=== PATIENT | female | born 1995 | race Caucasian/White ===

== ENCOUNTER 2021-08-10 04:29 | Emergency (ER) | payer BC, SELFPAY ==
[2021-08-10 04:35] VITALS: BP 156/102; PULSE 97; RESP 18; TEMP 36.6; O2SAT 97; BMI 38.3
--- NOTE | 2021-08-10 04:58 | ED.DENTAL ---
HPI - Dental/Oral General Chief complaint: Dental/Oral Stated complaint: Dental pain Time Seen by Provider: 08/10/21 04:58 Source: patient Mode of arrival: ambulatory Limitations: no limitations History of Present Illness HPI Narrative: Patient history of dental caries for last few days got worse tonight after she had pizza, plan to see dentist next week no swelling of the gum no cellulitis no fever no chills Related Data Previous Rx's Medication Instructions Recorded amoxicillin 875 mg-potassium 1 tab PO BID #20 tab 08/10/21 clavulanate 125 mg tablet (Augmentin) oxycodone-acetaminophen 5 mg-325 1 tab PO Q6H PRN #20 tab 08/10/21 mg tablet (Percocet) Allergies Allergy/AdvReac Type Severity Reaction Status Date / Time No Known Allergies Allergy Unverified 07/06/20 16:27 Review of Systems Review of Systems: Yes all other systems are reviewed and are negative PMFSH Social History Social History Advance Directives: No Patient : No Physical Exam Vital Signs: Vital Signs: Last Vital Signs Temp 97.8 F 08/10/21 04:35 Pulse 97 08/10/21 04:35 Resp 18 08/10/21 04:35 BP 156/102 H 08/10/21 04:35 Pulse Ox 97 08/10/21 04:35 Body Mass Index 38.3 Const: General: well developed and in distress mild Orientation/consciousness: patient oriented x3 HENMT: Mouth: Normal oral and palatal mucosa present Teeth and gingiva: gingiva normal Teeth image: 1. No: 21 caried tooth without any gum swelling sensitive to touch Resp: Effort & Inspection: normal respiratory effort Neuro: General: patient oriented x3 Discharge Plan Discharge Clinical Impression: Dental caries Patient Disposition: Home, Self-Care Instructions: Toothache (ED) Additional Instructions: Take pain medication antibiotic as prescribed and follow with dentist as scheduled Prescriptions: New oxycodone-acetaminophen [Percocet] 5-325 mg tablet 1 tab PO Q6H PRN (Reason: pain) Qty: 20 RF: 0 amoxicillin-pot clavulanate [Augmentin] 875-125 mg tablet 1 tab PO BID Qty: 20 RF: 0 Interventions: ED Discharge Assessment Last Done: 08/10/21 05:22 Discharge Date/Time: 08/10/21 05:23
[2021-08-10] MEDS: oxyCODONE HCl Immed Release 5 MG TABLET 10 MG PO (05:16)
[2021-08-10] MEDS: Amoxicillin/Potassium Clav 875 MG TABLET PO (05:18)
== END 2021-08-10 05:23 | disposition home or self-care (01) ==
PROVIDERS: Emergency Provider Internal Medicine
DX: K02.9 Dental caries, unspecified (principal); Z79.899 Other long term (current) drug therapy
CPT/HCPCS: 99283

== ENCOUNTER 2022-07-12 17:05 | Emergency (ER) | payer BC, SELFPAY ==
--- NOTE | ~2022-07-12 | XR_ITS ---
EXAMINATION: PORTABLE CHEST 1 VIEW CLINICAL INFORMATION: cough . COMPARISON: No recent pertinent prior studies are available for comparison. TECHNIQUE: Portable frontal view of the chest was obtained. FINDINGS: The lungs are hypoexpanded. No focal infiltrate, effusion, edema, or pneumothorax. Cardiac and mediastinal silhouettes are within normal limits for technique. No acute bony abnormality seen. XR/XR chest 1V IMPRESSION: No evidence of acute disease.
[2022-07-12 17:36] VITALS: BP 114/79; PULSE 83; RESP 18; TEMP 36.7; O2SAT 99; BMI 41.2
[2022-07-12 18:32] LABS: MANUAL DIFF FLAG NO
[2022-07-12 18:34] LABS: Basophils Absolute Auto 0.1 X10*3/uL (0.0-0.2); Basophils Percent Auto 0.4 % (0-2); Eosinophils Absolute Auto 0.5 X10*3/uL (0.0-0.4); Eosinophils Percent Auto 4.7 % (0-4); Hematocrit 41.2 % (37.0-47.0); Hemoglobin 13.8 g/dl (12.0-16.0); Imm Gran Abs Auto 0.04 X10*3/uL (0.00-0.03); Imm Gran Pct Auto 0.4 % (0.0-0.4); Lymphocytes Absolute Auto 3.1 X10*3/uL (1.2-4.9); Lymphocytes Percent Auto 27.5 % (20-40); Mean Corpuscular HGB Conc 33.5 g/dl (31.0-35.0); Mean Corpuscular Hemoglobin 28.9 pg (27.0-33.0); Mean Corpuscular Volume 86.4 fL (80.0-98.0); Mean Platelet Volume 10.7 fL (9.4-12.3); Monocytes Absolute Auto 0.5 X10*3/uL (0.1-1.2); Monocytes Percent Auto 4.6 % (2-11); Neutrophils Absolute Auto 7.1 x10*3/uL (2.0-8.3); Neutrophils Percent Auto 62.4 % (45-73); Platelet Count 290 X10*3/uL (160-400); Red Blood Count 4.77 X10*6/uL (4.20-5.50); Red Cell Distribution Width 13.2 % (11.0-16.0); White Blood Count 11.3 X10*3/uL (4.8-10.8)
[2022-07-12 18:52] LABS: Alanine Aminotransferase 24 U/L (0-31); Albumin Level 4.1 g/dL (3.5-5.0); Alkaline Phosphatase 68 U/L (39-117); Anion Gap 15 (12-20); Aspartate Amino Transferase 16 U/L (5-31); Bilirubin Total 0.8 mg/dL (0.0-1.0); Blood Urea Nitrogen 12 mg/dL (9-16); Calcium 9.3 mg/dL (8.4-10.2); Carbon Dioxide 24 mmol/L (22-29); Chloride 105 mmol/L (96-108); Creatinine Clr Calc Pharmacy 122.7; Estimated Glomerular Filt Rate > 60; Glucose Random 190 mg/dL (60-115); Potassium 3.6 mmol/L (3.3-5.1); Sodium 140 mmol/L (135-145); Total Protein 7.6 g/dL (6.5-8.0)
[2022-07-12 18:54] LABS: IDNOW Serial# 55D5AD1C
[2022-07-12 18:55] LABS: COVID-19 Test Negative (Negative)
== END 2022-07-12 20:48 | disposition left against medical advice (07) ==
PROVIDERS: Emergency Provider Emergency Medicine
DX: R05.9 Cough, unspecified (principal); R07.89 Other chest pain; J45.909 Unspecified asthma, uncomplicated; Z20.822 Contact with and (suspected) exposure to COVID-19; Z79.899 Other long term (current) drug therapy
CPT/HCPCS: 36415; 71045; 80053; 85025; 87635; 99281; 99283

== ENCOUNTER 2022-07-14 19:07 | Emergency (ER) | payer BC, SELFPAY ==
--- NOTE | ~2022-07-14 | XR_ITS ---
EXAMINATION: XR CHEST CLINICAL INFORMATION: Chest pain COMPARISON: Chest x-ray 07/12/2022 TECHNIQUE: Frontal view of the chest was obtained. FINDINGS: The lungs are clear. No airspace consolidation, pleural effusion, or pneumothorax. The cardiomediastinal silhouette is within normal limits. No acute osseous injury. Mild dextroconvex curvature of the thoracic spine. XR/XR chest 1V IMPRESSION: 1. No acute pulmonary process.
--- NOTE | ~2022-07-14 | CT_ITS ---
EXAMINATION: CTA CHEST PE STUDY CLINICAL INFORMATION: tachycardia, pain on inspiration COMPARISON: No pertinent prior studies are available for comparison. TECHNIQUE: Prior to contrast administration, noncontrast localization images were obtained. After the administration of 70 mL of Omnipaque nonionic IV contrast, contiguous thin slice helical images were obtained through the thorax. Reformatted MIP images in the coronal and sagittal planes were obtained at the acquisition workstation. This CT examination was performed using dose optimization techniques as appropriate, variously including the following: *Automated exposure control *Adjustment of mA and/or kV according to patient size (this includes techniques or standardized protocols for targeted exams where dose is matched to indication/reason for exam; i.e. extremities or head) *Use of iterative reconstruction technique DLP: 403 mGy-cm. FINDINGS: The bolus timing on this study was suboptimal but acceptable for visualization of the central pulmonary arterial tree. There are no intraluminal pulmonary arterial filling defects present to suggest central pulmonary embolism. Branch vessels are less well seen but no definitive distal pulmonary emboli appreciated The lungs are clear. No abnormal pulmonary nodules or masses are appreciated. No significant hilar or mediastinal adenopathy. There is no evidence of pleural effusion or pneumothorax. The heart is normal in size. No evidence of ventricular septal bowing or right heart strain. Great vessels are normal. Otherwise the mediastinum is unremarkable. There is no pericardial effusion or pericardial thickening. Limited evaluation of the upper abdominal viscera is unremarkable. CT/CT angio chest PE protocol IMPRESSION: No evidence for pulmonary emboli. No focal airspace disease. VTE: Negative
[2022-07-14 19:16] VITALS: BP 145/93; PULSE 88; RESP 18; TEMP 37.2; O2SAT 96; BMI 41.2
--- NOTE | 2022-07-14 19:20 | ECG_ITS ---
Test Reason : CHEST PAIN Blood Pressure : / mmHG Vent. Rate : 089 BPM Atrial Rate : 089 BPM P-R Int : 146 ms QRS Dur : 080 ms QT Int : 364 ms P-R-T Axes : 043 023 003 degrees QTc Int : 442 ms Normal sinus rhythm Nonspecific T wave abnormality Abnormal ECG No previous ECGs available Referred By: Generic ED Physician Electronically Signed By:LAMONT DIAZ
[2022-07-14 19:54] LABS: MANUAL DIFF FLAG NO
[2022-07-14 19:56] LABS: Basophils Absolute Auto 0.1 X10*3/uL (0.0-0.2); Basophils Percent Auto 0.7 % (0-2); Eosinophils Absolute Auto 0.6 X10*3/uL (0.0-0.4); Eosinophils Percent Auto 5.9 % (0-4); Hemoglobin 13.6 g/dl (12.0-16.0); Imm Gran Abs Auto 0.04 X10*3/uL (0.00-0.03); Imm Gran Pct Auto 0.4 % (0.0-0.4); Lymphocytes Absolute Auto 3.9 X10*3/uL (1.2-4.9); Lymphocytes Percent Auto 36.5 % (20-40); Mean Corpuscular Hemoglobin 29.2 pg (27.0-33.0); Mean Platelet Volume 10.7 fL (9.4-12.3); Monocytes Absolute Auto 0.5 X10*3/uL (0.1-1.2); Monocytes Percent Auto 4.3 % (2-11); Neutrophils Absolute Auto 5.5 x10*3/uL (2.0-8.3); Neutrophils Percent Auto 52.2 % (45-73); Platelet Count 281 X10*3/uL (160-400); Red Blood Count 4.65 X10*6/uL (4.20-5.50); Red Cell Distribution Width 13.2 % (11.0-16.0); White Blood Count 10.6 X10*3/uL (4.8-10.8)
[2022-07-14 20:11] LABS: COVID-19 Test Negative (Negative); IDNOW Serial# 16C4AD1C
[2022-07-14 20:24] LABS: Anion Gap 18 (12-20); Blood Urea Nitrogen 17 mg/dL (9-16); Calcium 9.6 mg/dL (8.4-10.2); Carbon Dioxide 21 mmol/L (22-29); Chloride 106 mmol/L (96-108); Creatinine Clr Calc Pharmacy 128.3; Estimated Glomerular Filt Rate > 60; Glucose Random 112 mg/dL (60-115); Potassium 3.8 mmol/L (3.3-5.1); Sodium 141 mmol/L (135-145)
[2022-07-14 20:32] LABS: Troponin-I High Sensitivity < 3.5 ng/L (<3.5-17.0)
[2022-07-14 21:14] VITALS: BP 146/73; PULSE 90; RESP 18; TEMP 36.7; O2SAT 97
--- NOTE | 2022-07-14 21:22 | ED.CHESTPAIN ---
HPI - Chest Pain General Chief Complaint: Chest Pain Stated Complaint: Chest pain/Asthma Time Seen by Provider: 07/14/22 23:27 Source: patient Mode of arrival: ambulatory Limitations: no limitations History of Present Illness HPI narrative: 26-year-old female presents with substernal chest pain for the past week. States that it hurts on inspiration, recently diagnosed with pneumonia and feels that the antibiotics are making things worse. She stopped taking the antibiotics today and has approximately 8 more days left. She was evaluated at a prior facility 3 days ago, presented yesterday to the emergency department however decided that the wait was too long for her to stay. She did not report hormone use, denies clotting factor deficiencies, and denies recent flights. While patient does have chest pain and tachycardia, patient denies fevers, chills, abdominal pain, abdominal distention, dysuria, hematuria, shortness of breath on exertion, and edema. MD complaint: chest pain and chest discomfort Pertinent past history: other (Pneumonia) Onset (ago): week(s) (1) Timing of current episode: constant, increasing and still present Prior episodes: Yes Onset: during rest Pain location: substernal Pain radiation: none Severity: severe Pain scale (0-10): 10 Quality: tightness, heaviness, sharp and tearing Relieving factors: nothing Exacerbating factors: inspiration and movement Context: new medications Associated symptoms: cough Treatment prior to arrival: none Risk Factors Coronary artery disease risk factors: none Thoracic aortic dissection risk factors: none Related Data On Oral Contraceptives: No Previous Rx's Medication Instructions Recorded amoxicillin 875 mg-potassium 1 tab PO BID #20 tabs 08/10/21 clavulanate 125 mg tablet (Augmentin) oxycodone-acetaminophen 5 mg-325 1 tab PO Q6H PRN pain #20 tabs 21 mg tablet (Percocet) Allergies Allergy/AdvReac Type Severity Reaction Status Date / Time No Known Allergies Allergy Verified 07/14/22 19:16 Review of Systems Review of Systems: Constitutional: No Fever, No Chills ENT/Mouth: No Ear Pain, No Hoarseness, No sore throat Eyes: No Eye Pain, No Swelling, No Redness, No Foreign Body Cardiovascular: Positive Chest Pain, No SOB Respiratory: Positive Cough, No Dyspnea Gastrointestinal: No Nausea, No Vomiting, No Diarrhea, No abdominal Pain Genitourinary: No Dysuria, No Hematuria Musculoskeletal: No joint pain, No Myalgias, No Joint Swelling Skin: No Skin lacerations, No rash Neuro: No Weakness, No Numbness, No Paresthesias, No Loss of Consciousness, No Dizziness, No Headache Psych: No Anxiety/Panic, No Depression Heme/Lymph: no easy bruising, no Lymphadenopathy Endocrine: No Polyuria, No Polydipsia Yes all other systems are reviewed and are negative [facility] Past Medical History Attestation statement: The following information was validated with the patient. Source: old records reviewed Social History Social History Patient Tobacco Use Status: Current everyday Tobacco user Smoked in Last 30 Days: Yes Use of substances other than those prescribed or required for medical reasons: Yes Substance Use Type: Marijuana Advance Directives: No Advance Directives Information Provided: No Patient : No Physical Exam Vital Signs: Vital Signs: Last Vital Signs Temp 97.8 F 07/15/22 00:48 Pulse 84 07/15/22 00:48 Resp 18 07/15/22 00:48 BP 110/61 07/15/22 00:48 Pulse Ox 98 07/15/22 00:48 O2 Del Method 07/15/22 00:48 BMI result Body Mass Index 41.2 Appearance: Alert. Oriented X3. No acute distress. Eyes: Pupils equal, round and reactive to light. ENT: Pharynx normal. Neck: Normal inspection. Neck supple. CVS: Tachycardic heart rate and rhythm. Apical pulse equal to pulses to extremities. Chest wall nontender to palpation. Respiratory: No respiratory distress. Lung sounds clear to auscultation all lobes. Abdomen: Soft and nontender. Skin: Skin warm and dry. Normal skin color. Normal skin turgor. Extremities: No lower extremity edema. Gait well-balanced well coordinated. Neuro: No motor deficit. No sensory deficit. Cranial nerves 2-12 intact. Course Course Course Narrative: 26-year-old female presents for 1 week of substernal chest pain that is sharp, stabbing, tight pressure that feels like there is ripping in her chest. She is on doxycycline however stopped taking it today because she felt like the medication was making her symptoms worse. She states that she felt like she was going to last night and did present to the emergency department but did not want to wait. She presents today with worsening symptoms. Patient appears nontoxic, afebrile, speaking in complete sentences, even unlabored respirations, with even steady gait. Patient is tachycardic between 110 and 120 during my assessment. Patient denies recent travel, clotting factor deficiencies, hormone use, and denies being immunocompromised. Based on patient's complaints, will order CT PE study. Labs drawn while patient was in the emergency department waiting room, with a negative troponin, normal CBC, and a BUN of 17. I did discuss this plan in detail with the patient, home agrees to plan of care. 23:17 CTA negative. I did encourage patient to continue her antibiotics as prescribed, gave her a work note, and requested that she follow up with her primary care physician. Patient verbalized understanding of and agrees plan of care discharge home patient verbalized understanding of signs symptoms indicating need for emergent intervention. MDM - Chest Pain Differential Diagnosis Differential diagnosis: Likely fracture of rib, pneumothorax, stable angina, unstable angina pectoris, atypical chest pain, st elevation myocardial infarction, costochondritis and chest pain Differential diagnosis: PE Medical Records Data Attestation: I reviewed the patient's medical records. Lab Data Attestation: I reviewed the patient's lab results. Result diagrams: 07/14/22 19:49 07/14/22 19:49 Labs: Lab Results 07/14/22 07/14/22 07/14/22 Range/Units 19:49 19:49 19:49 WBC 10.6 (4.8-10.8) X10*3/uL RBC 4.65 (4.20-5.50) X10*6/uL Hgb 13.6 (12.0-16.0) g/dl Hct 40.0 (37.0-47.0) % MCV 86.0 (80.0-98.0) fL MCH 29.2 (27.0-33.0) pg MCHC 34.0 (31.0-35.0) g/dl RDW 13.2 (11.0-16.0) % Plt Count 281 (160-400) X10*3/uL MPV 10.7 (9.4-12.3) fL Immature Gran % (Auto) 0.4 (0.0-0.4) % Neut % (Auto) 52.2 (45-73) % Lymph % (Auto) 36.5 (20-40) % [place] % (Auto) 4.3 (2-11) % Eos % (Auto) 5.9 H (0-4) % Baso % (Auto) 0.7 (0-2) % Lymph # (Auto) 3.9 (1.2-4.9) X10*3/uL [place] # (Auto) 0.5 (0.1-1.2) X10*3/uL Eos # (Auto) 0.6 H (0.0-0.4) X10*3/uL Baso # (Auto) 0.1 (0.0-0.2) X10*3/uL Abs Immat Gran (auto) 0.04 H (0.00-0.03) X10*3/uL Absolute Neuts (auto) 5.5 (2.0-8.3) x10*3/uL Absolute Nucleated RBC 0.000 (0.0-0.012) X10*3/uL Nucleated RBC % (auto) 0.0 (0.0-0.2) /100WBC Sodium 141 (135-145) mmol/L Potassium 3.8 (3.3-5.1) mmol/L Chloride 106 (96-108) mmol/L Carbon Dioxide 21 L (22-29) mmol/L Anion Gap 18 (12-20) BUN 17 H (9-16) mg/dL Creatinine 0.66 (0.5-1.4) mg/dL Estim Creat Clear Calc 128.3 Estimated GFR > 60 Random Glucose 112 (60-115) mg/dL Lactic Acid (0.5-2.0) mmol/L Calcium 9.6 (8.4-10.2) mg/dL Total Bilirubin 0.6 (0.0-1.0) mg/dL Direct Bilirubin 0.2 (0.0-0.5) mg/dL AST 17 (5-31) U/L ALT 23 (0-31) U/L Alkaline Phosphatase 78 (39-117) U/L Troponin I High Sens < 3.5 (<3.5-17.0) ng/L Total Protein 7.9 (6.5-8.0) g/dL Albumin 4.3 (3.5-5.0) g/dL Lipase 21 (8-78) U/L COVID-19 (MILA) (Negative) COVID-19 Clin Com 07/14/22 07/14/22 Range/Units 19:49 22:03 WBC (4.8-10.8) X10*3/uL RBC (4.20-5.50) X10*6/uL Hgb (12.0-16.0) g/dl Hct (37.0-47.0) % MCV (80.0-98.0) fL MCH (27.0-33.0) pg MCHC (31.0-35.0) g/dl RDW (11.0-16.0) % Plt Count (160-400) X10*3/uL MPV (9.4-12.3) fL Immature Gran % (Auto) (0.0-0.4) % Neut % (Auto) (45-73) % Lymph % (Auto) (20-40) % [place] % (Auto) (2-11) % Eos % (Auto) (0-4) % Baso % (Auto) (0-2) % Lymph # (Auto) (1.2-4.9) X10*3/uL [place] # (Auto) (0.1-1.2) X10*3/uL Eos # (Auto) (0.0-0.4) X10*3/uL Baso # (Auto) (0.0-0.2) X10*3/uL Abs Immat Gran (auto) (0.00-0.03) X10*3/uL Absolute Neuts (auto) (2.0-8.3) x10*3/uL Absolute Nucleated RBC (0.0-0.012) X10*3/uL Nucleated RBC % (auto) (0.0-0.2) /100WBC Sodium (135-145) mmol/L Potassium (3.3-5.1) mmol/L Chloride (96-108) mmol/L Carbon Dioxide (22-29) mmol/L Anion Gap (12-20) BUN (9-16) mg/dL Creatinine (0.5-1.4) mg/dL Estim Creat Clear Calc Estimated GFR Random Glucose (60-115) mg/dL Lactic Acid 0.9 (0.5-2.0) mmol/L Calcium (8.4-10.2) mg/dL Total Bilirubin (0.0-1.0) mg/dL Direct Bilirubin (0.0-0.5) mg/dL AST (5-31) U/L ALT (0-31) U/L Alkaline Phosphatase (39-117) U/L Troponin I High Sens (<3.5-17.0) ng/L Total Protein (6.5-8.0) g/dL Albumin (3.5-5.0) g/dL Lipase (8-78) U/L COVID-19 (MILA) Negative (Negative) COVID-19 Clin Com See Note Imaging Data Chest x-ray: Attestation: I personally reviewed and interpreted this imaging study as follows: Radiologist's impression: EXAMINATION: XR CHEST CLINICAL INFORMATION: Chest pain COMPARISON: Chest x-ray 07/12/2022 TECHNIQUE: Frontal view of the chest was obtained. FINDINGS: The lungs are clear. No airspace consolidation, pleural effusion, or pneumothorax. The cardiomediastinal silhouette is within normal limits. No acute osseous injury. Mild dextroconvex curvature of the thoracic spine. XR/XR chest 1V IMPRESSION: ? 1. No acute pulmonary process. ? CT PE: Attestation: I personally reviewed and interpreted this imaging study as follows: Radiologist's impression: FINDINGS: The bolus timing on this study was suboptimal but acceptable for visualization of the central pulmonary arterial tree. There are no intraluminal pulmonary arterial filling defects present to suggest central pulmonary embolism. Branch vessels are less well seen but no definitive distal pulmonary emboli appreciated The lungs are clear. No abnormal pulmonary nodules or masses are appreciated. No significant hilar or mediastinal adenopathy.? There is no evidence of pleural effusion or pneumothorax. The heart is normal in size. No evidence of ventricular septal bowing or right heart strain. Great vessels are normal. Otherwise the mediastinum is unremarkable.? There is no pericardial effusion or pericardial thickening. Limited evaluation of the upper abdominal viscera is unremarkable. CT/CT angio chest PE protocol IMPRESSION: No evidence for pulmonary emboli. No focal airspace disease. ? VTE: Negative ECG Data ECG #1: Attestation: I personally reviewed and interpreted this ECG as follows: ECG interpretation date: 07/14/22 ECG interpretation time: 19:38 Prior ECG tracings: not available for review Interpretation: Vent. rate 89 BPM SC interval 146 ms QRS duration 80 ms QT/QTc 364/442 ms P-R-T axes 43 23 3 Normal sinus rhythm Nonspecific T wave abnormality Abnormal ECG No previous ECGs available Discharge Plan Discharge Clinical Impression: Atypical chest pain Patient Disposition: Home, Self-Care Instructions: Noncardiac Chest Pain (ED) Additional Instructions: You were evaluated for chest pain. CT PE study is negative for blood clots. Your cardiac workup was negative. Please continue to take antibiotics as prescribed. Thank you for choosing this emergency department for evaluation. Please follow-up with primary care physician as needed. Return to the emergency department for any new, concerning, or worsening symptoms. Prescriptions: No Action oxycodone-acetaminophen [Percocet] 5-325 mg tablet 1 tab PO Q6H PRN (Reason: pain) Qty: 20 0RF amoxicillin-pot clavulanate [Augmentin] 875-125 mg tablet 1 tab PO BID Qty: 20 0RF Stand Alone Forms: Work/School Release Interventions: ED Discharge Assessment Last Done: 07/15/22 00:53 Discharge Date/Time: 07/15/22 00:54
[2022-07-14 21:41] LABS: Alanine Aminotransferase 23 U/L (0-31); Albumin Level 4.3 g/dL (3.5-5.0); Alkaline Phosphatase 78 U/L (39-117); Aspartate Amino Transferase 17 U/L (5-31); Bilirubin Direct 0.2 mg/dL (0.0-0.5); Bilirubin Total 0.6 mg/dL (0.0-1.0); Lipase 21 U/L (8-78); Total Protein 7.9 g/dL (6.5-8.0)
[2022-07-14 22:00] VITALS: BP 161/99; PULSE 100; RESP 18; O2SAT 98
[2022-07-14] MEDS: methylPREDNISolone Sod Succ 125 MG/2 ML VIAL IVPUSH (22:12)
--- NOTE | 2022-07-14 22:16 | PC.NURSE ---
patient a&ox3, iv inserted, labs drawn, pt medicated per order, vss, pt speaking in full sentences, call zuluaga within reach, will continue to monitor
[2022-07-14 22:24] LABS: Lactic Acid 0.9 mmol/L (0.5-2.0)
[2022-07-14] MEDS: Albuterol Sulfate 2.5 MG, Albuterol Sulfate (0.083%) 2.5 MG 5 MG INHALE (22:33)
[2022-07-14 22:35] VITALS: PULSE 100; RESP 18; O2SAT 96
[2022-07-14] MEDS: iohexoL 350 MG/ML 100 ML INFUS..BTL IV (22:37)
[2022-07-15 00:48] VITALS: BP 110/61; PULSE 84; RESP 18; TEMP 36.6; O2SAT 98
== END 2022-07-15 00:54 | disposition home or self-care (01) ==
PROVIDERS: Nurse Practitioner Family; Emergency Provider Student in an Organized Health Care Education/Training Program
DX: R07.89 Other chest pain (principal); F12.90 Cannabis use, unspecified, uncomplicated; F17.200 Nicotine dependence, unspecified, uncomplicated; Z20.822 Contact with and (suspected) exposure to COVID-19; Z79.899 Other long term (current) drug therapy; Z71.6 Tobacco abuse counseling
CPT/HCPCS: 36415; 71045; 71275; 80048; 80076; 83605; 83690; 84484; 85025; 87040; 87635; 93005; 94640; 99285; J2930; Q9967

== ENCOUNTER 2022-10-10 14:46 | Emergency (ER) | payer BC, SELFPAY ==
[2022-10-10 15:20] VITALS: BP 173/109; PULSE 107; RESP 20; TEMP 37.3; O2SAT 97; BMI 42.6
--- NOTE | 2022-10-10 15:22 | ED_ITS ---
HPI - Female Genitourinary General Chief complaint: Vaginal Bleeding Stated complaint: heavy vaginal bleeding after 3 procedures today Time Seen by Provider: 10/10/22 15:59 Related Data Previous Rx's Medication Instructions Recorded amoxicillin 875 mg-potassium 1 tab PO BID #20 tabs 08/10/21 clavulanate 125 mg tablet (Augmentin) oxycodone-acetaminophen 5 mg-325 1 tab PO Q6H PRN pain #20 tabs 08/10/21 mg tablet (Percocet) Allergies Allergy/AdvReac Type Severity Reaction Status Date / Time No Known Allergies Allergy Verified 07/14/22 19:16 COUNTS INCLUDE 234 BEDS AT THE [facility] Social History Social History Patient Tobacco Use Status: Current everyday Tobacco user Substance Use Type: Marijuana Advance Directives: No Advance Directives Information Provided: Yes Physical Exam Vital Signs: Vital Signs: Last Vital Signs Temp 99.9 F 10/10/22 19:03 Pulse 116 H 10/10/22 19:03 Resp 16 10/10/22 19:03 BP 163/106 H 10/10/22 19:03 Pulse Ox 97 10/10/22 15:45 O2 Del Method 10/10/22 15:45 BMI result Body Mass Index 42.6 Course Course Course Narrative: REM: 27 yold female presents to the ED for profuse vaginal bleeding/bleeding 5 pads per hour since having cervical biopsy this morning. Vital stable, but labs ordered and patient will be brought in by charge nurse Medications Administered Discontinued Medications Generic Name Dose Route Start Last Admin Trade Name Freq PRN Reason Stop Dose Admin Fentanyl 25 mcg 10/10/22 19:56 10/10/22 20:03 Fentanyl Citrate/Pf 100 Mcg/2 Ml Vial IVPUSH 10/10/22 19:57 25 mcg ONCE ONE Administration Protocol Ferric Subsulfate 1 appl 10/10/22 19:14 10/10/22 20:19 Ferric Subsulfate 8 Ml Fiona.W.Appl TOPICAL 10/10/22 19:15 1 appl ONCE ONE Administration Ferric Subsulfate 1 appl 10/10/22 19:29 10/10/22 20:20 Ferric Subsulfate 8 Ml Fiona.W.Appl TOPICAL 10/10/22 19:30 1 appl ONCE ONE Administration Sodium Chloride 1,000 mls @ 999 mls/hr 10/10/22 18:30 10/10/22 20:08 Ns IV 10/10/22 19:30 999 mls/hr .Q1H1M ANNAMARIA Administration Midazolam HCl 1 mg 10/10/22 19:11 10/10/22 19:14 Midazolam Hcl/Pf 2 Mg/2 Ml Vial IVPUSH 10/10/22 19:12 1 mg ONCE ONE Administration Silver Nitrate 1 appl 10/10/22 19:17 10/10/22 20:19 Silver Nitrate Applicator Stick..Ea. TOPICAL 10/10/22 19:18 1 appl ONCE ONE Administration Medical Decision Making Lab Data Result Diagrams: 10/10/22 18:45 10/10/22 15:36 Labs: Lab Results 10/10/22 10/10/22 10/10/22 Range/Units 15:36 15:36 15:36 WBC 9.9 (4.8-10.8) X10*3/uL RBC 4.57 (4.20-5.50) X10*6/uL Hgb 13.6 (12.0-16.0) g/dl Hct 39.8 (37.0-47.0) % MCV 87.1 (80.0-98.0) fL MCH 29.8 (27.0-33.0) pg MCHC 34.2 (31.0-35.0) g/dl RDW 12.9 (11.0-16.0) % Plt Count 284 (160-400) X10*3/uL MPV 11.2 (9.4-12.3) fL Immature Gran % (Auto) 0.3 (0.0-0.4) % Neut % (Auto) 60.1 (45-73) % Lymph % (Auto) 29.4 (20-40) % Sanders % (Auto) 6.2 (2-11) % Eos % (Auto) 3.5 (0-4) % Baso % (Auto) 0.5 (0-2) % Lymph # (Auto) 2.9 (1.2-4.9) X10*3/uL Sanders # (Auto) 0.6 (0.1-1.2) X10*3/uL Eos # (Auto) 0.3 (0.0-0.4) X10*3/uL Baso # (Auto) 0.1 (0.0-0.2) X10*3/uL Abs Immat Gran (auto) 0.03 (0.00-0.03) X10*3/uL Absolute Neuts (auto) 5.9 (2.0-8.3) x10*3/uL Absolute Nucleated RBC 0.000 (0.0-0.012) X10*3/uL Nucleated RBC % (auto) 0.0 (0.0-0.2) /100WBC PT 12.1 (10.0-13.1) SEC INR 1.1 (0.9-1.1) APTT 34.0 (26.0-36.4) SEC Sodium 140 (135-145) mmol/L Potassium 3.7 (3.3-5.1) mmol/L Chloride 105 (96-108) mmol/L Carbon Dioxide 26 (22-29) mmol/L Anion Gap 13 (12-20) BUN 13 (9-16) mg/dL Creatinine 0.78 (0.5-1.4) mg/dL Estim Creat Clear Calc 109.7 Estimated GFR > 60 Random Glucose 112 (60-115) mg/dL Calcium 9.2 (8.4-10.2) mg/dL Total Bilirubin 0.9 (0.0-1.0) mg/dL AST 23 (5-31) U/L ALT 34 H (0-31) U/L Alkaline Phosphatase 77 (39-117) U/L Total Protein 7.7 (6.5-8.0) g/dL Albumin 4.2 (3.5-5.0) g/dL Beta HCG, Quant mIU/mL Blood Type Antibody Screen Crossmatch 10/10/22 10/10/22 10/10/22 Range/Units 15:36 17:25 18:45 WBC 10.2 (4.8-10.8) X10*3/uL RBC 4.48 (4.20-5.50) X10*6/uL Hgb 13.2 (12.0-16.0) g/dl Hct 38.8 (37.0-47.0) % MCV 86.6 (80.0-98.0) fL MCH 29.5 (27.0-33.0) pg MCHC 34.0 (31.0-35.0) g/dl RDW 12.8 (11.0-16.0) % Plt Count 276 (160-400) X10*3/uL MPV 11.3 (9.4-12.3) fL Immature Gran % (Auto) 0.4 (0.0-0.4) % Neut % (Auto) 60.7 (45-73) % Lymph % (Auto) 28.5 (20-40) % Sanders % (Auto) 6.3 (2-11) % Eos % (Auto) 3.5 (0-4) % Baso % (Auto) 0.6 (0-2) % Lymph # (Auto) 2.9 (1.2-4.9) X10*3/uL Sanders # (Auto) 0.6 (0.1-1.2) X10*3/uL Eos # (Auto) 0.4 (0.0-0.4) X10*3/uL Baso # (Auto) 0.1 (0.0-0.2) X10*3/uL Abs Immat Gran (auto) 0.04 H (0.00-0.03) X10*3/uL Absolute Neuts (auto) 6.2 (2.0-8.3) x10*3/uL Absolute Nucleated RBC 0.000 (0.0-0.012) X10*3/uL Nucleated RBC % (auto) 0.0 (0.0-0.2) /100WBC PT (10.0-13.1) SEC INR (0.9-1.1) APTT (26.0-36.4) SEC Sodium (135-145) mmol/L Potassium (3.3-5.1) mmol/L Chloride (96-108) mmol/L Carbon Dioxide (22-29) mmol/L Anion Gap (12-20) BUN (9-16) mg/dL Creatinine (0.5-1.4) mg/dL Estim Creat Clear Calc Estimated GFR Random Glucose (60-115) mg/dL Calcium (8.4-10.2) mg/dL Total Bilirubin (0.0-1.0) mg/dL AST (5-31) U/L ALT (0-31) U/L Alkaline Phosphatase (39-117) U/L Total Protein (6.5-8.0) g/dL Albumin (3.5-5.0) g/dL Beta HCG, Quant < 2 mIU/mL Blood Type O Positive Antibody Screen NEGATIVE Crossmatch See Detail Discharge Plan Discharge Clinical Impression: Episode of heavy vaginal bleeding Patient Disposition: Home, Self-Care Instructions: Dysfunctional Uterine Bleeding (ED), Menorrhagia (ED) Additional Instructions: Take your medications as prescribed. If you were prescribed antibiotics today, it is important that you take your medication to their entirety, do not skip any doses, do not finish them early. Follow-up with your primary care provider this week. Return to the emergency department with new or worsening symptoms. Such as fevers, chills, chest pain, shortness of breath, nausea, vomiting, dizziness, headache, vision changes, lethargy In case of emergency call 911 You need to return to the emergency department immediately if you experience severe abdominal pain, pelvic pain, severe vaginal bleeding or bleeding through more than 2 pads an hour. You may note scant yellow/brown/red discharge this may be normal. Please do not insert tampons into her vagina, no intercourse for a few weeks until medically cleared by an client delivery specialist. Please follow-up with OBGYN as soon as possible Take Tylenol as needed for pain. Do not exceed maximum daily dose is listed on the bottle. US/US pelvic complete IMPRESSION: There is heterogeneous abnormal echogenicity distending the region of the vagina. This could represent hematoma. ? The endometrium is prominent. There is a hypoechoic area adjacent to the posterior right side of the lower uterine segment which could be related to the right ovary. ? Transvaginal scanning was not performed Prescriptions: No Action oxycodone-acetaminophen [Percocet] 5-325 mg tablet 1 tab PO Q6H PRN (Reason: pain) Qty: 20 0RF amoxicillin-pot clavulanate [Augmentin] 875-125 mg tablet 1 tab PO BID Qty: 20 0RF Referrals: Physician,None [Primary Care Provider] - 2 days Aris Boucher MD [Physician] - 1 day Stand Alone Forms: Work/School Release Interventions: ED Discharge Assessment Last Done: 10/10/22 20:42 Discharge Date/Time: 10/10/22 21:04
[2022-10-10 15:45] VITALS: BP 100/78; PULSE 93; RESP 18; O2SAT 97
[2022-10-10 15:47] LABS: MANUAL DIFF FLAG NO
[2022-10-10 15:53] LABS: Basophils Absolute Auto 0.1 X10*3/uL (0.0-0.2); Basophils Percent Auto 0.5 % (0-2); Eosinophils Absolute Auto 0.3 X10*3/uL (0.0-0.4); Eosinophils Percent Auto 3.5 % (0-4); Hematocrit 39.8 % (37.0-47.0); Hemoglobin 13.6 g/dl (12.0-16.0); Imm Gran Abs Auto 0.03 X10*3/uL (0.00-0.03); Imm Gran Pct Auto 0.3 % (0.0-0.4); Lymphocytes Absolute Auto 2.9 X10*3/uL (1.2-4.9); Lymphocytes Percent Auto 29.4 % (20-40); Mean Corpuscular HGB Conc 34.2 g/dl (31.0-35.0); Mean Corpuscular Hemoglobin 29.8 pg (27.0-33.0); Mean Corpuscular Volume 87.1 fL (80.0-98.0); Mean Platelet Volume 11.2 fL (9.4-12.3); Monocytes Absolute Auto 0.6 X10*3/uL (0.1-1.2); Monocytes Percent Auto 6.2 % (2-11); Neutrophils Absolute Auto 5.9 x10*3/uL (2.0-8.3); Neutrophils Percent Auto 60.1 % (45-73); Platelet Count 284 X10*3/uL (160-400); Red Blood Count 4.57 X10*6/uL (4.20-5.50); Red Cell Distribution Width 12.9 % (11.0-16.0); White Blood Count 9.9 X10*3/uL (4.8-10.8)
[2022-10-10 15:55] LABS: INTERNATIONAL NORM RATIO 1.1 (0.9-1.1); Prothrombin Time 12.1 SEC (10.0-13.1)
[2022-10-10 16:06] LABS: Alanine Aminotransferase 34 U/L (0-31); Albumin Level 4.2 g/dL (3.5-5.0); Alkaline Phosphatase 77 U/L (39-117); Anion Gap 13 (12-20); Aspartate Amino Transferase 23 U/L (5-31); Bilirubin Total 0.9 mg/dL (0.0-1.0); Blood Urea Nitrogen 13 mg/dL (9-16); Calcium 9.2 mg/dL (8.4-10.2); Carbon Dioxide 26 mmol/L (22-29); Chloride 105 mmol/L (96-108); Creatinine Clr Calc Pharmacy 109.7; Estimated Glomerular Filt Rate > 60; Glucose Random 112 mg/dL (60-115); Potassium 3.7 mmol/L (3.3-5.1); Sodium 140 mmol/L (135-145); Total Protein 7.7 g/dL (6.5-8.0)
--- NOTE | 2022-10-10 16:09 | ED.FEMALEGU ---
HPI - Female Genitourinary General Chief complaint: Vaginal Bleeding Stated complaint: heavy vaginal bleeding after 3 procedures today Time Seen by Provider: 10/10/22 15:59 Source: patient Mode of arrival: ambulatory Limitations: no limitations History of Present Illness HPI Narrative: This is a 27-year-old female history of obesity presenting to the emergency department with heavy vaginal bleeding since this morning. According to patient she had an appointment with OBGYN, they did 3 separate procedures on her, patient unsure of a procedures they did on her. She tells me she goes to [facility] in [place]. Unsure of her provider's name. She tells me that ever since the procedures she has been having heavy vaginal bleeding reports passing dark red blood, going through greater than 5 pads per hour. She tells me she is also passing blood with clots the size of her fist. Patient reports that she has not had a period for a long time. Vague complaints of abdominal cramping that is intermittent in nature however she tells me nothing severe. Patient tells me prior to having the procedure done she had no vaginal bleeding. She tells me she does not think she is . Patient denies fevers, chills, nausea, vomiting, chest pain, shortness of breath, dizziness, weakness, vision changes. Related Data Previous Rx's Medication Instructions Recorded amoxicillin 875 mg-potassium 1 tab PO BID #20 tabs 08/10/21 clavulanate 125 mg tablet (Augmentin) oxycodone-acetaminophen 5 mg-325 1 tab PO Q6H PRN pain #20 tabs 08/10/21 mg tablet (Percocet) Allergies Allergy/AdvReac Type Severity Reaction Status Date / Time No Known Allergies Allergy Verified 07/14/22 19:16 Review of Systems Review of Systems: Constitutional : No Weight loss, No Fever, No Chills, No Fatigue, No Malaise ENT/Mouth : No sore throat, No Rhinorrhea Eyes: No Eye Pain, No Swelling, No Redness Cardiovascular : No Chest Pain, No SOB, No Dyspnea on Exertion, No Orthopnea, No Edema, No Palpitations Respiratory : No Cough, No Sputum, No Wheezing Gastrointestinal : No Nausea, No Vomiting, No Diarrhea, No Constipation, No abdominal Pain, No Hematochezia, No Melena Genitourinary : No Dysuria, No Urinary Frequency, No Hematuria, + vaginal bleeding Musculoskeletal : No joint pain, No Myalgias, No Joint Swelling Skin : No Skin Lesions, No rash Neuro : No Weakness, No Numbness, No Dizziness, No Headache Psych : No Anxiety/Panic, No Depression All other systems reviewed and are negative Yes all other systems are reviewed and are negative [facility] Past Medical History Attestation statement: The following information was validated with the patient. Source: old records reviewed and nursing notes reviewed Social History Social History Patient Tobacco Use Status: Current everyday Tobacco user Substance Use Type: Marijuana Advance Directives: No Advance Directives Information Provided: Yes Physical Exam Vital Signs: Vital Signs: Last Vital Signs Temp 99.9 F 10/10/22 19:03 Pulse 116 H 10/10/22 19:03 Resp 16 10/10/22 19:03 BP 163/106 H 10/10/22 19:03 Pulse Ox 97 10/10/22 15:45 O2 Del Method 10/10/22 15:45 BMI result Body Mass Index 42.6 Vital signs stable Appearance: Alert.? Oriented X3.? No acute distress.? Head: Normocephalic, atraumatic, no step-offs or deformities Eyes: Pupils equal, round and reactive to light.? ENT: Pharynx normal.? Neck: Normal inspection.? Neck supple.? CVS: Normal heart rate and rhythm.? Pulses normal.? Respiratory: No respiratory distress.? Breath sounds normal.? Abdomen: Soft and nontender.? Skin: Skin warm and dry.? Normal skin color.? Normal skin turgor.? Extremities: No lower extremity edema.? No calf ttp. 5/5 strength to bilateral upper and lower extremities Sensitive: Large amount of blood noted in the vaginal canal w/ large dark red blood difficulty visualizing cervix or site of bleeding (applied pressure for a few minutes bleeding continues). Back: No midline tenderness, no C-spine tenderness, full range of motion, no CVA tenderness bilaterally Neuro: Oriented X 3.? No motor deficit.? No sensory deficit. CN 2-12 intact Course Course Course Narrative: 1611 I was able to speak with Dr. Fred Krishnan from [facility] in [place]. Tells me patient had an apt at 9:00 am where she had a abnormal pap smear done patient had three procedures done per MD. She tells me they were done around 9:45 am. Attempted endometrial bx, however shes unsure if she made it to the endometrium. She also did a endocervical curettage and a colposcopy with biopsy at the 6 o'clock position where Monsel's solution was applied, after solution applied it appeared to be hemostatic. Tells me that some bleeding as normal however heavy vaginal bleeding is not normal. He tells me it could be related to the biopsy that was done at the 06:00 o'clock site, tells me it may need silver nitrate or pressure or Monsel's solution. She reports that also may be patient's menses starting. Reevaluation(s) Reevaluation #1: CBC within normal limits x2, no signs of acute blood loss anemia. Patient without symptoms such as dizziness, weakness, headache, lightheadedness. On the equipment monitor phototypesetting continues to be tachycardic however this could be secondary to anxiety. Chemistry with no acute findings. Beta hCG negative. Coags within normal limits. Pelvic ultrasound reveals a heterogeneous abnormal echogenicity distending the region of the vagina which could represent hematoma. Endometrium is prominent. I did reach out to Dr. Citlaly NOLAND to please come in and evaluate the patient she continued to have heavy vaginal bleeding despite pressure. When he came in due to patient's H&H being stable he recommended discontinuation of blood. Blood was stopped. Doctors are be applied pressure to the area and used silver nitrate initially to try to stop the bleeding. Then he used a Monsel's solution to help stop bleeding. Patient tolerated procedure well. I have observed patient for at least 30 minutes after procedure and she is not bleeding. She is hemodynamically stable. Feeling well. Having slight abdominal cramping which she was having before. Will give fentanyl for pain as patient has a soft blood pressure Time: 19:56 Reevaluation #2: Only improved pain. Patient appears comfortable. I went over worrisome signs and symptoms and when to return with patient. Patient no longer bleeding has not had to change her pad since procedure was done by [facility]. At this time patient will be discharged home as recommended by Dr. Citlaly Laguna, advised to return with new or worrisome signs and symptoms, educated her on worrisome signs and symptoms and when to return. At this time I feel comfortable discharge. Time: 20:32 Medications Administered Discontinued Medications Generic Name Dose Route Start Last Admin Trade Name Debbie PRN Reason Stop Dose Admin Fentanyl 25 mcg 10/10/22 19:56 10/10/22 20:03 Fentanyl Citrate/Pf 100 Mcg/2 Ml Vial IVPUSH 10/10/22 19:57 25 mcg ONCE ONE Administration Protocol Ferric Subsulfate 1 appl 10/10/22 19:14 10/10/22 20:19 Ferric Subsulfate 8 Ml Fiona.W.Appl TOPICAL 10/10/22 19:15 1 appl ONCE ONE Administration Ferric Subsulfate 1 appl 10/10/22 19:29 10/10/22 20:20 Ferric Subsulfate 8 Ml Fiona.W.Appl TOPICAL 10/10/22 19:30 1 appl ONCE ONE Administration Sodium Chloride 1,000 mls @ 999 mls/hr 10/10/22 18:30 10/10/22 20:08 Ns IV 10/10/22 19:30 999 mls/hr .Q1H1M ANNAMARIA Administration Midazolam HCl 1 mg 10/10/22 19:11 10/10/22 19:14 Midazolam Hcl/Pf 2 Mg/2 Ml Vial IVPUSH 10/10/22 19:12 1 mg ONCE ONE Administration Silver Nitrate 1 appl 10/10/22 19:17 10/10/22 20:19 Silver Nitrate Applicator Stick..Ea. TOPICAL 10/10/22 19:18 1 appl ONCE ONE Administration Medical Decision Making Medical Decision Making MDM Narrative: 1600 27-year-old female presents with heavy vaginal bleeding reports bleeding through greater than 5 pads per hour, reports passing clots the size of her fist. This bleeding started this morning has not subsided. Followed by [facility] in [place] Physical examination with heavy vaginal bleeding making it difficult to visualize the cervical os, pressure was applied however despite pressure bleeding continued. No abdominal pain on palpation. Concerns for postprocedural bleeding/arterial bleed Plan is to obtain basic labs, type and screen, ultrasound. Will try to obtain records from [facility] and speak to the provider she saw or provider on-call. Lab Data Result Diagrams: 10/10/22 18:45 10/10/22 15:36 Labs: Lab Results 10/10/22 10/10/22 10/10/22 Range/Units 15:36 15:36 15:36 WBC 9.9 (4.8-10.8) X10*3/uL RBC 4.57 (4.20-5.50) X10*6/uL Hgb 13.6 (12.0-16.0) g/dl Hct 39.8 (37.0-47.0) % MCV 87.1 (80.0-98.0) fL MCH 29.8 (27.0-33.0) pg MCHC 34.2 (31.0-35.0) g/dl RDW 12.9 (11.0-16.0) % Plt Count 284 (160-400) X10*3/uL MPV 11.2 (9.4-12.3) fL Immature Gran % (Auto) 0.3 (0.0-0.4) % Neut % (Auto) 60.1 (45-73) % Lymph % (Auto) 29.4 (20-40) % Wetzel % (Auto) 6.2 (2-11) % Eos % (Auto) 3.5 (0-4) % Baso % (Auto) 0.5 (0-2) % Lymph # (Auto) 2.9 (1.2-4.9) X10*3/uL Wetzel # (Auto) 0.6 (0.1-1.2) X10*3/uL Eos # (Auto) 0.3 (0.0-0.4) X10*3/uL Baso # (Auto) 0.1 (0.0-0.2) X10*3/uL Abs Immat Gran (auto) 0.03 (0.00-0.03) X10*3/uL Absolute Neuts (auto) 5.9 (2.0-8.3) x10*3/uL Absolute Nucleated RBC 0.000 (0.0-0.012) X10*3/uL Nucleated RBC % (auto) 0.0 (0.0-0.2) /100WBC PT 12.1 (10.0-13.1) SEC INR 1.1 (0.9-1.1) APTT 34.0 (26.0-36.4) SEC Sodium 140 (135-145) mmol/L Potassium 3.7 (3.3-5.1) mmol/L Chloride 105 (96-108) mmol/L Carbon Dioxide 26 (22-29) mmol/L Anion Gap 13 (12-20) BUN 13 (9-16) mg/dL Creatinine 0.78 (0.5-1.4) mg/dL Estim Creat Clear Calc 109.7 Estimated GFR > 60 Random Glucose 112 (60-115) mg/dL Calcium 9.2 (8.4-10.2) mg/dL Total Bilirubin 0.9 (0.0-1.0) mg/dL AST 23 (5-31) U/L ALT 34 H (0-31) U/L Alkaline Phosphatase 77 (39-117) U/L Total Protein 7.7 (6.5-8.0) g/dL Albumin 4.2 (3.5-5.0) g/dL Beta HCG, Quant mIU/mL Blood Type Antibody Screen Crossmatch 10/10/22 10/10/22 10/10/22 Range/Units 15:36 17:25 18:45 WBC 10.2 (4.8-10.8) X10*3/uL RBC 4.48 (4.20-5.50) X10*6/uL Hgb 13.2 (12.0-16.0) g/dl Hct 38.8 (37.0-47.0) % MCV 86.6 (80.0-98.0) fL MCH 29.5 (27.0-33.0) pg MCHC 34.0 (31.0-35.0) g/dl RDW 12.8 (11.0-16.0) % Plt Count 276 (160-400) X10*3/uL MPV 11.3 (9.4-12.3) fL Immature Gran % (Auto) 0.4 (0.0-0.4) % Neut % (Auto) 60.7 (45-73) % Lymph % (Auto) 28.5 (20-40) % Wetzel % (Auto) 6.3 (2-11) % Eos % (Auto) 3.5 (0-4) % Baso % (Auto) 0.6 (0-2) % Lymph # (Auto) 2.9 (1.2-4.9) X10*3/uL Wetzel # (Auto) 0.6 (0.1-1.2) X10*3/uL Eos # (Auto) 0.4 (0.0-0.4) X10*3/uL Baso # (Auto) 0.1 (0.0-0.2) X10*3/uL Abs Immat Gran (auto) 0.04 H (0.00-0.03) X10*3/uL Absolute Neuts (auto) 6.2 (2.0-8.3) x10*3/uL Absolute Nucleated RBC 0.000 (0.0-0.012) X10*3/uL Nucleated RBC % (auto) 0.0 (0.0-0.2) /100WBC PT (10.0-13.1) SEC INR (0.9-1.1) APTT (26.0-36.4) SEC Sodium (135-145) mmol/L Potassium (3.3-5.1) mmol/L Chloride (96-108) mmol/L Carbon Dioxide (22-29) mmol/L Anion Gap (12-20) BUN (9-16) mg/dL Creatinine (0.5-1.4) mg/dL Estim Creat Clear Calc Estimated GFR Random Glucose (60-115) mg/dL Calcium (8.4-10.2) mg/dL Total Bilirubin (0.0-1.0) mg/dL AST (5-31) U/L ALT (0-31) U/L Alkaline Phosphatase (39-117) U/L Total Protein (6.5-8.0) g/dL Albumin (3.5-5.0) g/dL Beta HCG, Quant < 2 mIU/mL Blood Type O Positive Antibody Screen NEGATIVE Crossmatch See Detail Critical Care Time Critical Care Time Critical Care Time: Yes Total Critical Care Time: 90 Attestation: I attest to this time spent taking care of the patient, obtaining history, physical, reviewing labs, imaging, speaking to my attending, speaking to specialist. Discharge Plan Discharge Clinical Impression: Episode of heavy vaginal bleeding Patient Disposition: Home, Self-Care Instructions: Dysfunctional Uterine Bleeding (ED), Menorrhagia (ED) Additional Instructions: Take your medications as prescribed. If you were prescribed antibiotics today, it is important that you take your medication to their entirety, do not skip any doses, do not finish them early. Follow-up with your primary care provider this week. Return to the emergency department with new or worsening symptoms. Such as fevers, chills, chest pain, shortness of breath, nausea, vomiting, dizziness, headache, vision changes, lethargy In case of emergency call 911 You need to return to the emergency department immediately if you experience severe abdominal pain, pelvic pain, severe vaginal bleeding or bleeding through more than 2 pads an hour. You may note scant yellow/brown/red discharge this may be normal. Please do not insert tampons into her vagina, no intercourse for a few weeks until medically cleared by an retrieval specialist. Please follow-up with OBGYN as soon as possible Take Tylenol as needed for pain. Do not exceed maximum daily dose is listed on the bottle. US/US pelvic complete IMPRESSION: There is heterogeneous abnormal echogenicity distending the region of the vagina. This could represent hematoma. ? The endometrium is prominent. There is a hypoechoic area adjacent to the posterior right side of the lower uterine segment which could be related to the right ovary. ? Transvaginal scanning was not performed Prescriptions: No Action oxycodone-acetaminophen [Percocet] 5-325 mg tablet 1 tab PO Q6H PRN (Reason: pain) Qty: 20 0RF amoxicillin-pot clavulanate [Augmentin] 875-125 mg tablet 1 tab PO BID Qty: 20 0RF Referrals: Physician,None [Primary Care Provider] - 2 days Aris Boucher MD [Physician] - 1 day Stand Alone Forms: Work/School Release
[2022-10-10 16:14] LABS: HCG Quantitative < 2 mIU/mL
[2022-10-10 18:57] LABS: MANUAL DIFF FLAG NO
[2022-10-10 19:02] LABS: Basophils Absolute Auto 0.1 X10*3/uL (0.0-0.2); Basophils Percent Auto 0.6 % (0-2); Eosinophils Absolute Auto 0.4 X10*3/uL (0.0-0.4); Eosinophils Percent Auto 3.5 % (0-4); Hematocrit 38.8 % (37.0-47.0); Hemoglobin 13.2 g/dl (12.0-16.0); Imm Gran Abs Auto 0.04 X10*3/uL (0.00-0.03); Imm Gran Pct Auto 0.4 % (0.0-0.4); Lymphocytes Absolute Auto 2.9 X10*3/uL (1.2-4.9); Lymphocytes Percent Auto 28.5 % (20-40); Mean Corpuscular Hemoglobin 29.5 pg (27.0-33.0); Mean Corpuscular Volume 86.6 fL (80.0-98.0); Mean Platelet Volume 11.3 fL (9.4-12.3); Monocytes Absolute Auto 0.6 X10*3/uL (0.1-1.2); Monocytes Percent Auto 6.3 % (2-11); Neutrophils Absolute Auto 6.2 x10*3/uL (2.0-8.3); Neutrophils Percent Auto 60.7 % (45-73); Platelet Count 276 X10*3/uL (160-400); Red Blood Count 4.48 X10*6/uL (4.20-5.50); Red Cell Distribution Width 12.8 % (11.0-16.0); White Blood Count 10.2 X10*3/uL (4.8-10.8)
[2022-10-10 19:03] VITALS: BP 163/106; PULSE 116; RESP 16; TEMP 37.7
[2022-10-10] MEDS: Midazolam HCl/PF 2 MG/2 ML VIAL 1 MG IVPUSH (19:14)
--- NOTE | 2022-10-10 19:35 | PM.GYNCN ---
[employer] - CN: HPI Data of Consult Consult date: 10/10/22 Primary Care Provider: None Physician Consult Narrative Narrative: I was consulted on Riddhi Valles who is a 27 year old female who presented emergency room with heavy vaginal bleeding. The patient had a colposcopy biopsy at [facility] at 09:00 this morning, went home and started having heavy vaginal bleeding within half an hour of the procedure, the bleeding did not slow down, the patient decided to come the emergency room. No other associated symptoms no pelvic pain or fever or chills. H&H at 15:36 was 13.6/39.8, repeated at 06:45 p.m. was 13.2/38.8. 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 Systems Review of Systems ROS Unobtainable: All systems reviewed & are unremarkable except as noted in HPI and below Cardiovascular: Denies Palpatations, Loss of consciousness or Chest pain Respiratory: Denies Cough, Wheezing or Shortness of breath Musculoskeletal: Denies Low back pain Gastrointestinal: Denies Heartburn, Constipation, Diarrhea, Nausea or Vomiting Genitourinary: Denies Pain with urination, Burning with urination or Urinary frequency Neurological: Denies Migranes Psychological: Denies Depression OB [facility] Social History Social History Patient Tobacco Use Status: Current everyday Tobacco user Substance Use Type: Marijuana Advance Directives: No Advance Directives Information Provided: Yes Meds Allergies Allergy/AdvReac Type Severity Reaction Status Date / Time No Known Allergies Allergy Verified 07/14/22 19:16 [employer] Physical Exam Vitals Vital signs: Temp Pulse Resp BP Pulse Ox O2 Del Method 99.9 F 116 H 16 163/106 H 97 10/10/22 19:03 10/10/22 19:03 10/10/22 19:03 10/10/22 19:03 10/10/22 15:45 10/10/22 15:45 BMI result Body Mass Index 42.6 Constitutional General Appearance: Healthy appearing, Well-nourished and Well-developed Psychiatric Mood and Affect: active and alert, normal mood and normal affect Skin Appearance: No rashes and No lesions Lungs Respiratory Effort: No intercostal retractions Auscultation: Clear to auscultation Cardiovascular Auscultation: RRR Abdomen Auscultation/Inspection/Palpation: Normal bowel sounds, Soft, Non-distended and No tenderness Female Genitalia (Pelvic) Bladder/Urethra: Normal meatus Vulva: No lesions Vagina: Nontender Cervix: No cervical motion tenderness Uterus: Normal size Adnexa/Parametria: Adnexal Tenderness: None, Adnexal Mass: None, Parametrial Tenderness: None and Parametrial Mass: None Additional Comments: Large amount of blood clots in the vagina 06:00 o'clock cervical biopsy bleeder actively bleeding [employer] - Results Labs CBC & Chem 7: 10/10/22 18:45 10/10/22 15:36 Labs: Short CBC 10/10/22 10/10/22 Range/Units 15:36 18:45 WBC 9.9 10.2 (4.8-10.8) X10*3/uL Hgb 13.6 13.2 (12.0-16.0) g/dl Hct 39.8 38.8 (37.0-47.0) % Plt Count 284 276 (160-400) X10*3/uL BMP 10/10/22 15:36 Sodium 140 Potassium 3.7 Chloride 105 Carbon Dioxide 26 BUN 13 Creatinine 0.78 Calcium 9.2 Liver Function 10/10/22 Range/Units 15:36 Total Bilirubin 0.9 (0.0-1.0) mg/dL AST 23 (5-31) U/L ALT 34 H (0-31) U/L Alkaline Phosphatase 77 (39-117) U/L Albumin 4.2 (3.5-5.0) g/dL Antibody Screen Antibody Screen NEGATIVE 10/10/22 17:25 Imaging US - abdomen: Radiologist's impression: ITS Impressions Pelvis Ultrasound 10/10/22 17:17 IMPRESSION: There is heterogeneous abnormal echogenicity distending the region of the vagina. This could represent hematoma. The endometrium is prominent. There is a hypoechoic area adjacent to the posterior right side of the lower uterine segment which could be related to the right ovary. Transvaginal scanning was not performed Assessment and Plan (1) Episode of heavy vaginal bleeding: Status: Acute Plan Explained to the patient that her Pelvic exam revealed large blood clots per vagina, after evacuation, cervical biopsy site at 06:00 o'clock was identified with an active bleeder, Monsel's solution was applied , bleeding stopped. Packed RBC transfusion was discontinued. Observation of the cervical site biopsy for 5 minutes revealed no further bleeding. The speculum was taken out. The following instructions given to patient no intercourse or tampon use for 2 weeks, to come back to emergency room in case of heavy vaginal bleeding, fever above 100.4, pelvic pain, nausea or vomiting and follow-up with her OBGYN in 2-3 days. All questions answered, the patient verbalized understanding. Time Spent With Patient Time: Total time managing care of this patient today ____ minutes.
[2022-10-10] MEDS: fentaNYL citrate/PF 100 MCG/2 ML VIAL 25 MCG IVPUSH (20:03)
[2022-10-10] MEDS: 0.9 % Sodium Chloride 1,000 ML 999 ML IV (20:08)
[2022-10-10] MEDS: FERRIC SUBSULFATE 1 APPL TOPICAL ×2 (20:19→20:20)
[2022-10-10] MEDS: Silver Nitrate Applicator STICK..EA. 1 APPL TOPICAL (20:19)
== END 2022-10-10 21:04 | disposition home or self-care (01) ==
PROVIDERS: Physician Assistant; Emergency Provider Emergency Medicine
DX: N93.9 Abnormal uterine and vaginal bleeding, unspecified (principal); R00.0 Tachycardia, unspecified; F17.200 Nicotine dependence, unspecified, uncomplicated; F12.90 Cannabis use, unspecified, uncomplicated
CPT/HCPCS: 17250; 36415; 36430; 76856; 80053; 84702; 85025; 85610; 85730; 86850; 86900; 86901; 86923; 96374; 96375; 99284; J2250; J3010; P9016

== ENCOUNTER 2023-01-24 20:13 | Emergency (ER) | payer BC, SELFPAY ==
[2023-01-24 20:26] VITALS: BP 158/79; PULSE 77; RESP 18; TEMP 36.8; O2SAT 96; BMI 38.7
[2023-01-24 21:17] LABS: MANUAL DIFF FLAG NO
[2023-01-24 21:22] LABS: Basophils Absolute Auto 0.1 X10*3/uL (0.0-0.2); Basophils Percent Auto 0.6 % (0-2); Eosinophils Absolute Auto 0.6 X10*3/uL (0.0-0.4); Eosinophils Percent Auto 5.8 % (0-4); Hematocrit 39.1 % (37.0-47.0); Hemoglobin 13.2 g/dl (12.0-16.0); Imm Gran Abs Auto 0.02 X10*3/uL (0.00-0.03); Imm Gran Pct Auto 0.2 % (0.0-0.4); Lymphocytes Absolute Auto 3.8 X10*3/uL (1.2-4.9); Lymphocytes Percent Auto 38.8 % (20-40); Mean Corpuscular HGB Conc 33.8 g/dl (31.0-35.0); Mean Corpuscular Hemoglobin 28.1 pg (27.0-33.0); Mean Corpuscular Volume 83.2 fL (80.0-98.0); Mean Platelet Volume 11.7 fL (9.4-12.3); Monocytes Absolute Auto 0.5 X10*3/uL (0.1-1.2); Monocytes Percent Auto 5.1 % (2-11); Neutrophils Absolute Auto 4.8 x10*3/uL (2.0-8.3); Neutrophils Percent Auto 49.5 % (45-73); Platelet Count 267 X10*3/uL (160-400); Red Cell Distribution Width 12.9 % (11.0-16.0); White Blood Count 9.7 X10*3/uL (4.8-10.8)
[2023-01-24 21:34] LABS: Alanine Aminotransferase 23 U/L (0-31); Albumin Level 4.1 g/dL (3.5-5.0); Alkaline Phosphatase 72 U/L (39-117); Anion Gap 13 (12-20); Aspartate Amino Transferase 16 U/L (5-31); Bilirubin Total 0.9 mg/dL (0.0-1.0); Blood Urea Nitrogen 14 mg/dL (9-16); Carbon Dioxide 24 mmol/L (22-29); Chloride 107 mmol/L (96-108); Creatinine Clr Calc Pharmacy 135.1; Estimated Glomerular Filt Rate > 60; Glucose Random 109 mg/dL (60-115); Potassium 3.4 mmol/L (3.3-5.1); Sodium 141 mmol/L (135-145); Total Protein 7.4 g/dL (6.5-8.0)
[2023-01-24 21:52] VITALS: BP 136/77; PULSE 72; RESP 16; TEMP 36.6; O2SAT 99
[2023-01-24 22:40] VITALS: BP 120/71; PULSE 99
[2023-01-24 22:42] VITALS: BP 131/76; PULSE 81
[2023-01-24 22:43] VITALS: BP 138/74; PULSE 74
[2023-01-24 22:58] LABS: HCG Quantitative < 2 mIU/mL
--- NOTE | 2023-01-24 23:36 | PC.NURSE ---
pt resting on stretcher at this time. pt partner at bedside. pt awaiting to be seen by ed provider
--- NOTE | 2023-01-24 23:45 | ED.GENADULT ---
HPI - General Adult General Chief complaint: General Medical Stated complaint: faint, sinus infection?, eye twitching, CP Time Seen by Provider: 01/24/23 21:56 Source: patient Mode of arrival: ambulatory History of Present Illness HPI narrative: 27-year-old female that states that she is feeling lightheaded since yesterday and reports weakness to bilateral hands, head pressure, and she has had similar episodes for months. Patient states that no one has been able to figure out what is going on and she feels like she is worsening. She has noticed that her left eye has been twitching and otherwise denies any fever, chills, GI or symptoms. Related Data Previous Rx's Medication Instructions Recorded amoxicillin 875 mg-potassium 1 tab PO BID #20 tabs 08/10/21 clavulanate 125 mg tablet (Augmentin) oxycodone-acetaminophen 5 mg-325 1 tab PO Q6H PRN pain #20 tabs 08/10/21 mg tablet (Percocet) Allergies Allergy/AdvReac Type Severity Reaction Status Date / Time No Known Allergies Allergy Verified 01/24/23 20:29 Review of Systems Review of Systems: Pertinent positives and negatives as stated in HPI [facility] Past Medical History Source: nursing notes reviewed Social History Social History Patient Tobacco Use Status: Current everyday Tobacco user Substance Use Type: Marijuana Advance Directives: No Advance Directives Information Provided: No Physical Exam ED Vital Signs: Vital Signs - 24 hr 01/24/23 20:26 01/24/23 21:52 01/24/23 22:40 Temperature 98.2 F 98 F Pulse Rate 77 72 99 Respiratory Rate 18 16 Blood Pressure 158/79 H 136/77 120/71 Pulse Oximetry 96 99 Oxygen Delivery Method Room Air Room Air 01/24/23 22:42 01/24/23 22:43 Temperature Pulse Rate 81 74 Respiratory Rate Blood Pressure 131/76 138/74 Pulse Oximetry Oxygen Delivery Method BMI result Body Mass Index 38.7 VITAL SIGNS: Reviewed. GENERAL: Well developed, well nourished, in no acute distress. HEAD: Normocephalic/atraumatic EYES: PERRLA, EOMI EARS: RIGHT- Ext canals are erythematous with some noted friability, TMs non-bulging and non-erythematous; LEFT- Ext canals with erythema, TMs non-bulging and non-erythematous NOSE: Nares patent bilateral OROPHARYNX: no oral lesions noted, posterior pharynx clear and non-erythematous without noted tonsillar enlargement/erythema/exudates NECK: Supple, no adenopathy LUNGS: Normal breath sounds. No adventitious sounds or accessory muscle use. SpO2<99> CARDIOVASCULAR: Regular rate and rhythm without noted murmurs ABDOMEN: Soft, non-tender, non-distended with bowel sounds. MUSCULOSKELETAL: No tenderness, deformities, or effusions noted on gross inspection. EXTREMITIES: No cyanosis, clubbing or edema. SKIN: Inspection of the skin reveals no rashes, no pallor or jaundice NEUROLOGIC: Alert and oriented x 4. Strength and sensation to light touch were grossly intact x 4. Medications Administered Discontinued Medications Generic Name Dose Route Start Last Admin Trade Name Freq PRN Reason Stop Dose Admin Acetaminophen 975 mg 01/24/23 23:58 01/25/23 00:10 Acetaminophen 325 Mg Tablet PO 01/24/23 23:59 975 mg ONCE ONE Administration Ibuprofen 400 mg 01/24/23 23:58 01/25/23 00:10 Ibuprofen 400 Mg Tablet PO 01/24/23 23:59 400 mg ONCE ONE Administration Medical Decision Making Medical Decision Making MDM Narrative: 27-year-old female with history and clinical presentation will rule out infectious, viral, inflammatory process. I did remove some of the material within the ear and patient endorses that she has a tendency to over clean her ears. Discussed with patient discharging her on anti-inflammatory ear drops, she does have good follow-up on Friday. Patient is nonfocal and orthostatics are negative. I reviewed all investigations and in my interpretation as given the fact that patient has an eosinophilia this may be secondary to allergic syndrome and will also recommend the patient begin taking Claritin and Flonase. Differential Diagnosis Please see the discussion above Lab Data Please see the discussion above 01/24/23 21:14 01/24/23 21:14 Labs: Lab Results 01/24/23 01/24/23 01/24/23 Range/Units 21:14 21:14 23:50 WBC 9.7 (4.8-10.8) X10*3/uL RBC 4.70 (4.20-5.50) X10*6/uL Hgb 13.2 (12.0-16.0) g/dl Hct 39.1 (37.0-47.0) % MCV 83.2 (80.0-98.0) fL MCH 28.1 (27.0-33.0) pg MCHC 33.8 (31.0-35.0) g/dl RDW 12.9 (11.0-16.0) % Plt Count 267 (160-400) X10*3/uL MPV 11.7 (9.4-12.3) fL Immature Gran % (Auto) 0.2 (0.0-0.4) % Neut % (Auto) 49.5 (45-73) % Lymph % (Auto) 38.8 (20-40) % [place] % (Auto) 5.1 (2-11) % Eos % (Auto) 5.8 H (0-4) % Baso % (Auto) 0.6 (0-2) % Lymph # (Auto) 3.8 (1.2-4.9) X10*3/uL [place] # (Auto) 0.5 (0.1-1.2) X10*3/uL Eos # (Auto) 0.6 H (0.0-0.4) X10*3/uL Baso # (Auto) 0.1 (0.0-0.2) X10*3/uL Abs Immat Gran (auto) 0.02 (0.00-0.03) X10*3/uL Absolute Neuts (auto) 4.8 (2.0-8.3) x10*3/uL Absolute Nucleated RBC 0.000 (0.0-0.012) X10*3/uL Nucleated RBC % (auto) 0.0 (0.0-0.2) /100WBC Sodium 141 (135-145) mmol/L Potassium 3.4 (3.3-5.1) mmol/L Chloride 107 (96-108) mmol/L Carbon Dioxide 24 (22-29) mmol/L Anion Gap 13 (12-20) BUN 14 (9-16) mg/dL Creatinine 0.60 (0.5-1.4) mg/dL Estim Creat Clear Calc 135.1 Estimated GFR > 60 Random Glucose 109 (60-115) mg/dL Calcium 9.0 (8.4-10.2) mg/dL Total Bilirubin 0.9 (0.0-1.0) mg/dL AST 16 (5-31) U/L ALT 23 (0-31) U/L Alkaline Phosphatase 72 (39-117) U/L C-Reactive Protein 0.15 (< or = 0.50) mg/dL Total Protein 7.4 (6.5-8.0) g/dL Albumin 4.1 (3.5-5.0) g/dL Beta HCG, Quant < 2 mIU/mL Urine Color Urine Appearance Urine pH (5.0-9.0) Ur Specific [place] (1.005-1.025) Urine Protein (Neg-Trace) mg/dL Urine Glucose (UA) (Negative) mg/dL Urine Ketones (Negative) mg/dL Urine Blood (Negative) Urine Nitrite (Negative) Ur Leukocyte Esterase (Negative) Urine RBC (0-2) /HPF Urine WBC (0-5) /HPF Ur Squamous Epith Cells (0-2) /HPF Urine Bacteria (None Seen) Hyaline Casts (0-2) /LPF COVID-19 (MILA) Negative (Negative) COVID-19 Clin Com See Note 01/24/23 Range/Units 23:50 WBC (4.8-10.8) X10*3/uL RBC (4.20-5.50) X10*6/uL Hgb (12.0-16.0) g/dl Hct (37.0-47.0) % MCV (80.0-98.0) fL MCH (27.0-33.0) pg MCHC (31.0-35.0) g/dl RDW (11.0-16.0) % Plt Count (160-400) X10*3/uL MPV (9.4-12.3) fL Immature Gran % (Auto) (0.0-0.4) % Neut % (Auto) (45-73) % Lymph % (Auto) (20-40) % [place] % (Auto) (2-11) % Eos % (Auto) (0-4) % Baso % (Auto) (0-2) % Lymph # (Auto) (1.2-4.9) X10*3/uL [place] # (Auto) (0.1-1.2) X10*3/uL Eos # (Auto) (0.0-0.4) X10*3/uL Baso # (Auto) (0.0-0.2) X10*3/uL Abs Immat Gran (auto) (0.00-0.03) X10*3/uL Absolute Neuts (auto) (2.0-8.3) x10*3/uL Absolute Nucleated RBC (0.0-0.012) X10*3/uL Nucleated RBC % (auto) (0.0-0.2) /100WBC Sodium (135-145) mmol/L Potassium (3.3-5.1) mmol/L Chloride (96-108) mmol/L Carbon Dioxide (22-29) mmol/L Anion Gap (12-20) BUN (9-16) mg/dL Creatinine (0.5-1.4) mg/dL Estim Creat Clear Calc Estimated GFR Random Glucose (60-115) mg/dL Calcium (8.4-10.2) mg/dL Total Bilirubin (0.0-1.0) mg/dL AST (5-31) U/L ALT (0-31) U/L Alkaline Phosphatase (39-117) U/L C-Reactive Protein (< or = 0.50) mg/dL Total Protein (6.5-8.0) g/dL Albumin (3.5-5.0) g/dL Beta HCG, Quant mIU/mL Urine Color Yellow Urine Appearance Cloudy Urine pH 7.5 (5.0-9.0) Ur Specific [place] 1.025 (1.005-1.025) Urine Protein Trace (Neg-Trace) mg/dL Urine Glucose (UA) Negative (Negative) mg/dL Urine Ketones Negative (Negative) mg/dL Urine Blood Negative (Negative) Urine Nitrite Negative (Negative) Ur Leukocyte Esterase Trace H (Negative) Urine RBC 6-10 H (0-2) /HPF Urine WBC 11-20 H (0-5) /HPF Ur Squamous Epith Cells >20 (0-2) /HPF Urine Bacteria 3+ (None Seen) Hyaline Casts 0-2 (0-2) /LPF COVID-19 (MILA) (Negative) COVID-19 Clin Com External Record Review External record reviewed: Outpatient record and Prior outpatient labs Discharge Plan Discharge Clinical Impression: Pollen-food allergy syndrome Patient Disposition: Home, Self-Care Instructions: Allergies (ED) Additional Instructions: 1. Resume all home medications. 2. Recommend [id number] Tylenol/ibuprofen as needed for any ear discomfort, limit your cleaning until after evaluation by the ENT specialist. 3. Recommend starting daily Claritin as well as Flonase. Return to the ER for any worsening symptoms. Prescriptions: No Action oxycodone-acetaminophen [Percocet] 5-325 mg tablet 1 tab PO Q6H PRN (Reason: pain) Qty: 20 0RF amoxicillin-pot clavulanate [Augmentin] 875-125 mg tablet 1 tab PO BID Qty: 20 0RF
--- NOTE | 2023-01-24 23:54 | PC.NURSE ---
urine sample obtained and sent down to lab. covid swab sent down to lab. pt partner at bedside
[2023-01-24 23:55] LABS: C Reactive Protein 0.15 mg/dL (< or = 0.50)
[2023-01-24 23:57] LABS: Appearance Urine Cloudy; Color Urine Yellow; Glucose Urine UA Negative (Negative); Leukocyte Esterase Urine Trace (Negative); Nitrite Urine Negative (Negative); PH 7.5 (5.0-9.0); Specific Gravity - Urine 1.025 (1.005-1.025); UMIC TRIGGER UACC YES; Urine Blood Negative (Negative); Urine Ketones Negative (Negative); Urine Protein Trace mg/dL (Neg-Trace)
[2023-01-25 00:09] LABS: Bacteria Urine 3+ (None Seen); Hyaline Casts Urine 0-2 /LPF (0-2); Squamous Epithelial Cell Urine >20 /HPF (0-2); UACC Culture Trigger YES
[2023-01-25] MEDS: Ibuprofen 400 MG TABLET PO (00:10)
[2023-01-25] MEDS: Acetaminophen 325 MG TABLET 975 MG PO (00:10)
[2023-01-25 00:15] LABS: COVID-19 Test Negative (Negative); IDNOW Serial# 08D9AD1C
[2023-01-25 00:27] LABS: Erythrocyte Sedimentation Rate 18 MM/HR (0-20)
--- NOTE | 2023-01-25 01:30 | PC.NURSE ---
pt ambulatory at discharge. pt reports no pain at this time. pt partner at bedside. pt provided with discharge packet. pt verbalized understanding of discharge plan
== END 2023-01-25 01:45 | disposition home or self-care (01) ==
PROVIDERS: Emergency Provider Student in an Organized Health Care Education/Training Program
DX: J30.1 Allergic rhinitis due to pollen (principal); Z20.822 Contact with and (suspected) exposure to COVID-19; Z20.828 Contact with and (suspected) exposure to other viral communicable diseases; Z79.899 Other long term (current) drug therapy
CPT/HCPCS: 36415; 80053; 81001; 84702; 85025; 85652; 86140; 87086; 87635; 99283; 99284

== ENCOUNTER 2023-01-30 20:43 | Emergency (ER) | payer BC, SELFPAY ==
[2023-01-30 20:56] VITALS: BP 123/76; PULSE 76; RESP 18; TEMP 36.3; O2SAT 95; BMI 38.7
[2023-01-30 21:25] LABS: MANUAL DIFF FLAG NO
[2023-01-30 21:26] LABS: Basophils Absolute Auto 0.1 X10*3/uL (0.0-0.2); Basophils Percent Auto 0.5 % (0-2); Eosinophils Absolute Auto 0.4 X10*3/uL (0.0-0.4); Hematocrit 37.2 % (37.0-47.0); Hemoglobin 12.6 g/dl (12.0-16.0); Imm Gran Abs Auto 0.02 X10*3/uL (0.00-0.03); Imm Gran Pct Auto 0.2 % (0.0-0.4); Lymphocytes Absolute Auto 3.8 X10*3/uL (1.2-4.9); Lymphocytes Percent Auto 34.1 % (20-40); Mean Corpuscular HGB Conc 33.9 g/dl (31.0-35.0); Mean Corpuscular Hemoglobin 27.8 pg (27.0-33.0); Mean Corpuscular Volume 82.1 fL (80.0-98.0); Mean Platelet Volume 11.5 fL (9.4-12.3); Monocytes Absolute Auto 0.7 X10*3/uL (0.1-1.2); Monocytes Percent Auto 6.7 % (2-11); Neutrophils Percent Auto 54.5 % (45-73); Platelet Count 260 X10*3/uL (160-400); Red Blood Count 4.53 X10*6/uL (4.20-5.50); Red Cell Distribution Width 13.2 % (11.0-16.0); White Blood Count 11.1 X10*3/uL (4.8-10.8)
[2023-01-30 21:41] LABS: Alanine Aminotransferase 32 U/L (0-31); Alkaline Phosphatase 67 U/L (39-117); Anion Gap 11 (12-20); Aspartate Amino Transferase 20 U/L (5-31); Bilirubin Direct 0.2 mg/dL (0.0-0.5); Bilirubin Total 0.9 mg/dL (0.0-1.0); Blood Urea Nitrogen 19 mg/dL (9-16); Calcium 8.9 mg/dL (8.4-10.2); Carbon Dioxide 25 mmol/L (22-29); Chloride 105 mmol/L (96-108); Creatinine Clr Calc Pharmacy 114.2; Estimated Glomerular Filt Rate > 60; Glucose Random 101 mg/dL (60-115); Lipase 16 U/L (8-78); Potassium 3.5 mmol/L (3.3-5.1); Sodium 137 mmol/L (135-145); Total Protein 7.2 g/dL (6.5-8.0)
== END 2023-01-30 22:38 | disposition left against medical advice (07) ==
PROVIDERS: Emergency Provider Emergency Medicine
DX: R10.2 Pelvic and perineal pain (principal); R10.32 Left lower quadrant pain; Z79.899 Other long term (current) drug therapy
CPT/HCPCS: 36415; 80048; 80076; 83690; 85025; 99281; 99283

== ENCOUNTER 2023-02-24 22:16 | Emergency (ER) | payer BC, SELFPAY ==
[2023-02-24 22:17] VITALS: BP 151/83; PULSE 84; RESP 18; TEMP 36.2; O2SAT 99; BMI 28.3
--- NOTE | 2023-02-24 22:21 | ED.GENADULT ---
HPI - General Adult General Chief complaint: Nausea/Vomiting/Diarrhea Stated complaint: vomiting x3 days Related Data Previous Rx's Medication Instructions Recorded amoxicillin 875 mg-potassium 1 tab PO BID #20 tabs 08/10/21 clavulanate 125 mg tablet (Augmentin) oxycodone-acetaminophen 5 mg-325 1 tab PO Q6H PRN pain #20 tabs 08/10/21 mg tablet (Percocet) Allergies Allergy/AdvReac Type Severity Reaction Status Date / Time No Known Allergies Allergy Verified 01/30/23 20:56 [facility] Social History Social History Patient Tobacco Use Status: Current everyday Tobacco user Substance Use Type: Marijuana Physical Exam ED Vital Signs: Vital Signs - 24 hr 02/24/23 22:17 Temperature 97.2 F Pulse Rate 84 Respiratory Rate 18 Blood Pressure 151/83 H Pulse Oximetry 99 Oxygen Delivery Method Room Air BMI result Body Mass Index 28.3 Course Course Course Narrative: RME- 27-year-old female presents for evaluation of abdominal pain nausea vomiting, diarrhea the last 2 days. Plan for labs, UA, test Discharge Plan Discharge Prescriptions: No Action oxycodone-acetaminophen [Percocet] 5-325 mg tablet 1 tab PO Q6H PRN (Reason: pain) Qty: 20 0RF amoxicillin-pot clavulanate [Augmentin] 875-125 mg tablet 1 tab PO BID Qty: 20 0RF
[2023-02-24 22:35] LABS: MANUAL DIFF FLAG NO
[2023-02-24 22:36] LABS: Basophils Percent Auto 0.4 % (0-2); Eosinophils Absolute Auto 0.4 X10*3/uL (0.0-0.4); Hematocrit 40.5 % (37.0-47.0); Hemoglobin 13.5 g/dl (12.0-16.0); Imm Gran Abs Auto 0.01 X10*3/uL (0.00-0.03); Imm Gran Pct Auto 0.1 % (0.0-0.4); Lymphocytes Absolute Auto 2.8 X10*3/uL (1.2-4.9); Lymphocytes Percent Auto 35.3 % (20-40); Mean Corpuscular HGB Conc 33.3 g/dl (31.0-35.0); Mean Corpuscular Hemoglobin 27.2 pg (27.0-33.0); Mean Corpuscular Volume 81.7 fL (80.0-98.0); Mean Platelet Volume 10.9 fL (9.4-12.3); Monocytes Absolute Auto 0.8 X10*3/uL (0.1-1.2); Monocytes Percent Auto 10.2 % (2-11); Neutrophils Absolute Auto 3.9 x10*3/uL (2.0-8.3); Platelet Count 252 X10*3/uL (160-400); Red Blood Count 4.96 X10*6/uL (4.20-5.50); Red Cell Distribution Width 13.7 % (11.0-16.0)
[2023-02-24 22:55] LABS: Alanine Aminotransferase 23 U/L (0-31); Albumin Level 4.1 g/dL (3.5-5.0); Alkaline Phosphatase 66 U/L (39-117); Anion Gap 12 (12-20); Aspartate Amino Transferase 16 U/L (5-31); Bilirubin Total 1.2 mg/dL (0.0-1.0); Blood Urea Nitrogen 15 mg/dL (9-16); Calcium 9.1 mg/dL (8.4-10.2); Carbon Dioxide 26 mmol/L (22-29); Chloride 104 mmol/L (96-108); Creatinine Clr Calc Pharmacy 117.2; Estimated Glomerular Filt Rate > 60; Glucose Random 96 mg/dL (60-115); Lipase 15 U/L (8-78); Sodium 139 mmol/L (135-145); Total Protein 7.4 g/dL (6.5-8.0)
[2023-02-25 01:01] LABS: Appearance Urine Cloudy; Color Urine Dark Yellow; Glucose Urine UA Negative (Negative); Leukocyte Esterase Urine Trace (Negative); Nitrite Urine Negative (Negative); PH 5.5 (5.0-9.0); Specific Gravity - Urine >= 1.030 (1.005-1.025); UMIC TRIGGER UACC YES; Urine Blood Negative (Negative); Urine Ketones Trace mg/dL (Negative); Urine Protein 30 (1+) mg/dL (Neg-Trace)
[2023-02-25 01:02] LABS: UPreg QC Valid YES; Urine Pregnancy NEGATIVE (NEGATIVE)
--- NOTE | 2023-02-25 01:24 | ED_ITS ---
HPI - Nausea/Vomiting/Diarrhea General Chief complaint: Nausea/Vomiting/Diarrhea Stated complaint: vomiting x3 days Time Seen by Provider: 02/25/23 01:11 History of Present Illness HPI Narrative: Patient is a 27-year-old female presents today with having nausea vomiting unable to tolerate fluids. Positive diarrhea. Positive generalized malaise. No coughing no congestion. Patient from home. Related Data Previous Rx's Medication Instructions Recorded amoxicillin 875 mg-potassium 1 tab PO BID #20 tabs 08/10/21 clavulanate 125 mg tablet (Augmentin) oxycodone-acetaminophen 5 mg-325 1 tab PO Q6H PRN pain #20 tabs 08/10/21 mg tablet (Percocet) ondansetron 4 mg disintegrating 4 mg PO TID PRN nausea and 02/25/23 tablet vomiting 5 days #10 tabs Allergies Allergy/AdvReac Type Severity Reaction Status Date / Time No Known Allergies Allergy Verified 01/30/23 20:56 Review of Systems Review of Systems: Positive generalized malaise Yes all other systems are reviewed and are negative PMFSH Past Medical History Attestation statement: The following information was validated with the patient. Social History Social History Alcohol intake: current Alcohol intake frequency: a few times a week Patient Tobacco Use Status: Current everyday Tobacco user Smoked in Last 30 Days: No Use of substances other than those prescribed or required for medical reasons: Yes Substance Use Type: Marijuana Substance Use Frequency: Occasionally Advance Directives: No Advance Directives Information Provided: Yes Patient : No Physical Exam Vital Signs: Vital Signs: Last Vital Signs Temp 99 F 02/25/23 01:26 Pulse 70 02/25/23 01:26 Resp 16 02/25/23 01:26 BP 116/70 02/25/23 01:26 Pulse Ox 96 02/25/23 01:26 O2 Del Method Room Air 02/25/23 01:26 BMI result Body Mass Index 28.3 Appearance: Alert. Oriented X3. No acute distress. Eyes: Pupils equal, round and reactive to light. ENT: Pharynx normal. Neck: Normal inspection. Neck supple. No lymph nodes noted. No crepitus CVS: Normal heart rate and rhythm. Pulses normal. Normal S1 and S2 Respiratory: No respiratory distress. Breath sounds normal. No Wheezing. No rales Abdomen: Soft and nontender. No rigidity. No distention. good BS x4 Skin: Skin warm and dry. Normal skin color. Normal skin turgor. Extremities: No lower extremity edema. Neurovascular intact to all extremities. No Lacerations. No Rash Neuro: Oriented X 3. No motor deficit. No sensory deficit. Moving all extermities. No slurred speech Medications Administered Discontinued Medications Generic Name Dose Route Start Last Admin Trade Name Debbie PRN Reason Stop Dose Admin Acetaminophen 650 mg 02/25/23 01:47 02/25/23 01:58 Acetaminophen 325 Mg Tablet PO 02/25/23 01:48 650 mg ONCE ONE Administration Sodium Chloride 1,000 mls @ 999 mls/hr 02/25/23 01:30 02/25/23 02:54 Ns IV 02/25/23 02:30 Infused .Q1H1M ANNAMARIA Infusion Sodium Chloride 1,000 mls @ 999 mls/hr 02/25/23 01:30 02/25/23 02:55 Ns IV 02/25/23 02:30 999 mls/hr .Q1H1M ANNAMARIA Administration Ondansetron HCl 4 mg 02/25/23 01:25 02/25/23 01:56 Ondansetron Hcl 4 Mg/2 Ml Vial IVPUSH 02/25/23 01:26 4 mg ONCE ONE Administration Medical Decision Making Medical Decision Making [facility] Narrative: Patient has nausea vomiting diarrhea. Given IV fluids. Good results. Tolerated fluids. Symptoms seems to have resolved. Repeat abdominal exam is soft nontender. Patient's urine showed no signs of infection. test was negative no evidence for related issues. Will discharge home. Differential Diagnosis Differential Diagnoses: The differential diagnosis associated with the presen tation includes Gastroenteritis, dehydration Lab Data [facility] Lab Attestation statement: I reviewed the patient's lab results. 02/24/23 22:31 02/24/23 22:31 Labs: Lab Results 02/24/23 02/24/23 02/25/23 Range/Units 22:31 22:31 00:51 WBC 8.0 (4.8-10.8) X10*3/uL RBC 4.96 (4.20-5.50) X10*6/uL Hgb 13.5 (12.0-16.0) g/dl Hct 40.5 (37.0-47.0) % MCV 81.7 (80.0-98.0) fL MCH 27.2 (27.0-33.0) pg MCHC 33.3 (31.0-35.0) g/dl RDW 13.7 (11.0-16.0) % Plt Count 252 (160-400) X10*3/uL MPV 10.9 (9.4-12.3) fL Immature Gran % (Auto) 0.1 (0.0-0.4) % Neut % (Auto) 49.0 (45-73) % Lymph % (Auto) 35.3 (20-40) % [place] % (Auto) 10.2 (2-11) % Eos % (Auto) 5.0 H (0-4) % Baso % (Auto) 0.4 (0-2) % Lymph # (Auto) 2.8 (1.2-4.9) X10*3/uL [place] # (Auto) 0.8 (0.1-1.2) X10*3/uL Eos # (Auto) 0.4 (0.0-0.4) X10*3/uL Baso # (Auto) 0.0 (0.0-0.2) X10*3/uL Abs Immat Gran (auto) 0.01 (0.00-0.03) X10*3/uL Absolute Neuts (auto) 3.9 (2.0-8.3) x10*3/uL Absolute Nucleated RBC 0.000 (0.0-0.012) X10*3/uL Nucleated RBC % (auto) 0.0 (0.0-0.2) /100WBC Sodium 139 (135-145) mmol/L Potassium 3.0 L (3.3-5.1) mmol/L Chloride 104 (96-108) mmol/L Carbon Dioxide 26 (22-29) mmol/L Anion Gap 12 (12-20) BUN 15 (9-16) mg/dL Creatinine 0.74 (0.5-1.4) mg/dL Estim Creat Clear Calc 117.2 Estimated GFR > 60 Random Glucose 96 (60-115) mg/dL Calcium 9.1 (8.4-10.2) mg/dL Total Bilirubin 1.2 H (0.0-1.0) mg/dL AST 16 (5-31) U/L ALT 23 (0-31) U/L Alkaline Phosphatase 66 (39-117) U/L Total Protein 7.4 (6.5-8.0) g/dL Albumin 4.1 (3.5-5.0) g/dL Lipase 15 (8-78) U/L Urine Color Dark Yellow Urine Appearance Cloudy Urine pH 5.5 (5.0-9.0) Ur Specific [place] >= 1.030 H (1.005-1.025) Urine Protein 30 (1+) H (Neg-Trace) mg/dL Urine Glucose (UA) Negative (Negative) mg/dL Urine Ketones Trace (Negative) mg/dL Urine Blood Negative (Negative) Urine Nitrite Negative (Negative) Ur Leukocyte Esterase Trace H (Negative) Urine RBC 0-2 (0-2) /HPF Urine WBC 6-10 (0-5) /HPF Ur Squamous Epith Cells 11-20 (0-2) /HPF Urine Bacteria 1+ (None Seen) Hyaline Casts 0-2 (0-2) /LPF Urine Test (NEGATIVE) 02/25/23 Range/Units 00:51 WBC (4.8-10.8) X10*3/uL RBC (4.20-5.50) X10*6/uL Hgb (12.0-16.0) g/dl Hct (37.0-47.0) % MCV (80.0-98.0) fL MCH (27.0-33.0) pg MCHC (31.0-35.0) g/dl RDW (11.0-16.0) % Plt Count (160-400) X10*3/uL MPV (9.4-12.3) fL Immature Gran % (Auto) (0.0-0.4) % Neut % (Auto) (45-73) % Lymph % (Auto) (20-40) % [place] % (Auto) (2-11) % Eos % (Auto) (0-4) % Baso % (Auto) (0-2) % Lymph # (Auto) (1.2-4.9) X10*3/uL [place] # (Auto) (0.1-1.2) X10*3/uL Eos # (Auto) (0.0-0.4) X10*3/uL Baso # (Auto) (0.0-0.2) X10*3/uL Abs Immat Gran (auto) (0.00-0.03) X10*3/uL Absolute Neuts (auto) (2.0-8.3) x10*3/uL Absolute Nucleated RBC (0.0-0.012) X10*3/uL Nucleated RBC % (auto) (0.0-0.2) /100WBC Sodium (135-145) mmol/L Potassium (3.3-5.1) mmol/L Chloride (96-108) mmol/L Carbon Dioxide (22-29) mmol/L Anion Gap (12-20) BUN (9-16) mg/dL Creatinine (0.5-1.4) mg/dL Estim Creat Clear Calc Estimated GFR Random Glucose (60-115) mg/dL Calcium (8.4-10.2) mg/dL Total Bilirubin (0.0-1.0) mg/dL AST (5-31) U/L ALT (0-31) U/L Alkaline Phosphatase (39-117) U/L Total Protein (6.5-8.0) g/dL Albumin (3.5-5.0) g/dL Lipase (8-78) U/L Urine Color Urine Appearance Urine pH (5.0-9.0) Ur Specific [place] (1.005-1.025) Urine Protein (Neg-Trace) mg/dL Urine Glucose (UA) (Negative) mg/dL Urine Ketones (Negative) mg/dL Urine Blood (Negative) Urine Nitrite (Negative) Ur Leukocyte Esterase (Negative) Urine RBC (0-2) /HPF Urine WBC (0-5) /HPF Ur Squamous Epith Cells (0-2) /HPF Urine Bacteria (None Seen) Hyaline Casts (0-2) /LPF Urine Test NEGATIVE (NEGATIVE) Tests considered The following testing was considered but not selected: CT scan considered. However given patient's well appearance, repeat exam being soft nontender. Will discharge patient home Discharge Plan Discharge Clinical Impression: Gastroenteritis Patient Disposition: Home, Self-Care Instructions: Acute Nausea and Vomiting (ED) Prescriptions: New ondansetron 4 mg tablet,disintegrating 4 mg PO TID PRN (Reason: nausea and vomiting) 5 Days Qty: 10 0RF No Action oxycodone-acetaminophen [Percocet] 5-325 mg tablet 1 tab PO Q6H PRN (Reason: pain) Qty: 20 0RF amoxicillin-pot clavulanate [Augmentin] 875-125 mg tablet 1 tab PO BID Qty: 20 0RF Referrals: Physician,Unknown J [Primary Care Provider] - 02/27/23
[2023-02-25 01:26] VITALS: BP 116/70; PULSE 70; RESP 16; TEMP 37.2; O2SAT 96
[2023-02-25 01:26] LABS: Hyaline Casts Urine 0-2 /LPF (0-2); RBC Urine 0-2 /HPF (0-2); UACC Culture Trigger YES
[2023-02-25 01:29] LABS: Bacteria Urine 1+ (None Seen)
[2023-02-25] MEDS: 0.9 % Sodium Chloride 1,000 ML 999 ML IV ×2 (01:55→02:55)
[2023-02-25] MEDS: ondansetron HCL 4 MG/2 ML VIAL IVPUSH (01:56)
[2023-02-25] MEDS: Acetaminophen 325 MG TABLET 650 MG PO (01:58)
[2023-02-25 03:55] VITALS: BP 120/81; PULSE 81; RESP 16; TEMP 36.7; O2SAT 98
== END 2023-02-25 03:57 | disposition home or self-care (01) ==
PROVIDERS: Physician Assistant; Emergency Provider Emergency Medicine Emergency Medical Services
DX: K52.29 Other allergic and dietetic gastroenteritis and colitis (principal); R11.2 Nausea with vomiting, unspecified; Z79.899 Other long term (current) drug therapy
CPT/HCPCS: 36415; 80053; 81001; 81025; 83690; 85025; 87086; 96361; 96374; 99284; 99285; J2405

== ENCOUNTER 2023-05-19 17:39 | Emergency (ER) | payer BC, SELFPAY ==
--- NOTE | ~2023-05-19 | XR_ITS ---
EXAMINATION: XR CHEST CLINICAL INFORMATION: Chest pain COMPARISON: Chest x-ray 07/14/2022 TECHNIQUE: Frontal view of the chest was obtained. FINDINGS: No significant abnormality is noted involving the heart, lungs, mediastinum, bony thorax or soft tissues. XR/XR chest 1V IMPRESSION: Unremarkable examination.
--- NOTE | 2023-05-19 17:42 | ECG_ITS ---
Test Reason : CP Blood Pressure : / mmHG Vent. Rate : 074 BPM Atrial Rate : 074 BPM P-R Int : 168 ms QRS Dur : 094 ms QT Int : 422 ms P-R-T Axes : 052 019 006 degrees QTc Int : 468 ms Normal sinus rhythm Nonspecific T wave abnormality Borderline ECG When compared with ECG of 14-JUL-2022 19:38, No significant changes seen Referred By: Alexandra Smart Electronically Signed By:CASSANDRA VEGA
--- NOTE | 2023-05-19 18:18 | ED_ITS ---
HPI - General Adult General Chief complaint: Chest Pain Stated complaint: chest pain Related Data Home Medications ?Medication ?Instructions ?Recorded ?Confirmed cholecalciferol (vitamin D3) 1,250 1,250 mcg PO QWEEK 03/01/24 mcg (50,000 unit) capsule Allergies Allergy/AdvReac Type Severity Reaction Status Date / Time No Known Allergies Allergy Verified 01/07/24 15:40 [facility] Social History Social History Alcohol intake: never Patient Tobacco Use Status: Current everyday Tobacco user Substance Use Type: Marijuana Physical Exam ED Vital Signs: BMI result Body Mass Index 36.1 Course Course Course Narrative: This is an RME: Additional HPI, ROS, PE not included below will be deferred to primary provider. 27-year-old female presents with 7/10 substernal non radiating chest pain that started at 15:00, sharp stabbing pain in the substernal region, severe. Patient tells me she has history of reflux however this feels different. Pain started at 15:00 today and has been intermittent ever since then. No associated shortness of breath. No history PE or DVT. Plan- labs, ekg, trop Medical Decision Making Lab Data 05/19/23 20:40 05/19/23 20:40 Labs: Lab Results 05/19/23 Range/Units 20:40 WBC 11.8 H (4.8-10.8) X10*3/uL RBC 4.71 (4.20-5.50) X10*6/uL Hgb 13.5 (12.0-16.0) g/dl Hct 40.1 (37.0-47.0) % MCV 85.1 (80.0-98.0) fL MCH 28.7 (27.0-33.0) pg MCHC 33.7 (31.0-35.0) g/dl RDW 13.2 (11.0-16.0) % Plt Count 235 (160-400) X10*3/uL MPV 11.9 (9.4-12.3) fL Immature Gran % (Auto) 0.4 (0.0-0.4) % Neut % (Auto) 51.3 (45-73) % Lymph % (Auto) 36.1 (20-40) % [place] % (Auto) 6.8 (2-11) % Eos % (Auto) 4.6 H (0-4) % Baso % (Auto) 0.8 (0-2) % Lymph # (Auto) 4.3 (1.2-4.9) X10*3/uL [place] # (Auto) 0.8 (0.1-1.2) X10*3/uL Eos # (Auto) 0.6 H (0.0-0.4) X10*3/uL Baso # (Auto) 0.1 (0.0-0.2) X10*3/uL Abs Immat Gran (auto) 0.05 H (0.00-0.03) X10*3/uL Absolute Neuts (auto) 6.1 (2.0-8.3) x10*3/uL Absolute Nucleated RBC 0.000 (0.0-0.012) X10*3/uL Nucleated RBC % (auto) 0.0 (0.0-0.2) /100WBC Sodium 139 (135-145) mmol/L Potassium 3.8 D (3.3-5.1) mmol/L Chloride 107 (96-108) mmol/L Carbon Dioxide 22 (22-29) mmol/L Anion Gap 14 (12-20) BUN 16 (9-16) mg/dL Creatinine 0.66 (0.5-1.4) mg/dL Estim Creat Clear Calc 118.0 Estimated GFR > 60 Random Glucose 81 (60-115) mg/dL Calcium 9.5 (8.4-10.2) mg/dL Magnesium 2.2 (1.6-2.6) mg/dL Total Bilirubin 0.6 (0.0-1.0) mg/dL AST 16 (5-31) U/L ALT 25 (0-31) U/L Alkaline Phosphatase 69 (39-117) U/L Troponin I High Sens < 2.7 (<3.5-17.0) ng/L B-Natriuretic Peptide < 10 (<100) pg/mL Total Protein 8.1 H (6.5-8.0) g/dL Albumin 4.2 (3.5-5.0) g/dL Discharge Plan Discharge Clinical Impression: Eloped from emergency department Patient Disposition: Elopement Prescriptions: No Action cholecalciferol (vitamin D3) 1,250 mcg (50,000 unit) capsule 1,250 mcg PO QWEEK Interventions: ED Discharge Assessment Last Done: 05/19/23 23:38 Discharge Date/Time: 05/19/23 23:44 Print Language: Khmer
[2023-05-19 18:19] VITALS: BP 138/82; PULSE 70; RESP 18; TEMP 36.8; O2SAT 98; BMI 36.1
[2023-05-19 20:54] LABS: MANUAL DIFF FLAG NO
[2023-05-19 20:58] LABS: Basophils Absolute Auto 0.1 X10*3/uL (0.0-0.2); Basophils Percent Auto 0.8 % (0-2); Eosinophils Absolute Auto 0.6 X10*3/uL (0.0-0.4); Eosinophils Percent Auto 4.6 % (0-4); Hematocrit 40.1 % (37.0-47.0); Hemoglobin 13.5 g/dl (12.0-16.0); Imm Gran Abs Auto 0.05 X10*3/uL (0.00-0.03); Imm Gran Pct Auto 0.4 % (0.0-0.4); Lymphocytes Absolute Auto 4.3 X10*3/uL (1.2-4.9); Lymphocytes Percent Auto 36.1 % (20-40); Mean Corpuscular HGB Conc 33.7 g/dl (31.0-35.0); Mean Corpuscular Hemoglobin 28.7 pg (27.0-33.0); Mean Corpuscular Volume 85.1 fL (80.0-98.0); Mean Platelet Volume 11.9 fL (9.4-12.3); Monocytes Absolute Auto 0.8 X10*3/uL (0.1-1.2); Monocytes Percent Auto 6.8 % (2-11); Neutrophils Absolute Auto 6.1 x10*3/uL (2.0-8.3); Neutrophils Percent Auto 51.3 % (45-73); Platelet Count 235 X10*3/uL (160-400); Red Blood Count 4.71 X10*6/uL (4.20-5.50); Red Cell Distribution Width 13.2 % (11.0-16.0); White Blood Count 11.8 X10*3/uL (4.8-10.8)
[2023-05-19 21:17] LABS: B Type Natriuretic Peptide < 10 pg/mL (<100); Troponin-I High Sensitivity < 2.7 ng/L (<3.5-17.0)
[2023-05-19 23:49] LABS: Alanine Aminotransferase 25 U/L (0-31); Albumin Level 4.2 g/dL (3.5-5.0); Alkaline Phosphatase 69 U/L (39-117); Anion Gap 14 (12-20); Aspartate Amino Transferase 16 U/L (5-31); Bilirubin Total 0.6 mg/dL (0.0-1.0); Blood Urea Nitrogen 16 mg/dL (9-16); Calcium 9.5 mg/dL (8.4-10.2); Carbon Dioxide 22 mmol/L (22-29); Chloride 107 mmol/L (96-108); Estimated Glomerular Filt Rate > 60; Glucose Random 81 mg/dL (60-115); Magnesium 2.2 mg/dL (1.6-2.6); Potassium 3.8 mmol/L (3.3-5.1); Sodium 139 mmol/L (135-145); Total Protein 8.1 g/dL (6.5-8.0)
== END 2023-05-19 23:44 | disposition left against medical advice (07) ==
LOC: HO.ED 23:43
PROVIDERS: Physician Assistant; Emergency Provider Internal Medicine
DX: R07.9 Chest pain, unspecified (principal); F17.200 Nicotine dependence, unspecified, uncomplicated; F12.90 Cannabis use, unspecified, uncomplicated
CPT/HCPCS: 36415; 71045; 80053; 83735; 83880; 84484; 85025; 93005; 99283

== ENCOUNTER → 2023-05-19 17:42 | Outpatient (BNV) | payer BC, SELFPAY | PROVIDERS: Emergency Provider Internal Medicine; Visit Provider Internal Medicine | DX: R07.9 Chest pain, unspecified (principal) | CPT/HCPCS: 93010 ==

== ENCOUNTER 2023-09-16 17:16 | Emergency (ER) | payer BC, SELFPAY ==
[2023-09-16 18:03] VITALS: BP 150/96; PULSE 96; RESP 18; TEMP 36.5; O2SAT 97; BMI 39.4
--- NOTE | 2023-09-16 18:23 | ED.BACK ---
HPI - Back Pain/Injury General Chief Complaint: Back Pain/Injury Stated Complaint: low back and abd pain Time Seen by Provider: 09/17/23 01:04 Source: patient Mode of arrival: ambulatory Limitations: no limitations History of Present Illness HPI Narrative: patient comes to the emergency room complaining of right-sided lower back pain that radiates towards the heel in the posterior aspect of the leg with certain movements. Patient denies any recent history of injuries, heavy lifting. Patient states she was seen at urgent care a few days ago, patient was prescribed naproxen and muscle relaxants and states that initially it was helping. Patient denies any re-injury. Patient denies any urinary/ fecal incontinence /retention. Pain is exacerbated with pain. Patient denies any dysuria or hematuria. Denies flank pain. Related Data Previous Rx's Medication Instructions Recorded amoxicillin 875 mg-potassium 1 tab PO BID #20 tabs 08/10/21 clavulanate 125 mg tablet (Augmentin) oxycodone-acetaminophen 5 mg-325 1 tab PO Q6H PRN pain #20 tabs 08/10/21 mg tablet (Percocet) ondansetron 4 mg disintegrating 4 mg PO TID PRN nausea and 02/25/23 tablet vomiting 5 days #10 tabs cyclobenzaprine 10 mg tablet 10 mg PO BEDTIME PRN muscle spasm 09/17/23 #10 tabs ketorolac 10 mg tablet 10 mg PO TID PRN pain #10 tabs 09/17/23 Allergies Allergy/AdvReac Type Severity Reaction Status Date / Time No Known Allergies Allergy Verified 09/16/23 18:02 Review of Systems Review of Systems: Constitutional : No Weight loss, No Fever, No Chills, No Night Sweats, No Fatigue, No Malaise ENT/Mouth : No Hearing loss, No Ear Pain, No Nasal Congestion, No Sinus Pain, No Hoarseness, No sore throat, No Rhinorrhea, No Swallowing Difficulty Eyes: No Eye Pain, No Swelling, No Redness, No Foreign Body, No Discharge, No Vision Changes Cardiovascular : No Chest Pain, No SOB, No Dyspnea on Exertion, No Orthopnea, No Edema, No Palpitations Respiratory : No Cough, No Sputum, No Wheezing, No Smoke Exposure, No Dyspnea Gastrointestinal : No Nausea, No Vomiting, No Diarrhea, No Constipation, No abdominal Pain, No Hematochezia, No Melena Genitourinary : no irregular bleeding, No Dysuria, No Urinary Frequency, No Hematuria, No Urinary Incontinence, No Urgency, No Flank Pain, No Urinary Flow Changes, No Hesitancy Musculoskeletal : Complaining right lower back pain with sharp radiating pain towards the heel on the right Skin : No Skin Lesions, No rash Neuro : No Weakness, No Numbness, No Paresthesias, No Loss of Consciousness, No Dizziness, No Headache Psych : No Anxiety/Panic, No Depression, No SI/HI/AH/VH, No Social Issues, Heme/Lymph: No Bruising, No Bleeding,No Lymphadenopathy Endocrine : No Polyuria, No Polydipsia, No Temperature Intolerance [facility] Social History Social History Alcohol intake: never Patient Tobacco Use Status: Current everyday Tobacco user Smoked in Last 30 Days: No Use of substances other than those prescribed or required for medical reasons: Yes Substance Use Type: Marijuana Advance Directives: No Advance Directives Information Provided: No Patient : No Physical Exam Vital Signs: Vital Signs: Last Vital Signs Temp 98.2 F 09/16/23 23:58 Pulse 85 09/16/23 23:58 Resp 16 09/16/23 23:58 BP 124/78 09/16/23 23:58 Pulse Ox 98 09/16/23 23:58 O2 Del Method Room Air 09/16/23 23:58 BMI result Body Mass Index 39.4 Const: Other: Appearance: Alert. Oriented X3. No acute distress. Eyes: Pupils equal, round and reactive to light. ENT: Pharynx normal. Neck: Normal inspection. Neck supple. No lymph nodes noted. No crepitus CVS: Normal heart rate and rhythm. Pulses normal. Normal S1 and S2 Respiratory: No respiratory distress. Breath sounds normal. No Wheezing. No rales Abdomen: Soft and nontender. No rigidity. No distention. Skin: Skin warm and dry. Normal skin color. Normal skin turgor. Extremities: No lower extremity edema. No Lacerations. No Rash back: Negative pain to palpation in thoracic/lumbar spine. Positive straight leg raise test on the right Neuro: Oriented X 3. No motor deficit. No sensory deficit. Moving all extremities. No slurred speech. CN 2 through 12 grossly intact Psych: calm, cooperative, normal affect Course Course Course Narrative: This is an RME: Additional HPI, ROS, PE not included below will be deferred to primary provider. 20-year-old female presents with back pain, she has been seen for this before, was prescribed pain med and muscle relaxers and reports she still having pain she reports she was seen in [place], she tells me that the pain is in her lower back and radiates down her right lower extremity, no urinary or bowel incontinence/retention, weakness, saddle paresthesias. Patient well appearing, ambulatory into triage. Plan patient will need pain control, Medical Decision Making Medical Decision Making MDM Narrative: - I discussed the physical exam with the patient, patient likely has sciatica versus a disc herniation. - Patient was given emergency room a dose of IM Decadron and Toradol. Patient instructed not to take any NSAIDs including naproxen while taking Toradol at home. - I discussed with the patient that she will likely need physical therapy, is possible that her primary care physician may want to refer her for an MRI she has no improvement in symptoms. - At this time, patient has no signs or symptoms of cauda equina. Differential Diagnosis Differential Diagnoses: The differential diagnosis associated with the presentation includes ( Sciatica, disc herniation, musculoskeletal pain) Discharge Plan Discharge Clinical Impression: Sciatica Patient Disposition: Home, Self-Care Instructions: Sciatica (ED) Additional Instructions: Please follow-up with your primary care physician tomorrow. If you have any worsening or new symptoms, please return to the emergency room or call 911 Prescriptions: New ketorolac 10 mg tablet 10 mg PO TID PRN (Reason: pain) Qty: 10 0RF Rx Instructions: do not take naproxen or any other NSAIDs with this medication, only Tylenol if needed cyclobenzaprine 10 mg tablet 10 mg PO BEDTIME PRN (Reason: muscle spasm) Qty: 10 0RF Rx Instructions: this medication will make you drowsy, do not take during the day No Action oxycodone-acetaminophen [Percocet] 5-325 mg tablet 1 tab PO Q6H PRN (Reason: pain) Qty: 20 0RF amoxicillin-pot clavulanate [Augmentin] 875-125 mg tablet 1 tab PO BID Qty: 20 0RF ondansetron 4 mg tablet,disintegrating 4 mg PO TID PRN (Reason: nausea and vomiting) 5 Days Qty: 10 0RF
[2023-09-16 23:58] VITALS: BP 124/78; PULSE 85; RESP 16; TEMP 36.8; O2SAT 98
--- NOTE | 2023-09-17 00:01 | MHC.EDTECH ---
This pct just assumed care of pt ,vitals taken ,Pt waiting to see Provider .
--- NOTE | 2023-09-17 00:16 | PC.NURSE ---
Patient reports back pain for a couple weeks thinking it was originally kidney stones but work up previously was negative.Pt was seen at urgent care and given muscle relaxers that helped initially but then the pain got worse. Reports that the pain is constant and radiating to her legs, 9/10 pain. Pt lying in stretcher on phone able to hold conversation. Denies any falls or injury
[2023-09-17] MEDS: Ketorolac Tromethamine 60 MG/2 ML VIAL IM (01:37)
[2023-09-17] MEDS: dexAMETHasone sod phosphate 4 MG/ML VIAL IM (01:37)
== END 2023-09-17 01:44 | disposition home or self-care (01) ==
PROVIDERS: Emergency Provider Emergency Medicine
DX: M54.41 Lumbago with sciatica, right side (principal); F17.200 Nicotine dependence, unspecified, uncomplicated
CPT/HCPCS: 96372; 99284; J1100; J1885

== ENCOUNTER 2024-01-07 14:58 | Emergency (ER) | payer BC, SELFPAY ==
--- NOTE | 2024-01-07 | ECG_ITS ---
Test Reason : dizziness Blood Pressure : / mmHG Vent. Rate : 074 BPM Atrial Rate : 074 BPM P-R Int : 162 ms QRS Dur : 084 ms QT Int : 402 ms P-R-T Axes : 056 032 009 degrees QTc Int : 446 ms Normal sinus rhythm with sinus arrhythmia Normal ECG When compared with ECG of 19-MAY-2023 17:44, No significant change was found Referred By: Generic ED Physician Electronically Signed By:CASSANDRA VEGA
--- NOTE | ~2024-01-07 | XR_ITS ---
EXAMINATION: XR CHEST CLINICAL INFORMATION: Shortness of breath COMPARISON: X-ray 05/19/2023 TECHNIQUE: Frontal view of the chest was obtained. FINDINGS: Cardiac and mediastinal silhouette is within normal limits. Stable appearance of the central pulmonary vasculature. No focal consolidation, effusion. No pulmonary edema. No pneumothorax is seen. No acute osseous abnormality. XR/XR chest 1V IMPRESSION: No evidence of acute pulmonary process.
[2024-01-07 15:34] VITALS: BP 135/87; BP 140/80; PULSE 86; PULSE 90; RESP 18; TEMP 37.1; O2SAT 98; BMI 40.0
[2024-01-07 16:06] LABS: MANUAL DIFF FLAG NO
[2024-01-07 16:08] LABS: Basophils Absolute Auto 0.1 X10*3/uL (0.0-0.2); Basophils Percent Auto 0.9 % (0-2); Eosinophils Absolute Auto 0.5 X10*3/uL (0.0-0.4); Eosinophils Percent Auto 5.1 % (0-4); Hematocrit 38.6 % (37.0-47.0); Hemoglobin 13.4 g/dl (12.0-16.0); Imm Gran Abs Auto 0.02 X10*3/uL (0.00-0.03); Imm Gran Pct Auto 0.2 % (0.0-0.4); Lymphocytes Absolute Auto 2.8 X10*3/uL (1.2-4.9); Lymphocytes Percent Auto 28.4 % (20-40); Mean Corpuscular HGB Conc 34.7 g/dl (31.0-35.0); Mean Corpuscular Hemoglobin 29.4 pg (27.0-33.0); Mean Corpuscular Volume 84.6 fL (80.0-98.0); Mean Platelet Volume 11.3 fL (9.4-12.3); Monocytes Absolute Auto 0.7 X10*3/uL (0.1-1.2); Neutrophils Absolute Auto 5.7 x10*3/uL (2.0-8.3); Neutrophils Percent Auto 58.4 % (45-73); Platelet Count 254 X10*3/uL (160-400); Red Blood Count 4.56 X10*6/uL (4.20-5.50); Red Cell Distribution Width 12.5 % (11.0-16.0); White Blood Count 9.7 X10*3/uL (4.8-10.8)
[2024-01-07 16:23] LABS: Alanine Aminotransferase 34 U/L (0-31); Albumin Level 4.2 g/dL (3.5-5.0); Alkaline Phosphatase 73 U/L (39-117); Anion Gap 12 (12-20); Aspartate Amino Transferase 29 U/L (5-31); Bilirubin Total 0.8 mg/dL (0.0-1.0); Blood Urea Nitrogen 17 mg/dL (9-16); Calcium 9.6 mg/dL (8.4-10.2); Carbon Dioxide 26 mmol/L (22-29); Chloride 106 mmol/L (96-108); Creatinine Clr Calc Pharmacy 127.8; Estimated Glomerular Filt Rate > 60; Glucose Random 79 mg/dL (60-115); Potassium 3.6 mmol/L (3.3-5.1); Sodium 140 mmol/L (135-145)
[2024-01-07 16:31] LABS: Troponin-I High Sensitivity < 2.7 ng/L (<3.5-17.0)
--- NOTE | 2024-01-07 16:55 | ED_ITS ---
HPI - Anxiety General Chief Complaint: Anxiety Stated Complaint: DIZZINESS Time Seen by Provider: 01/07/24 17:26 History of Present Illness HPI narrative: Patient is a 28 year old assigned female at , with a history of asthma presenting to the ED via EMS after feeling dizzy while taking the trash out at work. Patient reports that she started to feel like the room was spinning and had blurred vision which prompted her to take a seat before she fainted. Patient then endorses the onset of what felt like a panic attack when she did not understand while she was feeling that way and she started to experience SOB and chest tightness. Upon arrival to the ED she stated that all of her symptoms had resolved and she feels much better. Patient does report having several of similar episodes in the past year where she has felt dizzy and felt like she was going to pass out. Patient denies fever/chills, current lightheadedness/dizziness, nausea, vomiting, SOB, and chest pain. MD complaint: anxiety, heart racing and shortness of breath Onset (ago): hour(s) (3) Symptoms: dyspnea and palpitations Severity: mild Quality: improving Place: work History of similar episodes: Yes Provoking factors: none known Relieving factors: deep breaths and rest Exacerbating factors: nothing Associated symptoms: shortness of breath and palpitations Related Data Previous Rx's Medication Instructions Recorded amoxicillin 875 mg-potassium 1 tab PO BID #20 tabs 08/10/21 clavulanate 125 mg tablet (Augmentin) oxycodone-acetaminophen 5 mg-325 1 tab PO Q6H PRN pain #20 tabs 08/10/21 mg tablet (Percocet) ondansetron 4 mg disintegrating 4 mg PO TID PRN nausea and 02/25/23 tablet vomiting 5 days #10 tabs cyclobenzaprine 10 mg tablet 10 mg PO BEDTIME PRN muscle spasm 09/17/23 #10 tabs ketorolac 10 mg tablet 10 mg PO TID PRN pain #10 tabs 09/17/23 Allergies Allergy/AdvReac Type Severity Reaction Status Date / Time No Known Allergies Allergy Verified 01/07/24 15:40 Review of Systems 2 Constitutional: Constitutional: Reports no additional constitutional complaints, Denies chills, Denies fever(s) and Denies night sweats Eyes: Eyes: Reports no additional eye complaints, Denies diplopia, Denies eye discharge, Denies loss of vision and Denies eye pain ENT: Denies dizziness Cardiovascular: Cardiovascular: Reports no additional cardiovascular complaints, Denies lightheadedness and Denies Loss of Consciousness Respiratory: Respiratory: Reports no additional respiratory complaints Gastrointestinal: Gastrointestinal: Reports no additional gastrointestinal complaints, Denies abdominal pain, Denies melena, Denies hematochezia, Denies change in bowel habits and Denies change in stool character Genitourinary: Genitourinary: Denies hematuria, Denies urinary frequency, Denies dysuria, Denies urinary incontinence, Denies urinary hesitancy and Denies urinary urgency Musculoskeletal: Musculoskeletal: Reports no additional musculoskeletal complaints, Denies numbness and Denies tingling Neurologic: Denies dizziness, Denies loss of vision, Denies numbness and Denies tingling Comments: near syncope Psychiatric: Psychiatric: Reports no additional psychiatric complaints Endocrine: Endocrine: Reports no additional endocrine complaints Hematologic/Lymphatic: Hematologic/Lymphatic: Reports no additional hematologic/lymphatic complaints Allergic/Immunologic: Allergic/Immunologic: Reports no additional allergic/immunologic complaints [facility] Past Medical History Attestation statement: The following information was validated with the patient. Source: old records reviewed and nursing notes reviewed Social History Social History Alcohol intake: never Patient Tobacco Use Status: Current everyday Tobacco user Substance Use Type: Marijuana Advance Directives: No Advance Directives Information Provided: No Physical Exam 2 Vital Signs: Vital Signs: Last Vital Signs Temp 98.8 F 01/07/24 15:34 Pulse 86 01/07/24 15:34 Resp 18 01/07/24 15:34 BP 135/87 01/07/24 15:34 Pulse Ox 98 01/07/24 15:34 O2 Del Method Room Air 01/07/24 15:34 BMI result Body Mass Index 40.0 Const: General: cooperative, no acute distress, alert and awake Nutritional Appearance: obese Orientation/consciousness: patient oriented x3 L imitations: no limitations HEENT: Head: Yes normal to inspection Ears: hearing grossly normal bilaterally General nose exam: Normal external nose present Face and sinus: Yes normal facial exam Mouth: Normal oral and palatal mucosa present, no drooling and no muffled voice Eyes: General: appearance normal, both eyes and all related structures P eriorbital: periorbital findings normal Eyelids: Yes eyelids normal C onjunctivae: conjunctivae normal Pupils: Equal, round and reactive pupils present EOM: EOMs intact bilaterally Neck: Neck: Yes normal visual inspection Chest: Chest palpation & inspection: normal inspection of the chest Resp: Effort & Inspection: normal respiratory effort and able to speak in complete sentences Auscultation: clear to auscultation bilaterally Cardio: Jugular venous distension: no JVD Palpation: normal PMI Rate: r egular rate Rhythm: regular rhythm GI: Inspection: Yes normal to inspection Neuro: General: patient oriented x3 Cranial nerves: Yes Equal, round and reactive pupils present Cognition (Neuro): normal cognition Motor exam (neuro): 5/5 motor strength present throughout Sensory Exam: Normal double simultaneous stimulation for sensation Coordination: [id number] test normal Extrem: General: Yes normal to inspection, Yes full ROM and Yes capillary refill normal Psych: Appearance: grossly normal Mental Status: mental status grossly normal Affect: normal affect Attitude: cooperative Thought process: N ormal thought process present Thought content: Normal thought content present Insight: Good insight present (Psych) Course Course Course Narrative: This is an RME: Additional HPI, ROS, PE not included below will be deferred to primary provider. This is a 28-year-old female presenting to the emergency department with complaints of episode of dizziness, blurred vision, chest tightness. She states that while she was at work bringing at the trash she suddenly felt the symptoms. She states that she has a history of anxiety however states that she developed the symptoms and then she felt anxious. She states that this lasted for approximately 20 minutes and has since resolved. She is feeling much better upon arrival to the emergency room. She is alert and oriented, fully neurologically intact. Vital signs within normal limits. She appears comfortable. Further ER evaluation needed Plan: EKG, viral swabs, chest x-ray Medical Decision Making Medical Decision Making MDM Narrative: Patient is a 28 year old assigned female at with a history of anxiety and near syncopal episodes presenting to the emergency department today after a near syncopal episode that triggered a panic attack. Patient's physical exam was unremarkable. Patient's blood work was unremarkable. Patient's EKG was unremarkable. Patient's chest x-ray showed no acute process. I explained my physical exam findings as well as all test results to the patient. I answered all questions asked by the patient. I stressed the importance of the patient taking her medication as prescribed. I stressed the importance of the patient following up with her primary care provider. I stressed the importance of the patient returning to the emergency department immediately if her symptoms were to worsen or if she were to develop any dizziness, shortness of breath, difficulty breathing, chest pain, blurry vision, loss of vision, nausea, vomiting, abdominal pain, fever, chills, back pain, or any other complaints. Patient verbalized agreement and understanding with this treatment plan and discharge. Differential Diagnosis Differential Diagnoses: The differential diagnosis associated with the presentation includes Near syncope Anxiety Panic attack Admission/Observation Consideration of admission/observation: Escalation of care including admission/observation considered Patient would have been admitted to the hospital had her work up had any findings where hospital admission was appropriate and her clinical presentation warranted hospital admission. Lab Data [facility] Lab Attestation statement: I reviewed the patient's lab results. My interpretation of these results are in the [facility] Rationale portion of this note. 01/07/24 16:00 01/07/24 16:00 Labs: Lab Results 01/07/24 Range/Units 16:00 WBC 9.7 (4.8-10.8) X10*3/uL RBC 4.56 (4.20-5.50) X10*6/uL Hgb 13.4 (12.0-16.0) g/dl Hct 38.6 (37.0-47.0) % MCV 84.6 (80.0-98.0) fL MCH 29.4 (27.0-33.0) pg MCHC 34.7 (31.0-35.0) g/dl RDW 12.5 (11.0-16.0) % Plt Count 254 (160-400) X10*3/uL MPV 11.3 (9.4-12.3) fL Immature Gran % (Auto) 0.2 (0.0-0.4) % Neut % (Auto) 58.4 (45-73) % Lymph % (Auto) 28.4 (20-40) % [place] % (Auto) 7.0 (2-11) % Eos % (Auto) 5.1 H (0-4) % Baso % (Auto) 0.9 (0-2) % Lymph # (Auto) 2.8 (1.2-4.9) X10*3/uL [place] # (Auto) 0.7 (0.1-1.2) X10*3/uL Eos # (Auto) 0.5 H (0.0-0.4) X10*3/uL Baso # (Auto) 0.1 (0.0-0.2) X10*3/uL Abs Immat Gran (auto) 0.02 (0.00-0.03) X10*3/uL Absolute Neuts (auto) 5.7 (2.0-8.3) x10*3/uL Absolute Nucleated RBC 0.000 (0.0-0.012) X10*3/uL Nucleated RBC % (auto) 0.0 (0.0-0.2) /100WBC Sodium 140 (135-145) mmol/L Potassium 3.6 (3.3-5.1) mmol/L Chloride 106 (96-108) mmol/L Carbon Dioxide 26 (22-29) mmol/L Anion Gap 12 (12-20) BUN 17 H (9-16) mg/dL Creatinine 0.64 (0.5-1.4) mg/dL Estim Creat Clear Calc 127.8 Estimated GFR > 60 Random Glucose 79 (60-115) mg/dL Calcium 9.6 (8.4-10.2) mg/dL Magnesium 2.0 (1.6-2.6) mg/dL Total Bilirubin 0.8 (0.0-1.0) mg/dL AST 29 (5-31) U/L ALT 34 H (0-31) U/L Alkaline Phosphatase 73 (39-117) U/L Troponin I High Sens < 2.7 (<3.5-17.0) ng/L Total Protein 8.0 (6.5-8.0) g/dL Albumin 4.2 (3.5-5.0) g/dL Beta HCG, Quant < 2 mIU/mL Influenza Type A (PCR) TNP Influenza Type B (PCR) TNP RSV RNA Qual (PCR) TNP SARS-CoV-2 RNA (RT-PCR) TNP Independent Interpretation I performed an independent interpretation of an: EKG and Plain X-Ray Interpretation: My interpretation is in agreement with the radiologist's impression of this imaging study. - EXAMINATION: XR CHEST CLINICAL INFORMATION: Shortness of breath COMPARISON: X-ray 05/19/2023 TECHNIQUE: Frontal view of the chest was obtained. FINDINGS: Cardiac and mediastinal silhouette is within normal limits. Stable appearance of the central pulmonary vasculature. No focal consolidation, effusion. No pulmonary edema. No pneumothorax is seen. No acute osseous abnormality. XR/XR chest 1V IMPRESSION: No evidence of acute pulmonary process. Dictated By: Jason Alexander MD Signed By: Electronically signed by Jason Alexander MD 01/07/24 1734 - Vent. Rate: 074 BPM Atrial Rate: 074 BPM P-R Int: 162 ms QRS Dur: 084 ms QT Int: 402 ms P-R-T Axes: 056 032 009 degrees QTc Int: 446 ms Normal sinus rhythm with sinus arrhythmia Normal ECG When compared with ECG of 19-MAY-2023 17:44, No significant change was found DD/ [id number] Radiology Impression Discussion of test interpretation with radiology: I have reviewed the radiologist's reading. Independent Historian Clinical information obtained from an independent historian. History obtained from or confirmed by: EMS (EMS provided additional history and confirmed the history provided by the patient.) Discharge Plan Discharge Clinical Impression: Near syncope, Anxiety Patient Disposition: Home, Self-Care Instructions: Near Syncope (ED), Anxiety (ED) Additional Instructions: Follow up with your primary care provider. Return to the emergency department immediately if your symptoms worsen or if you develop any dizziness, shortness of breath, difficulty breathing, chest pain, blurry vision, loss of vision, nausea, vomiting, abdominal pain, fever, chills, back pain, or any other complaints. Prescriptions: No Action oxycodone-acetaminophen [Percocet] 5-325 mg tablet 1 tab PO Q6H PRN (Reason: pain) Qty: 20 0RF amoxicillin-pot clavulanate [Augmentin] 875-125 mg tablet 1 tab PO BID Qty: 20 0RF ondansetron 4 mg tablet,disintegrating 4 mg PO TID PRN (Reason: nausea and vomiting) 5 Days Qty: 10 0RF ketorolac 10 mg tablet 10 mg PO TID PRN (Reason: pain) Qty: 10 0RF Rx Instructions: do not take naproxen or any other NSAIDs with this medication, only Tylenol if needed cyclobenzaprine 10 mg tablet 10 mg PO BEDTIME PRN (Reason: muscle spasm) Qty: 10 0RF Rx Instructions: this medication will make you drowsy, do not take during the day Referrals: [facility] [Provider Group] (Call to establish and follow up with a primary care provider. If you already have a primary care provider, please follow up with them.) [facility] [Provider Group] (Call to establish and follow up with a primary care provider. If you already have a primary care provider, please follow up with them.) [facility] [Provider Group] (Call to establish and follow up with a primary care provider. If you already have a primary care provider, please follow up with them.) Stand Alone Forms: Work/School Release Print Language: Cymraes
[2024-01-07 17:20] LABS: HCG Quantitative < 2 mIU/mL
[2024-01-07 18:17] VITALS: BP 131/82; PULSE 88; RESP 18; TEMP 36.8; O2SAT 99
== END 2024-01-07 18:17 | disposition home or self-care (01) ==
PROVIDERS: Physician Assistant Medical; Emergency Provider Emergency Medicine
DX: R55 Syncope and collapse (principal); F41.9 Anxiety disorder, unspecified; Z11.52 Encounter for screening for COVID-19; Z20.828 Contact with and (suspected) exposure to other viral communicable diseases
CPT/HCPCS: 0241U; 36415; 71045; 80053; 83735; 84484; 84702; 85025; 93005; 99283

== ENCOUNTER → 2024-01-07 15:52 | Outpatient (BNV) | payer BC, SELFPAY | PROVIDERS: Emergency Provider Emergency Medicine; Visit Provider Internal Medicine | DX: I49.9 Cardiac arrhythmia, unspecified (principal) | CPT/HCPCS: 93010 ==

== ENCOUNTER → 2024-03-01 10:51 | Outpatient (BNVA) | payer BC, SELFPAY | PROVIDERS: Visit Provider Physician Assistant Surgical ==

== ENCOUNTER 2024-05-19 01:07 | Emergency (ER) | payer BC, SELFPAY ==
[2024-05-19 01:09] VITALS: BP 147/87; PULSE 90; RESP 20; TEMP 36.6; O2SAT 97; BMI 42.4
--- NOTE | 2024-05-19 01:22 | MHC.EDTECH ---
Patient brought into triage area,sars/flu/rsv,and strep swabs obtained and sent to lab.
[2024-05-19 01:49] LABS: IDNOW Serial# 08D9AD1C; Strep A Nucleic Acid Negative (Negative)
[2024-05-19 02:01] LABS: Influenza A PCR NEGATIVE (Negative); Influenza B PCR NEGATIVE (Negative); Resp Syncy Virus RNA Qual PCR NEGATIVE (Negative); SARS COV2 PCR INHOUSE NEGATIVE (Negative)
--- NOTE | 2024-05-19 02:10 | ED.GENADULT ---
HPI - General Adult General Chief complaint: General Medical Stated complaint: difficulty to swallow Time Seen by Provider: 05/19/24 02:07 History of Present Illness HPI narrative: Patient is a 28-year-old female presented today with having sore throat that is been ongoing since Friday. Also having bilateral ear pain. Pain on swallowing. Denies any sick contact. Related Data Home Medications ?Medication ?Instructions ?Recorded ?Confirmed cholecalciferol (vitamin D3) 1,250 1,250 mcg PO QWEEK 03/01/24 mcg (50,000 unit) capsule Previous Rx's ?Medication ?Instructions ?Recorded ibuprofen 400 mg tablet 400 mg PO Q6H PRN pain #20 tabs 05/19/24 penicillin V potassium 500 mg 500 mg PO TID 10 days #30 tabs 05/19/24 tablet Allergies Allergy/AdvReac Type Severity Reaction Status Date / Time No Known Allergies Allergy Verified 05/19/24 01:14 Review of Systems Review of Systems: Positive sore throat Yes all other systems are reviewed and are negative PMFSH Past Medical History Attestation statement: The following information was validated with the patient. Social History Social History Alcohol intake: never Patient Tobacco Use Status: Current everyday Tobacco user Substance Use Type: Marijuana Advance Directives: No Advance Directives Information Provided: Yes Physical Exam ED Vital Signs: Vital Signs - 24 hr 05/19/24 01:09 Temperature 97.8 F Pulse Rate 90 Respiratory Rate 20 Blood Pressure 147/87 H Pulse Oximetry 97 Oxygen Delivery Method Room Air BMI result Body Mass Index 42.4 Appearance: Alert. Oriented X3. No acute distress. Eyes: Pupils equal, round and reactive to light. ENT: Tonsils are enlarged bilaterally. Not touching the uvula. Positive erythema. Posterior pharynx slightly red. Patient reports pain on swallowing. Neck: Normal inspection. Neck supple. No lymph nodes noted. No crepitus CVS: Normal heart rate and rhythm. Pulses normal. Normal S1 and S2 Respiratory: No respiratory distress. Breath sounds normal. No Wheezing. No rales Abdomen: Soft and nontender. No rigidity. No distention. good BS x4 Skin: Skin warm and dry. Normal skin color. Normal skin turgor. Extremities: No lower extremity edema. Neurovascular intact to all extremities. No Lacerations. No Rash Neuro: Oriented X 3. No motor deficit. No sensory deficit. Moving all extermities. No slurred speech Medical Decision Making Medical Decision Making MDM Narrative: Patient well-appearing no acute distress. 28 years old has no significant past medical history. Complaining of increasing pain. Sore throat for 2 days. Will give penicillin. Also give patient Motrin for pain. Patient's strep was actually negative. COVID RSV flu were all negative. I feel the tonsils are but he for in size. I did see the triage note stating that the tonsils are slightly more enlarged on the right on reexam basically they were equal in size. She is in no distress. If her symptoms gets worse she will need follow-up with ENT the telephone number for ENT was given. She is in stable condition. Differential Diagnosis Differential Diagnoses: The differential diagnosis associated with the presentation includes Peritonsillar abscess, pharyngitis Admission/Observation Consideration of admission/observation: Escalation of care including admission/observation considered Lab Data MDM Lab Attestation statement: I reviewed the patient's lab results. Labs: Lab Results 05/19/24 Range/Units 01:20 Influenza Type A (PCR) NEGATIVE (Negative) Influenza Type B (PCR) NEGATIVE (Negative) RSV RNA Qual (PCR) NEGATIVE (Negative) SARS-CoV-2 RNA (RT-PCR) NEGATIVE (Negative) S. pyogenes GrpA ANALISA Negative (Negative) Independent Historian Clinical information obtained from an independent historian. History obtained from or confirmed by: Spouse Discharge Plan Discharge Clinical Impression: Pharyngitis Patient Disposition: Home, Self-Care Instructions: Pharyngitis (ED) Prescriptions: New ibuprofen 400 mg tablet 400 mg PO Q6H PRN (Reason: pain) Qty: 20 0RF penicillin V potassium 500 mg tablet 500 mg PO TID 10 Days Qty: 30 0RF No Action cholecalciferol (vitamin D3) 1,250 mcg (50,000 unit) capsule 1,250 mcg PO QWEEK Referrals: Nas Katz [Physician] - 05/21/24 Print Language: Vietnamese
[2024-05-19] MEDS: Ibuprofen 400 MG TABLET PO (02:28)
[2024-05-19] MEDS: Penicillin V Potassium 250 MG TABLET 500 MG PO (02:28)
[2024-05-19 02:33] VITALS: BP 112/84; PULSE 70; RESP 16; TEMP 37.2; O2SAT 99
[2024-05-19 02:41] VITALS: BP 112/84; PULSE 70; RESP 16; TEMP 37.2; O2SAT 99
== END 2024-05-19 02:42 | disposition home or self-care (01) ==
PROVIDERS: Emergency Provider Emergency Medicine Emergency Medical Services
DX: J02.9 Acute pharyngitis, unspecified (principal); R13.10 Dysphagia, unspecified; Z03.818 Encounter for observation for suspected exposure to other biological agents ruled out
CPT/HCPCS: 0241U; 87651; 99283; 99284

== ENCOUNTER 2024-06-21 21:47 | Emergency (ER) | payer BC, SELFPAY ==
--- NOTE | 2024-06-21 | ECG_ITS ---
Test Reason : CP Blood Pressure : / mmHG Vent. Rate : 097 BPM Atrial Rate : 097 BPM P-R Int : 150 ms QRS Dur : 084 ms QT Int : 372 ms P-R-T Axes : 049 032 008 degrees QTc Int : 472 ms Normal sinus rhythm T wave abnormality, consider anterior ischemia Prolonged QT Abnormal ECG When compared with ECG of 07-JAN-2024 15:52, Inverted T waves have replaced nonspecific T wave abnormality in Anterior leads Referred By: Generic ED Physician Electronically Signed By:LAMONT DIAZ
--- NOTE | ~2024-06-21 | XR_ITS ---
EXAMINATION: XR CHEST CLINICAL INFORMATION: Chest pressure COMPARISON: 01/07/2024 TECHNIQUE: 2 views of the chest were obtained. FINDINGS: The lungs are clear with no focal consolidation. No evidence of pneumothorax, pulmonary edema, or pleural effusions. The cardiomediastinal contour is unremarkable. Mild dextroscoliosis of the midthoracic spine. XR/XR chest 2V IMPRESSION: No acute cardiopulmonary findings. Electronically signed by: Magdi Dean MD 06/21/2024 11:46 PM EDT
[2024-06-21 21:56] VITALS: BP 150/80; PULSE 92; RESP 18; TEMP 37.1; O2SAT 99; BMI 43.3
[2024-06-21 22:16] LABS: Hematocrit 39.4 % (37.0-47.0); Hemoglobin 13.8 g/dl (12.0-16.0); Mean Corpuscular Hemoglobin 29.9 pg (27.0-33.0); Mean Corpuscular Volume 85.3 fL (80.0-98.0); Mean Platelet Volume 11.1 fL (9.4-12.3); Platelet Count 286 X10*3/uL (160-400); Red Blood Count 4.62 X10*6/uL (4.20-5.50); Red Cell Distribution Width 12.7 % (11.0-16.0); White Blood Count 12.3 X10*3/uL (4.8-10.8)
[2024-06-21 22:31] LABS: Alanine Aminotransferase 28 U/L (0-31); Alkaline Phosphatase 82 U/L (39-117); Anion Gap 16 (12-20); Aspartate Amino Transferase 21 U/L (5-31); Bilirubin Total 0.4 mg/dL (0.0-1.0); Blood Urea Nitrogen 10 mg/dL (9-16); Calcium 9.3 mg/dL (8.4-10.2); Carbon Dioxide 20 mmol/L (22-29); Chloride 106 mmol/L (96-108); Creatinine Clr Calc Pharmacy 124.2; Estimated Glomerular Filt Rate > 60; Glucose Random 142 mg/dL (60-115); Potassium 3.6 mmol/L (3.3-5.1); Sodium 138 mmol/L (135-145)
[2024-06-21 22:37] LABS: Troponin-I High Sensitivity < 2.7 ng/L (<3.5-17.0)
--- NOTE | 2024-06-21 23:50 | PC.NURSE ---
pt endorses sx resolved at this time, with only remaining sx of L arm discomfort, 6/10 but states 6/10 is acceptable.
--- NOTE | 2024-06-22 00:02 | ECG_ITS ---
Test Reason : CHEST PAIN Blood Pressure : / mmHG Vent. Rate : 075 BPM Atrial Rate : 075 BPM P-R Int : 158 ms QRS Dur : 094 ms QT Int : 400 ms P-R-T Axes : 050 045 008 degrees QTc Int : 446 ms Normal sinus rhythm Nonspecific T wave abnormality Abnormal ECG When compared with ECG of 21-JUN-2024 21:47, No significant change was found Referred By: Claudette Edwards Electronically Signed By:LAMONT DIAZ
--- NOTE | 2024-06-22 00:18 | ED.EXTPRO ---
HPI - Extremity Problem General Chief complaint: Extremity Problem Stated complaint: LT arm pain, chest pain Time Seen by Provider: 06/21/24 23:59 Source: patient Mode of arrival: ambulatory Limitations: no limitations History of Present Illness ED Provider: Dr. Claudette Edwards HPI Narrative: Patient comes to the emergency room complaining of left shoulder pain that started when she was laying down in bed. Patient states she became very concerned and decided to come to the hospital to get checked out. Patient denies any shortness of breath. Patient states that she did not have any chest pain, patient states that she has sensation like when she was going down on a very high roller coaster that lasted for a few seconds Related Data Home Medications ?Medication ?Instructions ?Recorded ?Confirmed cholecalciferol (vitamin D3) 1,250 1,250 mcg PO QWEEK 03/01/24 mcg (50,000 unit) capsule Previous Rx's ?Medication ?Instructions ?Recorded ibuprofen 400 mg tablet 400 mg PO Q6H PRN pain #20 tabs 05/19/24 penicillin V potassium 500 mg 500 mg PO TID 10 days #30 tabs 05/19/24 tablet Allergies Allergy/AdvReac Type Severity Reaction Status Date / Time No Known Allergies Allergy Verified 06/21/24 22:02 Review of Systems Review of Systems: Constitutional : No Weight loss, No Fever, No Chills, No Night Sweats, No Fatigue, No Malaise ENT/Mouth : No Hearing loss, No Ear Pain, No Nasal Congestion, No Sinus Pain, No Hoarseness, No sore throat, No Rhinorrhea, No Swallowing Difficulty Eyes: No Eye Pain, No Swelling, No Redness, No Foreign Body, No Discharge, No Vision Changes Cardiovascular : Complaining of left shoulder pain, No Chest Pain, No SOB, No Dyspnea on Exertion, No Orthopnea, No Edema, No Palpitations Respiratory : No Cough, No Sputum, No Wheezing, No Smoke Exposure, No Dyspnea Gastrointestinal : No Nausea, No Vomiting, No Diarrhea, No Constipation, No abdominal Pain, No Hematochezia, No Melena Genitourinary : no irregular bleeding, No Dysuria, No Urinary Frequency, No Hematuria, No Urinary Incontinence, No Urgency, No Flank Pain, No Urinary Flow Changes, No Hesitancy Musculoskeletal : No joint pain, No Myalgias, No Joint Swelling Skin : No Skin Lesions, No rash Neuro : No Weakness, No Numbness, No Paresthesias, No Loss of Consciousness, No Dizziness, No Headache Psych : No Anxiety/Panic, No Depression, No SI/HI/AH/VH, No Social Issues, Heme/Lymph: No Bruising, No Bleeding,No Lymphadenopathy Endocrine : No Polyuria, No Polydipsia, No Temperature Intolerance [facility] Social History Social History Alcohol intake: never Patient Tobacco Use Status: Current everyday Tobacco user Smoked in Last 30 Days: No Use of substances other than those prescribed or required for medical reasons: Yes Substance Use Type: Marijuana Substance Use Frequency: Chronic Longstanding Advance Directives: No Advance Directives Information Provided: No Do you have a plan to hurt others: No Plan Physical Exam Vital Signs: Vital Signs: Last Vital Signs Temp 98.7 F 06/21/24 21:56 Pulse 92 06/21/24 21:56 Resp 18 06/21/24 21:56 BP 150/80 H 06/21/24 21:56 Pulse Ox 99 06/21/24 21:56 O2 Del Method Room Air 06/21/24 21:56 BMI result Body Mass Index 43.3 Const: Other: Appearance: Alert. Oriented X3. No acute distress. Eyes: Pupils equal, round and reactive to light. ENT: Pharynx normal. Neck: Normal inspection. Neck supple. No lymph nodes noted. No crepitus CVS: Normal heart rate and rhythm. Pulses normal. Normal S1 and S2 Respiratory: No respiratory distress. Breath sounds normal. No Wheezing. No rales Abdomen: Soft and nontender. No rigidity. No distention. Skin: Skin warm and dry. Normal skin color. Normal skin turgor. Extremities: No lower extremity edema. No Lacerations. No Rash Neuro: Oriented X 3. No motor deficit. No sensory deficit. Moving all extremities. No slurred speech. CN 2 through 12 grossly intact Psych: calm, cooperative, normal affect Medical Decision Making Medical Decision Making MDM Narrative: -my interpretation of EKG 1.: Normal sinus rhythm, heart rate 97, QTC 472, nonspecific T-wave inversions in V3 V4 V5. -my interpretation of chest x-ray, no infiltrates -EKG likely secondary to lead placement. EKG 2 my interpretation: Sinus rhythm 75, no ST segment depression or elevation, previous T-wave inversions resolved with improved lead placement, QTC 446 -patient has no chest pain or shortness of breath. -my interpretation of labs: Normal hematology and chemistry, normal troponin Differential Diagnosis Differential Diagnoses: The differential diagnosis associated with the presentation includes (Anxiety, costochondritis, ACS, muscle spasms) Admission/Observation Consideration of admission/observation: Escalation of care including admission/observation considered (Given patient's symptoms, observation considered) Lab Data MDM Lab Attestation statement: I reviewed the patient's lab results. 06/21/24 22:03 06/21/24 22:10 Labs: Lab Results 06/21/24 06/21/24 Range/Units 22:03 22:10 WBC 12.3 H (4.8-10.8) X10*3/uL RBC 4.62 (4.20-5.50) X10*6/uL Hgb 13.8 (12.0-16.0) g/dl Hct 39.4 (37.0-47.0) % MCV 85.3 (80.0-98.0) fL MCH 29.9 (27.0-33.0) pg MCHC 35.0 (31.0-35.0) g/dl RDW 12.7 (11.0-16.0) % Plt Count 286 (160-400) X10*3/uL MPV 11.1 (9.4-12.3) fL Absolute Nucleated RBC 0.000 (0.0-0.012) X10*3/uL Nucleated RBC % (auto) 0.0 (0.0-0.2) /100WBC Sodium 138 (135-145) mmol/L Potassium 3.6 (3.3-5.1) mmol/L Chloride 106 (96-108) mmol/L Carbon Dioxide 20 L (22-29) mmol/L Anion Gap 16 (12-20) BUN 10 (9-16) mg/dL Creatinine 0.69 (0.5-1.4) mg/dL Estim Creat Clear Calc 124.2 Estimated GFR > 60 Random Glucose 142 H (60-115) mg/dL Calcium 9.3 (8.4-10.2) mg/dL Total Bilirubin 0.4 (0.0-1.0) mg/dL AST 21 (5-31) U/L ALT 28 (0-31) U/L Alkaline Phosphatase 82 (39-117) U/L Troponin I High Sens < 2.7 (<3.5-17.0) ng/L Total Protein 8.0 (6.5-8.0) g/dL Albumin 4.0 (3.5-5.0) g/dL Independent Interpretation I performed an independent interpretation of an: EKG and Plain X-Ray Radiology Impression Discussion of test interpretation with radiology: I have reviewed the radiologist's reading. Radiologist Impression: The lungs are clear with no focal consolidation. No evidence of pneumothorax, pulmonary edema, or pleural effusions. The cardiomediastinal contour is unremarkable. Mild dextroscoliosis of the midthoracic spine. XR/XR chest 2V IMPRESSION: No acute cardiopulmonary findings. Critical Care Time Critical Care Time Critical Care Time: Yes Total Critical Care Time: 35 Attestation: I have personally provided critical care time. Time includes review of lab data, radiology results, discussion with consultants, and monitoring for potential decompensation. Intervention performed as documented. Discharge Plan Discharge Clinical Impression: Atypical chest pain Patient Disposition: Home, Self-Care Instructions: Chest Pain (ED), Chest Wall Pain (ED) Additional Instructions: Please follow-up with your primary care physician tomorrow. If you have any worsening or new symptoms, please return to the emergency room or call 911 Prescriptions: No Action ibuprofen 400 mg tablet 400 mg PO Q6H PRN (Reason: pain) Qty: 20 0RF penicillin V potassium 500 mg tablet 500 mg PO TID 10 Days Qty: 30 0RF cholecalciferol (vitamin D3) 1,250 mcg (50,000 unit) capsule 1,250 mcg PO QWEEK Print Language: Uz[place]
[2024-06-22 00:26] LABS: HCG Quantitative < 2 mIU/mL
[2024-06-22 00:34] VITALS: BP 150/80; PULSE 92; RESP 18; TEMP 37.1; O2SAT 99
== END 2024-06-22 00:34 | disposition home or self-care (01) ==
PROVIDERS: Emergency Provider Emergency Medicine
DX: R07.89 Other chest pain (principal); M25.512 Pain in left shoulder
CPT/HCPCS: 36415; 71046; 80053; 84484; 84702; 85027; 93005; 99283; 99284

== ENCOUNTER 2025-02-25 08:11 | Outpatient (AMB) | payer BC, SELFPAY ==
--- OUTSIDE RECORDS SUMMARY | 2025-02-25 08:14 | XMS_ITS | Clinical Summary ---
Author Organization [address] [place] [address] [place] [phone] Phone Care Team Providers Care Commercial Management Accountant Name Role Phone Huseyin Cherry Primary Care Provider [phone] Allergies No known active allergies Medications meclizine (ANTIVERT) 25 mg tablet Take 1 Tablet by mouth every 8 hours as needed (dizziness/verti go). Medication may cause drowsiness, do not drive/operate machinery while taking 4 Active ibuprofen (ADVIL,MOTRIN) 600 mg tablet Take 1 Tablet by mouth every 6 hours as needed for Pain. 4 Active LORazepam (ATIVAN) 0.5 mg tablet Take 1 tablet (0.5 mg total) by mouth 1 (one) time each day if needed for anxiety. Max Daily Amount: 0.5 mg 30 tablet 5 Active Additional Information Patient not taking.Reported on 02/15/2025 famotidine (PEPCID) 20 mg tablet Take 1 tablet (20 mg total) by mouth 2 (two) times a day. 180 tablet 1 5 Active Additional Information Patient not taking.Reported on 02/15/2025 omeprazole (PriLOSEC) [address] capsule Take 1 capsule (20 mg total) by mouth 1 (one) time each day. Do not crush or chew. 30 each 3 5 02/16/20 26 Active Active Problems Problem Noted Date Diagnosed Date PCOS (polycystic ovarian syndrome) 10/17/2022 Overview (07/30/2024): Last Assessment & Plan: Pt meets criteria for PCOS by [place] criteria of irregular menses, symptoms of elevated testosterone and polycystic ovaries on ultrasound. She was counseled regarding the implications of PCOS including irregular ovulation which can lead to endometrial hyperplasia or malignancy, and also subfertility or infertility. I also reviewed long term care social worker risks of cardiovascular disease and diabetes. I recommended weight loss to help with resumption of regular menses, but in the meantime, reviewed hormonal options for menstrual regulation/endometrial protection. She is most interested in Provera q2-3 mintues. She has Rx Provera 5mg daily x10 days at home. She plans to take this medication and will contact me to let me know if she gets menses. If not, will increase to 10mg daily x10 days. Recurrent major depressive disorder (CMS/HCC V24 ) 08/05/2022 Overview (07/30/2024): Last Assessment & Plan: Accepts referral to behavioral health. Secondary amenorrhea 08/05/2022 Overview (07/30/2024): Last Assessment & Plan: Rx for Provera challenge provided - discussed with patient that she should experience a withdrawal bleed following completion of Rx. We reviewed common causes of secondary amenorrhea including , thyroid disease, PCOS, hyperprolactinemia, and ovarian failure. HCG, TSH, PCOS labs, prolactin and pelvic ultrasound ordered. Patient to follow-up after completion of labs/ultrasound Asthma 02/12/2021 HSV infection 02/12/2021 Overview (07/30/2024): Last Assessment & Plan: Rx for episodic Valtrex provided today. Reviewed prodromal symptoms and instructed to start Valtrex with onset of symptoms. Atypical glandular cells on cervical Pap smear 0 05/06/2017 Overview (07/30/2024): Needs colposcopy and EMB Vitamin D deficiency 04/04/2017 Encounters Date Type Department Care Team Description 02/15/2025 9:10 AM EDT Consult Gastroenterology - [place] [address] [place] [address] Velma Coyle PA Hepatomegaly (Primary Dx); Left sided abdominal pain; Gastroesophageal reflux disease without esophagitis; Fatty liver 02/04/2025 Telephone Adult [address] [phone] Huseyin Cherry PA Referral (Endo) 01/25/2025 7:01 AM EDT - 01/25/2025 11:59 PM EDT Hospital Encounter Radiology Department [address] [phone] Left sided abdominal pain; Gastroesophageal reflux disease without esophagitis; Recurrent major depressive disorder, remission status unspecified (CMS/HCC V24); PCOS (polycystic ovarian syndrome); Uncomplicated asthma, unspecified asthma severity, unspecified whether persistent; Perioral numbness; Hand numbness; Tremulousness Discharge Disposition: Home or Self Care 01/25/[address] [phone] Huseyin Cherry PA 01/18/2025 12:00 PM EDT Office Visit Adult [address] [phone] Huseyin Cherry PA Perioral numbness (Primary Dx); Left sided abdominal pain; Gastroesophageal reflux disease without esophagitis; Recurrent major depressive disorder, remission status unspecified (CMS/HCC V24); PCOS (polycystic ovarian syndrome); Uncomplicated asthma, unspecified asthma severity, unspecified whether persistent; Hand numbness; Tremulousness 01/18/2025 Telephone Adult Medicine [address] [phone] Huseyin Cherry PA Numbness (On lips); Tingling (On hands); Anxiety (After eating) 12/10/2024 Telephone Adult Medicine [address] [phone] Huseyin Cherry PA Pain; Numbness from Last 3 Months Immunizations Name Administration Dates Next Due Tdap Tetanus diptheria acell ular pertussis (Boostrix; Adacel) 7yo and older 08/02/2021 Surgical History Surgery Date Site/Laterality Comments OTHER SURGICAL HISTORY PROCEDURE: DENIES PREVIOUS SURGERY OTHER SURGICAL HISTORY 11/24/2023 PROCEDURE: OUTSIDE ENDOSCOPY; COMMENT: kristen normal, biopsies taken Medical History Medical History Date Comments Asthma DX:Asthma HSV infection DX:HSV infection Family History Medical History Relation Name Comments No Known Problems Father Diabetes Maternal Grandmother Other: CKD Maternal Grandmother dialysi s Anemia Mother Heart attack Paternal Grandmother No Known Problems Sister 1 No Known Problems Sister 2 No Known Problems Sister 3 Breast cancer Neg Hx Colon cancer Neg Hx Ovarian cancer Neg Hx Stroke Neg Hx Relation Name Status Comments Father Alive Maternal Grandmother Alive Mother Alive Paternal Grandmother Sister 1 Alive Sister 2 Alive Sister 3 Alive Social History Tobacco Use Types Packs/Day Years Used Date Smoking Tobacco: Never Smokeless Tobacco: Never Tobacco Cessation:Counseling Given: Not Answered Alcohol Use Standard Drinks/Week Comments Yes 0 (1 standard drink = 0.6 oz pur e alcohol) Housing Instability Answer Date Recorde d Are you worried that in the next 2 months you may not have stable housing? No 01/18/2025 Food Access & Nutrition Answer Date Rec orded Do you have access to a vari ety of food including fruits and vegetables? No 01/18/2025 Health Literacy Answer Date Recorded How often do you need to hav e someone help you when you read instructions, pamphlets, or other written material from your doctor or pharmacy? Never 01/18/2025 Caregiver: How often do you need to have someone help you when you read instructions, pamphlets, or other written material from your doctor or pharmacy? Not on file 01/18/2025 Transportation Answer Date Recorded Has the lack of transportati on kept you from meetings, work, or from getting things needed for daily living? No Has the lack of transportati on kept you from medical appointments or from getting medications? No 01/18/2025 Social Isolation Answer Date Recorded How often do you feel lonely or isolated from th ose around you? Never 01/18/2025 Food Risk Answer Date Recorded Within the past 12 months we worried whether our food would run out before we got money to buy more. Never true 01/18/2025 Within the past 12 months th e food we bought just didn't last and we didn't have money to get more. Never true 01/18/2025 Dependent Care Answer Date Recorded Do you need help finding or paying for care for your loved ones. For example, childcare worker or elderly care for an older adult? No 01/18/2025 Education Answer Date Recorded Do you think completing more education or training, like finishing a GED, going to college, or learning a trade, would be helpful for you? N/A 01/18/2025 Employment and Income Answer Date Recor ded During the last four weeks, have you been actively looking for work? No 01/18/2025 Living Situation Answer Date Recorded What is your living situation? 0 01/18/2025 Comments No Sex and Gender Information Value Date Recorded Sex Assigned at Not on file Legal Sex Female 9:02 AM EST Gender Identity Not on file Sexual Orientation Not on file Obstetrics History Last Filed Vital Signs Vital Sign Reading Time Taken Comments Blood Pressure 122/88 02/15/2025 9:10 AM EDT Pulse 84 02/15/2025 9:10 AM EDT Temperature 36.5 ??C (97.7 ??F) 01/18/2025 11:58 AM E DT Respiratory Rate 14 01/18/2025 11:58 AM EDT Oxygen Saturation 96% 02/15/2025 9:10 AM EDT Inhaled Oxygen Concentration - - Weight 99.6 kg (219 lb 9.6 oz) 02/15/2025 9:10 A M EDT Height 149.9 cm (4' 11 ) 02/15/2025 9:10 AM EDT Body Mass Index 44.35 02/15/2025 9:10 AM EDT Plan of Treatment Upcoming Encounters Date Type Department Care Team (Late st Contact Info) Description 03/02/2025 3:00 PM EDT Consult Bariatric Surgery - [place] [address] [address] Connie Dotson MD 175 [facility] [address] [place] [address] 03/07/2025 9:[address] Scan [address] [phone] 04/04/2025 9:30 AM EDT Appointment [facility] Xray [address] [place] [phone] 05/17/2025 8:30 AM EDT Office Visit Gastroenterology - [place] [address] [facility] [address] [place] [phone] Velma Coyle PA 175 [facility] [address] [place] [address] Health Maintenance Due Date Last Done Comments COVID-19 Vaccine (#1) 2000 Hepatitis B Vaccines (1 of 3 - 19+ 3-dose series) 2014 Pneumococcal Vaccine: Pediatrics (0 to 5 Years) and At-Risk Patients (6 to 64 Years) (1 of 2 - PCV) 2014 Influenza Vaccine (Season Ended) 2025 Cervical Cancer Screening: P ap Smear 08/12/2025 08/12/2022, 08/12/2022, 08/05/2022 Depression Screening 01/18/2026 01/18/2025, 01/13/2024 Social Influencers of Health Screening 01/18/2026 01/18/2025 Cholesterol Screening (Lipid Panel) 08/01/2028 08/01/2023 DTaP,Tdap,and Td Vaccines (2 - Td or Tdap) 08/02/2031 08/02/2021 HIV Screening Completed 08/05/2022 Hepatitis C Screening Completed 08/05/2022 HIB Vaccines Aged Out No longer eligi ble based on patient's age to complete this topic HPV Vaccines Aged Out No longer eligi ble based on patient's age to complete this topic Hepatitis A Vaccines Aged Out No long er eligible based on patient's age to complete this topic IPV Vaccines Aged Out No longer eligi ble based on patient's age to complete this topic MMR Vaccines Aged Out No longer eligi ble based on patient's age to complete this topic Meningococcal ACWY Vaccine Aged Out N o longer eligible based on patient's age to complete this topic Meningococcal B Vaccine Aged Out No l onger eligible based on patient's age to complete this topic RSV Immunization Patients Under 20 months Aged Out No longer eligible b ased on patient's age to complete this topic Varicella Vaccines Aged Out No longer eligible based on patient's age to complete this topic Procedures Procedure Name Priority Date/Time Associated Diagnosis Comments HOME SLEEP TEST Routine 02/15/2025 8:50 AM EDT US ABDOMEN COMPLETE Routine 01/25/2025 8 :15 AM EDT Left sided abdominal pain Gastroesophageal reflux disease without esophagitis Recurrent major depressive disorder, remission status unspecified (CMS/HCC V24) PCOS (polycystic ovarian syndrome) Uncomplicated asthma, unspecified asthma severity, unspecified whether persistent Perioral numbness Hand numbness Tremulousness COMPREHENSIVE METABOLIC PANEL Routine 01/18/2025 2:07 PM EDT Left sided abdominal pain Gastroesophageal reflux disease without esophagitis Recurrent major depressive disorder, remission status unspecified (CMS/HCC V24) PCOS (polycystic ovarian syndrome) Uncomplicated asthma, unspecified asthma severity, unspecified whether persistent Perioral numbness Hand numbness Tremulousness INSULIN, TOTAL Routine 01/18/2025 2:07 PM EDT Left sided abdominal pain Gastroesophageal reflux disease without esophagitis Recurrent major depressive disorder, remission status unspecified (CMS/HCC V24) PCOS (polycystic ovarian syndrome) Uncomplicated asthma, unspecified asthma severity, unspecified whether persistent Perioral numbness Hand numbness Tremulousness PARATHYROID HORMONE INTACT Routine 01/18/2025 2:07 PM EDT Left sided abdominal pain Gastroesophageal reflux disease without esophagitis Recurrent major depressive disorder, remission status unspecified (CMS/HCC V24) PCOS (polycystic ovarian syndrome) Uncomplicated asthma, unspecified asthma severity, unspecified whether persistent Perioral numbness Hand numbness Tremulousness THYROID STIMULATING HORMONE WITH REFLEX TO FREE T4 AND FREE T3 Routine 01/18/2025 2:07 PM EDT Left sided abdominal pain Gastroesophageal reflux disease without esophagitis Recurrent major depressive disorder, remission status unspecified (CMS/HCC V24) PCOS (polycystic ovarian syndrome) Uncomplicated asthma, unspecified asthma severity, unspecified whether persistent Perioral numbness Hand numbness Tremulousness LIPASE Routine 01/18/2025 2:07 PM EDT Left sided abdominal pain Gastroesophageal reflux disease without esophagitis Recurrent major depressive disorder, remission status unspecified (CMS/HCC V24) PCOS (polycystic ovarian syndrome) Uncomplicated asthma, unspecified asthma severity, unspecified whether persistent Perioral numbness Hand numbness Tremulousness CALCIUM, IONIZED Routine 01/18/2025 2:06 PM EDT Left sided abdominal pain Gastroesophageal reflux disease without esophagitis Recurrent major depressive disorder, remission status unspecified (CMS/HCC V24) PCOS (polycystic ovarian syndrome) Uncomplicated asthma, unspecified asthma severity, unspecified whether persistent Perioral numbness Hand numbness Tremulousness HELICOBACTER PYLORI BREATH TEST Routine 01/18/2025 1:03 PM EDT Left sided abdominal pain Gastroesophageal reflux disease without esophagitis Recurrent major depressive disorder, remission status unspecified (CMS/HCC V24) PCOS (polycystic ovarian syndrome) Uncomplicated asthma, unspecified asthma severity, unspecified whether persistent Perioral numbness Hand numbness Tremulousness CBC WITH AUTO DIFFERENTIAL Routine 01/18/2025 12:56 PM EDT Left sided abdominal pain Gastroesophageal reflux disease without esophagitis Recurrent major depressive disorder, remission status unspecified (CMS/HCC V24) PCOS (polycystic ovarian syndrome) Uncomplicated asthma, unspecified asthma severity, unspecified whether persistent Perioral numbness Hand numbness Tremulousness CBC AND DIFFERENTIAL Routine 01/18/2025 12:56 PM EDT Left sided abdominal pain Gastroesophageal reflux disease without esophagitis Recurrent major depressive disorder, remission status unspecified (CMS/HCC V24) PCOS (polycystic ovarian syndrome) Uncomplicated asthma, unspecified asthma severity, unspecified whether persistent Perioral numbness Hand numbness Tremulousness DEPRESSION SCREENING Routine 01/13/2024 LIPID PANEL Routine 08/01/2023 HPV Routine 08/12/2022 HEPATITIS C SCREENING Routine 08/05/2022 HIV SCREENING Routine 08/05/2022 from Last 3 Months or Most Recently Relevant to Health Maintenance Results * Home sleep test (02/15/2025 8:50 AM EDT) us Historical Provider SLEEP CENTER ORDERABLES F inal Result * US Abdomen Complete (01/25/2025 8:15 AM EDT) Anatomical Region Laterality Modality Body Ultrasound 01/25/2025 8:46 AM EDT Impressions 01/25/2025 8:50 AM EDT 1. ??No acute findings in the left lower quadrant. 2. ??Hepatomegaly with sonographic features of hepatic steatosis. -------- FINAL REPORT -------- Dictated By: Ward Reddy Dictated Date: 01/25/2025 08:46 ET Assigned Physician: Ward Reddy Reviewed and Electronically Signed By: Ward Reddy Signed Date: 01/25/2025 08:50 ET Workstation ID: [id number] Transcribed By: Self Edit Transcribed Date: 01/25/2025 08:46 ET Narrative 01/25/2025 8:50 AM EDT EXAM: ??US ABDOMEN COMPLETE COMPARISON: Abdomen/pelvis CT on August 08, 2023 HISTORY: LLQ abdominal pain left sided abdominal pain TECHNIQUE: Ultrasound examination of the abdomen was performed and multiple static images obtained. FINDINGS: PANCREAS: Visualized portions of the pancreas are unremarkable. LIVER: Hepatomegaly measuring 20.6 cm in length. ??Diffusely increased echogenicity compatible with hepatic steatosis. ?? No focal lesion demonstrated in the provided images. Main Portal Vein: Patent with normal direction of flow. GALLBLADDER/BILIARY: Gallbladder: No gallstones or gallbladder wall thickening. Biliary: No biliary ductal dilatation. The common bile duct measures 0.5 cm. SPLEEN: The spleen measures 10.4 cm in sagittal dimension. Grossly unremarkable. KIDNEYS: Right kidney measures 13.3 cm in sagittal dimension. Left kidney measures 12.1 cm in sagittal dimension. Kidneys: No renal stones or hydronephrosis. MIDLINE VASCULATURE: ??The visualized IVC is patent. ?? The distal aorta is obscured by overlying gas. The maximum visualized aortic diameter is 1.4 cm. -Targeted ultrasound was also performed at the location of the pain as indicated by the patient in the left lower quadrant. ??No abnormality seen during the local survey. Procedure Note Ward Reddy MD - 01/25/2025 EXAM: US ABDOMEN COMPLETE COMPARISON: Abdomen/pelvis CT on August 08, 2023 HISTORY: LLQ abdominal pain left sided abdominal pain TECHNIQUE: Ultrasound examination of the abdomen was performed andmultiple static images obtained. FINDINGS: PANCREAS: Visualized portions of the pancreas are unremarkable. LIVER: Hepatomegaly measuring 20.6 cm in length. Diffusely increasedechogenicity compatible with hepatic steatosis. No focal lesiondemonstrated in the provided images. Main Portal Vein: Patent with normal direction of flow. GALLBLADDER/BILIARY: Gallbladder: No gallstones or gallbladder wall thickening. Biliary: No biliary ductal dilatation. The common bile duct measures 0.5cm. SPLEEN: The spleen measures 10.4 cm in sagittal dimension. Grosslyunremarkable. KIDNEYS: Right kidney measures 13.3 cm in sagittal dimension. Left kidney avfkrwec52.1 cm in sagittal dimension. Kidneys: No renal stones or hydronephrosis. MIDLINE VASCULATURE: The visualized IVC is patent. The distal aorta isobscured by overlying gas. The maximum visualized aortic diameter is 1.4cm. -Targeted ultrasound was also performed at the location of the pain asindicated by the patient in the left lower quadrant. No abnormality seenduring the local survey. IMPRESSION: 1. No acute findings in the left lower quadrant. 2. Hepatomegaly with sonographic features of hepatic steatosis. -------- FINAL REPORT -------- Dictated By: Ward Reddy Dictated Date: 01/25/2025 08:46 ET Assigned Physician: Ward Reddy Reviewed and Electronically Signed By: Ward Reddy Signed Date: 01/25/2025 08:50 ET Workstation ID: [id number] Transcribed By: Self Edit Transcribed Date: 01/25/2025 08:46 ET Huseyin AGUILERA IMVane US PROCEDURES Final R esult * Thyroid stimulating hormone with reflex to free t4 and free t3 (01/18/2025 2:07 PM EDT) TSH 2.77 0.40 - 4.00 mcIU/mL LAB CHEMISTRY METHOD 01/18/2025 6:27 PM EDT [facility] Blood Venous blood specimen / Unknown Venipuncture / Unknown 01/18/2025 2:07 PM EDT 01/18/2025 2:07 PM EDT Huseyin AGUILERA LAB BLOOD ORDERABLES Cierra l Result Performing Organization Address [facility] [[email or web address]] de Phone Number [facility] [address] [place] [address], * (ABNORMAL) Insulin, total (01/18/2025 2:07 PM EDT) Insulin 212.6(H) 3.0 - 25.0 mcIU/mL LAB CHEMISTRY METHOD 01/18/2025 6:52 PM EDT [facility] Blood Venous blood specimen / Unknown Venipuncture / Unknown 01/18/2025 2:07 PM EDT 01/18/2025 2:07 PM EDT Narrative [facility] - 01/18/2025 6:52 PM EDT Insulin reference range based on fasting status. ??Insulin values vary in non- fasting individuals. Huseyin AGUILERA LAB BLOOD ORDERABLES Cierra l Result Performing Organization Address [facility] Co de Phone Number [facility] [address] [place] [address], * Parathyroid hormone intact (01/18/2025 2:07 PM EDT) PTH 61.7 18.5 - 88.0 pcg/mL LAB CHEMISTRY METHOD 01/18/2025 6:27 PM EDT [facility] Blood Venous blood specimen / Unknown Venipuncture / Unknown 01/18/2025 2:07 PM EDT 01/18/2025 2:07 PM EDT Huseyin AGUILERA LAB BLOOD ORDERABLES Cierra l Result [facility] [address] [place] [address], [place] [phone] * Lipase (01/18/2025 2:07 PM EDT) Lipase 24 13 - 75 unit/L LAB CHEMISTRY METHOD 01/18/2025 5:48 PM EDT [facility] Blood Venous blood specimen / Unknown Venipuncture / Unknown 01/18/2025 2:07 PM EDT 01/18/2025 2:07 PM EDT Huseyin AGUILERA LAB BLOOD ORDERABLES Cierra l Result Performing Organization Address City/[facility]/ZIP Co de Phone Number [facility] [address] [place] [address], [place] [phone] * (ABNORMAL) Comprehensive metabolic panel (01/18/2025 2:07 PM EDT) Pathologist [facility] Sodium 137 133 - 145 mmol/L LAB CHEMISTRY METHOD 01/18/2025 5:48 PM [facility] Potassium 3.8 3.5 - 5.5 mmol/L LAB CHEMISTRY METHOD 01/18/2025 5:48 PM EDT [facility] Chloride 105 96 - 110 mmol/L LAB CHEMISTRY METHOD 01/18/2025 5:48 PM [facility] CO2 24 21 - 32 mmol/L LAB CHEMISTRY METHOD 01/18/2025 5:48 PM T [facility] Anion Gap 8 3 - 11 LAB CHEMISTRY METHOD 01/18/2025 5:48 PM [facility] Glucose 67(L) 70 - 100 mg/dL LAB CHEMISTRY METHOD 01/18/2025 5:48 PM [facility] BUN 13 5 - 25 mg/dL LAB CHEMISTRY METHOD 01/18/2025 5:48 PM [facility] Creatinine 0.51 0.50 - 1.10 mg/dL LAB CHEMISTRY METHOD 01/18/2025 5:48 PM [facility] eGFR 130 >=60 mL/min/1. 73m2 LAB CHEMISTRY METHOD 01/18/2025 5:48 PM [facility] Comment:Calculation based on the??Chronic Kidney Disease Epidemiology Collaboration (CKD-EPI) equation refit??without adjustment for race. BUN/Creatinine Ratio 25.5 LAB CHEMISTRY METHOD 01/18/2025 5:48 PM [facility] Calcium 9.4 8.5 - 10.5 mg/dL LAB CHEMISTRY METHOD 01/18/2025 5:48 PM [facility] AST (SGOT) 18 10 - 42 unit/L LAB CHEMISTRY METHOD 01/18/2025 5:48 PM [facility] ALT (SGPT) 39 10 - 60 unit/L LAB CHEMISTRY METHOD 01/18/2025 5:48 PM [facility] Alkaline Phosphatase 101 42 - 121 unit/L LAB CHEMISTRY METHOD 01/18/2025 5:48 PM [facility] Total Protein 8.0 6.0 - 8.0 g/dL LAB CHEMISTRY METHOD 01/18/2025 5:48 PM [facility] Albumin 3.9 3.2 - 5.0 g/dL LAB CHEMISTRY METHOD 01/18/2025 5:48 PM [facility] Total Bilirubin 0.5 0.0 - 1.4 mg/dL LAB CHEMISTRY METHOD 01/18/2025 5:48 PM [facility] Blood Venous blood specimen / Unknown Venipuncture / Unknown 01/18/2025 2:07 PM EDT 01/18/2025 2:07 PM EDT us Huseyin AGUILERA LAB BLOOD ORDERABLES Cierra l Result [facility] [address] [place] [address], [place] [phone] * Calcium, ionized (01/18/2025 2:06 PM EDT) [facility] Calcium Ionized 5.1 4.6 - 5.4 mg/dL 01/24/2025 12:42 PM EDT [facility] Comment: Test performed at [facility], [address], [place], [place] ??[address] ? [phone] Brittany Davenport MD, PhD - [employer] Blood Venous blood specimen / Unknown Venipuncture / Unknown 01/18/2025 2:06 PM EDT 01/18/2025 2:06 PM EDT Huseyin AGUILERA LAB BLOOD ORDERABLES Cierra l Result [facility] [address] [place] [address] * Helicobacter pylori breath test (01/18/2025 1:03 PM EDT) [facility] H Pylori Breath Test Negative Negative LAB CHEMISTRY METHOD 01/19/2025 8:43 AM EDT [facility] Breath Oral cavity structure / Unknown Non-blood Collection / Unknown 01/18/2025 1:03 PM EDT 01/18/2025 1:03 PM EDT Huseyin [facility] BODY FLUIDS AND STOOL S ORDERABLES Final Result [facility] [address] [place] [address], [place] [phone] * (ABNORMAL) CBC auto differential (01/18/2025 12:56 PM EDT) [facility] WBC 9.6 4.8 - 10.8 K/mcL LAB HEMETOLOGY METHOD 01/18/2025 2:51 PM EDT [facility] RBC 4.80 3.80 - 4.80 M/mcL LAB [facility] Hemoglobin 13.9 11.5 - 16.0 g/dL LAB HEMETOLOGY METHOD [facility]25 [facility] Hematocrit 42.1 35.0 - 47.0 % LAB HEMETOLOGY METHOD 01/18/2025 2:51 PM [facility] MCV 87.7 79.0 - 98.0 FL LAB HEMETOLOGY METHOD 01/18/2025 2:51 PM [facility] MCH 29.0 27.0 - 32.0 pcg LAB HEMETOLOGY METHOD 01/18/2025 2:51 PM [facility] MCHC 33.0 32.0 - 37.0 g/dL LAB HEMETOLOGY METHOD 01/18/2025 2:51 PM [facility] RDW 12.9 11.0 - 15.0 % LAB HEMETOLOGY METHOD 01/18/2025 2:51 PM [facility] Platelets 285 130 - 400 K/mcL LAB HEMETOLOGY METHOD 01/18/2025 2:51 PM [facility] MPV 11.8(H) 7.0 - 11.0 FL LAB HEMETOLOGY METHOD [facility] NRBC 0.0 <1.0 % LAB HEMETOLOGY METHOD 01/18/2025 2:51 PM [facility] NRBC Absolute 0.00 <0.10 K/mcL LAB HEMETOLOGY METHOD 01/18/2025 2:51 PM [facility] Neutrophils Relative 49.3 % LAB HEMETOLOGY METHOD 01/18/2025 2:51 PM [facility] Lymphocytes Relative 38.4 % LAB HEMETOLOGY METHOD 01/18/2025 2:51 PM [facility] Monocytes Relative 7.3 % LAB HEMETOLOGY METHOD 01/18/2025 2:51 PM [facility] Eosinophils Relative 4.0 % LAB HEMETOLOGY METHOD 01/18/2025 2:51 PM [facility] Basophils Relative 0.8 % LAB HEMETOLOGY METHOD 01/18/2025 2:51 PM [facility] Immature Granulocytes Relative 0.2 % LAB HEMETOLOGY METHOD 01/18/2025 2:51 PM [facility] Neutrophils Absolute 4.74 1.50 - 7.00 K/mcL LAB HEMETOLOGY METHOD 01/18/2025 2:51 PM [facility] Lymphocytes Absolute 3.70 1.00 - 5.00 K/mcL LAB HEMETOLOGY METHOD 01/18/2025 2:51 PM [facility] Monocytes Absolute 0.70 0.20 - 1.00 K/mcL LAB HEMETOLOGY METHOD 01/18/2025 2:51 PM [facility] Eosinophils Absolute 0.39 0.00 - 0.50 K/mcL LAB HEMETOLOGY METHOD 01/18/2025 2:51 PM [facility] Basophils Absolute 0.08 0.00 - 0.20 K/mcL LAB HEMETOLOGY METHOD 01/18/2025 2:51 PM [facility] Immature Granulocytes Absolute 0.02 0.00 - 0.03 K/mcL LAB HEMETOLOGY METHOD 01/18/2025 2:51 PM [facility] Blood Venous blood specimen / Unknown Venipuncture / Unknown 01/18/2025 12:56 PM EDT 01/18/2025 12:56 PM EDT Huseyin [facility] LAB BLOOD ORDERABLES Cierra l Result [facility] ([facility] [address] [place] [address], [place] [phone] * Depression Screening (01/13/2024) Pathologist [facility] Depression Screening abstracted [facility] Provider HEALTH MAINTENANCE Final Result * (ABNORMAL) Lipid panel (08/01/2023) [facility] LDL/HDL Ratio 4 0 - 4 Triglycerides 120 0 - 150 mg/dL Cholesterol 188 0 - 200 mg/dL HDL 50 >=40 mg/dL LDL Cholesterol 114(A) 0 - 100 mg/dL Blood Venous blood specimen / Unknown [facility] Provider LAB BLOOD ORDERABLES Cierra l Result * Cervical Cancer Screening: HPV (08/12/2022) [facility] Cervical Cancer Screening: HPV no interpretation , abstracted [facility] Provider HEALTH MAINTENANCE Final Result * HIV Screening (08/05/2022) [facility] HIV Screening abstracted [facility] Provider HEALTH MAINTENANCE Final Result * Hepatitis C Screening (08/05/2022) [facility] Hepatitis C Screening abstracted [facility] Provider HEALTH MAINTENANCE Final Result from Last 3 Months or Most Recently Relevant to Health Maintenance Insurance [facility] Care Teams Commercial Management Accountant Relationship Specialty Start Date End Date Huseyin Cherry PA [address] [place] [address] PCP - General Internal Medicine 09/10/24
--- OUTSIDE RECORDS SUMMARY | 2025-02-25 08:14 | XMS_ITS | Clinical Summary ---
Author Organization [facility] Address [address] [place] [address] Care Team Providers Care Tourism Radio Presenter Name Role Phone Unavailable Primary Care Provider Unavailabl e Allergies No known active allergies Medications Medication Sig Dispensed Refills Start Date End Date Status Spacer/Aero-Holding Chambers (INSPIREASE, SPACER,) MISC device Inhale 1 each into the lungs as needed (PLEASE USE WITH YOUR INHALER). 1 each 0 02/25/2015 Active albuterol (PROVENTIL HFA;VENTOLIN HFA) 108 (90 BASE) MCG/ACT inhaler Inhale 2 puffs into the lungs every 6 (six) hours as needed for wheezing. 0 Active Tobramycin (TOBREX) 0.3 % SOLN Place 1 drop into the right eye every 4 (four) hours. 5 mL 0 05/04/2018 Active Social History Tobacco Use Types Packs/Day Years Used Date Smoking Tobacco: Never Smokeless Tobacco: Never Alcohol Use Standard Drinks/Week Comments No 0 (1 standard drink = 0.6 oz pur e alcohol) Sex and Gender Information Value Date Recorded Sex Assigned at Female 01/26/2019 12:43 AM EDT Gender Identity Not on file Sexual Orientation Not on file Job Start Date Occupation Industry Not on file Not on file Not on file Last Filed Vital Signs Vital Sign Reading Time Taken Comments Blood Pressure 94/65 01/26/2019 3:01 AM EDT Pulse 75 01/26/2019 3:01 AM EDT Temperature 36.1 ??C (97 ??F) 01/26/2019 3:01 AM EDT Respiratory Rate 20 01/26/2019 3:01 AM EDT Oxygen Saturation 100% 01/26/2019 3:01 AM EDT Inhaled Oxygen Concentration - - Weight 77.1 kg (170 lb) 01/26/2019 12:26 AM EDT Height 149.9 cm (4' 11 ) 01/26/2019 12:26 AM EDT Body Mass Index 34.34 01/26/2019 12:26 AM EDT Plan of Treatment Health Maintenance Due Date Last Done Comments Hepatitis B Vaccines (1 of 3 - 3-dose series) 1995 Hepatitis C Screening 1995 COVID-19 Vaccine (#1) 03/05/1996 Depression Screening 2007 Preventative Health Evaluation 2013 DTap / Tdap / Td (1 - Tdap) 2014 Cervical Cancer Screening (P ap Smear) 2016 Influenza Vaccine (#1) 2024 Pneumococcal Vaccine Aged Out No long er eligible based on patient's age to complete this topic RSV Ped < 20 months Aged Out No longe r eligible based on patient's age to complete this topic Angela Valles Personal/Family Self 1995 [address] [place] [address]
--- OUTSIDE RECORDS SUMMARY | 2025-02-25 08:14 | XMS_ITS | Clinical Summary ---
Author Organization [facility] Address [address] [place] [id number] Care Team Providers Care Rehabilitation Attendant Name Role Phone Pcp, No Primary Care Provider Unavailabl e Allergies No known active allergies Medications benzonatate (TESSALON) 100 MG capsule Take 1 capsule (100 mg total) by mouth 3 (three) times a day as needed for cough. 20 capsule 0 Active albuterol (PROVENTIL HFA; VENTOLIN HFA) 108 (90 Base) MCG/ACT inhaler Inhale 1-2 puffs every 4 (four) hours as needed for wheezing. 1 Inhaler 0 Active dicyclomine (BENTYL) 10 MG capsule Take 1 capsule (10 mg total) by mouth 4 (four) times a day. 20 capsule 1 Active ondansetron (ZOFRAN-ODT) 4 MG disintegrating tablet Take 1 tablet (4 mg total) by mouth 3 times daily (every 8 hours) as needed for nausea or vomiting. Place tablet on tongue to dissolve. 10 tablet 1 Active Social History Tobacco Use Types Packs/Day Years Used Date Smoking Tobacco: Never Smokeless Tobacco: Never Comments Unknown Sex and Gender Information Value Date Recorded Sex Assigned at Not on file Legal Sex Female 3:40 PM EST Gender Identity Not on file Sexual Orientation Not on file Last Filed Vital Signs Vital Sign Reading Time Taken Comments Blood Pressure 130/72 04/04/2021 4:14 AM EDT Pulse 93 04/04/2021 4:14 AM EDT Temperature 36.6 ??C (97.9 ??F) 04/04/2021 4:14 AM ED T Respiratory Rate 16 04/04/2021 4:14 AM EDT Oxygen Saturation 96% 04/04/2021 4:14 AM EDT Inhaled Oxygen Concentration - - Weight - - Height - - Body Mass Index - - Plan of Treatment Health Maintenance Due Date Last Done Comments Hepatitis C Virus Screening 1995 HIV Screening 2008 DTaP/Tdap/Td Vaccines (1 - Tdap) 2014 Hepatitis B Vaccines (1 of 3 - 19+ 3-dose series) 2014 Pap Smear (Ages 21-65) 2016 COVID-19 Vaccine ( - 2023-2 5 season) 2024 Influenza Vaccine 05/20/2025 HPV Vaccines Aged Out No longer eligi ble based on patient's age to complete this topic Pneumococcal Vaccine: Pediat sherly (0-5 Years) and At-Risk Patients (6 to 49 Years) Aged Out No longer eligible b ased on patient's age to complete this topic Insurance [facility] - PPO Care Teams Rehabilitation Attendant Relationship Specialty Start Date End Date Pcp, No PCP - General General Medicine 04/03/21
--- NOTE | 2025-02-25 09:22 | MHC.OFFVISWM ---
VS Expanded 02/25/25 09:31 Height 4 ft 10 in Weight 216 lb 6 oz BMI 45.2 Body Fat % 43.2 Body Fat Mass 93.4 Fat Free Mass 123 Visceral Fat Rating 11 Body Water % 40.8 Body Water Mass 88.4 Basal Metabolic Rate/Score 1,749 Intake Visit Reasons: TV PERSONAL CARE SERVICE PROVIDER SWL BMI 43.8 Allergies No Known Allergies Allergy (Verified 02/25/25 09:22) Medication List - Last Reconciled 02/25/25 by Chepe Narvaez MD albuterol sulfate 90 mcg/actuation 2 puffs inhalation Q6H PRN lorazepam 0.5 mg PO DAILY PRN omeprazole 10 mg PO DAILY HPI HPI TV PERSONAL CARE SERVICE PROVIDER SWL BMI 43.8: Details: Start time: 9.15am, End time: 9.52am ?I spent 32 minutes speaking with the patient on the phone plus an additional 5 minutes reviewing and updating records for a total of 37 minutes HPI Comments Details: Previous weight loss efforts: Keto diet Wakes up: 6am, Sleeps: 10pm Breakfast: skips Lunch: 12pm (mac and cheese, soups) Dinner: 7pm (rice with chicken, take-outs, potatoes) Snacks: 10am (chips, candy bar) Exercise: has home treadmill and bike Beverages: Coffee (1 cup/d with cream and sugar), tea: none, soda: none, juice: none, ETOH: none PFSH Medical History (Updated 02/25/25 @ 09:26 by Chepe Narvaez MD) Anxiety Asthma Depression GERD (gastroesophageal reflux disease) Morbid obesity Surgical History (Updated 02/23/25 @ 10:58 by Gladys Sam CMA) No history of previous surgery Family History (Updated 02/23/25 @ 10:58 by Gladys Sam CMA) Mother No problems noted. Father No problems noted. Social History Alcohol intake: never Patient Tobacco Use Status: Current everyday Tobacco user Substance Use Type: Marijuana Telehealth Telehealth Telehealth Platform: Telephone Location of provider rendering services: practice address Location of patient: address on file Patient Identification confirmed using: Name, : Yes Telehealth method: voice only Patient verbally consented to treatment: Yes Patient verbally consented to billing insurance company: Yes Patient informed of any privacy concerns related to visit: Yes Minutes spent on Phone/Video with Pt.: 37 Assessment & Plan Assessment & Plan (1) Morbid obesity: Code(s): E66.01 - Morbid (severe) obesity due to excess calories Category: Medical Plan: 1.? Plan for lap sleeve gastrectomy. If diaphragmatic or ventral hernias are present at time of surgery, these will be repaired laparoscopically as well. I emphasized the importance of close follow-up, adherence to instructions and good communication. The surgery does not replace the need to change your lifestlyle which is the cause of the obesity problem. The surgery provides the motivation to try again to change your lifestyle, it reduces the appetite and make the transition to a better lifestyle easier and doubles the amount of weight you would lose compared to doing the lifestyle change without the surgery. You will need to be on a liquid diet with protein shakes for 2 weeks before surgery to maximize weight loss and boost your nutritional status to recover better from surgery and also for the first two weeks after surgery to let the stomach heal before we introduce other foods. After the first 2 weeks we will introduce protein bars and soft foods like scrambled eggs, cottage cheese and yogurt and after the 6th week will introduce meat, fish and cooked vegetables in small amounts. Over time you should be able to eat everything in small amounts. Side effects like nausea, vomiting, heartburn or abdominal pain are not common in the practice unless you are not following in the practice. This operation requires lifetime commitment to following in our practice and communication with me. You will much less weight and experience side effects if you don?t communicate or not following in the practice. Complications are rare and in our practice is about 1/10 of the national average. However, you can develop bleeding that may require transfusion (hasn?t happened for year in the practice), you may from complications (we did not have any deaths in the practice) and infections. Infections are usually a result of breakdown in communication or not understanding or following directions correctly. They are difficult to treat, they can happen during the first 6 weeks, they may require to be in the hospital for weeks or even months, not being able to eat by mouth and you may have drains and surgeries to try and correct the issue. Other risks and complications include possible conversion to an open procedure, leaks, small bowel obstruction, blood clots, cardiac, or pulmonary complications, as long term acute care registered nurse complications such as ulcers, insufficient weight loss and vitamin deficiencies. 2. You will receive a link of our software ave to generate an individualized nutritional and exercise plan specific for you. Please send me a screenshot of the plans you will generate Meal to include lean meat (beef, fish, pork, turkey, chicken), or mohawk yogurt, or egg whites, or beans with a salad with olive oil and fruits (berries, pears, apples, kiwi). Avoid salt, breads, potatoes, rice, pasta, desserts. ?3. If you choose shakes, each shake would be drunk slowly, like coffee in a period of 2 hours. ?4. If you choose bars, cut each bar in 4 pieces and eat each piece in 30min ?to make each bar last 2 hours. ?5. I emphasized the importance of measuring accurately the food portion and measure it when serving the food in plate ?6. The meal portions include a specific number of forks of meat and salad. You always eat the meat portion but you can replace up to half of salad/vegetables portion with rice, potatoes or pasta, or a fruit ?if you like. The less you do it the better weight loss will be. ?7. One full-size fork is what it can be scooped on the fork without falling aside and not what can be bit with the fork. Use regular forks like those you find in a typical restaurant. ?8.? Please buy the body composition scale we discussed and send me weight measurements as soon as possible and then once a week. Always include your diet and exercise plan. 9. The best exercise choice would be to use your treadmill at home that can track calories. You can create and exercise plan with the [employer] ave. ?10.?It is important of avoiding and for at least 18 months postoperatively and has been discussed at the infosession. ?11. Goal is to lose at least 1.5-2lbs per week ?12. Goal to lose 10% of your weight before surgery, which is about 21lbs. Ultimate weight goal: 195lbs before surgery 13. Please follow the diet plan exactly without any change. If you don't like something about the plan or you feel hungry you need to communicate with me so I can help you revise the plan. You should not change the plan yourself. 14. To be scheduled for EGD due to the history of GERD. The possibility of biopsies was discussed. Patient needs to avoid use of NSAIDs and aspirin for 1 week prior to EGD. You must be on liquids only the day before your endoscopy. Risks of perforation and bleeding was discussed with the patient. This will be an outpatient procedure with IV sedation.
[2025-02-25 09:31] VITALS: BMI 45.2
== END 2025-02-25 09:53 | disposition home or self-care (01) ==
LOC: HO.HBS 08:11
PROVIDERS: Visit Provider Surgery
DX: E66.01 Morbid (severe) obesity due to excess calories (principal)
CPT/HCPCS: 99203

== ENCOUNTER 2025-03-01 08:18 | Outpatient (REF) | payer BC, SELFPAY ==
--- NOTE | ~2025-03-01 | XR_ITS ---
EXAMINATION: XR CHEST CLINICAL INFORMATION: E66.01 - Morbid (severe) obesity due to excess calories COMPARISON: June 21, 2024. TECHNIQUE: 2 views of the chest were obtained. FINDINGS: No consolidation pleural effusion or pneumothorax. Cardiomediastinal silhouette size is normal. S-shaped curvature of the thoracolumbar spine. XR/XR chest 2V IMPRESSION: No acute airspace disease. Scoliosis, thoracolumbar spine. Electronically signed by: Arcadio Gonzalez MD 03/01/2025 09:29 AM EDT
--- OUTSIDE RECORDS SUMMARY | 2025-03-01 08:28 | XMS_ITS | Clinical Summary ---
Author Organization [facility] Address [address] [place] [address] Care Team Providers Care Partnership Marketing Manager Name Role Phone Unavailable Primary Care Provider [...] Personal/Family Self 1995 [address] [place] [address]
--- OUTSIDE RECORDS SUMMARY | 2025-03-01 08:28 | XMS_ITS | Clinical Summary ---
Author Organization [address] [place] [address] [place] [phone] Phone Care Team Providers Care Fire Boss Name Role Phone Huseyin Cherry Primary Care Provider [phone] Allergies No known active allergies Medications meclizine [...] Active Additional Information Patient not taking.Reported on 02/28/2025 famotidine (PEPCID) 20 mg tablet Take 1 tablet (20 mg total) by mouth 2 (two) times a day. 180 tablet 1 5 Active Additional Information Patient not taking.Reported on 02/28/2025 omeprazole (PriLOSEC) [address] capsule Take [...] also subfertility or infertility. I also reviewed fpc risks of cardiovascular disease and diabetes. I [...] Encounters Date Type Department Care Team Description 02/28/2025 3:15 PM EDT Office Visit Adult [address] [phone] Katelyn Branch PA 02/28/2025 Telephone Adult Medicine [address] [phone] Huseyin Cherry PA Finger Laceration 02/15/2025 9:10 AM EDT Consult Gastroenterology - [place] [address] [place] [phone] Velma Coyle PA Hepatomegaly (Primary Dx); Left sided abdominal pain; Gastroesophageal reflux disease without esophagitis; Fatty liver 02/04/2025 Telephone Adult Medicine [address] [phone] Huseyin Cherry PA Referral (Endo) 01/25/2025 7:01 AM EDT - 01/25/2025 11:59 PM EDT Hospital Encounter Radiology Department - [address] [phone] Left sided abdominal pain; Gastroesophageal reflux disease without esophagitis; Recurrent major depressive disorder, remission status unspecified (CMS/HCC V24); PCOS (polycystic ovarian syndrome); Uncomplicated asthma, unspecified asthma severity, unspecified whether persistent; Perioral numbness; Hand numbness; Tremulousness Discharge Disposition: Home or Self Care 01/25/[address] [phone] Huseyin Cherry PA 01/18/2025 12:00 PM EDT Office Visit Adult [address] [phone] Huseyin Cherry PA Perioral numbness (Primary Dx); Left sided abdominal pain; Gastroesophageal reflux disease without esophagitis; Recurrent major depressive disorder, remission status unspecified (CMS/HCC V24); PCOS (polycystic ovarian syndrome); Uncomplicated asthma, unspecified asthma severity, unspecified whether persistent; Hand numbness; Tremulousness 01/18/2025 Telephone Adult Medicine [address] [phone] [place], Huseyin D, PA Numbness (On lips); Tingling (On hands); Anxiety (After eating) 12/10/2024 Telephone Adult Medicine [address] [phone] Huseyin Cherry PA Pain; Numbness from Last [...] care for your loved ones. For example, child and family counselor or elderly care for an older adult? [...] Sign Reading Time Taken Comments Blood Pressure 123/86 02/28/2025 2:56 PM EDT Pulse 86 02/28/2025 2:56 PM EDT Temperature 36.7 ??C (98 ??F) 02/28/2025 2:56 PM EDT Respiratory Rate 16 02/28/2025 2:56 PM EDT Oxygen Saturation 96% 02/15/2025 9:10 AM EDT Inhaled Oxygen Concentration - - Weight 98.9 kg (218 lb) 02/28/2025 2:56 PM EDT Height 149.9 cm (4' 11 ) 02/28/2025 2:56 PM EDT Body Mass Index 44.03 02/28/2025 2:56 PM EDT Plan of Treatment Upcoming Encounters Date Type Department Care Team (Late st Contact Info) Description 03/07/2025 9:[address] Scan - [place] [address] [place] [phone] 04/04/2025 9:30 AM EDT Appointment [facility] Xray [address] [place] [address] 05/17/2025 8:30 AM EDT Office Visit Gastroenterology - [place] 175 [facility] 175 [facility] [address] [place] [address] Velma Coyle PA 175 [facility] [address] [place] [address] Health Maintenance Due Date Last Done Comments [...] Signed Date: 01/25/2025 08:50 ET Workstation ID: [id number] Transcribed By: Self Edit Transcribed Date: 01/25/2025 [...] 13.3 cm in sagittal dimension. Left kidney sqogrwze66.1 cm in sagittal dimension. Kidneys: No renal [...] Signed Date: 01/25/2025 08:50 ET Workstation ID: [id number] Transcribed By: Self Edit Transcribed Date: 01/25/2025 08:46 ET us Huseyin CONNOLLY US PROCEDURES Final R esult * Thyroid stimulating hormone with reflex to free t4 and free t3 (01/18/2025 2:07 PM EDT) TSH 2.77 0.40 - 4.00 mcIU/mL LAB CHEMISTRY METHOD 01/18/2025 6:27 PM EDT [facility] Blood Venous blood specimen / Unknown Venipuncture / Unknown 01/18/2025 2:07 PM EDT 01/18/2025 2:07 PM EDT Huseyin AGUILERA LAB BLOOD ORDERABLES Cierra l Result Performing Organization Address [facility] de Phone Number [facility] [address] [place] [address], * (ABNORMAL) Insulin, total (01/18/2025 2:07 PM EDT) Insulin 212.6(H) 3.0 - 25.0 mcIU/mL LAB CHEMISTRY METHOD 01/18/2025 6:52 PM EDT [facility] Blood Venous blood specimen / Unknown Venipuncture / Unknown 01/18/2025 2:07 PM EDT 01/18/2025 2:07 PM EDT Narrative [facility] - 01/18/2025 6:52 PM EDT Insulin reference range based on fasting status. ??Insulin values vary in non- fasting individuals. Huseyin AGUILERA LAB BLOOD ORDERABLES Cierra l Result Performing Organization Address [facility] de Phone Number [facility] [address] [place] [address], [place] [phone] * Parathyroid hormone intact (01/18/2025 2:07 PM EDT) PTH 61.7 18.5 - 88.0 pcg/mL LAB CHEMISTRY METHOD 01/18/2025 6:27 PM EDT [facility] Blood Venous blood specimen / Unknown Venipuncture / Unknown 01/18/2025 2:07 PM EDT 01/18/2025 2:07 PM EDT Huseyin AGUILERA LAB BLOOD ORDERABLES Cierra l Result [facility] [address] [place] [address], [place] [phone] * Lipase (01/18/2025 2:07 PM EDT) Lipase 24 13 - 75 unit/L LAB CHEMISTRY METHOD 01/18/2025 5:48 PM EDT [facility] Blood Venous blood specimen / Unknown Venipuncture / Unknown 01/18/2025 2:07 PM EDT 01/18/2025 2:07 PM EDT Huseyin AGUILERA LAB BLOOD ORDERABLES Cierra l Result Performing Organization Address City/[facility]/ZIP Co de Phone Number [facility] [address] [place] [address], [place] [phone] * (ABNORMAL) Comprehensive metabolic panel (01/18/2025 2:07 PM EDT) Pathologist [facility] Sodium 137 133 - 145 mmol/L LAB CHEMISTRY METHOD 01/18/2025 5:48 PM EDT [facility] Potassium 3.8 3.5 - 5.5 mmol/L LAB CHEMISTRY METHOD 01/18/2025 5:48 PM EDT [facility] Chloride 105 96 - 110 mmol/L LAB CHEMISTRY METHOD 01/18/2025 5:48 PM EDT [facility] CO2 24 21 - 32 mmol/L LAB CHEMISTRY METHOD 01/18/2025 5:48 PM EDT [facility] Anion Gap 8 3 - 11 LAB CHEMISTRY METHOD 01/18/2025 5:48 PM EDT [facility] Glucose 67(L) 70 - 100 mg/dL LAB CHEMISTRY METHOD 01/18/2025 5:48 PM EDT [facility] BUN 13 5 - 25 mg/dL LAB CHEMISTRY METHOD 01/18/2025 5:48 PM [facility] Creatinine 0.51 0.50 - 1.10 mg/dL LAB CHEMISTRY METHOD 01/18/2025 5:48 PM [facility] eGFR 130 >=60 mL/min/1. 73m2 LAB CHEMISTRY METHOD 01/18/2025 5:48 PM [facility] Comment:Calculation based on the??Chronic Kidney Disease Epidemiology Collaboration (CKD-EPI) equation refit??without adjustment for race. BUN/Creatinine Ratio 25.5 LAB CHEMISTRY METHOD 01/18/2025 5:48 PM [facility] Calcium 9.4 8.5 - 10.5 mg/dL LAB CHEMISTRY METHOD 01/18/2025 5:48 PM [facility] AST (SGOT) 18 10 - 42 unit/L LAB CHEMISTRY METHOD 01/18/2025 5:48 PM [facility] ALT (SGPT) 39 10 - 60 unit/L LAB CHEMISTRY METHOD 01/18/2025 5:48 PM [facility] Alkaline Phosphatase 101 42 - 121 unit/L LAB CHEMISTRY METHOD 01/18/2025 5:48 PM [facility] Total Protein 8.0 6.0 - 8.0 g/dL LAB CHEMISTRY METHOD 01/18/2025 5:48 PM [facility] Albumin 3.9 3.2 - 5.0 g/dL LAB CHEMISTRY METHOD 01/18/2025 5:48 PM [facility] Total Bilirubin 0.5 0.0 - 1.4 mg/dL LAB CHEMISTRY METHOD 01/18/2025 5:48 PM [facility] Blood Venous blood specimen / Unknown Venipuncture / Unknown 01/18/2025 2:07 PM EDT 01/18/2025 2:07 PM EDT Huseyin AGUILERA LAB BLOOD ORDERABLES Cierra l Result [facility] [address] [place] [address], [place] [phone] * Calcium, ionized (01/18/2025 2:06 PM EDT) [facility] Calcium Ionized 5.1 4.6 - 5.4 mg/dL 01/24/2025 12:42 PM EDT [facility] Comment: Test performed at [facility], [address], [place], [place] ??[address] ? [phone] Brittany Davenport MD, PhD - Cutter Tender Blood Venous blood specimen / Unknown Venipuncture / Unknown 01/18/2025 2:06 PM EDT 01/18/2025 2:06 PM EDT Huseyin AGUILERA LAB BLOOD ORDERABLES Cierra l Result [facility] [address] [place] [address] * Helicobacter pylori breath test (01/18/2025 1:03 PM EDT) [facility] H Pylori Breath Test Negative Negative LAB CHEMISTRY METHOD 01/19/2025 8:43 AM EDT [facility] Breath Oral cavity structure / Unknown Non-blood Collection / Unknown 01/18/2025 1:03 PM EDT 01/18/2025 1:03 PM EDT Huseyin AGUILERA LAB BODY FLUIDS AND STOOL S ORDERABLES Final Result [facility] [address] [place] [address], [place] [phone] * (ABNORMAL) CBC auto differential (01/18/2025 12:56 PM EDT) [facility] WBC 9.6 4.8 - 10.8 K/mcL LAB HEMETOLOGY METHOD 01/18/2025 2:51 PM EDT [facility] RBC 4.80 3.80 - 4.80 M/mcL LAB HEMETOLOGY METHOD 01/18/2025 2:[facility] Hemoglobin 13.9 11.5 - 16.0 g/dL LAB HEMETOLOGY METHOD 01/18/2025 2:51 PM EDT [facility] Hematocrit 42.1 35.0 - 47.0 % LAB HEMETOLOGY METHOD 01/18/2025 2:51 PM [facility] MCV 87.7 79.0 - 98.0 FL LAB HEMETOLOGY METHOD 01/18/2025 2:51 PM [facility] MCH 29.0 27.0 - 32.0 pcg LAB HEMETOLOGY METHOD 01/18/2025 2:51 PM [facility] MCHC 33.0 32.0 - 37.0 g/dL LAB HEMETOLOGY METHOD 01/18/2025 2:51 PM [facility] RDW 12.9 11.0 - 15.0 % LAB HEMETOLOGY METHOD 01/18/2025 2:51 PM [facility] Platelets 285 130 - 400 K/mcL LAB HEMETOLOGY METHOD 01/18/2025 2:51 PM [facility] MPV 11.8(H) 7.0 - 11.0 FL LAB HEMETOLOGY METHOD 01/18/2025 2:51 PM [facility] NRBC 0.0 <1.0 % LAB HEMETOLOGY METHOD 01/18/2025 2:51 PM [facility] NRBC Absolute 0.00 <0.10 K/mcL LAB HEMETOLOGY METHOD 01/18/2025 2:51 PM [facility] Neutrophils Relative 49.3 % LAB HEMETOLOGY METHOD 01/18/2025 2:51 PM [facility] Lymphocytes Relative 38.4 % LAB HEMETOLOGY METHOD 01/18/2025 2:51 PM [facility] Monocytes Relative 7.3 % LAB HEMETOLOGY METHOD 01/18/2025 2:51 PM [facility] Eosinophils Relative 4.0 % LAB HEMETOLOGY METHOD 01/18/2025 2:51 PM [facility] Basophils Relative 0.8 % LAB HEMETOLOGY METHOD 01/18/2025 2:51 PM [facility] Immature Granulocytes Relative 0.2 % LAB HEMETOLOGY METHOD 01/18/2025 2:51 PM [facility] Neutrophils Absolute 4.74 1.50 - 7.00 K/mcL LAB HEMETOLOGY METHOD 01/18/2025 2:51 PM [facility] Lymphocytes Absolute 3.70 1.00 - 5.00 K/mcL LAB HEMETOLOGY METHOD 01/18/2025 2:51 PM [facility] Monocytes Absolute 0.70 0.20 - 1.00 K/mcL LAB HEMETOLOGY METHOD 01/18/2025 2:51 PM [facility] Eosinophils Absolute 0.39 0.00 - 0.50 K/mcL LAB HEMETOLOGY METHOD 01/18/2025 2:51 PM [facility] Basophils Absolute 0.08 0.00 - 0.20 K/mcL LAB HEMETOLOGY METHOD 01/18/2025 2:51 PM [facility] Immature Granulocytes Absolute 0.02 0.00 - 0.03 K/mcL LAB HEMETOLOGY METHOD 01/18/2025 2:51 PM [facility] Blood Venous blood specimen / Unknown Venipuncture / Unknown 01/18/2025 12:56 PM EDT 01/18/2025 12:56 PM EDT Huseyin AGUILERA LAB BLOOD ORDERABLES Cierra l Result [facility] ([facility]) [facility] [address] [place] [address], * Depression Screening (01/13/2024) Pathologist [facility] Depression Screening abstracted Historical Provider HEALTH MAINTENANCE Final Result * (ABNORMAL) Lipid panel (08/01/2023) [facility] LDL/HDL Ratio 4 0 - 4 Triglycerides 120 0 - 150 mg/dL Cholesterol 188 0 - 200 mg/dL HDL 50 >=40 mg/dL LDL Cholesterol 114(A) 0 - 100 mg/dL Blood Venous blood specimen / Unknown [facility] Provider LAB BLOOD ORDERABLES Cierra l Result * Cervical Cancer Screening: HPV (08/12/2022) [facility] Cervical Cancer Screening: HPV no interpretation , abstracted [facility] Provider HEALTH MAINTENANCE Final Result * HIV Screening (08/05/2022) [facility] HIV Screening abstracted [facility] Provider HEALTH MAINTENANCE Final Result * Hepatitis C Screening (08/05/2022) [facility] Hepatitis C Screening abstracted [facility] Provider HEALTH MAINTENANCE Final Result from Last 3 Months or Most Recently Relevant to Health Maintenance Insurance [facility] Care Teams Fire Boss Relationship Specialty Start Date End Date Huseyin Cherry PA [address] [place] [address] PCP - General Internal Medicine 09/10/24
--- OUTSIDE RECORDS SUMMARY | 2025-03-01 08:28 | XMS_ITS | Encounter Summary ---
Author Organization [employer] Address [address] [place] [address] Care Team Providers Care Sales Representative Womens Health Name Role Phone Huseyin Cherry Primary Care Provider [phone] Reason for Visit * Reason Comments non healing cut on finger Encounter Details Date Type Department Care Team (Late st Contact Info) Description 02/28/2025 3:15 PM EDT Office Visit Adult Medicine [address] [phone] Katelyn Branch PA [address] [place] [phone] Social History Tobacco Use Types Packs/Day Years [...] for your loved ones. For example, child development specialist or elderly care for an older adult? [...] on file Sexual Orientation Not on file documented as of this encounter Last Filed Vital Signs Vital Sign Reading Time Taken Comments Blood Pressure 123/86 02/28/2025 2:56 PM EDT Pulse 86 02/28/2025 2:56 PM EDT Temperature 36.7 ??C (98 ??F) 02/28/2025 2:56 PM EDT Respiratory Rate 16 02/28/2025 2:56 PM EDT Oxygen Saturation - - Inhaled Oxygen Concentration - - Weight 98.9 kg (218 lb) 02/28/2025 2:56 PM EDT Height 149.9 cm (4' 11 ) 02/28/2025 2:56 PM EDT Body Mass Index 44.03 02/28/2025 2:56 PM EDT documented in this encounter Plan of Treatment Upcoming Encounters Date Type Department Care Team (Late st Contact Info) Description 03/07/2025 9:[address] Scan - [place] [address] [place] [phone] 04/04/2025 9:30 AM EDT Appointment [facility] Xray [address] [place] [phone] 05/17/2025 8:30 AM EDT Office Visit Gastroenterology - [place] [address] [facility] [address] [place] [phone] Velma Coyle PA 175 [facility] [place] [address] [place] [address] documented as of this encounter Visit Diagnoses Not on filedocumented in this encounter Additional Health Concerns Assessment Noted Time PHQ-9 Depression Total Score: 10 025 11:56 AM EDT documented as of this encounter Care Teams Sales Representative Womens Health Relationship Specialty Start Date End Date Huseyin Cherry PA [address] [place] [address] PCP - General Internal Medicine 09/10/24 documented as of this encounter
--- OUTSIDE RECORDS SUMMARY | 2025-03-01 08:28 | XMS_ITS | Clinical Summary ---
Author Organization [facility] Address [address] [place] [id number] Care Team Providers Care Scheduling Coordinator Name Role Phone Pcp, No Primary Care [...] patient's age to complete this topic Insurance [facility] - PPO Care Teams Scheduling Coordinator Relationship Specialty Start Date End Date Pcp, No PCP - General General Medicine 04/03/21
--- NOTE | 2025-03-01 08:47 | ECG_ITS ---
Test Reason : morbid obesity Blood Pressure : */* mmHG Vent. Rate : 69 BPM Atrial Rate : 69 BPM P-R Int : 150 ms QRS Dur : 84 ms QT Int : 424 ms P-R-T Axes : 36 48 10 degrees QTcB Int : 454 ms Normal sinus rhythm Normal ECG When compared with ECG of 22-Jun-2024 00:10, Nonspecific T wave abnormality no longer evident in Anterolateral leads Referred By: Chepe Narvaez Electronically Signed By: HANS REES MD
[2025-03-01 08:49] LABS: MANUAL DIFF FLAG NO
[2025-03-01 09:09] LABS: Basophils Percent Auto 0.5 % (0-2); Eosinophils Absolute Auto 0.3 X10*3/uL (0.0-0.4); Eosinophils Percent Auto 4.2 % (0-4); Hematocrit 38.6 % (37.0-47.0); Hemoglobin 13.2 g/dl (12.0-16.0); Imm Gran Abs Auto 0.02 X10*3/uL (0.00-0.03); Imm Gran Pct Auto 0.3 % (0.0-0.4); Lymphocytes Absolute Auto 2.7 X10*3/uL (1.2-4.9); Lymphocytes Percent Auto 34.1 % (20-40); Mean Corpuscular HGB Conc 34.2 g/dl (31.0-35.0); Mean Corpuscular Hemoglobin 29.1 pg (27.0-33.0); Mean Corpuscular Volume 85.2 fL (80.0-98.0); Monocytes Absolute Auto 0.5 X10*3/uL (0.1-1.2); Neutrophils Absolute Auto 4.3 x10*3/uL (2.0-8.3); Neutrophils Percent Auto 54.9 % (45-73); Platelet Count 253 X10*3/uL (160-400); Red Blood Count 4.53 X10*6/uL (4.20-5.50); White Blood Count 7.9 X10*3/uL (4.8-10.8)
[2025-03-01 09:28] LABS: Estimated Average Glucose 126 mg/dL; Hemoglobin A1C 147.8812 umol/L
[2025-03-01 09:47] LABS: Anion Gap 14 (12-20)
[2025-03-01 10:11] LABS: Folate 8.9 ng/mL (> or = 4.0); Vitamin B12 338 pg/mL (200-900)
[2025-03-01 10:15] LABS: C Reactive Protein 0.52 mg/dL (< or = 0.50); Iron 89 mcg/dL (30-160); Percent Iron Saturation 27 % (15-50); Total Iron Binding Capacity 324 mcg/dL (228-428); Unsaturated Iron Binding 235 ug/dL
[2025-03-01 10:16] LABS: Alanine Aminotransferase 33 U/L (0-31); Albumin Level 4.2 g/dL (3.5-5.0); Aspartate Amino Transferase 32 U/L (5-31); Blood Urea Nitrogen 17 mg/dL (9-16); Calcium 9.4 mg/dL (8.4-10.2); Carbon Dioxide 24 mmol/L (22-29); Chloride 105 mmol/L (96-108); Cholesterol 211 mg/dL (<200); Estimated Glomerular Filt Rate > 60; Glucose Random 87 mg/dL (60-115); HDL Cholesterol 29 mg/dL (>40); LDL Cholesterol Calculated 137 mg/dL (<100); Potassium 3.8 mmol/L (3.3-5.1); Sodium 139 mmol/L (135-145); Total Protein 7.8 g/dL (6.5-8.0); Triglycerides 226 mg/dL (<150)
[2025-03-01 10:19] LABS: Ferritin 181 ng/mL (10-122); Insulin 36 uU/mL (2-29); Vitamin D 25-OH Total 20.1 ng/mL (>30)
[2025-03-01 12:51] LABS: Alkaline Phosphatase 74 U/L (39-117)
[2025-03-03 17:28] LABS: Zinc 79 mcg/dL (60-130)
[2025-03-06 19:59] LABS: Vitamin A 45 mcg/dL (38-98); Vitamin B1 8 nmol/L (8-30)
== END 2025-03-01 08:19 | disposition home or self-care (01) ==
LOC: HO.LAB 08:18
PROVIDERS: Visit Provider Surgery
DX: E66.01 Morbid (severe) obesity due to excess calories (principal); K21.9 Gastro-esophageal reflux disease without esophagitis; Z13.1 Encounter for screening for diabetes mellitus
CPT/HCPCS: 36415; 71046; 80053; 80061; 82306; 82607; 82728; 82746; 83036; 83525; 83540; 84425; 84443; 84590; 84630; 85025; 86140; 93005

== ENCOUNTER → 2025-03-01 08:47 | Outpatient (BNV) | payer BC, SELFPAY | PROVIDERS: Visit Provider Internal Medicine Cardiovascular Disease | DX: Z01.810 Encounter for preprocedural cardiovascular examination (principal); E66.01 Morbid (severe) obesity due to excess calories | CPT/HCPCS: 93010 ==

== ENCOUNTER → 2025-03-01 08:57 | Outpatient (BNV) | payer BC, SELFPAY | PROVIDERS: Visit Provider Radiology Diagnostic Radiology | DX: M41.35 Thoracogenic scoliosis, thoracolumbar region (principal) | CPT/HCPCS: 71046 ==

== ENCOUNTER 2025-03-21 14:12 | Outpatient (AMB) | payer BC, SELFPAY ==
--- NOTE | 2025-03-21 14:05 | MHC.WMTHER ---
Intake Intake Visit Reasons: TV BH Intake Allergies No Known Allergies Allergy (Verified 02/25/25 09:22) FORMERLY [facility], [facility] Medical History (Updated 03/05/25 @ 11:19 by Chepe Narvaez MD) Anxiety Asthma Depression GERD (gastroesophageal reflux disease) Morbid obesity Surgical History (Updated 02/23/25 @ 10:58 by Gladys Sam CMA) No history of previous surgery Family History (Updated 02/23/25 @ 10:58 by Gladys Sam CMA) Mother No problems noted. Father No problems noted. Social History Alcohol intake: never Patient Tobacco Use Status: Current everyday Tobacco user Substance Use Type: Marijuana Behavioral Health Assessment Weight Management Therapy Therapy Notes Details The patient is a 29-year-old female presenting for an initial visit to begin the behavioral health assessment as part of the surgical weight loss program. She is self-referred and expresses a strong interest in improving her overall health and lifestyle. Presenting Concerns Referral Source WNP-Provided. Reason for referral Completion of behavioral health assessment as part of process for weight-loss surgery. Precipitating Event Obesity. Living Situation Current Living Situation Own At risk of losing current housing? No Satisfied with current living situation? Yes Comments PT lives with her . Food/Weight/Diet Expectations of change Pt started the program on 03/07/2025 at 216. The initial goal was to lose 10% of her weight before surgery, which is about 21lbs. Ultimate weight goal: 195 lbs before surgery. PT reports a recent weight from 03/19/2025: 206Lbs. Social History Family history and relationship PT got 2 years ago, they have no children. Mother is alive, she was raised by her mother and stepfather, she has 3 sisters. PT reports good family communication and relationships. Bio-father hasn't been in her life. Parental/Familial contact lens blocker obligations None reported. Developmental history and status None. Currently NNL. Social support Mother, sister and . Community support Some co-workers. Restorationist/Spirituality Grew up Methodist, as she grew up older she considers herself Jewish. Cultural/Ethnic information . Legal Involvement and History Current or historical involvement with the legal system? None reported. Education Highest grade completed HS Preferred learning style Learn by doing and Visual Currently enrolled in educational program? No Interested in further educational program? Yes Educational Interests/Skills Thinking about getting an . Not sure what field. 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 ) Wants help to find employment? No Meaningful activities Reading, family time. Financial Situation Describe current financial situation Comfortable Financial assistance? None Service Service? No Mental Health and Addiction Treatment Current/Past substance abuse? No Comments Alcohol: only social, couple times at year. 1-2 drinks. Cigarettes/Tobacco: None. Vaping: none. Cannabis/Edibles: None currently. Stopped about a year ago due to side effects. Current/Past addictive behavior concerns? No Psychiatric history The patient is not currently engaged in any form of mental health treatment. She previously attended two counseling sessions through an Employee Assistance Program (EAP) after reaching out due to feelings of depression triggered by ongoing health challenges. Prior to that, she had no history of formal mental health treatment. She reports a longstanding experience of anxiety, describing symptoms such as feeling nervous, shaky hands, and becoming easily overwhelmed, particularly in situations that evoke fear or involve large crowds. She experienced a panic attack over a year ago that led to emergency medical response, and reports having had a couple of similar episodes at home since then. The patient denies any history of psychiatric hospitalization or mental health crises. She was prescribed Lorazepam 0.5 mg several months ago to manage anxiety during an MRI procedure. Medical and Physical Health Summary Additional Medical History not covered in history PCOS, Pre-diabetes, Fatty Liver. Sexual History concerns None. Physical exam in the last year? Yes Pain Screening Current pain? Yes Pain in the last few months? Yes Comments Lower back, feet pain. Medications Is the patient compliant with medications? Yes Does the patient have Andino Guardian in place? Not applicable Does the patient use complimentary health approaches? No Trauma/Abuse History History of trauma? No Questionnaires PHQ-9 Over the last 2 weeks, how often have you been bothered by any of the following problems? 1. Little interest or pleasure in doing things: nearly every day 2. Feeling down, depressed, or hopeless: several days 3. Trouble falling or staying asleep, or sleeping too much: several days 4. Feeling tired or having little energy: several days 5. Poor appetite or overeating: more than half the days 6. Feeling bad about yourself - or that you are a failure or have let yourself or your family down: not at all 7. Trouble concentrating on things, such as reading the newspaper or watching television: not at all 8. Moving or speaking so slowly that other people could have noticed. Or the opposite - being so fidgety or restless that you have been moving around a lot more than usual: not at all 9. Thoughts that you would be better off or of hurting yourself in some way: not at all Total score: 8 Depression Screening Interpretation: Positive (From new PT pack. ) Depression Screening Done: Yes Source: Developed by Drs. Dann Gaspar, Alexandra Rodriguez, Bharath Mei and colleagues, with an educational robbie from [employer]. Binge Eating Scale Group 1 A. I don't feel self-conscious about my wt. or body size when I'm with others. B. I feel concerned about how I look to others, but it normally does not make me fell disappointed with myself C. I do get self-conscious about my appearance and wt. which makes me feel disappointed in myself. D. I feel very self-conscious about my wt. and frequently I feel intense shame and disgust for myself. I try to avoid social contacts because of my self-consciousness. Response Group 1: B Group 2 A. I don't have any difficulty eating slowly in the proper manner. B. Although I seem to gobble down foods, I don't end up feeling stuffed because of eating to much. C. At times, I tend to eat quickly and then, I feel uncomfortably full afterwards. D. I have the habit of bolting down my food, without really chewing it. When this happens I usually feel uncomfortably stuffed because I've eaten to much. Response Group 2: C Group 3 A. I feel capable to control my eating urges when I want to. B. I feel like I have failed to control my eating more than the average person. C. I feel utterly helpless when it comes to feeling in control of my eating urges. D. Because I feel so helpless about controlling my eating I have become very desperate about trying to get control. Response Group 3: A Group 4 A. I don't have the habit of eating when I'm bored. B. I sometimes eat when I'm bored, but often I'm able to get busy and get my mind off food. C. I have a regular habit of eating when I'm bored, but occasionally, I can use some other activity to get my mind off eating. D. I have a strong habit of eating when I'm bored. Nothing seems to help me breath the habit. Response Group 4: B Group 5 A. I'm usually physically hungry when I eat something. B. Occasionally, I eat something on impulse even though I really am not hungry. C. I have the regular habit of eating foods, that I might not really enjoy, to satisfy a hungry feeling even though physically, I don't need the food. D. Although I'm not physically hungry, I get a hungry feeling in my mouth that only seems to be satisfied when I eat a food, like sandwich, that fills my mouth. Sometimes, when I eat the food to satisfy my mouth hunger, I then spit the food out so I won't gain weight. Response Group 5: A Group 6 A. I don't feel any guilt or self-hate after I overeat. B. After I overeat, occasionally I feel guilt or self-hate. C. Almost all the time I experience strong guilt or self-hate after I overeat. Response Group 6: B Group 7 A. I don't lose total control of my eating when dieting even after periods when I overeat. B. Sometimes when I eat a forbidden food on a diet, I feel like I blew it and eat even more. C. Frequently, I have the habit of saying to myself, I've blown it now, why not go all the way, when I overeat on a diet. When that happens I eat more. D. I have a regular habit of starting a strict diets for myself but I break the diets by going on an eating binge. My life seems to be either a feast or famine. Response Group 7: A Group 8 A. I rarely eat so much food that I feel uncomfortably stuffed afterwards. B. Usually about once a month, I each such a quantity of food, I end up feeling very stuffed. C. I have regular periods during the month when I eat large amounts of food, either at mealtime or at snacks. D. I eat so much food that I regularly feel quite uncomfortable after eating and sometimes a bit nauseous. Response Group 8: C Group 9 A. My level of calorie intake does not go up very high or go down very low on a regular basis. B. Sometimes after I overeat, I will try to reduce my caloric intake to almost nothing to compensate for the excess calories I've eaten. C. I have a regular habit of overeating during the night. It seems that my routine is not to be hungry in the morning but overeat in the evening. D. In my adult years, I have had week-long periods where I practically starve myself. This follows periods when I overeat. It seems I live a life of either feast or famine. Response Group 9: A Group 10 A. I usually am able to stop eating when I want to. I know when enough is enough. B. Every so often, I experience a compulsion to eat which I can't seem to control. C. Frequently, I experience strong urges to eat which I seem unable to control, but at other times I can control my eating urges. D. I feel incapable of controlling urges to eat. I have a fear of not being able to stop eating voluntarily. Response Group 10: A Group 11 A. I don't have any problem stopping eating when I feel full. B. I usually can stop eating when I feel full but occasionally overeat leaving me feeling uncomfortably stuffed. C. I have a problem stopping eating once I start and usually I feel uncomfortably stuffed after I eat a meal. D. Because I have a problem not being able to stop eating when I want, I sometimes have to induce vomiting to relieve my stuffed feeling. Response Group 11: A Group 12 A. I seem to eat just as much when I'm with others, Family social gatherings as when I'm by myself. B. Sometimes, when I'm with other persons, I don't eat as much as I want to eat because I'm self-conscious about my eating. C. Frequently, I eat only a small amount of food when others are present, because I'm very embarrassed about my eating. D. I feel so ashamed about overeating that I pick times to overeat when I know no one will see me. I feel like a closet eater. Response Group 12: A Group 13 A. I eat three meals a day with only an occasional between meal snack. B. I eat 3 meals a day, but I also normally snack between meals. C. When I am snacking heavily, I get in the habit of skipping regular meals. D. There are regular periods when I seem to be continually eating, with no planned meals. Response Group 13: D Group 14 A. I don't think much about trying to control unwanted eating urges. B. At least some of the time, I feel my thoughts are pre-occupied with trying to control my eating urges. C. I feel that frequently I spend much time thinking about how much I ate or about trying not to eat anymore. D. It seems to me that most of my waking hours are pre-occupied by thoughts about eating or not eating. I feel like I'm constantly struggling not to eat. Response Group 14: C Group 15 A. I don't think about food a great deal. B. I have strong craving for food but they last only for brief periods of time. C. I have days when I can't seem to think about anything else but food. D. Most of my days seem to be pre-occupied with thoughts about food. I feel like I live to eat. Response Group 15: B Group 16 A. I usually know whether or not I'm physically hungry. I take the right portion of food to satisfy me. B. Occasionally, I feel uncertain about knowing whether or not I'm physically hungry. A these times it's hard to know how much food I should take to satisfy me. C. Even though I might know how many calories I should eat, I don't have any idea what is a normal amount of food for me. Response Group 16: A Binge Eating Score: 13 Score less than 17 Minimal Risk Score between 18-26 Moderate Risk Score between 27-46 High Risk Assessment & Plan Assessment & Plan (1) Panic anxiety syndrome: Code(s): F41.0 - Panic disorder [episodic paroxysmal anxiety] (2) Adjustment disorder: Code(s): F43.20 - Adjustment disorder, unspecified Qualifiers: Adjustment disorder type: with mixed anxiety and depressed mood Qualified Code(s): F43.23 - Adjustment disorder with mixed anxiety and depressed mood (3) Pre-bariatric surgery psychological evaluation: Code(s): Z71.89 - Other specified counseling Plan The patient is not yet cleared, as the behavioral health assessment was not completed during today?s visit. At the next visit, a new PHQ-9 will be administered, and remaining components of the assessment will be completed. Follow-up is scheduled in 2 weeks. Next appointment: 04/07/2025 at 11am- Telehealth Telehealth Telehealth Telehealth Platform: [email or web address] Location of provider rendering services: other Location of patient: other (Work.) Patient Identification confirmed using: Name, : Yes Telehealth method: video Patient verbally consented to treatment: Yes Patient verbally consented to billing insurance company: Yes Patient informed of any privacy concerns related to visit: Yes Minutes spent on Phone/Video with Pt.: 55 Coding Level of Care Code New Pt Tele Psy Diag Eval ([id number]) Patient Type New Diagnoses Panic anxiety syndrome F41.0 Adjustment disorder with mixed anxiety and depressed mood F43.23 Adjustment disorder type: with mixed anxiety and depressed mood Pre-bariatric surgery psychological evaluation Z71.89 Time Spent (min) 55
--- OUTSIDE RECORDS SUMMARY | 2025-03-21 15:28 | XMS_ITS | Clinical Summary ---
Author Organization [facility] Address [address] [place] [id number] Care Team Providers Care Silk Screen Painter Name Role Phone Pcp, No Primary Care [...] patient's age to complete this topic Insurance [facility] - PPO Care Teams Silk Screen Painter Relationship Specialty Start Date End Date Pcp, No PCP - General General Medicine 04/03/21
== END 2025-03-21 15:02 | disposition home or self-care (01) ==
LOC: HO.HBST 14:12
PROVIDERS: Visit Provider Counselor Mental Health
DX: F41.0 Panic disorder [episodic paroxysmal anxiety] (principal); F43.23 Adjustment disorder with mixed anxiety and depressed mood; Z71.89 Other specified counseling
CPT/HCPCS: 90791

== ENCOUNTER → 2025-03-21 14:12 | Outpatient (BNVA) | payer BC, SELFPAY | PROVIDERS: Visit Provider Counselor Mental Health ==

== ENCOUNTER 2025-03-30 07:27 | Day surgery (SDC) | payer BC, SELFPAY ==
[2025-03-28 10:25] VITALS: BMI 45.1
--- NOTE | 2025-03-28 12:30 | HO.ANESPROP2 ---
Documented by User: Gladis Moore NP 03/28/25 12:31 HPI - Anesthesia Eval Consult details Narrative: 29yo F for Upper Endoscopy PMFSH Active Problems Active Problems: All Active Problems Vitamin B12 deficiency (Acute) Vitamin D deficiency (Acute) Asthma (Acute) Anxiety (Acute) Depression (Acute) GERD (gastroesophageal reflux disease) (Acute) Morbid obesity (Acute) Past Medical History Medical History Fatty liver Asthma Depression GERD (gastroesophageal reflux disease) Morbid obesity Anxiety Family History Family History Mother No problems noted. Father No problems noted. Surgical History Surgical History H/O vaginal surgery H/O endoscopy No history of previous surgery Social History Social History Alcohol intake: never Patient Tobacco Use Status: Never used Tobacco Use of substances other than those prescribed or required for medical reasons: No Substance Use Type: Marijuana Are you DNR?: No Advance Directives: No Advance Directives Information Provided: Yes Patient : No : No Poor oral hygiene: No Meds Allergies Allergy/AdvReac Type Severity Reaction Status Date / Time No Known Allergies Allergy Verified 02/25/25 09:22 Home Medications ?Medication ?Instructions ?Recorded ?Confirmed ?Last Taken ?Type albuterol sulfate 90 mcg/actuation 2 puff inhalation Q6H PRN 02/25/25 02/25/25 Unknown History aerosol inhaler lorazepam 0.5 mg tablet 0.5 mg PO DAILY PRN 02/25/25 02/25/25 Unknown History omeprazole 10 mg capsule,delayed 10 mg PO DAILY 02/25/25 02/25/25 Unknown History release Exam Height,Weight and Vital Signs: Height 4 ft 10 in Weight 97.976 kg Assessment and Plan Assessment Anesthesia Assessment: Chart Reviewed Documented by User: Ellen Corbin MD 03/30/25 08:25 [facility] Past Medical History Medical History Fatty liver Asthma Depression GERD (gastroesophageal reflux disease) Morbid obesity Anxiety Family History Family History Mother No problems noted. Father No problems noted. Surgical History Surgical History H/O vaginal surgery H/O endoscopy No history of previous surgery History of Problems with Anesthesia: No Social History Social History Alcohol intake: never Patient Tobacco Use Status: Never used Tobacco Use of substances other than those prescribed or required for medical reasons: No Substance Use Type: Marijuana Are you DNR?: No Advance Directives: No Advance Directives Information Provided: Yes Patient : No : No Poor oral hygiene: No Meds Allergies Allergy/AdvReac Type Severity Reaction Status Date / Time No Known Allergies Allergy Verified 02/25/25 09:22 Home Medications ?Medication ?Instructions ?Recorded ?Confirmed ?Last Taken ?Type albuterol sulfate 90 mcg/actuation 2 puff inhalation Q6H PRN 02/25/25 02/25/25 Unknown History aerosol inhaler lorazepam 0.5 mg tablet 0.5 mg PO DAILY PRN 02/25/25 02/25/25 Unknown History omeprazole 10 mg capsule,delayed 10 mg PO DAILY 02/25/25 02/25/25 Unknown History release Exam Airway Mallampati Class: II TM Dist: >3cm Neck ROM: Full Loose/Missing/Broken Teeth: No Heart: RRR Lungs: CTA Assessment and Plan Final Anesthetic Review History of Problems with Anesthesia: No NPO: Yes ASA Class: III Final Preanesthetic Review: Meds/Allgs Chart Reviewed, Consent Obtained/Reviewed and Anes Risks/Benef Reviewed Patient Risk: Intermediate Procedure Risk: Intermediate Anesthetic Plan Anesthetic Plan: MAC: Disposition: Standard PACU
[2025-03-30 07:37] VITALS: BMI 41.1
[2025-03-30 07:53] VITALS: BP 125/79; PULSE 78; RESP 16; TEMP 36.7; O2SAT 97
[2025-03-30 07:56] LABS: UPreg QC Valid YES; Urine Pregnancy NEGATIVE (NEGATIVE)
[2025-03-30] MEDS: Lactated Ringers 1,000 ML 80 ML IVCONT (08:13)
--- NOTE | 2025-03-30 08:44 | MHC.SHP ---
Pre-Procedural Eval Section A - 24 Hr Update-Section A only Date of Service: 03/30/25 The patient is an INPATIENT: No The patient has been examined within 24 hours of the surgical procedure. The History & Physical has been completed within 30 days and I have reviewed it.: Yes Section B - Complete if H&P > 30 days Chief Complaint: Morbid (severe) obesity due to excess calories Details of Present Illness: GERD Relevant Family History (Specify if Yes): No Relevant Social History: None Present Medications: None Medical History: No relevant PMH History of Previous Operations: No relevant previous surgery Allergies: Allergies Allergy/AdvReac Type Severity Reaction Status Date / Time No Known Allergies Allergy Verified 02/25/25 09:22 Review of Systems Sugical H&P ROS: Negative: Constitution, Cardiovascular, Respiratory, Neurological, Psychiatric, Hem-Onc, Allergic/Immunologic, Gastrointestinal, Genitourinary, Musculoskeletal, Integumentary, Endocrine and Eyes/Ears/Nose/Throat Exam Surgical H&P Exam: Normal: HEENT, Normal: Heart, Normal: Lungs, Normal: Extremities, Normal: Abdomen, Normal: Skin and Normal: Neurological Plan Diagnosis/Plan: Unchanged (EGD to assess etiology of GERD. Risks of bleeding and perforation were discussed with the patient and she is in agreement with the plan.) I have reviewed the history and physical and performed a pertinent physical examination on my patient. No changes have occurred unless specified. Time Spent With Patient Time: Total time managing care of this patient today ____ minutes.
--- NOTE | 2025-03-30 08:46 | PM.OP ---
Brief Operative Note Date of Service: 03/30/25 Pre-op diagnosis: GERD Post-op diagnosis: same Procedure: PROCEDURE DATE: 03/30/2025 PREOPERATIVE DIAGNOSIS: GERD POSTOPERATIVE DIAGNOSIS: ?Same as above. Normal endoscopy PROCEDURE: Bulmwwpa-[id number] with biopsies Surgeon: Andreina Narvaez M.D.. Ph.D. Supervisor Communications And Signals: None ? Anesthesia: IV sedation Estimated blood loss: ?Minimal FINDINGS AND PROCEDURE: ? OPERATIVE INDICATIONS: ?The patient is a 29 year old female known to me who is interested in bariatric surgery. The patient has severe GERD. Based on this information I recommended an upper endoscopy to evaluate the patient's symptoms. Risks and complications of the surgery were discussed with the patient in advance particularly the possibility of perforation or bleeding that may require surgical intervention. The patient understood the risks and was in agreement with the plan. ? PROCEDURE: After informed consent was obtained by the patient, the patient was ?transferred to the Operating Room and was placed in the supine position.? After successful induction of IV sedation, a mouth block was inserted and the patient was placed in the left lateral decubitus position. An upper endoscopy was performed next, the oropharynx and esophagus appeared within the normal limits. There was no hiatal hernia. The z-line was smooth. Two biopsies were obtained from the distal esophagus 2-3 cm proximal to the GE junction and two additional biopsies from the GE junction. The stomach was entered and it appeared to be of normal size. There was no gastritis. There was no stricture or ulcer. A biopsy was obtained from the gastric fundus and the antrum. No significant bleeding was noted from any of the biopsy sites. Retroflexion of the scope confirmed a normal GE junction. The scope was then advanced into the duodenum which appeared to be normal as well. At that point the duodenum ?and the stomach were decompressed and the scope was withdrawn from the patient's mouth. The patient extubated and was transferred in stable condition to the Recovery Room for further care. I was present and performed all steps of the procedure. There were no residents to assist with this case. Everett Narvaez M.D., Ph.D. Surgeon: Chepe Narvaez MD Anesthesia: MAC Was an Supervisor Communications And Signals used for this Procedure?: No Estimated blood loss (mL): 0 IV fluids (mL): 400 Urine output (mL): 0 (No Cooley to record output) Pathology: other (1) antrum x1, 2) fundus x1, 3) GE junction x2, 4) distal esophagus x2) Condition: stable Disposition: PACU
[2025-03-30 09:02] VITALS: BP 94/48; PULSE 66; RESP 12; TEMP 37; O2SAT 97
[2025-03-30 09:17] VITALS: BP 109/86; PULSE 74; RESP 16; TEMP 36.8; O2SAT 94
== END 2025-03-30 09:43 | disposition home or self-care (01) ==
PROVIDERS: Nurse Practitioner; Visit Provider Surgery
PROC: 0DJ08ZZ Inspection of Upper Intestinal Tract, Via Natural or Artificial Opening Endoscopic (ICD-10-PCS; CPT 43235; principal; 2025-03-30 08:50)
DX: K21.9 Gastro-esophageal reflux disease without esophagitis (principal); E66.01 Morbid (severe) obesity due to excess calories; J45.909 Unspecified asthma, uncomplicated; K76.0 Fatty (change of) liver, not elsewhere classified; E53.8 Deficiency of other specified B group vitamins; E55.9 Vitamin D deficiency, unspecified; F41.9 Anxiety disorder, unspecified; F32.A Depression, unspecified; Z79.899 Other long term (current) drug therapy
CPT/HCPCS: 43239; 81025; 88305; 88313; 88342; J2003; J2704

== ENCOUNTER → 2025-03-30 07:27 | Outpatient (BNV) | payer BC, SELFPAY | PROVIDERS: Visit Provider Surgery | DX: K21.9 Gastro-esophageal reflux disease without esophagitis (principal) | CPT/HCPCS: 43239 ==

== ENCOUNTER 2025-04-07 11:21 | Outpatient (AMB) | payer BC, SELFPAY ==
--- OUTSIDE RECORDS SUMMARY | 2025-04-04 09:09 | XMS_ITS | Encounter Summary ---
Author Organization [facility] Address [address] [place] [address] Care Team Providers Care Business Rules Analyst Name Role Phone Huseyin Cherry Primary Care Provider [phone] Reason for Referral * Imaging (Routine) - Authorized Specialty Diagnoses / Procedures Referred By Contac t Referred To Contact Radiology Diagnoses Left sided abdominal pain Gastroesophageal reflux disease without esophagitis Procedures XR UGI w Air Contrast Velma Coyle PA [address] [address] Phone: tel: fax: [facility] X[facility] [address] [place] [address] Phone: tel: Referral ID Status Reason Start Date Expiration Date V isits Requested Visits Authorized [id number] Authorized 02/15/2025 02/15/2026 1 1 Reason for Visit * Imaging (Routine) - Authorized Specialty Diagnoses / Procedures Referred By Contac t Referred To Contact Radiology Diagnoses Left sided abdominal pain Gastroesophageal reflux disease without esophagitis Procedures XR UGI w Air Contrast Velma Coyle PA [address] [address] Phone: tel: fax: [facility] [address] [place] [address] Phone: tel: Referral ID Status Reason Start Date Expiration Date V isits Requested Visits Authorized [id number] Authorized 02/15/2025 02/15/2026 1 1 Encounter Details Date Type Department Care Team (Latest Contact Info) Description 04/04/2025 9:09 AM EDT - 04/04/2025 11:59 PM EDT Hospital Encounter [facility] [address] [place] [address] Left sided abdominal pain; Gastroesophageal reflux disease without esophagitis Discharge Disposition: Home or Self Care Social History Tobacco Use Types Packs/Day Years Used Date Smoking Tobacco: Never Smokeless Tobacco: Never Alcohol Use Standard Drinks/Week Comments Not Currently 0 (1 standard drink = 0.6 oz [...] care for your loved ones. For example, child's nurse or elderly care for an older adult? [...] on file documented as of this encounter Medications at Time of Discharge omeprazole (PriLOSEC) [address] capsule Take 1 capsule (20 mg total) by mouth 1 (one) time each day. Do not crush or chew. 30 each 3 02/15/2025 cyanocobalamin, vitamin B-12, 1,000 mcg tablet, sublingual DISSOLVE 1 TABLET UNDER THE TONGUE DAILY NOT COVERED 03/06/2025 famotidine (PEPCID) 20 mg tablet Take 1 tablet (20 mg total) by mouth 2 (two) times a day. 180 tablet 1 01/18/2025 ibuprofen (ADVIL,MOTRIN) 600 mg tablet Take 1 Tablet by mouth every 6 hours as needed for Pain. 01/13/2024 LORazepam (ATIVAN) 0.5 mg tablet Take 1 tablet (0.5 mg total) by mouth 1 (one) time each day if needed for anxiety. Max Daily Amount: 0.5 mg 30 tablet 11/05/2024 meclizine (ANTIVERT) 25 mg tablet Take 1 Tablet by mouth every 8 hours as needed (dizziness/verti go). Medication may cause drowsiness, do not drive/operate machinery while taking 01/13/2024 medroxyPROGESTER one (PROVERA) 10 mg tabletIndication s:PCOS (polycystic ovarian syndrome) Take one tab daily for 12 days with missed menses 12 tablet 3 03/22/2025 Vitamin D3 125 mcg (5,000 unit) tablet Take 1 tablet (5,000 Units total) by mouth 1 (one) time each day. 03/05/2025 documented as of this encounter Discharge Disposition Disposition Code Departure Means Destination Home or Self Care documented in this encounter Progress Notes * WILLY Curtis - 04/04/2025 9:30 AM EDT I will send msg. documented in this encounter Plan of Treatment Upcoming Encounters Date Type Department Care Team (Late st Contact Info) Description 05/11/2025 8:45 AM EDT Hospital Encounter [facility] Main OR [address] [place] [address] Zeinab Jiménez, [address] [place] [address] 05/11/2025 8:45 AM EDT - 05/11/2025 10:00 AM EDT Surgery [facility] OR [address] [place] [address] Zeinab Jiménez, [address] [place] [address] HYSTEROSCOPy, D&C with/without cervical biopsy & ECC depending on Pap result [28840 (CPT )] 05/17/2025 8:30 AM EDT Office Visit Gastroenterology - [place] [address] [place] [id number] Velma Coyle PA [address] [place] [address] Scheduled Procedures Name Priority Associated Diagnoses Date/Ti me HYSTEROSCOPY Lesion of endometrium PCOS (polycystic ovarian syndrome) History of abnormal cervical Pap smear 05/11/2025 8:45 AM EDT documented as of this encounter Procedures Procedure Name Priority Date/Time Associated Diagnosis Comments XR UGI W AIR CONTRAST Routine 04/04/2025 9:34 AM EDT Left sided abdominal pain Gastroesophageal reflux disease without esophagitis documented in this encounter Results * XR UGI w Air Contrast (04/04/2025 9:34 AM EDT) Anatomical Region Laterality Modality Body Radiographic Lata ging 04/04/2025 10:1 2 AM EDT Impressions 04/04/2025 1:23 PM EDT Normal double contrast upper GI examination. -------- FINAL REPORT -------- Dictated By: Mayte Baugh Dictated Date: 04/04/2025 10:12 ET Assigned Physician: Bianca Fisher Reviewed and Electronically Signed By: Bianca Fisher Signed Date: 04/04/2025 13:23 ET Workstation ID: [id number] Transcribed By: Self Edit Transcribed Date: 04/04/2025 10:15 ET Resident/PA/BONE CRUSHER: Mayte Baugh Narrative 04/04/2025 1:23 PM EDT FINDINGS: Double contrast UGI performed. COMPARISON: None. HISTORY: Patient is a 29-year-old female with history of GERD, chronic left- sided abdominal pain. REPORTING MANAGER radiographs: Presetter Operator AP radiograph of the abdomen obtained. Bowel gas pattern is nonobstructive. Visualized lung bases appear clear. There is slight S-shaped scoliosis of the thoracolumbar spine noted. FINDINGS: Effervescent crystals were administered orally. Thick and thin barium was then administered orally under fluoroscopic control. Esophagus: Normal distensibility, motility and mucosal pattern. There is no evidence of obstruction or hiatal hernia. Stomach: Normal distensibility and motility. Prompt passage of contrast from the stomach into the duodenal bulb and sweep. No gastric mass or ulceration. Visualization of proximal small bowel is within normal limits. Gastroesophageal reflux: Unable to elicit DAP: 9.84 Gycm^2 Procedure Note Bianca Fisher MD - 04/04/2025 FINDINGS: Double contrast UGI performed. COMPARISON: None. HISTORY: Patient is a 29-year-old female with history of GERD, chronicleft-sided abdominal pain. REPORTING MANAGER radiographs: Presetter Operator AP radiograph of the abdomen obtained. Bowel gaspattern is nonobstructive. Visualized lung bases appear clear. There isslight S-shaped scoliosis of the thoracolumbar spine noted. FINDINGS: Effervescent crystals were administered orally. Thick and thinbarium was then administered orally under fluoroscopic control. Esophagus: Normal distensibility, motility and mucosal pattern. There isno evidence of obstruction or hiatal hernia. Stomach: Normal distensibility and motility. Prompt passage of contrastfrom the stomach into the duodenal bulb and sweep. No gastric mass orulceration. Visualization of proximal small bowel is within normal limits. Gastroesophageal reflux: Unable to elicit DAP: 9.84 Gycm^2 IMPRESSION: Normal double contrast upper GI examination. -------- FINAL REPORT -------- Dictated By: Mayte Baugh Dictated Date: 04/04/2025 10:12 ET Assigned Physician: Bianca Fisher Reviewed and Electronically Signed By: Bianca Fisher Signed Date: 04/04/2025 13:23 ET Workstation ID: [id number] Transcribed By: Self Edit Transcribed Date: 04/04/2025 10:15 ET Resident/PA/BONE CRUSHER: Mayte Baugh Velma AGUILERA [facility] FLUOROSCOPY PROCEDURES Fi nal Result documented in this encounter Visit Diagnoses Diagnosis Lesion of endometrium PCOS (polycystic ovarian syndrome) Polycystic ovaries History of abnormal cervical Pap smear Left sided abdominal pain Abdominal pain, unspecified site Gastroesophageal reflux disease without esophagitis Esophageal reflux Lesion of endometrium PCOS (polycystic ovarian syndrome) Polycystic ovaries History of abnormal cervical Pap smear documented in this encounter Administered Medications Inactive Administered Medications - up to 3 most recent administrations Medication Order MAR Action Action Date Dose Rate Site barium sulfate (E-Z-HD) 98 % suspension 100 mL 100 mL, oral, Once in imaging, Starting on Fri04/04/25 at 0935, For 1 dose Given 04/04/2025 9:35 AM EDT 100 mL barium sulfate (E-Z-PAQUE) 96 % (w/w) suspension 100 mL 100 mL, oral, Once in imaging, Starting on Fri04/04/25 at 0934, For 1 dose Given 04/04/2025 9:35 AM EDT 100 mL documented in this encounter Additional Health Concerns Assessment Noted Time PHQ-9 Depression Total Score: 10 025 11:56 AM EDT documented as of this encounter Care Teams Business Rules Analyst Relationship Specialty Start Date End Date Huseyin Cherry PA [address] [place] [address] PCP - General Internal Medicine 09/10/24 documented as of this encounter
--- NOTE | 2025-04-07 11:15 | A.OFFWM_ITS ---
Intake Intake Visit Reasons: VIDEO BH Intake Part 2 Allergies No Known Allergies Allergy (Verified 02/25/25 09:22) PFSH Medical History Fatty liver Asthma Depression GERD (gastroesophageal reflux disease) Morbid obesity Anxiety Surgical History H/O vaginal surgery H/O endoscopy No history of previous surgery Family History Mother No problems noted. Father No problems noted. Social History Alcohol intake: never Patient Tobacco Use Status: Never used Tobacco Substance Use Type: Marijuana Behavioral Health Assessment Weight Management Therapy Therapy Notes Details The patient is a 29-year-old self-referred female presenting for a follow-up visit to continue the behavioral health assessment as part of the surgical weight loss program. She expresses strong motivation to improve her overall health and lifestyle. She has a limited history of mental health treatment, including brief counseling through an EAP for health-related depression. She reports longstanding anxiety with occasional panic symptoms, including one episode requiring emergency response. There is no history of psychiatric hospitalization, and she was previously prescribed Lorazepam for situational anxiety. She denies any history of substance use. There is no evidence of emotional or stress-related eating. Scores on the Binge Eating Scale (BES) indicate low risk for disordered eating, and PHQ-9 results do not reflect active depressive symptoms. The mental status exam is within normal limits, with no signs of cognitive or functional impairment. At this time, the patient is cleared from a behavioral health perspective to proceed with the surgical weight loss program. Presenting Concerns Referral Source WNP-Provided. Reason for referral Completion of behavioral health assessment as part of process for weight-loss surgery. Precipitating Event Obesity. Living Situation Current Living Situation Own At risk of losing current housing? No Satisfied with current living situation? Yes Comments PT lives with her . Food/Weight/Diet Expectations of change Pt started the program on 03/07/2025 at 216Lbs. The initial goal was to lose 10% of her weight before surgery, which is about 21lbs. Ultimate weight goal: 195 lbs before surgery. PT reports a recent weight from 03/19/2025: 206Lbs. Weight on 04/02/2025 was: 201Lbs. Program expectations: Meal plan: 2 shakes, 2 bars and 1 meal at day. Exercise plan: 4 days at weeks for 400 esa. (She is doing mostly 3 days). Scale: Yes. Communication with provider: Saturdays. History/Relationship with food PT reports she is not sure about why she is overweight as she doesn't eat a lot, however she tends to skip her meals but would snack during the day and then would have 1 big meal at the end of the day and out of convenience could be fast food. She has noticed she tends to eats more when bored, Growing up food was always available but not always the best choices. Example of meals before starting the program: Breakfast: Skip mostly. 3 times at week will have something from [employer] (an egg sandwich with hash browns with 1 cofee w/ 6 sugars, creamer and extra caramel). Lunch: Skip. If hungry 4x week would do a frozen dinner, ram noTransperales Dinner: 4/7 days would be fast food (Jonas Ann, [facility], Jeff zuluaga). Other days would be homemade wings/chicken, with a salad and rice or potatoes. Snacks: Around lunch time, multiple snacks (cookies, bag of chips, chocolate bars, donuts) Drinks/Liquids: Coffee: 1 medium from [employer], w 4-6 sugars creamer and extra caramel. soda: 2 at day. Tea: none. Energy drinks: 1 monster 1 at week. Juice: None. Water: 2 bottles at day. History/Relationship with weight PT reports she has always been overweight, in HS she lost weight and was at 145Lbs by doing exercise and healthy eating. In the last 10 years, the patient's Lowest weight was 145-150Lbs and highest 219Lbs. PT started History/Relationship with dieting self-diets, such as Ketto (lost 10Lbs), portion control, limiting junk foods. Binge Eating Do you frequently eat large amounts of food in short periods of time, not feeling physically hungry? No Do you feel out of control when you eat a large amount of food in a short period of time? No Do you eat large amounts of food rapidly and typically alone? No Night Eating Do you wake up at least once during the night to eat? No If you wake up in the night, do you find that it is necessary to eat something in order to fall back asleep? No Do you have little or no appetite in the morning and feel very hungry in the evening, often overeating between dinner and when you go to bed? No Social History Family history and relationship PT got 2 years ago, they have no children. Mother is alive, she was raised by her mother and stepfather, she has 3 sisters. PT reports good family communication and relationships. Bio-father hasn't been in her life. Parental/Familial plant nursery worker obligations None reported. Developmental history and status None. Currently NNL. Social support Mother, sister and . Community support Some co-workers. Anabaptism/Spirituality Grew up Buddhist, as she grew up older she considers herself Christian. Cultural/Ethnic information . Legal Involvement and History Current or historical involvement with the legal system? None reported. Education Highest grade completed HS Preferred learning style Learn by doing and Visual Currently enrolled in educational program? No Interested in further educational program? Yes Educational Interests/Skills Thinking about getting an . Not sure what field. 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 ) Wants help to find employment? No Meaningful activities Reading, family time. Financial Situation Describe current financial situation Comfortable Financial assistance? None Service Service? No Mental Health and Addiction Treatment Current/Past substance abuse? No Comments Alcohol: only social, couple times at year. 1-2 drinks. Cigarettes/Tobacco: None. Vaping: none. Cannabis/Edibles: None currently. Stopped about a year ago due to side effects. Current/Past addictive behavior concerns? No Psychiatric history The patient is not currently engaged in any form of mental health treatment. She previously attended two counseling sessions through an Employee Assistance Program (EAP) after reaching out due to feelings of depression triggered by ongoing health challenges. Prior to that, she had no history of formal mental health treatment. She reports a longstanding experience of anxiety, describing symptoms such as feeling nervous, shaky hands, and becoming easily overwhelmed, particularly in situations that evoke fear or involve large crowds. She experienced a panic attack over a year ago that led to emergency medical response, and reports having had a couple of similar episodes at home since then. The patient denies any history of psychiatric hospitalization or mental health crises. She was prescribed Lorazepam 0.5 mg several months ago to manage anxiety during an MRI procedure. Medical and Physical Health Summary Additional Medical History not covered in history PCOS, Pre-diabetes, Fatty Liver. Sexual History concerns None. Physical exam in the last year? Yes Pain Screening Current pain? Yes Pain in the last few months? Yes Comments Lower back, feet pain. Medications Is the patient compliant with medications? Yes Does the patient have Andino Guardian in place? Not applicable Does the patient use complimentary health approaches? No Trauma/Abuse History History of trauma? No Questionnaires PHQ-9 Over the last 2 weeks, how often have you been bothered by any of the following problems? 1. Little interest or pleasure in doing things: not at all 2. Feeling down, depressed, or hopeless: not at all 3. Trouble falling or staying asleep, or sleeping too much: not at all 4. Feeling tired or having little energy: not at all 5. Poor appetite or overeating: not at all 6. Feeling bad about yourself - or that you are a failure or have let yourself or your family down: not at all 7. Trouble concentrating on things, such as reading the newspaper or watching television: not at all 8. Moving or speaking so slowly that other people could have noticed. Or the opposite - being so fidgety or restless that you have been moving around a lot more than usual: not at all 9. Thoughts that you would be better off or of hurting yourself in some way: not at all Total score: 0 Depression Screening Interpretation: Negative Depression Screening Done: Yes 50662 - PHQ-9 Billing: Yes Source: Developed by Drs. Dann Gaspar, Alexandra Rodriguez, Bharath Mei and colleagues, with an educational robbie from [employer]. Binge Eating Scale Group 1 A. I don't feel self-conscious about my wt. or body size when I'm with others. B. I feel concerned about how I look to others, but it normally does not make me fell disappointed with myself C. I do get self-conscious about my appearance and wt. which makes me feel disappointed in myself. D. I feel very self-conscious about my wt. and frequently I feel intense shame and disgust for myself. I try to avoid social contacts because of my self- consciousness. Response Group 1: B Group 2 A. I don't have any difficulty eating slowly in the proper manner. B. Although I seem to gobble down foods, I don't end up feeling stuffed because of eating to much. C. At times, I tend to eat quickly and then, I feel uncomfortably full afterwards. D. I have the habit of bolting down my food, without really chewing it. When this happens I usually feel uncomfortably stuffed because I've eaten to much. Response Group 2: C Group 3 A. I feel capable to control my eating urges when I want to. B. I feel like I have failed to control my eating more than the average person. C. I feel utterly helpless when it comes to feeling in control of my eating urges. D. Because I feel so helpless about controlling my eating I have become very desperate about trying to get control. Response Group 3: A Group 4 A. I don't have the habit of eating when I'm bored. B. I sometimes eat when I'm bored, but often I'm able to get busy and get my mind off food. C. I have a regular habit of eating when I'm bored, but occasionally, I can use some other activity to get my mind off eating. D. I have a strong habit of eating when I'm bored. Nothing seems to help me say th the habit. Response Group 4: B Group 5 A. I'm usually physically hungry when I eat something. B. Occasionally, I eat something on impulse even though I really am not hungry. C. I have the regular habit of eating foods, that I might not really enjoy, to satisfy a hungry feeling even though physically, I don't need the food. D. Although I'm not physically hungry, I get a hungry feeling in my mouth that only seems to be satisfied when I eat a food, like sandwich, that fills my mouth. Sometimes, when I eat the food to satisfy my mouth hunger, I then spit the food out so I won't gain weight. Response Group 5: A Group 6 A. I don't feel any guilt or self-hate after I overeat. B. After I overeat, occasionally I feel guilt or self-hate. C. Almost all the time I experience strong guilt or self-hate after I overeat. Response Group 6: B Group 7 A. I don't lose total control of my eating when dieting even after periods when I overeat. B. Sometimes when I eat a forbidden food on a diet, I feel like I blew it and eat even more. C. Frequently, I have the habit of saying to myself, I've blown it now, why not go all the way, when I overeat on a diet. When that happens I eat more. D. I have a regular habit of starting a strict diets for myself but I break the diets by going on an eating binge. My life seems to be either a feast or famine. Response Group 7: A Group 8 A. I rarely eat so much food that I feel uncomfortably stuffed afterwards. B. Usually about once a month, I each such a quantity of food, I end up feeling very stuffed. C. I have regular periods during the month when I eat large amounts of food, either at mealtime or at snacks. D. I eat so much food that I regularly feel quite uncomfortable after eating and sometimes a bit nauseous. Response Group 8: C Group 9 A. My level of calorie intake does not go up very high or go down very low on a regular basis. B. Sometimes after I overeat, I will try to reduce my caloric intake to almost nothing to compensate for the excess calories I've eaten. C. I have a regular habit of overeating during the night. It seems that my routine is not to be hungry in the morning but overeat in the evening. D. In my adult years, I have had week-long periods where I practically starve myself. This follows periods when I overeat. It seems I live a life of either feast or famine. Response Group 9: A Group 10 A. I usually am able to stop eating when I want to. I know when enough is enough. B. Every so often, I experience a compulsion to eat which I can't seem to control. C. Frequently, I experience strong urges to eat which I seem unable to control, but at other times I can control my eating urges. D. I feel incapable of controlling urges to eat. I have a fear of not being able to stop eating voluntarily. Response Group 10: A Group 11 A. I don't have any problem stopping eating when I feel full. B. I usually can stop eating when I feel full but occasionally overeat leaving me feeling uncomfortably stuffed. C. I have a problem stopping eating once I start and usually I feel uncomfortably stuffed after I eat a meal. D. Because I have a problem not being able to stop eating when I want, I sometimes have to induce vomiting to relieve my stuffed feeling. Response Group 11: A Group 12 A. I seem to eat just as much when I'm with others, Family social gatherings as when I'm by myself. B. Sometimes, when I'm with other persons, I don't eat as much as I want to eat because I'm self-conscious about my eating. C. Frequently, I eat only a small amount of food when others are present, because I'm very embarrassed about my eating. D. I feel so ashamed about overeating that I pick times to overeat when I know no one will see me. I feel like a closet eater. Response Group 12: A Group 13 A. I eat three meals a day with only an occasional between meal snack. B. I eat 3 meals a day, but I also normally snack between meals. C. When I am snacking heavily, I get in the habit of skipping regular meals. D. There are regular periods when I seem to be continually eating, with no planned meals. Response Group 13: D Group 14 A. I don't think much about trying to control unwanted eating urges. B. At least some of the time, I feel my thoughts are pre-occupied with trying to control my eating urges. C. I feel that frequently I spend much time thinking about how much I ate or about trying not to eat anymore. D. It seems to me that most of my waking hours are pre-occupied by thoughts about eating or not eating. I feel like I'm constantly struggling not to eat. Response Group 14: C Group 15 A. I don't think about food a great deal. B. I have strong craving for food but they last only for brief periods of time. C. I have days when I can't seem to think about anything else but food. D. Most of my days seem to be pre-occupied with thoughts about food. I feel like I live to eat. Response Group 15: B Group 16 A. I usually know whether or not I'm physically hungry. I take the right portion of food to satisfy me. B. Occasionally, I feel uncertain about knowing whether or not I'm physically hungry. A these times it's hard to know how much food I should take to satisfy me. C. Even though I might know how many calories I should eat, I don't have any idea what is a normal amount of food for me. Response Group 16: A Binge Eating Score: 13 Score less than 17 Minimal Risk Score between 18-26 Moderate Risk Score between 27-46 High Risk Assessment & Plan Assessment & Plan (1) Panic anxiety syndrome: Code(s): F41.0 - Panic disorder [episodic paroxysmal anxiety] (2) Adjustment disorder: Code(s): F43.20 - Adjustment disorder, unspecified (3) Pre-bariatric surgery psychological evaluation: Code(s): Z71.89 - Other specified counseling Plan The patient has been cleared from a behavioral health standpoint and can be submitted for insurance approval when ready. A follow-up behavioral health visit will be scheduled 1?4 weeks postoperatively to assess psychological adjustment and screen for any concerns. Next appointment: 1-4 Weeks Post-op. Telehealth Telehealth Telehealth Platform: [facility] Location of provider rendering services: other (Home office. [facility]) Location of patient: other (Work. [facility]) Patient Identification confirmed using: Name, : Yes Telehealth method: video Patient verbally consented to treatment: Yes Patient verbally consented to billing insurance company: Yes Patient informed of any privacy concerns related to visit: Yes Minutes spent on Phone/Video with Pt.: 45 Coding Level of Care Code Established Pt Tele Psytx 45 mins (82191) Patient Type Established Diagnoses Panic anxiety syndrome F41.0 Adjustment disorder F43.20 Pre-bariatric surgery psychological evaluation Z71.89 Additional Codes PHQ-9 - 17449 - PHQ-9 Billing: Yes ([id number]) Time Spent (min) 45
== END 2025-04-07 12:47 | disposition home or self-care (01) ==
LOC: HO.HBST 11:21
PROVIDERS: Visit Provider Counselor Mental Health
DX: F41.0 Panic disorder [episodic paroxysmal anxiety] (principal); F43.20 Adjustment disorder, unspecified; Z71.89 Other specified counseling
CPT/HCPCS: 90834

== ENCOUNTER → 2025-04-07 11:21 | Outpatient (BNVA) | payer BC, SELFPAY | PROVIDERS: Visit Provider Counselor Mental Health ==

== ENCOUNTER 2025-04-21 07:53 | Outpatient (REF) | payer BC, SELFPAY ==
--- NOTE | ~2025-04-21 | US_ITS ---
EXAMINATION: US ABDOMEN COMPLETE WITH LIVER ELASTOGRAPHY HISTORY: E66.01 - Morbid (severe) obesity due to excess calories TECHNIQUE: Real-time grayscale ultrasound imaging of the abdomen was performed and images were reviewed. COMPARISON: There are no prior studies available for comparison. FINDINGS: Liver: The right lobe of the liver measures 16.1 cm in size. The left lobe of the liver measures 12.8 cm in size. The liver demonstrates increased echotexture, consistent with steatosis. No focal mass or intrahepatic biliary ductal dilatation is identified. There is normal hepatopedal flow in the portal vein. Ultrasound elastography of the liver was performed with 10 separate measurements of the liver parenchyma with the patient in the supine position. Measurements were obtained approximately 2 cm below Kyler's capsule and perpendicular to the capsule. The median shear wave velocity is 1.65 m/s. The interquartile range/median (IQR/median) is 0.10. Gallbladder and biliary tree: The gallbladder is unremarkable, without evidence of calculi, wall thickening, or pericholecystic fluid. There is no sonographic Lucero sign. The common bile duct is normal in caliber measuring 5 mm. Kidneys: The right kidney measures 12.2 cm in length. The left kidney measures 12.1 cm in length. The kidneys are unremarkable, without evidence of masses, hydronephrosis, or calculi. Pancreas: The pancreatic head, neck, and body are unremarkable. The pancreatic tail is obscured by bowel gas. Spleen: The spleen is normal in size and contour, measuring 10.1 cm in length. Abdominal aorta and inferior vena cava: The visualized portions of the abdominal aorta and inferior vena cava are normal in caliber. There is no free fluid in the abdomen. US/US abdomen comp w elastography IMPRESSION: Hepatomegaly and hepatic steatosis. The median shear wave velocity in the liver is 1.65 m/s, corresponding to a median liver stiffness of 8.20 kPa. The IQR/median value is 0.10. This is indicative of a quality data set. Findings are indicative of a low elastography value which rules out advanced chronic liver disease in asymptomatic patients. REFERENCE: Society of Radiologists in Ultrasound Liver Stiffness Thresholds (2020): LIVER STIFFNESS THRESHOLDS: *Shear wave velocity less than 1.3 m/s (Liver Stiffness equal or less than 5 kPa): High probability of being normal. *Shear wave velocity less than 1.7 m/s (Liver Stiffness less than 9 kPa): In the absence of other known clinical signs, rules out compensated advanced chronic liver disease. *Shear wave velocity between 1.7-2.1 m/s (Liver Stiffness 9-13 kPa): Suggestive of compensated advanced chronic liver disease but need further test for confirmation. *Shear wave velocity between 2.1-2.4 m/s (Liver Stiffness 13-17 kPa): Rules in compensated advanced chronic liver disease. *Shear wave velocity greater than 2.4 m/s (Liver Stiffness over 17 kPa): Suggestive of clinically significant portal hypertension. QUALITY OF DATA SET: *IQR/Median value equal or less than 0.15 implies a quality data set. *IQR/Median value over 0.15 implies a poor quality data set. SIGNIFICANT CHANGE FROM PRIOR EXAM: Significant change if liver stiffness measurement is 10% or greater from prior exam. OTHER CONSIDERATIONS: The stage of liver fibrosis may be overestimated in the setting of acute hepatitis, liver inflammation, elevated liver function tests, hepatic vascular congestion, obstructive cholestasis, non-fasting state, and infiltrative diseases such as amyloidosis and lymphoma. In some patients with NAFLD, the liver stiffness thresholds for compensated advanced chronic liver disease may be lower. In causes other than viral hepatitis and NAFLD, liver stiffness thresholds are not well established. Electronically signed by: Dann Hidalgo MD 04/21/2025 08:34 AM EDT
--- OUTSIDE RECORDS SUMMARY | 2025-04-21 07:56 | XMS_ITS | Clinical Summary ---
Author Organization [facility] Address [address] [place] [id number] Care Team Providers Care Glove Maker Name Role Phone Pcp, No Primary Care [...] 93 04/04/2021 4:14 AM EDT Temperature 36.6 C (97.9 F) 04/04/2021 4:14 AM EDT Respiratory Rate 16 04/04/2021 4:14 AM EDT [...] Pap Smear (Ages 21-65) 2016 COVID-19 Vaccine (1 - 2023-2 5 season) 2024 Influenza Vaccine 05/20/2025 HPV Vaccines Aged Out No longer eligi ble based on patient's age to complete this topic Pneumococcal Vaccine: Pediat sherly (0-5 Years) and At-Risk Patients (6 to 49 Years) Aged Out No longer eligible b ased on patient's age to complete this topic Insurance [facility] PPO Care Teams Glove Maker Relationship Specialty Start Date End Date Pcp, No PCP - General General Medicine 04/03/21
--- OUTSIDE RECORDS SUMMARY | 2025-04-21 07:56 | XMS_ITS | Clinical Summary ---
Author Organization [address] [place] [address] [place] [phone] Phone Care Team Providers Care Manager Coding Name Role Phone Huseyin Cherry Primary Care Provider [phone] Allergies No known active allergies Medications meclizine [...] Active Additional Information Patient not taking.Reported on 03/22/2025 famotidine (PEPCID) 20 mg tablet Take 1 tablet (20 mg total) by mouth 2 (two) times a day. 180 tablet 1 5 Active Additional Information Patient not taking.Reported on 03/22/2025 omeprazole (PriLOSEC) [address] capsule Take 1 capsule (20 mg total) by mouth 1 (one) time each day. Do not crush or chew. 30 each 3 5 02/16/20 26 Active Additional Information Patient not taking.Reported on 03/22/2025 Vitamin D3 125 mcg (5,000 unit) tablet Take 1 tablet (5,000 Units total) by mouth 1 (one) time each day. 5 Active cyanocobalamin, vitamin B-12, 1,000 mcg tablet, sublingual DISSOLVE 1 TABLET UNDER THE TONGUE DAILY NOT COVERED 5 Active medroxyPROGESTE Tee (PROVERA) 10 mg tabletIndicatio ns:PCOS (polycystic ovarian syndrome) Take one tab daily for 12 days with missed menses 12 tablet 3 5 Active Active Problems Problem Noted Date Diagnosed Date Lesion of endometrium 03/22/2025 Assessment & Plan (03/22/2025 11:41 AM EDT): Given history of AGC Pap, PCO and inconclusive CT, will obtain pelvic US and also plan for hysteroscopy. Will defer cone biopsy for now until we have a diagnosis that warrants it given her desire to have children in the future. Discussed with Dr. Chandler, who agrees with this plan. Patient is aware that it will be Dr. Jiménez performing her surgery. History of abnormal cervical Pap smear 5 Assessment & Plan (03/22/2025 11:40 AM EDT): Repeat today. PCOS (polycystic ovarian syndrome) 10/17/2022 Overview (03/22/2025): Last Assessment & Plan: Assessment & Plan (03/22/2025 11:42 AM EDT): Pt meets criteria for PCOS by [place] criteria of irregular menses, symptoms of elevated testosterone and polycystic ovaries on ultrasound. She was counseled regarding the implications of PCOS including irregular ovulation which can lead to endometrial hyperplasia or malignancy. I explained that without at least 4 spontaneous periods per year, she should be using hormonal regulation to avoid endometrial hyperplasia and cancer. She was given Provera to take to induce flow after US. She voiced understanding and agreed. Recurrent major depressive disorder (CMS/HCC V24 ) [...] Encounters Date Type Department Care Team Description 04/04/2025 9:09 AM EDT - 04/04/2025 11:59 PM EDT Hospital Encounter [facility] Xray [address] [place] [address] Left sided abdominal pain; Gastroesophageal reflux disease without esophagitis Discharge Disposition: Home or Self Care 03/24/2025 6:14 PM EDT - 03/24/2025 11:59 PM EDT Hospital Encounter Radiology Department - [address] [phone] Lesion of endometrium; History of abnormal cervical Pap smear; PCOS (polycystic ovarian syndrome) Discharge Disposition: Home or Self Care 03/22/2025 10:30 AM EDT Office Visit Obstetrics and Gynecology - [address] [phone] Vinita Kenyon MD Lesion of endometrium (Primary Dx); History of abnormal cervical Pap smear; PCOS (polycystic ovarian syndrome); Screening for cervical cancer 03/07/2025 9:21 AM EDT - 03/07/2025 11:59 PM EDT Hospital Encounter CT Scan - [address] [phone] Left sided abdominal pain; Hypoglycemia Discharge Disposition: Home or Self Care 03/07/2025 Telephone Adult Medicine [address] [phone] Huseyin Cherry PA 03/07/[address] [phone] Huseyin Cherry, PA Appointment 02/28/2025 3:15 PM EDT Office Visit Adult [address] [phone] Katelyn Branch PA Laceration of right index finger without foreign body without damage to nail, subsequent encounter (Primary Dx) 02/28/[address] [phone] Huseyin Cherry PA Finger Laceration 02/15/2025 9:10 AM EDT Consult Gastroenterology - [place] [facility] 175 [facility] [address] [place] [phone] Velma Coyle PA Hepatomegaly (Primary Dx); Left sided abdominal pain; Gastroesophageal reflux disease without esophagitis; Fatty liver 02/04/[address] [phone] Huseyin Cherry PA Referral (Endo) 01/25/2025 7:01 AM EDT - 01/25/2025 11:59 PM EDT Hospital Encounter Radiology Department - [address] [phone] Left sided abdominal pain; Gastroesophageal reflux disease without esophagitis; Recurrent major depressive disorder, remission status unspecified (CMS/HCC V24); PCOS (polycystic ovarian syndrome); Uncomplicated asthma, unspecified asthma severity, unspecified whether persistent; Perioral numbness; Hand numbness; Tremulousness Discharge Disposition: Home or Self Care 01/25/2025 Telephone Adult Medicine [address] [phone] Huseyin Cherry PA from Last 3 Months Immunizations Name Administration [...] Not Answered Alcohol Use Standard Drinks/Week Comments Not Currently [...] for your loved ones. For example, child care worker or elderly care for an older [...] Sexual Orientation Not on file Obstetrics History Para Term AB IAB SAB Ectopic Multiple Livin g Live Births 0 0 0 0 0 0 0 0 0 0 0 Last Filed Vital Signs Vital Sign Reading Time Taken Comments Blood Pressure 102/68 03/22/2025 10:25 AM EDT Pulse 63 03/22/2025 10:25 AM EDT Temperature 36.7 C (98 F) 02/28/2025 2:56 PM EDT Respiratory Rate 15 03/22/2025 10:2 5 AM EDT Oxygen Saturation 96% 02/15/2025 9:10 AM EDT Inhaled Oxygen Concentration - - Weight 94.3 kg (207 lb 12.8 oz) 025 10:25 AM EDT Height 149.9 cm (4' 11 ) 02/28/2025 2:56 PM EDT Body Mass Index 41.97 02/28/2025 2:56 PM EDT Plan of Treatment Upcoming Encounters Date Type Department Care Team (Late st Contact Info) Description 05/11/2025 8:45 AM EDT Hospital Encounter [facility] Main OR [address] [place] [phone] Zeinab Jiménez, DO [address] [place] [address] 05/11/2025 8:45 AM EDT - 05/11/2025 10:00 AM EDT Surgery [facility] Main OR [address] [place] [phone] Zeinab Jiménez, DO [address] [place] [address] HYSTEROSCOPy, D&C with/without cervical biopsy & ECC depending on Pap result [95851 (CPT )] 05/17/2025 8:30 AM EDT Office Visit Gastroenterology - [place] 175 [facility] 175 [facility] [address] [place] [phone] Velma Coyle PA 175 [facility] [place] [address] [place] [address] Scheduled Procedures Name Priority Associated Diagnoses Date/Ti me HYSTEROSCOPY Lesion of endometrium PCOS (polycystic ovarian syndrome) History of abnormal cervical Pap smear 05/11/2025 8:45 AM EDT Health Maintenance Due Date Last Done Comments COVID-19 Vaccine (#1) 2000 Hepatitis B Vaccines (1 of 3 - 19+ 3-dose series) 2014 Pneumococcal Vaccine: Pediatrics (0 to 5 Years) and At-Risk Patients (6 to 64 Years) (1 of 2 - PCV) 2014 Influenza Vaccine (#1) 2025 Depression Screening 01/18/2026 01/18/2025, 01/13/20 24 Social Influencers of Health Screening 01/18/2026 01/18/2025 Cervical Cancer Screening: Pap Smear 03/22/2028 03/22/2025, 03/22/2025, 08/12/2022, Additional history exists Cholesterol Screening (Lipid Panel) 08/01/2028 08/01/2023 DTaP,Tdap,and [...] 20 months Aged Out No longer eligible based on patient's age to complete this topic Varicella Vaccines Aged Out No longer eligible based on patient's age to complete this topic Procedures Procedure Name Priority Date/Time Associated Diagnosis Comments XR UGI W AIR CONTRAST Routine 04/04/2025 9:34 AM EDT Left sided abdominal pain Gastroesophageal reflux disease without esophagitis US PELVIS NON OB COMPLETE W TRANSVAGINAL Routine 03/24/2025 6:35 PM EDT Lesion of endometrium History of abnormal cervical Pap smear PCOS (polycystic ovarian syndrome) PAP SMEAR Routine 03/22/2025 10:51 AM EDT Screening for cervical cancer HPV WITH REFLEX GENOTYPE Routine 03/22/2025 10:51 AM EDT Screening for cervical cancer CT ABDOMEN PELVIS WO AND W CONTRAST Routine 03/07/2025 9:48 AM EDT Left sided abdominal pain Hypoglycemia HOME SLEEP TEST Routine 02/15/2025 8:50 AM EDT US ABDOMEN COMPLETE Routine 01/25/2025 8 :15 AM EDT Left sided abdominal pain Gastroesophageal reflux disease without esophagitis Recurrent major depressive disorder, remission status unspecified (CMS/HCC V24) PCOS (polycystic ovarian syndrome) Uncomplicated asthma, unspecified asthma severity, unspecified whether persistent Perioral numbness Hand numbness Tremulousness HM DEPRESSION SCREENING Routine 01/13/2024 LIPID PANEL Routine 08/01/2023 HEPATITIS C SCREENING Routine 08/05/2022 HIV SCREENING Routine 08/05/2022 from Last 3 Months or Most Recently Relevant to Health Maintenance Results * XR UGI w Air Contrast [...] Signed Date: 04/04/2025 13:23 ET Workstation ID: [id number] Transcribed By: Self Edit Transcribed Date: 04/04/2025 10:15 ET Resident/PA/BRACELET FORM COVERER: Mayte Baugh Narrative 04/04/2025 1:23 PM EDT FINDINGS: Double contrast UGI performed. COMPARISON: None. HISTORY: Patient is a 29-year-old female with history of GERD, chronic left- sided abdominal pain. PANTOGRAPH MACHINE OPERATOR radiographs: Dish Cloth Inspector AP radiograph of the abdomen obtained. Bowel [...] with history of GERD, chronicleft-sided abdominal pain. PANTOGRAPH MACHINE OPERATOR radiographs: Dish Cloth Inspector AP radiograph of the abdomen obtained. Bowel [...] Signed Date: 04/04/2025 13:23 ET Workstation ID: [id number] Transcribed By: Self Edit Transcribed Date: 04/04/2025 10:15 ET Resident/PA/BRACELET FORM COVERER: Mayte Baugh us Velma AGUILERA IMG FLUOROSCOPY PROCEDURES Fi nal Result * US Pelvis Non OB Complete w Transvaginal (03/24/2025 6:35 PM EDT) Anatomical Region Laterality Modality Body, Pelvis Ultrasound 03/25/2025 8:15 AM EDT Impressions 03/25/2025 8:22 AM EDT Nabothian cysts likely account for the CT finding. Heterogeneous endometrium. Otherwise, unremarkable exam. -------- FINAL REPORT -------- Dictated By: Gwen Chen Dictated Date: 03/25/2025 08:15 ET Assigned Physician: Gwen Chen Reviewed and Electronically Signed By: Gwen Chen Signed Date: 03/25/2025 08:22 ET Workstation ID: [id number] Transcribed By: Self Edit Transcribed Date: 03/25/2025 08:15 ET Narrative 03/25/2025 8:22 AM EDT PELVIC ULTRASOUND History: Abnormal lower uterine segment on CT. History of abnormal Paps and nabothian cysts. PCOS. Procedure: Real-time and color Doppler pelvic and transvaginal ultrasound. Color flow and Doppler spectral waveform analysis was also performed. Comparison: CT abdomen pelvis 03/07/2025. Pelvic ultrasound 08/12/2022. FINDINGS: The uterus measures 7.5 x 3.2 x 5.4 cm for a volume of 68 cc. There are multiple nabothian cysts. Endometrial stripe is heterogeneous and measures 1.3 cm. No evidence of uterine or adnexal mass seen. Transvaginal sonographic examination was performed for better evaluation of the adnexa. Normal arterial and venous waveforms on spectral Doppler analysis of both ovaries. Right ovary measures 5.1 x 2.0 x 1.8 cm for a volume of 9.6 cc. Left ovary measures 5.2 x 2.2 x 3.1 cm for a volume of 18.6 cc. No free fluid was demonstrated. Procedure Note Gwen Chen MD - 03/25/2025 PELVIC ULTRASOUND History: Abnormal lower uterine segment on CT. History of abnormal Papsand nabothian cysts. PCOS. Procedure: Real-time and color Doppler pelvic and transvaginal ultrasound.Color flow and Doppler spectral waveform analysis was also performed. Comparison: CT abdomen pelvis 03/07/2025. Pelvic ultrasound 08/12/2022. FINDINGS: The uterus measures 7.5 x 3.2 x 5.4 cm for a volume of 68 cc.There are multiple nabothian cysts. Endometrial stripe is heterogeneous and measures 1.3 cm. No evidence of uterine or adnexal mass seen. Transvaginal sonographic examination was performed for better evaluationof the adnexa. Normal arterial and venous waveforms on spectral Doppler analysis of bothovaries. Right ovary measures 5.1 x 2.0 x 1.8 cm for a volume of 9.6 cc. Left ovary measures 5.2 x 2.2 x 3.1 cm for a volume of 18.6 cc. No free fluid was demonstrated. IMPRESSION: Nabothian cysts likely account for the CT finding. Heterogeneousendometrium. Otherwise, unremarkable exam. -------- FINAL REPORT -------- Dictated By: Gwen Chen Dictated Date: 03/25/2025 08:15 ET Assigned Physician: Gwen Chen Reviewed and Electronically Signed By: Gwen Chen Signed Date: 03/25/2025 08:22 ET Workstation ID: [id number] Transcribed By: Self Edit Transcribed Date: 03/25/2025 08:15 ET us Vinita Kenyon MD IMG US PROCEDURES Final Res ult * HPV with reflex genotype (03/22/2025 10:51 AM EDT) HPV Negative Negative LAB MICROBIOLOGY METHOD 03/23/2025 2:07 PM EDT [facility] Brushing/Spatula Cervix uteri structure / Unknown 03/22/2025 10:51 AM EDT 03/23/2025 6:59 AM EDT Vinita Kenyon MD LAB MOLECULAR DIAGNOSTICS O RDERABLES Final Result [facility] [address] [place] [address], * Pap smear (03/22/2025 10:51 AM EDT) Interpretation Negative for intraepithelial lesion or malignancy 03/28/2025 11:57 AM EDT [facility] General Categorization Negative 03/28/2025 11:57 AM EDT [facility] Specimen Adequacy Satisfactory for evaluation, endocervical/branch sformation zone component present 03/28/2025 11:57 AM EDT [facility] Pap Methodology Liquid Based Pap Test 03/28/2025 11:57 AM EDT [facility] Disclaimer The Pap test is a screening test which carries an inherent false negative rate. These test results should be correlated with the patient's clinical findings and history. This Pap test was processed using an automated screening system. Technical cytopathology services provided by [facility], at [address] [place] [address] (CLIA # [id number]/Sergey Mendez MD, Clinical Nurse Occupational Medicine.) 03/28/2025 11:57 AM EDT [facility] Console Pap Interpretation Reported 03/28/2025 11:57 AM EDT [facility] Brushing/Spatula Cervix uteri structure / Unknown 03/22/2025 10:51 AM EDT 03/22/2025 10:51 AM EDT us Vinita Kenyon MD LAB CYTOLOGY ORDERABLES Fin al Result [facility] [address] [place] [address], [place] [phone] * CT Abdomen Pelvis wo and w Contrast (03/07/2025 9:48 AM EDT) Anatomical Region Laterality Modality Body Computed Tomogra phy 03/07/2025 10:0 3 AM EDT Impressions 03/07/2025 10:31 AM EDT 1. No acute findings or bowel distention. 2. Unremarkable appearance of the pancreas. If clinical concern for pancreatic lesion persists, consider MRI with pancreas protocol. 3. Abnormal findings in the uterus at the level of the endocervical canal and lower aspect of the endometrial canal. Recommend repeating pelvic ultrasound and gynecologic consult. 4. Hepatomegaly with features of hepatic steatosis. A copy of this report will be provided to the [facility] FIND Program. -------- FINAL REPORT -------- Dictated By: Ward Reddy Dictated Date: 03/07/2025 10:03 ET Assigned Physician: Ward Reddy Reviewed and Electronically Signed By: Ward Reddy Signed Date: 03/07/2025 10:31 ET Workstation ID: [id number] Transcribed By: Self Edit Transcribed Date: 03/07/2025 10:03 ET Narrative 03/07/2025 10:[address] ABDOMEN PELVIS WO AND W CONTRAST TECHNIQUE: Multidetector-row CT of the abdomen and pelvis was performed prior to and following administration of intravenous contrast (100 cc of Isovue-370) using tailored dose modulation techniques. Images were reconstructed in the axial, coronal, and sagittal planes. COMPARISON: Abdomen/pelvis CT on August 08, 2023. Abdominal ultrasound on January 25, 2025. Pelvic ultrasound on August 12, 2022. HISTORY: Abdominal distension abdominal pain, elevated insulin FINDINGS: Lower Chest: Lung bases are clear. No pleural effusion. Liver: Hepatomegaly (18.0 cm). Diffuse decreased attenuation of the liver parenchyma compatible with hepatic steatosis. No focal lesions. Biliary: Normal gallbladder. No biliary ductal dilatation. Spleen: No splenomegaly. No focal lesions. Pancreas: No focal lesions. No ductal dilatation. Adrenal Glands: No nodules. Kidneys/Ureters: No renal stones, solid appearing renal lesions or hydronephrosis. Bowel: Orally administered contrast has reached the rectum. Stomach is physiologically distended with ingested content and oral contrast. No bowel distention. Normal appendix in the right lower quadrant. Minimal prolapse of the rectum. Peritoneum/Retroperitoneum: No free fluid or free air. Lymph Nodes: No lymphadenopathy. Pelvic Organs/Bladder: Urinary bladder is unremarkable, without focal wall thickening or intravesical stones. Mildly enlarged bilateral ovaries appear similar to 2022, probably correlating with the previously suspected polycystic ovaries. Irregular area of hypodensity along the lower aspect of the endometrial canal as well as along the cervical canal does not appear to correlate with cystic changes. Vessels: No abdominal aortic aneurysm. Bones/Soft Tissues: No acute destructive bone lesions. Fat-containing umbilical hernia. Procedure Note Ward Reddy MD - 03/07/2025 CT ABDOMEN PELVIS WO AND W CONTRAST TECHNIQUE: Multidetector-row CT of the abdomen and pelvis was performedprior to and following administration of intravenous contrast (100 cc ofIsovue-370) using tailored dose modulation techniques. Images werereconstructed in the axial, coronal, and sagittal planes. COMPARISON: Abdomen/pelvis CT on August 08, 2023. Abdominal ultrasoundon January 25, 2025. Pelvic ultrasound on August 12, 2022. HISTORY: Abdominal distension abdominal pain, elevated insulin FINDINGS: Lower Chest: Lung bases are clear. No pleural effusion. Liver: Hepatomegaly (18.0 cm). Diffuse decreased attenuation of the liverparenchyma compatible with hepatic steatosis. No focal lesions. Biliary: Normal gallbladder. No biliary ductal dilatation. Spleen: No splenomegaly. No focal lesions. Pancreas: No focal lesions. No ductal dilatation. Adrenal Glands: No nodules. Kidneys/Ureters: No renal stones, solid appearing renal lesions orhydronephrosis. Bowel: Orally administered contrast has reached the rectum. Stomach isphysiologically distended with ingested content and oral contrast. Nobowel distention. Normal appendix in the right lower quadrant. Minimalprolapse of the rectum. Peritoneum/Retroperitoneum: No free fluid or free air. Lymph Nodes: No lymphadenopathy. Pelvic Organs/Bladder: Urinary bladder is unremarkable, without focal wallthickening or intravesical stones. Mildly enlarged bilateral ovariesappear similar to 202, probably correlating with the previously suspectedpolycystic ovaries. Irregular area of hypodensity along the lower aspectof the endometrial canal as well as along the cervical canal does notappear to correlate with cystic changes. Vessels: No abdominal aortic aneurysm. Bones/Soft Tissues: No acute destructive bone lesions. Fat-containingumbilical hernia. IMPRESSION: 1. No acute findings or bowel distention. 2. Unremarkable appearance of the pancreas. If clinical concern forpancreatic lesion persists, consider MRI with pancreas protocol. 3. Abnormal findings in the uterus at the level of the endocervical [place] lower aspect of the endometrial canal. Recommend repeating pelvicultrasound and gynecologic consult. 4. Hepatomegaly with features of hepatic steatosis. A copy of this report will be provided to the [facility] FINDProgram. -------- FINAL REPORT -------- Dictated By: Ward Reddy Dictated Date: 03/07/2025 10:03 ET Assigned Physician: Ward Reddy Reviewed and Electronically Signed By: Ward Reddy Signed Date: 03/07/2025 10:31 ET Workstation ID: [id number] Transcribed By: Self Edit Transcribed Date: 03/07/2025 10:03 ET us Huseyin AGUILERA IMG CT PROCEDURES Final R esult * Home sleep test (02/15/2025 8:50 AM EDT) us Historical Provider SLEEP CENTER ORDERABLES F inal Result * US Abdomen Complete (01/25/2025 8:15 AM EDT) Anatomical Region Laterality Modality Body Ultrasound 01/25/2025 8:46 AM EDT Impressions 01/25/2025 8:50 AM EDT 1. No acute findings in the left lower quadrant. 2. Hepatomegaly with sonographic features of hepatic steatosis. -------- FINAL REPORT -------- Dictated By: Ward Reddy Dictated Date: 01/25/2025 08:46 ET Assigned Physician: Ward Reddy Reviewed and Electronically Signed By: Ward Reddy Signed Date: 01/25/2025 08:50 ET Workstation ID: [id number] Transcribed By: Self Edit Transcribed Date: 01/25/2025 08:46 ET Narrative 01/25/2025 8:50 AM EDT EXAM: US ABDOMEN COMPLETE COMPARISON: Abdomen/pelvis CT on August 08, 2023 HISTORY: LLQ abdominal pain left sided abdominal pain TECHNIQUE: Ultrasound examination of the abdomen was performed and multiple static images obtained. FINDINGS: PANCREAS: Visualized portions of the pancreas are unremarkable. LIVER: Hepatomegaly measuring 20.6 cm in length. Diffusely increased echogenicity compatible with hepatic steatosis. No focal lesion demonstrated in the provided [...] visualized IVC is patent. The distal aorta is obscured by overlying gas. The maximum visualized aortic diameter is 1.4 cm. -Targeted ultrasound was also performed at the location of the pain as indicated by the patient in the left lower quadrant. No abnormality seen during the local survey. Procedure [...] 13.3 cm in sagittal dimension. Left kidney [id number] cm in sagittal dimension. Kidneys: No renal [...] Signed Date: 01/25/2025 08:50 ET Workstation ID: [id number] Transcribed By: Self Edit Transcribed Date: 01/25/2025 08:46 ET Huseyin CONNOLLY US PROCEDURES Final R esult * Depression Screening (01/13/2024) Pathologist [facility] Depression Screening abstracted Historical Provider HEALTH MAINTENANCE Final Result * (ABNORMAL) Lipid panel (08/01/2023) LDL/HDL Ratio 4 0 - 4 Triglycerides 120 0 - 150 mg/dL Cholesterol 188 0 - 200 mg/dL HDL 50 >=40 mg/dL LDL Cholesterol 114(A) 0 - 100 mg/dL Blood Venous blood specimen / Unknown Result [facility] Historical Provider LAB BLOOD ORDERABLES Cierra l Result * HIV Screening (08/05/2022) HIV Screening abstracted Historical Provider HEALTH MAINTENANCE Final Result * Hepatitis C Screening (08/05/2022) Hepatitis C Screening abstracted [facility] Provider HEALTH MAINTENANCE Final Result from Last 3 Months or Most Recently Relevant to Health Maintenance Insurance [facility] Care Teams Manager Coding Relationship Specialty Start Date End Date Huseyin Cherry PA [address] [place] [address] PCP - General Internal Medicine 09/10/24
--- OUTSIDE RECORDS SUMMARY | 2025-04-21 07:56 | XMS_ITS | Clinical Summary ---
Author Organization [facility] Address [address] [place] [address] Care Team Providers Care Mobile Manager Name Role Phone Unavailable Primary Care [...] 75 01/26/2019 3:01 AM EDT Temperature 36.1 C (97 F) 01/26/2019 3:01 AM EDT Respiratory Rate 20 [...] Screening (P ap Smear) 2016 Influenza Vaccine (Season Ended) 2025 Pneumococcal Vaccine Aged Out No long er eligible based on patient's age to complete this topic RSV Ped < 20 months Aged Out No longe r eligible based on patient's age to complete this topic Angela Valles Personal/Family Self 1995 [address] [place] [id number]
== END 2025-04-21 07:54 | disposition home or self-care (01) ==
LOC: HO.US 07:53
PROVIDERS: Visit Provider Surgery
DX: E66.01 Morbid (severe) obesity due to excess calories (principal); K21.9 Gastro-esophageal reflux disease without esophagitis
CPT/HCPCS: 76700; 76981

== ENCOUNTER → 2025-04-21 07:54 | Outpatient (BNV) | payer BC, SELFPAY | PROVIDERS: Visit Provider Radiology Diagnostic Radiology | DX: K76.0 Fatty (change of) liver, not elsewhere classified (principal); R16.0 Hepatomegaly, not elsewhere classified | CPT/HCPCS: 76700; 76981 ==

== ENCOUNTER 2025-07-06 11:45 | Outpatient (AMB) | payer BC, SELFPAY ==
--- NOTE | 2025-07-06 11:49 | MHC.OFFVISWM ---
VS Expanded 07/06/25 11:55 Height 4 ft 11 in Weight 187 lb 2 oz BMI 37.8 Body Fat % 47.6 Body Fat Mass 89.1 Fat Free Mass 98.2 Visceral Fat Rating 20 Body Water % 35.9 Body Water Mass 67.2 Basal Metabolic Rate/Score 1,316 Intake Visit Reasons: TV Pre Op LSG 07/14/25 Allergies No Known Allergies Allergy (Verified 07/06/25 11:49) Medication List - Last Reconciled 07/06/25 by Chepe Narvaez MD albuterol sulfate 90 mcg/actuation 2 puffs inhalation Q6H PRN cholecalciferol (vitamin D3) 125 mcg PO DAILY lorazepam 0.5 mg PO DAILY PRN mecobalamin (vitamin B12) 1,000 mcg sublingual DAILY pantoprazole 40 mg PO DAILY polyethylene glycol 3350 17 grams PO DAILY sucralfate 10 mL PO BID HPI HPI TV Pre Op LSG 07/14/25: Details: Start time: 11.46am, End time: 12.06pm ?I spent 15 minutes speaking with the patient on the phone plus an additional 5 minutes reviewing and updating records for a total of 20 minutes HPI Comments Details: Overall weight loss: 29.4lbs, or 13.6% TBWL Is doing 2 premade Premier protein shakes, 2 Fit Crunch or Pure protein bars and a meal (7 forks of meat and 7 forks of salad) Exercise: is doing treadmill for 300-400 calories x 2/wk PFSH Medical History (Updated 07/06/25 @ 11:59 by Chepe Narvaez MD) Obesity Fatty liver Asthma Depression GERD (gastroesophageal reflux disease) Morbid obesity Anxiety Surgical History H/O vaginal surgery H/O endoscopy No history of previous surgery Family History Mother No problems noted. Father No problems noted. Social History Alcohol intake: never Patient Tobacco Use Status: Never used Tobacco Substance Use Type: Marijuana Telehealth Telehealth Telehealth Platform: Telephone Location of provider rendering services: practice address Location of patient: address on file Patient Identification confirmed using: Name, : Yes Telehealth method: voice only Patient verbally consented to treatment: Yes Patient verbally consented to billing insurance company: Yes Patient informed of any privacy concerns related to visit: Yes Minutes spent on Phone/Video with Pt.: 20 Assessment & Plan Assessment & Plan (1) Obesity: Code(s): E66.9 - Obesity, unspecified Category: Medical Qualifiers: Obesity type: due to excess calories Obesity classification: adult class 2 (BMI 35 - 39.9) Serious obesity comorbidity presence: with serious comorbidity Body mass index: BMI 37.0-37.9 Qualified Code(s): E66.812 - Obesity, class 2; E66.01 - Morbid (severe) obesity due to excess calories; Z68.37 - Body mass index [BMI] 37.0-37.9, adult Plan: 1. Plan for lap sleeve gastrectomy including upper GI endoscopy. All tests has been completed and reviewed and the patient is cleared for the surgery. ?If diaphragmatic or ventral hernias are present at time of surgery, these will be repaired laparoscopically as well. Risks and complications were discussed in detail including possible conversion to an open procedure, anastomotic leak, bleeding requiring transfusion, small bowel obstruction, , DVT and pulmonary embolism, cardiac, or pulmonary complications, as residential complications such as anastomotic ulcer, insufficient weight loss and vitamin deficiencies. I emphasized the importance of close follow-up, adherence to instructions and good communication. So far she has proven to be an excellent communicator and very compliant with all our directions accomplishing a great weight loss. I believe that she is an excellent candidate and she is ready. 2. Preop prescriptions were provided and explained the purpose of each one. Need to be purchased preop. Start Pantoprazole now as you get it from the pharmacy, 1 pill per day. Sucralfate and Zofran are for after surgery as needed. 3. Bowel prep: please do 7 packets ?of Miralax mixing each one with a an 8oz glass of water, crystal light, gatorade zero, or propel ?on 07/12/25 and the same amount on 07/13/25. The Miralax you begin with one packet at a time in 8oz water or crystal light, gatorade zero, or propel ?as early in the day as you can and you do them back to back until you finish them. Continue the protein shakes during ?the bowel prep. 4. Needs to purchase 1oz medicine cups . 5. Needs to purchase Children's liquid Tylenol for postop pain control. 6. Avoid aspirin, motrin, Advil, Aleve, Meloxicam, Excedrin, Ibuprofen, Naproxyn. Tylenol is OK. 7. She needs to purchase the Celebrate multivitamins from the hospital's gift shop, chewable or pills whatever you prefer. 8. Will do basic preop blood work-up any day between 07/07/25 and Friday07/08/25 fasting for 12 hours and is scheduled to see the Anesthesiologist prior to the day of surgery. 9. Importance of adherence to postop follow-up and recommendations was underscored and she understands that. 10. Stop food and bars as of tomorrow 07/07/25 and continue with 3 premade Premier protein shakes (mixing 4oz of Premier with 4oz almond milk for each) at 7am-9am, 10am-12pm and 1pm-3pm and one more Premier protein shake (8oz each and NOT the whole bottle) at 4pm-6pm and 7pm-9pm 11. No soups, broths or V8 12. The patient's?medical?history has been reviewed and they are considered low risk for post op DVT and therefore DVT prophylaxis is not considered necessary. Travel after surgery was reviewed. The patient has not disclosed any travel plans during the first 30 days after surgery and they have been advised that within the first 30 days after surgery any bus, plane, train or car travel over 2 hours in duration is contraindicated due to the possibility of developing blood clots from immobility. Any travel, needs to include periods of ambulation of 10 minutes in duration every 2 hours.? Patient was instructed to discuss any plans for travel during this period with their bariatric surgeon.? 13. Please take at the day of surgery the following medications: NONE 14. Stop any control pills and don't use them for one month after surgery 15. Absolutely no smoking or vaping, or marijuana until the surgery and for at least the first 4 weeks. Only nicotine patches are allowed. 16. Send me weight measurements on Friday07/09/25 and then on 07/14/25 the day of surgery before you go to the hospital. 17. Avoid any steroids by mouth for any reason. Let me know if someone prescribes them to you 18. These instructions supersede anything else you read in the handbook, anything you watched in videos or classes or you were told by any other provider. If there is any conflict, you follow the above instructions and nothing else. Orders: Orders Hemoglobin A1c Today E66.9 - Obesity, unspecified, Z68.37 - Body mass index [BMI] 37.0-37.9, adult Complete Blood Count Auto Diff Today E66.9 - Obesity, unspecified, Z68.37 - Body mass index [BMI] 37.0-37.9, adult C Reactive Protein Today E66.9 - Obesity, unspecified, Z68.37 - Body mass index [BMI] 37.0-37.9, adult TSH reflex Free T4 Today E66.9 - Obesity, unspecified, Z68.37 - Body mass index [BMI] 37.0-37.9, adult Partial Thromboplastin Time Today E66.9 - Obesity, unspecified, Z68.37 - Body mass index [BMI] 37.0-37.9, adult Prothrombin Time INR Today E66.9 - Obesity, unspecified, Z68.37 - Body mass index [BMI] 37.0-37.9, adult Comprehensive Met. Panel Today E66.9 - Obesity, unspecified, Z68.37 - Body mass index [BMI] 37.0-37.9, adult Insulin Today E66.9 - Obesity, unspecified, Z68.37 - Body mass index [BMI] 37.0-37.9, adult Lipid Panel Today E66.9 - Obesity, unspecified, Z68.37 - Body mass index [BMI] 37.0-37.9, adult Type and Screen Today E66.9 - Obesity, unspecified, Z68.37 - Body mass index [BMI] 37.0-37.9, adult Medications: New sucralfate Only take one every 12 hours as needed if you have nausea 10 mL PO BID 600 mL 2RF R11.0 - Nausea polyethylene glycol 3350 Mix each measuring cup with 8oz of water, Crystal light, or Gatorade zero, or Propel and do 7 measuring cups on 07/12/25 and another 7 measuring cups on 07/13/25 17 grams PO DAILY 238 grams 0RF Z01.818 - Encounter for other preprocedural examination pantoprazole 40 mg PO DAILY 90 tabs 0RF K21.9 - Gastro-esophageal reflux disease without esophagitis
[2025-07-06 11:55] VITALS: BMI 37.8
--- OUTSIDE RECORDS SUMMARY | 2025-07-06 15:09 | XMS_ITS | Clinical Summary ---
Author Organization [facility] Address [address] [place] [address] Care Team Providers Care Tube Room Cashier Name Role Phone Unavailable Primary Care Provider [...] (P ap Smear) 2016 Influenza Vaccine (#1) 2025 Pneumococcal Vaccine Aged Out No long er eligible based on patient's age to complete this topic RSV Ped < 20 months Aged Out No longe r eligible based on patient's age to complete this topic Angela Valles Personal/Family Self 1995 [address] [place] [id number]
--- OUTSIDE RECORDS SUMMARY | 2025-07-06 15:09 | XMS_ITS | Clinical Summary ---
Author Organization [facility] Address [address] [place] [id number] Care Team Providers Care Network Support Administrator Name Role Phone Pcp, No Primary Care [...] series) 2014 Pap Smear (Ages 21-65) 2016 HPV Vaccines (1 - 3-dose SCD M series) 2022 Influenza Vaccine 05/20/2025 COVID-19 Vaccine ( - 2023-2 5 season) 2025 Pneumococcal Vaccine: Pediat sherly (0-5 Years) and At-Risk Patients (6 to 49 Years) Aged Out No longer eligible b ased on patient's age to complete this topic Insurance [facility] - PPO Care Teams Network Support Administrator Relationship Specialty Start Date End Date Pcp, No PCP - General General Medicine 04/03/21
== END 2025-07-06 12:07 | disposition home or self-care (01) ==
LOC: HO.HBS 11:45
PROVIDERS: PCP Physician Assistant Medical; Visit Provider Surgery
DX: E66.9 Obesity, unspecified (principal); Z68.37 Body mass index [BMI] 37.0-37.9, adult
CPT/HCPCS: 99213

== ENCOUNTER 2025-07-14 05:54 | Day surgery (SDC) | payer BC, SELFPAY ==
--- OUTSIDE RECORDS SUMMARY | 2025-07-07 07:06 | XMS_ITS | Clinical Summary ---
Author Organization [facility] Address [address] [place] [address] Care Team Providers Care Site Planner Name Role Phone Unavailable Primary Care Provider [...] Personal/Family Self 1995 [address] [place] [id number]
--- OUTSIDE RECORDS SUMMARY | 2025-07-07 07:06 | XMS_ITS | Clinical Summary ---
Author Organization [address] [place] [address] [place] [phone] Phone Care Team Providers Care Solution Coordinator Name Role Phone Huseyin Cherry Primary Care Provider [phone] Allergies No known active allergies Medications LORazepam (ATIVAN) 0.5 mg tablet Take 1 tablet (0.5 mg total) by mouth 1 (one) time each day if needed for anxiety. Max Daily Amount: 0.5 mg 30 tablet 11/05/2024 Active omeprazole (PriLOSEC) [address] capsule Take 1 capsule (20 mg total) by mouth 1 (one) time each day. Do not crush or chew. 30 each 3 02/15/2025 Active Vitamin D3 125 mcg (5,000 unit) tablet Take 1 tablet (5,000 Units total) by mouth 1 (one) time each day. 03/05/2025 Active cyanocobalamin, vitamin B-12, 1,000 mcg tablet, sublingual Take 1,000 mcg by mouth 1 (one) time each day. 03/06/2025 Active Active Problems Problem Noted Date Diagnosed Date Morbid obesity (CMS/HCC V24, CMS/HCC V28) 2024 Gastroesophageal reflux disease 05/11/2025 Lesion of endometrium 03/22/2025 Assessment & Plan [...] surgery. History of abnormal cervical Pap smear Assessment & Plan (03/22/2025 11:40 AM EDT): [...] Encounters Date Type Department Care Team Description 06/18/2025 Telephone Adult Medicine [address] [phone] Huseyin Cherry PA 06/02/2025 Telephone Adult Medicine [address] [phone] Huseyin Cherry PA 05/25/2025 Telephone Adult Medicine [address] [phone] Diandra Santiago MA 05/24/2025 5:45 PM EDT Office Visit Walk-In Clinic - [address] [phone] Gordo Briggs PA Sensory disturbance (Primary Dx); Dysuria 05/24/2025 Telephone Adult Medicine [address] [phone] Huseyin Cherry PA 05/24/2025 Telephone Obstetrics and Gynecology - [address] [phone] Zeinab Jiménez DO 05/11/2025 8:45 AM EDT - 05/11/2025 10:00 AM EDT Surgery [address] [phone] Zeinab Jiménez DO HYSTEROSCOPy, D&C with/without cervical biopsy [83802 (CPT )] 05/11/2025 8:34 AM EDT Anesthesia Event [address] [phone] Hemalatha Santana MD Stevens, Kerien, SRNA 05/11/2025 7:06 AM EDT - 05/11/2025 10:57 AM EDT Hospital Encounter [address] [phone] Zeinab Jiménez DO Lesion of endometrium; PCOS (polycystic ovarian syndrome); History of abnormal cervical Pap smear Discharge Disposition: Home or Self Care 04/28/2025 1:30 PM EDT Consult Obstetrics and Gynecology - [address] [place]NA[place] [phone] Zeinab Jiménez DO History of abnormal cervical Pap smear (Primary Dx); Abnormal uterine bleeding 04/25/2025 Telephone Obstetrics and Gynecology - [address] [place] [phone] Zeinab Jiménez DO from Last 3 Months Immunizations Name Administration Dates Next Due Tdap Tetanus diptheria acell ular pertussis (Boostrix; Adacel) 7yo and older 08/02/2021 Surgical History Surgery Date Site/Laterality Comments OTHER SURGICAL HISTORY PROCEDURE: DENIES PREVIOUS SURGERY OTHER SURGICAL HISTORY 11/24/2023 PROCEDURE: OUTSIDE ENDOSCOPY; COMMENT: kristen normal, biopsies taken UPPER GASTROINTESTINAL ENDOSCOPY Medical History Medical History Date Comments Asthma DX:Asthma HSV infection DX:HSV infection GERD (gastroesophageal reflux disease) Anxiety Family History Medical History Relation Name Comments [...] for your loved ones. For example, child welfare caseworker or elderly care for an older adult? [...] What is your living situation? 0 01/18/2025 Interpersonal Safety Answer Date Record ed Physical Abuse 05/11/2025 Verbal Abuse 05/11/2025 Comments No Sex and Gender Information Value [...] Sign Reading Time Taken Comments Blood Pressure 112/74 05/24/2025 5:33 PM EDT Pulse 66 05/24/2025 5:33 PM EDT Temperature 36.3 C (97.3 F) 05/24/2025 5:33 PM EDT Respiratory Rate 16 05/11/2025 10:12 AM EDT Oxygen Saturation 94% 05/11/2025 10:12 AM EDT Inhaled Oxygen Concentration - - Weight 88.9 kg (196 lb) 05/04/2025 2:00 PM EDT Height 149.9 cm (4' 11 ) 05/04/2025 2:00 PM EDT Body Mass Index 39.59 05/04/2025 2:00 PM EDT Plan of Treatment Upcoming Encounters Date Type Department Care Team (Late st Contact Info) Description 08/23/2025 3:00 PM EST Office Visit Gastroenterology - [facility] [address] [place] [phone] Velma Coyle PA [address] [place] [address] Health Maintenance Due Date Last Done Comments Hepatitis B Vaccines (1 of 3 - 19+ 3-dose series) 2014 Pneumococcal Vaccine: Pediatrics (0 to 5 Years) and At-Risk Patients (6 to 49 Years) (1 of 2 - PCV) 2014 COVID-19 Vaccine (1 - season) 2025 Influenza Vaccine (#1) 2025 Social Influencers of Health Screening 01/18/2026 01/18/2025 Cervical Cancer Screening: Pap Smear 03/22/2028 03/22/2025, 03/22/2025, 08/12/2022, Additional history exists Cholesterol Screening (Lipid Panel) 08/01/2028 08/01/2023 DTaP,Tdap,and Td Vaccines (2 - Td or Tdap) 08/02/2031 08/02/2021 HIV Screening Completed 08/05/2022 Hepatitis C Screening Completed 08/05/2022 Depression Screening Completed 01/18/2025, 01/13/20 HIB Vaccines Aged Out No longer eligi [...] Procedure Name Priority Date/Time Associated Diagnosis Comments POC URINE NON-AUTO W/O MICRO Routine 05/24/2025 6:21 PM EDT Dysuria URINALYSIS MICROSCOPIC ONLY Routine 05/24/2025 6:20 PM EDT Dysuria URINALYSIS MICROSCOPIC ONLY Routine 05/24/2025 6:20 PM EDT Dysuria CULTURE URINE Routine 05/24/2025 6:20 PM EDT Dysuria OXYGEN THERAPY, ADULT Routine 05/11/2025 9:14 AM EDT OXYGEN THERAPY, ADULT Routine 05/11/2025 9:14 AM EDT TISSUE EXAM Routine 05/11/2025 9:00 AM EDT Lesion of endometrium PCOS (polycystic ovarian syndrome) History of abnormal cervical Pap smear TH AN LMA(NO CHARGE) Routine 05/11/2025 8:51 AM EDT DE HYSTEROSCOPY W/BIOPSY ENDOMETRIUM AND/OR POLYPECTOMY W/O AND/OR W/D&C 05/11/2025 8:33 AM EDT Lesion of endometrium PCOS (polycystic ovarian syndrome) History of abnormal cervical Pap smear Case Notes ? MYOSURE POC , URINE DIAGNOSTIC Routine 05/11/2025 7:48 AM EDT HPV WITH REFLEX GENOTYPE Routine 03/22/2025 10:51 AM EDT Screening for cervical cancer HM DEPRESSION SCREENING Routine 01/13/2024 LIPID PANEL Routine 08/01/2023 HM HEPATITIS C SCREENING Routine 08/05/2022 HIV SCREENING Routine 08/05/2022 from Last 3 Months or Most Recently Relevant to Health Maintenance Results * (ABNORMAL) POC Urine Non-Auto W/O Micro (05/24/2025 6:21 PM EDT) GLUCOSE POC Negative Negative, Trace mg/dL Leukocytes UA POC 1+(A) Negative mg/dL Nitrite UA POC Negative Urobilinogen UA POC 0.2 E.U./dL mg/dL Protein UA POC Positive Positive, Negative PH UA POC 5.0 EMIGDIO/HM UA POC Negative Negative Specific [place] UA POC 1.025 Ketones UA POC Negative Negative Bilirubin UA POC Negative Negative Urine Urine specimen obtained by clean catch procedure / Unknown 05/24/2025 6:21 PM EDT Gordo AGUILERA POINT OF CARE TEST ENTER/E DIT ORDERABLES Final Result * (ABNORMAL) Urinalysis microscopic only (05/24/2025 6:20 PM EDT) Pathologist [facility] RBC, Urine 7.3(H) 0 - 4 /HPF LAB URINALYSIS - AUTOMATED METHOD 05/24[facility]2025 7:[facility] WBC, Urine 8.0(H) 0 - 4 /HPF LAB URINALYSIS - AUTOMATED METHOD 05/24/2025 7:39 PM [facility] Squamous Epithelial, Urine >100(H) 0 - 60 /LPF LAB URINALYSIS - AUTOMATED METHOD 05/24/2025 7:39 PM EDT [facility] Bacteria, Urine Negative Negative /HPF LAB URINALYSIS - AUTOMATED METHOD 05/24/2025 7:39 PM [facility] Hyaline Casts, Urine 3.6(H) 0 - 3 /LPF LAB URINALYSIS - AUTOMATED METHOD 05/24/2025 7:39 PM [facility] Urine Urine specimen obtained by clean catch procedure / Unknown Non-blood Collection / Unknown 05/24/2025 6:20 PM EDT 05/24/2025 6:20 PM EDT [facility] URINE ORDERABLES Final Result Performing Organization Address [facility]/ZIP Co de Phone Number [facility] [address] [place] [address], [place] [phone] * Culture urine (05/24/2025 6:20 PM EDT) Culture, Urine <10,000 CFU/mL gram negative bacilli, insignificant count, no further workup 05/25/2025 1:40 PM EDT [facility] Urine Urine specimen obtained by clean catch procedure / Unknown Non-blood Collection / Unknown 05/24/2025 6:20 PM EDT 05/24/2025 6:20 PM EDT [facility] MICROBIOLOGY - GENERAL ORDERABLES Final Result Performing Organization Address [facility]/ZIP Co de Phone Number [facility] [address] [place] [address], [place] [phone] * Tissue exam (05/11/2025 9:00 AM EDT) Final Diagnosis Endometrial curettings: Endometrial hyperplasia with squamous morules No atypia or endometrial neoplasm identified Benign endocervix with microglandular hypeprlasia 05/12/2025 3:14 PM EDT [facility] Gross Description A. Endometrium, EMC: Labeled Endo, EMC . Received in formalin on Telfa pads is a 1.4 cm aggregate of irregular dark red soft tissue fragments which is submitted in toto in a mesh bag in one cassette, multiple pieces, x 2. KELSI 05/12/2025 3:14 PM EDT [facility] Disclaimer Unless otherwise specified, all tissue is 10% NB formalin fixed and paraffin embedded. 05/12/2025 3:14 PM EDT [facility] Tissue Endometrial structure / Unknown 05/11/2025 9:00 AM EDT 05/11/2025 9:45 AM EDT Zeinab Jiménez DO LAB PATHOLOGY ORDERABLES Cierra l Result [facility] [address] [place] [address], [place] [phone] * TH AN LMA(NO CHARGE) (05/11/2025 8:51 AM EDT) Narrative Ladarius Dong SRNA - 05/11/2025 8:51 AM EDT LESLY Martin 05/11/2025 8:51 AM General Information and Staff Patient location during procedure: OR Anesthesiologist: Hemalatha Santana MD Other anesthesia staff: LESLY Martin Performed: other anesthesia staff Performed by: LESLY Martin Authorized by: Hemalatha Santana MD Intubation Airway not difficult Urgency: elective Final Airway Details Number of attempts at approach: 1 LMA Size: 4 LMA Type: Unique LMA Seal Pressure: Final airway type: LMA Indications and Patient Condition Indications for airway management: anesthesia Spontaneous Ventilation: absent Sedation level: Yes Preoxygenated: yes Soft Tissue Damage: No Dentition Unchanged: Yes Patient position: neutral MILS maintained throughout Mask difficulty assessment: 1 - vent by mask Hemalatha Santana MD ANESTHESIA ORDERABLES Final Resu lt * POC , urine manually resulted (05/11/2025 7:48 AM EDT) HCG, Ur POC Negative Negative POC hCG Int QC Pass? Yes Yes Urine Urine specimen obtained by clean catch procedure / Unknown 05/11/2025 7:48 AM EDT Hemaaltha Santana MD POINT OF CARE TEST ENTER/EDIT OR DERABLES Final Result * HPV with reflex genotype (03/22/2025 10:51 AM EDT) HPV Negative Negative LAB MICROBIOLOGY METHOD 03/23/2025 2:07 PM EDT [facility] Brushing/Spatula Cervix uteri structure / Unknown 03/22/2025 10:51 AM EDT 03/23/2025 6:59 AM EDT Result [facility] Vinita Kenyon MD LAB MOLECULAR DIAGNOSTICS O RDERABLES Final Result [facility] [address] [place] [address], * Depression Screening (01/13/2024) [facility] Depression Screening abstracted [facility] Provider HEALTH MAINTENANCE Final Result * (ABNORMAL) Lipid panel (08/01/2023) [facility] LDL/HDL Ratio 4 0 - 4 Triglycerides 120 0 - 150 mg/dL Cholesterol 188 0 - 200 mg/dL HDL 50 >=40 mg/dL LDL Cholesterol 114(A) 0 - 100 mg/dL Blood Venous blood specimen / Unknown Result [facility] Historical Provider LAB BLOOD ORDERABLES Cierra l Result * HIV Screening (08/05/2022) [facility] HIV Screening abstracted Historical Provider HEALTH MAINTENANCE Final Result * Hepatitis C Screening (08/05/2022) [facility] Hepatitis C Screening abstracted Historical Provider HEALTH MAINTENANCE Final Result from Last 3 Months or Most Recently Relevant to Health Maintenance Insurance [facility] Advance Directives * Full Code - Default (Latest Code Status on File) Date Activated Date Inactivated Comments 05/11/2025 9:14 AM 05/11/2025 1:08 PM This is orde r is used when code status has not been discussed with the patient, or code status is otherwise unknown/unconfirmed To update the patient's code status, place a code status order. Do not modify or discontinue any currently active code status orders. Care Teams Solution Coordinator Relationship Specialty Start Date End Date Huseyin Cherry PA [address] [place] [address] PCP - General Internal Medicine 09/10/24
--- OUTSIDE RECORDS SUMMARY | 2025-07-07 07:06 | XMS_ITS | Clinical Summary ---
Author Organization [facility] Address [address] [place] [id number] Care Team Providers Care Funnel Coater Name Role Phone Pcp, No Primary Care [...] patient's age to complete this topic Insurance [facility] - PPO Care Teams Funnel Coater Relationship Specialty Start Date End Date Pcp, No PCP - General General Medicine 04/03/21
[2025-07-07 07:27] LABS: MANUAL DIFF FLAG NO
[2025-07-07 07:41] LABS: Hematocrit 38.8 % (37.0-47.0); Hemoglobin 13.1 g/dl (12.0-16.0); Imm Gran Abs Auto 0.03 X10*3/uL (0.00-0.03); Imm Gran Pct Auto 0.3 % (0.0-0.4); Lymphocytes Absolute Auto 2.6 X10*3/uL (1.2-4.9); Mean Corpuscular HGB Conc 33.8 g/dl (31.0-35.0); Mean Corpuscular Hemoglobin 28.7 pg (27.0-33.0); Mean Corpuscular Volume 84.9 fL (80.0-98.0); NRBC Abs Auto 0.000 X10*3/uL (0.0-0.012); NRBC Pct Auto 0.0 /100WBC (0.0-0.2); Platelet Count 242 X10*3/uL (160-400); Red Blood Count 4.57 X10*6/uL (4.20-5.50); White Blood Count 9.2 X10*3/uL (4.8-10.8)
[2025-07-07 07:48] LABS: INTERNATIONAL NORM RATIO 1.0 (0.9-1.1); Prothrombin Time 11.2 SEC (10.9-12.4)
[2025-07-07 07:51] LABS: Partial Thromboplastin Time 32.3 SEC (26.7-34.1)
[2025-07-07 09:09] LABS: Alanine Aminotransferase 27 U/L (0-31); Albumin Level 4.4 g/dL (3.5-5.0); Alkaline Phosphatase 84 U/L (39-117); Anion Gap 10 (12-20); Aspartate Amino Transferase 23 U/L (5-31); Blood Urea Nitrogen 16 mg/dL (9-16); Calcium 9.2 mg/dL (8.4-10.2); Carbon Dioxide 26 mmol/L (22-29); Chloride 108 mmol/L (96-108); Cholesterol 153 mg/dL (<200); Estimated Glomerular Filt Rate > 60; HDL Cholesterol 33 mg/dL (>40); Potassium 3.8 mmol/L (3.3-5.1); Sodium 140 mmol/L (135-145); Total Protein 7.7 g/dL (6.5-8.0); Triglycerides 136 mg/dL (<150)
[2025-07-07 09:24] LABS: Hemoglobin A1C 122.3835 umol/L; Total Hemoglobin (HGBA1C) 3379.4012 umol/L
[2025-07-13 10:12] VITALS: BMI 37.8
[2025-07-14] VITALS (9 sets, daily range): BP systolic 115–156; BP diastolic 61–92; PULSE 69–85; RESP 12–22; TEMP 36.4–37.4; O2SAT 94–99; BMI 37.3
[2025-07-14] MEDS: Lactated Ringers 1,000 ML 999 ML IV (06:19)
[2025-07-14] MEDS: Aprepitant 32 MG/4.4 ML VIAL IVPUSH (06:25)
--- NOTE | 2025-07-14 06:55 | P.CONAN_ITS ---
Documented by User: Gladis Moore NP 07/12/25 09:45 HPI - Anesthesia Eval Consult details Narrative: 29yo F for Gastrectomy Sleeve,EGD,possible Diaphragmatic Hernia,possible Ventral Hernia,possible Open BMI 37.8 PMFSH Active Problems Active Problems: All Active Problems BMI 37.0-37.9, adult (Acute) Obesity (Acute) Vitamin B12 deficiency (Acute) Vitamin D deficiency (Acute) Asthma (Acute) Anxiety (Acute) Depression (Acute) GERD (gastroesophageal reflux disease) (Acute) Morbid obesity (Acute) Past Medical History Medical History Sciatica PCOS (polycystic ovarian syndrome) Obesity Fatty liver Asthma Depression GERD (gastroesophageal reflux disease) Anxiety Family History Family History Mother No problems noted. Father No problems noted. Surgical History Surgical History H/O vaginal surgery H/O endoscopy History of Problems with Anesthesia: No Social History Social History Alcohol intake: never Patient Tobacco Use Status: Never used Tobacco Use of substances other than those prescribed or required for medical reasons: No Substance Use Type: Marijuana Have you been hit, kicked, punched, or otherwise hurt by someone within the past year? If so, by whom?: No Spiritual Healthcare Practices: no Yazidi Healthcare Practices: no Cultural Healthcare Practices: no Are you DNR?: No Advance Directives: No ( is primary contact) Advance Directives on File: No Patient : No (hx PCOS-irregular menses) FDLMP: 05/10/25 : No Poor oral hygiene: No Meds Allergies Allergy/AdvReac Type Severity Reaction Status Date / Time No Known Allergies Allergy Verified 07/14/25 06:07 Home Medications ?Medication ?Instructions ?Recorded ?Confirmed ?Last Taken ?Type albuterol sulfate 90 mcg/actuation 2 puff inhalation Q 6H PRN 02/25/25 07/14/25 Unknown History aerosol inhaler Shortness Of Breath Or Wheez ing Exam Pertinent Lab Results Pertinent Lab Results: Laboratory Tests 07/07/25 07/07/25 07:16 07:25 WBC 9.2 RBC 4.57 Hgb 13.1 Hct 38.8 MCV 84.9 MCH 28.7 MCHC 33.8 RDW 13.2 Plt Count 242 MPV 11.8 Immature Gran % (Auto) 0.3 Neut % (Auto) 61.6 Lymph % (Auto) 27.7 Forrest % (Auto) 4.9 Eos % (Auto) 4.8 H Baso % (Auto) 0.7 Lymph # (Auto) 2.6 Forrest # (Auto) 0.5 Eos # (Auto) 0.4 Baso # (Auto) 0.1 Abs Immat Gran (auto) 0.03 Absolute Neuts (auto) 5.7 Absolute Nucleated RBC 0.000 Nucleated RBC % (auto) 0.0 PT 11.2 INR 1.0 APTT 32.3 Sodium 140 Potassium 3.8 Chloride 108 Carbon Dioxide 26 Anion Gap 10 L BUN 16 Creatinine 0.56 Estim Creat Clear Calc TNP Estimated GFR > 60 Random Glucose 97 Estimat Average Glucose 111 Hemoglobin A1c % 5.5 Insulin Level 34 H Calcium 9.2 Total Bilirubin 0.6 AST 23 ALT 27 Alkaline Phosphatase 84 C-Reactive Protein 0.57 H Total Protein 7.7 Albumin 4.4 Triglycerides 136 Cholesterol 153 LDL Cholesterol, Calc 93 HDL Cholesterol 33 L TSH 2.36 Blood Type O Positive Antibody Screen NEGATIVE Narrative Narrative: EKG 02/2025 Vent. Rate : 69 BPM Atrial Rate : 69 BPM P-R Int : 150 ms QRS Dur : 84 ms QT Int : 424 ms P-R-T Axes : 36 48 10 degrees QTcB Int : 454 ms Normal sinus rhythm Normal ECG When compared with ECG of 22-Jun-2024 00:10, Nonspecific T wave abnormality no longer evident in Anterolateral leads Assessment and Plan Assessment Anesthesia Assessment: Chart Reviewed Final Anesthetic Review History of Problems with Anesthesia: No Documented by User: Eliana Dickson DO 07/14/25 07:05 [facility] Past Medical History Medical History Sciatica PCOS (polycystic ovarian syndrome) Obesity Fatty liver Asthma Depression GERD (gastroesophageal reflux disease) Anxiety Family History Family History Mother No problems noted. Father No problems noted. Family history of problems with anesthesia: No Surgical History Surgical History H/O vaginal surgery H/O endoscopy History of Problems with Anesthesia: No Social History Social History Alcohol intake: never Patient Tobacco Use Status: Never used Tobacco Use of substances other than those prescribed or required for medical reasons: No Substance Use Type: Marijuana Have you been hit, kicked, punched, or otherwise hurt by someone within the past year? If so, by whom?: No Spiritual Healthcare Practices: no Yazidi Healthcare Practices: no Cultural Healthcare Practices: no Are you DNR?: No Advance Directives: No ( is primary contact) Advance Directives on File: No Patient : No (hx PCOS-irregular menses) FDLMP: 05/10/25 : No Poor oral hygiene: No Meds Allergies Allergy/AdvReac Type Severity Reaction Status Date / Time No Known Allergies Allergy Verified 07/14/25 06:07 Home Medications ?Medication ?Instructions ?Recorded ?Confirmed ?Last Taken ?Type albuterol sulfate 90 mcg/actuation 2 puff inhalation Q 6H PRN 02/25/25 07/14/25 Unknown History aerosol inhaler Shortness Of Breath Or Wheez ing Exam Exam Date and Time: 07/14/25 0655 Height,Weight and Vital Signs: Height 4 ft 11 in Weight 83.7 kg Vital Signs Temperature 99.4 F 07/14/25 06:15 Pulse Rate 75 07/14/25 06:15 Respiratory Rate 17 07/14/25 06:15 Blood Pressure 121/70 07/14/25 06:15 Pulse Oximetry 97 07/14/25 06:15 Oxygen Delivery Method Room Air 07/14/25 06:15 Temperature 99.4 F 07/14/25 06:15 Pulse Rate 75 07/14/25 06:15 Respiratory Rate 17 07/14/25 06:15 Blood Pressure 121/70 07/14/25 06:15 Pulse Oximetry 97 07/14/25 06:15 Oxygen Delivery Method Room Air 07/14/25 06:15 Airway Mallampati Class: I TM Dist: <=3cm Neck ROM: Full Loose/Missing/Broken Teeth: No (patient denies any loose or broken teeth) Heart: S1S2 Lungs: CTAB Assessment and Plan Assessment Anesthesia Assessment: Anesthesia Plan Discussed and Chart Reviewed Final Anesthetic Review Family History of Problems with Anesthesia: No History of Problems with Anesthesia: No NPO: Yes ASA Class: II Final Preanesthetic Review: No Changes in Pt Med Stat, Meds/Allgs Chart Reviewed, Consent Obtained/Reviewed and Anes Risks/Benef Reviewed Patient Risk: Low Procedure Risk: Intermediate Anesthetic Plan Anesthetic Plan: GA and Agree w/ Assess. and Plan Disposition: Standard PACU
--- NOTE | 2025-07-14 07:03 | PHA.MEDREC ---
Pharmacy Consult ? Medication Reconciliation Pharmacy has reviewed the medication reconciliation done by nursing.
[2025-07-14] MEDS: Lactated Ringers 1,000 ML 100 ML IVCONT ×3 (07:16→19:49)
--- NOTE | 2025-07-14 07:33 | MHC.SHP ---
Pre-Procedural Eval Section A - 24 Hr Update-Section A only Date of Service: 07/14/25 The patient is an INPATIENT: No The patient has been examined within 24 hours of the surgical procedure. The History & Physical has been completed within 30 days and I have reviewed it.: Yes Section B - Complete if H&P > 30 days Chief Complaint: sleeve gastrectomy Relevant Family History (Specify if Yes): No Relevant Social History: None Present Medications: None Medical History: No relevant PMH History of Previous Operations: No relevant previous surgery Allergies: Allergies Allergy/AdvReac Type Severity Reaction Status Date / Time No Known Allergies Allergy Verified 07/14/25 06:07 Review of Systems Sugical H&P ROS: Negative: Constitution, Cardiovascular, Respiratory, Neurological, Psychiatric, Hem-Onc, Allergic/Immunologic, Gastrointestinal, Genitourinary, Musculoskeletal, Integumentary, Endocrine and Eyes/Ears/Nose/Throat Exam Surgical H&P Exam: Normal: HEENT, Normal: Heart, Normal: Lungs, Normal: Extremities, Normal: Abdomen, Normal: Skin and Normal: Neurological Plan Diagnosis/Plan: Unchanged I have reviewed the history and physical and performed a pertinent physical examination on my patient. No changes have occurred unless specified. Time Spent With Patient Time: Total time managing care of this patient today ____ minutes.
--- NOTE | 2025-07-14 07:34 | P.BOP_ITS ---
Brief Operative Note Date of Service: 07/14/25 Pre-op diagnosis: Severe obesity with comorbidities (see below) Post-op diagnosis: same Procedure: INITIAL PATIENT BMI ON PRESENTATION AT OUR OFFICE: 43.8 kg/m2 LAST BMI BEFORE SURGERY: 37.8 kg/m2 COMORBIDITIES: asthma, depression, anxiety,liver steatosis, GERD ?The patient presented to the Weight Management Program with significant obesity that was negatively impacting the patient's comorbidities as listed above.? The program is a phased program with a special focus on preoperative medical weight management to promote substantial weight loss and prepare the patients for the second phase of the program: bariatric surgery. The patient participated in an intensive weekly lifestyle ?intervention and exercise program during which the patient ?has lost between the initial office visit and the last preoperative visit 32.4 lbs, or 15% of initial actual body weight. It was deemed appropriate for the patient to now have bariatric surgery. In light of the current Covid-19 pandemic and the well documented strong association of obesity and increased risk of worse outcomes if infected with Covid-19 (REFERENCES: https://pubmed.ncbi.nlm.nih.gov/37423194/ ,? https://pubmed.ncbi.nlm.nih.gov/06726893/ ), any delay in undergoing bariatric surgery may lead to the patient's worsening health condition and increased?risk of more severe Covid-19 disease if infected. In addition a recent?study from [facility] published in [facility] on 10/15/2021 ([email or web address]) found that, among patients with obesity, substantial weight loss achieved with surgery was associated with improved outcomes of COVID-19 infection. The findings suggest that obesity can be a modifiable risk factor for the severity of COVID-19 infection. In addition, the patient met the BMI-criteria for bariatric surgery based on the BMI on initial presentation. The patient should not be penalized for achieving such weight loss because ?it is not sustainable long-term without surgical intervention and it was achieved in preparation for bariatric surgery ?under my direction and based on my published research ([email or web address]).pdf and? https://www.soard.org/article/C2939-6096(21)86036-X/pdf ) ?that a 10% preoperative weight loss improves long-term weight loss after surgery and reduces perioperative complications.? Insurance carriers such as [facility] have endorsed my recommendations ?and have included in their policies criteria to include a 10% preoperative weight loss requirement. PROCEDURE: Esophago-gastroscopy, laparoscopic sleeve gastrectomy and laparoscopic gastropexy INDICATIONS: This is a 29 year-old female who was electively scheduled for laparoscopic, possibly open sleeve gastrectomy. The risks and complications of the procedure were discussed with the patient in advance, particularly the possibility of ; pulmonary embolism; staple line leak; bleeding; GERD; cardiac, pulmonary, or renal complications; as well as long-term problems such as insufficient weight loss, vitamin deficiency, strictures, or ulcers. The patient understood all the risks, and was in agreement to proceed with surgery. DESCRIPTION OF PROCEDURE: After informed consent was obtained from the patient, the patient was given preoperative antibiotics, and was transferred to the operating room. After successful induction of general anesthesia, pneumatic compression devices were placed on both lower extremities. An upper endoscopy was performed next. The oropharynx and esophagus appeared to be within normal limits. There was no diaphragmatic hernia present. The stomach was entered. Then after all fluid and air were suctioned and the stomach was fully decompressed, the scope was withdrawn and secured in the mid esophagus. The patient was then prepped and draped in the usual sterile manner, and abdominal access was established at the right upper quadrant with the Caity technique. A 12 mm blunt port was inserted, and the abdomen was insufflated with CO2 to a pressure of 15 mmHg. Under direct visualization, additional ports were placed, specifically two 5 mm Versi-step ports to the left upper quadrant, and a 5 mm Versi-Step port to the right upper quadrant. 1% lidocaine plain was used to infiltrate all port sites as well as all fascia defects. Following that, the patient was placed in a steep reverse Trendelenburg position. An additional 5 mm port was placed to the right flank for the Mediflex retractor that was used to retract the left lobe of the liver. The gastro-esophageal fat pad was opened with the ultrasonic device (Thchristineerbeat, Olympus) and the anterior esophagus and hiatus were exposed. The angle of His was opened with the ultrasonic device the fundus of the stomach from any diaphragmatic and splenic attachments. I then opened the gastrocolic ligament between the transverse colon and the g reater curvature of the stomach with the ultrasonic device to enter the lesser sac and facilitate the ligation of the short gastric vessels. I started at a mid-point along the greater curvature and using the Thunderbeat, all short gastric vessels were divided all the way to the angle of His until the left glen was completely dissected at its entirety. I then divided the gastro-colic ligament distally to a distance of about 3-4 cm proximal to the pylorus. The stomach was then divided transversely with one Endo DAVID-45 purple and four DAVID-60 articulating purple loads using the Meridium stapler and loads. Every effort was made that the gastric sleeve had a tubular shape and an even caliber throughout. Once the sleeve resection was completed, the staple line of the gastric sleeve was reinforced with Hemoclips. The resected stomach was retrieved without difficulty from the Caity port. A gastropexy was then performed in order to prevent postoperative GERD and partial gastric volvulus. Several interrupted 2.0 Surgidac sutures were placed between the sleeve's staple line and the previously divided greater omentum and gastro-colic ligament using the Endo-Stitch device. ?An upper endoscopy was performed. There was no narrowing at the GE junction. The scope was easily advanced all the way to the pylorus which was clearly visualized. There was no narrowing anywhere and the sleeve's caliber was even throughout. The sleeve's staple line was inspected and there was no evidence of ischemia, bleeding or dehiscence. At that point the gastroscope was withdrawn from the patient?s mouth while we were decompressing the bowel and the stomach from any remaining air. I looked into the lesser sac to see how the sleeve was situating and it was situating well. There was no bleeding from the staple line, spleen, or short gastric vessels. The Mediflex retractor was removed, and the undersurface of the liver was inspected and there was no bleeding. The patient was placed in supine position. I closed the fascial defect of the 12 mm port site with a figure of eight #1 Polysorb suture. Then 30cc Ropivacaine plain with 10 mg of Dexamethasone were used to infiltrate the fascial closure as well as all skin incisions. At this point, the abdomen was deflated, all ports were removed under direct vision, and no bleeding was noted from any of the port sites. The skin incisions were irrigated with saline and were closed with 4-0 absorbable monofilament sutures. Steri-Strips and OpSites were used to cover all incisions. The patient was extubated and was transferred in stable condition to the recovery room for further care. I was present and performed all sharma parts of the procedure. Ms. Hargrove was the first aid instructor. There were no residents to assist with this case. Everett Narvaez MD, PhD, FACS Surgeon: Chepe Narvaez MD Anesthesia: GETA, local and other (TAP block) Was an Plug Paster used for this Procedure?: No Plug Paster: Christi Hargrove Estimated blood loss (mL): 10 IV fluids (mL): 2,500 Urine output (mL): 0 (No Cooley to record output) Pathology: other (1) Stomach, 2) Gastro-esophageal fat pad) Condition: stable Disposition: PACU
--- NOTE | 2025-07-14 07:37 | PM.PNGS ---
Subjective Subjective Date of Service: 07/15/25 Interval history: Feels well. Mild incisional pain. She is tolerating phase 1 bariatric diet Physical Exam Vital Signs: Vital Signs: Last Vital Signs Temp 99.4 F 07/14/25 06:15 Pulse 75 07/14/25 06:15 Resp 17 07/14/25 06:15 BP 121/70 07/14/25 06:15 Pulse Ox 97 07/14/25 06:15 O2 Del Method Room Air 07/14/25 06:15 BMI result Body Mass Index 37.3 GI: Inspection: Yes normal to inspection, Yes incision (clean, dry and intact) and Yes obesity Palpation (GI): Soft to palpation Extrem: Right lower extremity: normal to inspection (no calf tenderness) Left lower extremity: normal to inspection (no calf tenderness) Objective Data Active Medications Albuterol Sulfate (Albuterol Sulfate (0.083%) 2.5 Mg/3 Ml Vial.Neb) 2.5 mg INHALE ONCE PRN PRN Reason: Shortness of Breath/Wheezing Haloperidol Lactate (Haloperidol Lactate 5 Mg/Ml Vial) 1 mg IVPUSH ONCE PRN PRN Reason: intractable nausea Stop: 07/14/25 13:06 Hydromorphone HCl (Hydromorphone Hcl 0.5 Mg/0.5 Ml Syringe) 0.5 mg IVPUSH Q5M PRN PRN Reason: Pain, Moderate to Severe (Pain Scale 4-10) Stop: 07/14/25 13:05 Lactated Ringer's (Lr) 1,000 mls @ 100 mls/hr IVCONT .Q10H [facility] Last Admin: 07/14/25 07:16 Dose: 100 mls/hr Documented By: EAN Lactated Ringer's (Lr) 1,000 mls @ 999 mls/hr IV .Q1H1M [facility] Stop: 07/14/25 08:00 Last Admin: 07/14/25 06:19 Dose: 999 mls/hr Documented By: EAN Naloxone HCl (Naloxone Hcl 0.4 Mg/Ml Vial) 0.04 mg IVPUSH Q5M PRN PRN Reason: Excessive sedation or RR < 8 Labs 07/15/25 05:59 07/15/25 05:59 Labs: Laboratory Results - last 24 hr 07/14/25 06:56 Beta HCG, Quant < 2 Procedures Date of Service Date of Service: 07/15/25 Progress Note: A&P Assessment and plan (1) BMI 37.0-37.9, adult: Status: Acute (2) Obesity: Status: Acute Assessment and Plan: s/p laparoscopic sleeve gastrectomy and gastropexy Doing well Will check am labs and if OK the patient will be discharged home (3) GERD (gastroesophageal reflux disease): Status: Acute (4) Asthma: Status: Acute (5) Anxiety: Status: Acute (6) Depression: Status: Acute (7) Back pain: Status: Acute (8) S/P laparoscopic sleeve gastrectomy: Status: Acute Time Spent With Patient Time: Total time managing care of this patient today ____ minutes. Quality Stroke Does the patient have a stroke diagnosis?: No VTE Prior VTE?: No VTE Risk Level:: Surgical - moderate VTE Device Contraindication: N/A - Device Ordered VTE Drug Contraindication: Treatment Not Indicated
--- NOTE | 2025-07-14 09:48 | P.DS_ITS ---
DS: Providers Provider Date of Service: 07/15/25 Date of admission: 07/14/25 05:59 Date of discharge: 07/15/25 Primary care physician: WILLY Jose DS: Diagnosis Discharge Diagnosis (1) BMI 37.0-37.9, adult: Status: Acute (2) Obesity: Status: Acute (3) GERD (gastroesophageal reflux disease): Status: Acute (4) Asthma: Status: Acute (5) Anxiety: Status: Acute (6) Depression: Status: Acute (7) Back pain: Status: Acute DS: Summary Hospital Course Hospital Course: ADMITTING DIAGNOSIS: obesity DISCHARGE DIAGNOSIS: same, s/p laparoscopic sleeve gastrectomy and gastropexy PAST SURGICAL HISTORY:? H/O vaginal surgery H/O endoscopy PROCEDURE: upper endoscopy, laparoscopic sleeve gastrectomy and gastropexy DISCHARGE SUMMARY: History of Present Illness: The patient is a?29 year-old woman with a BMI of?37.3 kg/m2 and associated co- morbidities as described above. The patient had extensive work-up, lost?31.8 lbs preoperatively and was electively scheduled for laparoscopic, possible open sleeve gastrectomy and gastropexy. Risks and complications of the surgery were discussed with the patient in advance, particularly the possibility of , pulmonary embolism, anastomotic leak, bleeding, bowel injury, GERD, cardiac, renal or pulmonary complications. The patient understood all the risks and was in agreement with the surgical plan. Hospital Course: The patient underwent an uneventful laparoscopic sleeve gastrectomy with gastropexy on the day of admission. Postoperatively, the patient was transferred to the surgical floor. The patient received IV acetaminophen and IV Dilaudid for pain control. Patient was started on bariatric phase 1 diet POD #0. On postoperative day one, the patient was feeling well without nausea, vomiting, fevers, or tachycardia. The patient had some mild incisional pain and the abdomen was soft.? ? On the morning of postoperative day one, the patient was continued on 1 ounce of water or ice every half hour. During the day, the patient did fairly well, having some incisional pain, but able to ambulate adequately and to tolerate liquids well. Since the patient is doing well, we decided that the patient was ready to be dis charged. The patient was given instructions to follow-up in office next week and to call the office for any fever over 101, persistent abdominal pain, nausea, vomiting, GERD, symptoms of DVT such as calf tenderness, or leg swelling, or pulmonary embolism such as chest pain or shortness of breath.? The patient was also instructed to drink 40-60 ounces of liquids per day using the 1-ounce cups. The patient had been given prescriptions for Tylenol for pain, Zofran prn for nausea, and pantoprazole and carafate previously. The patient was encouraged to ambulate and use the incentive spirometer. The patient was allowed to shower, but no baths, and encouraged to stay active at home. All of these instructions were given to the patient personally. All questions were answered and the patient understood all instructions, the instructions were also given to the patient in print. Time Attestation Discharge Coordination Time (in mins): 30 Quality: Safe Use of Opioids Does Pt have an Active Cancer Diagnosis on the Problem List?: No Quality: Stroke Does the patient have a stroke diagnosis?: No Physical Exam Vital Signs: Vital Signs: Last Vital Signs Temp 98.6 F 07/14/25 09:43 Pulse 69 07/14/25 09:43 Resp 12 07/14/25 09:43 BP 127/71 07/14/25 09:43 Pulse Ox 96 07/14/25 09:43 O2 Del Method Simple Mask 07/14/25 09:43 O2 Flow Rate 8 07/14/25 09:43 BMI result Body Mass Index 37.3 DS: Data Data Completed and Pending Pending studies at discharge: Pending at discharge 07/14/25 09:10 Surgical [PTH] Routine Labs on day of discharge: Laboratory Results - last 24 hr 07/14/25 06:56 Beta HCG, Quant < 2 Discharge Plan Discharge Patient Disposition: Home, Self-Care Referrals: Huseyin Cherry PA [Primary Care Provider, Internal Medicine] - 1 Week Discharge Medications: Continued pantoprazole 40 mg tablet,delayed release (DR/EC) 40 mg PO DAILY Qty: 90 0RF albuterol sulfate 90 mcg/actuation HFA aerosol inhaler 2 puff inhalation Q6H PRN (Reason: Shortness Of Breath Or Wheezing) No Action ciprofloxacin-dexamethasone 0.3-0.1 % drops,suspension 4 drp otic (ears) BID Qty: 7.5 0RF Discharge Orders: Discharge Order (Routine); Ordered 07/15/25 Ordered By: Chepe Narvaez Activity on Discharge: No heavy lifting Patient Instructions: Nutrition after Bariatric Surgery (DC), Bowel Management After Bariatric Surgery (DC), Laparoscopic Sleeve Gastrectomy (DC) Stand Alone Forms: Patient Portal Discharge page Print Language: Croatian Discharge Date/Time: 07/15/25 09:24
[2025-07-14 10:15] LABS: Hematocrit 38.9 % (37.0-47.0); Hemoglobin 12.8 g/dl (12.0-16.0)
[2025-07-14 10:20] LABS: Anion Gap 13 (12-20); Blood Urea Nitrogen 10 mg/dL (9-16); Calcium 9.0 mg/dL (8.4-10.2); Carbon Dioxide 25 mmol/L (22-29); Chloride 105 mmol/L (96-108); Creatinine Clr Calc Pharmacy 125.5; Estimated Glomerular Filt Rate > 60; Potassium 4.0 mmol/L (3.3-5.1); Sodium 139 mmol/L (135-145)
[2025-07-14] MEDS: 0.9 % Sodium Chloride Flush 3 ML SYRINGE IVFLUSH (14:27)
[2025-07-15 03:24] VITALS: BP 125/84; PULSE 80; RESP 18; TEMP 36.7; O2SAT 99
[2025-07-15] MEDS: Lactated Ringers 1,000 ML 100 ML IVCONT (05:09)
[2025-07-15 06:24] LABS: MANUAL DIFF FLAG NO
[2025-07-15 06:47] LABS: Anion Gap 13 (12-20); Blood Urea Nitrogen 7 mg/dL (9-16); Calcium 9.4 mg/dL (8.4-10.2); Carbon Dioxide 23 mmol/L (22-29); Chloride 107 mmol/L (96-108); Creatinine Clr Calc Pharmacy 131.9; Estimated Glomerular Filt Rate > 60; Potassium 4.0 mmol/L (3.3-5.1); Sodium 139 mmol/L (135-145)
[2025-07-15 06:50] LABS: Hematocrit 35.9 % (37.0-47.0); Hemoglobin 12.4 g/dl (12.0-16.0); Imm Gran Abs Auto 0.05 X10*3/uL (0.00-0.03); Imm Gran Pct Auto 0.4 % (0.0-0.4); Lymphocytes Absolute Auto 1.4 X10*3/uL (1.2-4.9); Mean Corpuscular HGB Conc 34.5 g/dl (31.0-35.0); Mean Corpuscular Hemoglobin 29.0 pg (27.0-33.0); Mean Corpuscular Volume 83.9 fL (80.0-98.0); NRBC Abs Auto 0.000 X10*3/uL (0.0-0.012); NRBC Pct Auto 0.0 /100WBC (0.0-0.2); Platelet Count 243 X10*3/uL (160-400); Red Blood Count 4.28 X10*6/uL (4.20-5.50); White Blood Count 11.3 X10*3/uL (4.8-10.8)
[2025-07-15 07:48] VITALS: BP 116/63; PULSE 80; RESP 16; TEMP 36.6; O2SAT 95
--- NOTE | 2025-07-15 08:47 | HO.POSTANES ---
Post Anesthesia Evaluation Post Anesthesia Evaluation Date of Service: 07/15/25 Vital Signs: Vital Signs Temp Pulse Resp BP Pulse Ox O2 Del Method 07/15/25 07:48 97.8 F 80 16 116/63 95 Room Air 07/15/25 03:24 98.1 F 80 18 125/84 99 Room Air 07/14/25 23:45 97.5 F 70 18 115/63 99 Room Air Anesthesia: General Endotracheal-GETA Mental Status: Awake Pain Control: Satisfactory Nausea/Vomiting: None Hydration: Adequate Anesthesia-Related Issues: No Anes. Related Issues
--- NOTE | 2025-07-15 09:49 | MHC.CM.PN ---
PT LEFT THE UNIT WITHOUT BEING SEEN BY CM.
== END 2025-07-15 09:24 | disposition home or self-care (01) ==
LOC: HO.SSS 05:54 → HO.SSSA 09:47 → HO.S3 10:36
PROVIDERS: Anesthesiology; Physician Assistant Surgical; PCP Physician Assistant Medical; Visit Provider Surgery
PROC: (CPT 43845; principal; 2025-07-14 07:30)
DX: E66.01 Morbid (severe) obesity due to excess calories (principal); K21.9 Gastro-esophageal reflux disease without esophagitis; K76.0 Fatty (change of) liver, not elsewhere classified; J45.909 Unspecified asthma, uncomplicated; F32.A Depression, unspecified; F41.9 Anxiety disorder, unspecified; E53.8 Deficiency of other specified B group vitamins; E55.9 Vitamin D deficiency, unspecified; Z79.899 Other long term (current) drug therapy; Z98.890 Other specified postprocedural states
CPT/HCPCS: 43775; 43659; 36415; 80048; 80053; 80061; 83036; 83525; 84443; 84702; 85014; 85018; 85025; 85610; 85730; 86140; 86850; 86900; 86901; 88304; 88307; 88342; A4649; C9145; J0131; J0690; J1100; J1171; J1308; J2003; J2250; J2405; J2704; J2765; J2795; J3010; J7120

== ENCOUNTER → 2025-07-14 05:59 | Outpatient (BNV) | payer BC, SELFPAY | PROVIDERS: Admitting Provider Physician Assistant Surgical; PCP Physician Assistant Medical; Visit Provider Surgery | DX: Z68.37 Body mass index [BMI] 37.0-37.9, adult (principal); E66.812 Obesity, class 2; E66.01 Morbid (severe) obesity due to excess calories; K21.9 Gastro-esophageal reflux disease without esophagitis; J45.909 Unspecified asthma, uncomplicated; F41.9 Anxiety disorder, unspecified; F32.A Depression, unspecified; M54.9 Dorsalgia, unspecified; Z98.84 Bariatric surgery status | CPT/HCPCS: 43659; 43775; 99024 ==

== ENCOUNTER 2025-07-20 12:29 | Outpatient (AMB) | payer BC, SELFPAY ==
--- NOTE | 2025-07-20 12:33 | A.OFFVIS_ITS ---
VS Expanded 07/20/25 12:50 BP 134/82 Blood Pressure Location Rt brachial Blood Pressure Position Sitting Pulse 81 Pulse Source Pulse Oximeter Temp 97.6 F Temperature Source Temporal Artery Scan Pulse Oximetry 97 Oxygen Delivery Method Room Air Height 4 ft 11 in Weight 174 lb BMI 35.1 Body Fat % 41.8 Body Fat Mass 72.8 Fat Free Mass 101.2 Visceral Fat Rating 8.0 Body Water % 41.8 Body Water Mass 72.8 Muscle Mass/Score 96.2 Basal Metabolic Rate/Score 1,449 Intake Visit Reasons: (OV) PO LSG 07/14/25 Allergies No Known Allergies Allergy (Verified 07/20/25 12:52) Medication List - Last Reconciled 07/20/25 by WILLY Cohen albuterol sulfate 90 mcg/actuation 2 puffs inhalation Q6H PRN ciprofloxacin-dexamethasone 0.3-0.1 % 4 drps otic (ears) BID pantoprazole 40 mg PO DAILY HPI Comments Details: 29yo F 6d s/p LSG 07/14/2025. No pain. No nausea. Tolerating 3 Premier premade shakes, 4oz mixed with 4oz UAM. Hydration is adequate. Getting 44oz fluid per day. [facility] Medical History (Updated 07/15/25 @ 00:01 by Janice Bautista) Morbid obesity Back pain Sciatica PCOS (polycystic ovarian syndrome) Obesity Fatty liver Asthma Depression GERD (gastroesophageal reflux disease) Anxiety Surgical History (Updated 07/20/25 @ 12:52 by Gladys Sam CMA) S/P laparoscopic sleeve gastrectomy H/O vaginal surgery H/O endoscopy Family History Mother No problems noted. Father No problems noted. Social History Household Members: Family Housing: House Are you a primary career technical counselor to a significant other at home: No Do you presently have visiting nurse or other home services: No Alcohol intake: never Patient Tobacco Use Status: Never used Tobacco Substance Use Type: Marijuana Physical Exam Vital Signs: Last Vital Signs Temp 97.6 F 07/20/25 12:50 Pulse 81 07/20/25 12:50 BP 134/82 07/20/25 12:50 Pulse Ox 97 07/20/25 12:50 Oxygen Delivery Method Room Air 07/20/25 12:50 BMI result Body Mass Index 35.1 Const General: cooperative, comfortable and no acute distress Orientation/consciousness: patient oriented x3 GI Other: soft, nontender, nondistended, steri-strips c/d/i Neuro General: patient oriented x3 Assessment & Plan Assessment & Plan (1) S/P laparoscopic sleeve gastrectomy: Code(s): Z98.84 - Bariatric surgery status Category: Surgical (2) Obesity: Code(s): E66.9 - Obesity, unspecified Category: Medical Qualifiers: Obesity type: due to excess calories Obesity classification: adult class 2 (BMI 35 - 39.9) Serious obesity comorbidity presence: with serious comorbidity Body mass index: BMI 37.0-37.9 Qualified Code(s): E66.812 - Obesity, class 2; E66.01 - Morbid (severe) obesity due to excess calories; Z68.37 - Body mass index [BMI] 37.0-37.9, adult Plan May shower tomorrow but no bath or submersion of abdomen in water. May start exercise in 2 days.? No abdominal exercises x 6 weeks. Abdominal binder for the next 2 weeks with activity or exercise. Continue meal plan per Dr Correa until next f/u in 5 weeks. Reviewed pantoprazole and carafate dosing. Reminded of the pace of drinking 2 mL/min or 1oz per 15 min. Will be emailed link for post op video for review.
[2025-07-20 12:50] VITALS: BP 134/82; PULSE 81; TEMP 36.4; O2SAT 97; BMI 35.1
--- OUTSIDE RECORDS SUMMARY | 2025-07-20 13:52 | XMS_ITS | Clinical Summary ---
Author Organization [facility] Address [address] [place] [address] Care Team Providers Care Double Backer Name Role Phone Unavailable Primary Care Provider [...] Personal/Family Self 1995 [address] [place] [id number]
--- OUTSIDE RECORDS SUMMARY | 2025-07-20 13:52 | XMS_ITS | Clinical Summary ---
Author Organization [address] [place] [address] [place] [phone] Phone Care Team Providers Care Oil Program Compliance Specialist Name Role Phone Huseyin Cherry Primary Care Provider [phone] Allergies No known active allergies Medications LORazepam [...] Care Team Description 06/18/2025 Telephone Adult Medicine [address] [phone] Huseyin Cherry PA 06/02/2025 Telephone Adult Medicine [address] [phone] Huseyin Cherry PA 05/25/2025 Telephone Adult Medicine [address] [phone] Diandra Santiago MA 05/24/2025 5:45 PM EDT Office Visit Walk-In Clinic - [address] [phone] Gordo Briggs PA Sensory disturbance (Primary Dx); Dysuria 05/24/2025 Telephone Adult Medicine [address] [phone] Huseyin Cherry PA 05/24/2025 Telephone Obstetrics and Gynecology - [address] [phone] Zeinab Jiménez DO 05/11/2025 8:45 AM EDT - 05/11/2025 10:00 AM EDT Surgery [address] [phone] Zeinab Jiménez DO HYSTEROSCOPy, D&C with/without cervical biopsy [[id number] (CPT )] 05/11/2025 8:34 AM EDT Anesthesia Event [address] [phone] Hemalatha Santana MD Stevens, Kerien, SRNA 05/11/2025 7:06 AM EDT - 05/11/2025 10:57 AM EDT Hospital Encounter [address] [phone] Zeinab Jiménez DO Lesion of endometrium; PCOS (polycystic ovarian syndrome); History of abnormal cervical Pap smear Discharge Disposition: Home or Self Care 04/28/2025 1:30 PM EDT Consult Obstetrics and Gynecology - [address] [place] [phone] Zeinab Jiménez DO History of abnormal cervical Pap smear (Primary Dx); Abnormal uterine bleeding 04/25/2025 Telephone Obstetrics and Gynecology - [address] [place] [phone] Zeinab Jiménez DO from Last 3 Months Immunizations Immunization Administration Dates Next Due Tdap Tetanus diptheria [...] do you feel lonely or isolated from ose around you? Never 01/18/2025 Food Risk [...] Date Recorded What is your living situation? Unrecognized valu e 01/18/2025 Interpersonal Safety Answer Date Record ed Physical Abuse Unrecognized value 05/11/2025 Verbal Abuse Unrecognized value 05/11/2025 Comments No Sex and Gender Information [...] 3:00 PM EST Office Visit Gastroenterology - [place] [address] [place] [phone] Velma Coyle PA [address] [place] [address] Health Maintenance Due Date Last Done Comments Hepatitis B Vaccines (1 of 3 - 19+ 3-dose series) 2014 Pneumococcal Vaccine: Pediatrics (0 to 5 Years) and At-Risk Patients (6 to 49 Years) (1 of 2 - PCV) 2014 HPV Vaccines (1 - 3-dose SCDM series) 2022 COVID-19 Vaccine ( season) 2025 Influenza Vaccine (#1) 2025 Social Influencers of Health Screening 01/18/2026 01/18/2025 Cervical Cancer Screening: Pap Smear 03/22/2028 03/22/2025, 03/22/2025, 08/12/2022, Additional history exists Cholesterol Screening (Lipid Panel) 08/01/2028 08/01/2023 DTaP,Tdap,and Td Vaccines (2 - Td or Tdap) 08/02/2031 08/02/2021 RSV Immunization Adult Patients (1 - 1-dose 75+ series) 2070 HIV Screening Completed 08/05/2022 Hepatitis C Screening [...] LMA(NO CHARGE) Routine 05/11/2025 8:51 AM EDT OR HYSTEROSCOPY W/BIOPSY ENDOMETRIUM AND/OR POLYPECTOMY W/O AND/OR [...] 5.0 EMIGDIO/HM UA POC Negative Negative Specific [place] UA POC 1.025 Ketones UA POC Negative Negative Bilirubin UA POC Negative Negative Urine Urine specimen obtained by clean catch procedure / Unknown 05/24/2025 6:21 PM EDT Gordo AGUILERA POINT OF CARE TEST ENTER/E DIT ORDERABLES Final Result * (ABNORMAL) Urinalysis microscopic only (05/24/2025 6:20 PM EDT) Pathologist [facility] RBC, Urine 7.3(H) 0 - 4 /HPF LAB URINALYSIS - AUTOMATED METHOD 05/24/2025 7:39 PM EDT [facility] WBC, Urine 8.0(H) 0 - 4 /HPF LAB URINALYSIS - AUTOMATED METHOD 05/24/2025 7:39 PM EDT [facility] Squamous Epithelial, Urine >100(H) 0 - 60 /LPF LAB URINALYSIS - AUTOMATED METHOD 05/24/2025 7:39 PM EDT [facility] Bacteria, Urine Negative Negative /HPF LAB URINALYSIS - AUTOMATED METHOD 05/24/2025 7:39 PM EDT [facility] Hyaline Casts, Urine 3.6(H) 0 - 3 /LPF LAB URINALYSIS - AUTOMATED METHOD 05/24/2025 7:39 PM EDT [facility] Urine Urine specimen obtained by clean catch procedure / Unknown Non-blood Collection / Unknown 05/24/2025 6:20 PM EDT 05/24/2025 6:20 PM EDT Gordo AGUILERA LAB URINE ORDERABLES Final Result Performing Organization Address City/[facility]/ZIP Co de Phone Number [facility] [address] [place] [address], [place] [phone] * Culture urine (05/24/2025 6:20 PM EDT) Culture, Urine <10,000 CFU/mL gram negative bacilli, insignificant count, no further workup 05/25/2025 1:40 PM EDT [facility] Urine Urine specimen obtained by clean catch procedure / Unknown Non-blood Collection / Unknown 05/24/2025 6:20 PM EDT 05/24/2025 6:20 PM EDT Gordo AGUILERA LAB MICROBIOLOGY - GENERAL ORDERABLES Final Result Performing Organization Address [facility]/ZIP Co de Phone Number [facility] [address] [place] [address], [place] [phone] * Tissue exam (05/11/2025 9:00 AM EDT) Final Diagnosis Endometrial curettings: Endometrial hyperplasia with squamous morules No atypia or endometrial neoplasm identified Benign endocervix with microglandular hypeprlasia 05/12/2025 3:14 PM EDT [facility] Gross Description A. Endometrium, EMC: Labeled Endo, EMC . Received in formalin on Telfa pads is a 1.4 cm aggregate of irregular dark red soft tissue fragments which is submitted in toto in a mesh bag in one cassette, multiple pieces, x 2. KELSI 05/12/2025 3:14 PM EDT [facility] Disclaimer Unless otherwise specified, all tissue is 10% NB formalin fixed and paraffin embedded. 05/12/2025 3:14 PM EDT [facility] Tissue Endometrial structure / Unknown 05/11/2025 9:00 AM EDT 05/11/2025 9:45 AM EDT Zeinab Jiménez DO LAB PATHOLOGY ORDERABLES Cierra l Result [facility] [address] [place] [address], [place] [phone] * TH AN LMA(NO CHARGE) (05/11/2025 8:51 AM EDT) Ladarius Lin SRNA - 05/11/2025 8:51 AM EDT LESLY [...] difficulty assessment: 1 - vent by mask us Hemalatha Santana MD ANESTHESIA ORDERABLES Final Resu lt * POC , urine manually resulted (05/11/2025 7:48 AM EDT) HCG, Ur POC Negative Negative POC hCG Int QC Pass? Yes Yes Urine Urine specimen obtained by clean catch procedure / Unknown 05/11/2025 7:48 AM EDT Hemalatha Santana MD POINT OF CARE TEST ENTER/EDIT OR DERABLES Final Result * HPV with reflex genotype (03/22/2025 10:51 AM EDT) [facility] HPV Negative Negative LAB MICROBIOLOGY METHOD 03/23/2025 2:07 PM EDT [facility] Brushing/Spatula Cervix uteri structure / Unknown 03/22/2025 10:51 AM EDT 03/23/2025 6:59 AM EDT Vinita Kenyon MD LAB MOLECULAR DIAGNOSTICS O RDERABLES Final Result [facility] ([facility] [address] [place] [address], * Depression Screening (01/13/2024) [facility] Depression Screening abstracted [facility] Provider HEALTH MAINTENANCE Final Result * (ABNORMAL) Lipid panel (08/01/2023) [facility] LDL/HDL Ratio 4 0 - 4 Triglycerides 120 0 - 150 mg/dL Cholesterol 188 0 - 200 mg/dL HDL 50 >=40 mg/dL LDL Cholesterol 114(A) 0 - 100 mg/dL Blood Venous blood specimen / Unknown Result [facility] Miguel MEJIA LAB BLOOD ORDERABLES Cierra l Result * HIV Screening (08/05/2022) [facility] HIV Screening abstracted [facility] Provider HEALTH MAINTENANCE Final Result * Hepatitis C Screening (08/05/2022) [facility] Hepatitis C Screening abstracted [facility] Miguel MEJIA HEALTH MAINTENANCE Final Result from Last 3 Months or Most Recently Relevant to Health Maintenance Insurance [facility] Advance Directives * Full Code - Default [...] currently active code status orders. Care Teams Oil Program Compliance Specialist Relationship Specialty Start Date End Date Huseyin Cherry PA [address] [place] [id number] PCP - General Internal Medicine 09/10/24
--- OUTSIDE RECORDS SUMMARY | 2025-07-20 13:52 | XMS_ITS | Clinical Summary ---
Author Organization [facility] Address [address] [place] [id number] Care Team Providers Care Pediatric Nurse Practitioner Name Role Phone Pcp, No Primary Care [...] series) 2014 Pap Smear (Ages 21-65) 2016 Influenza Vaccine 05/20/2025 COVID-19 Vaccine (1 - 2023-2 5 season) 2025 HPV Vaccines (No Doses Required) Completed Pneumococcal Vaccine: Pediat sherly (0-5 Years) and At-Risk Patients (6 to 49 Years) Aged Out No longer eligible b ased on patient's age to complete this topic Insurance [facility] - PPO Care Teams Pediatric Nurse Practitioner Relationship Specialty Start Date End Date Pcp, No PCP - General General Medicine 04/03/21
== END 2025-07-20 13:24 | disposition home or self-care (01) ==
LOC: HO.HBS 12:30
PROVIDERS: PCP Physician Assistant Medical; Visit Provider Physician Assistant Surgical
DX: E66.9 Obesity, unspecified (principal); Z68.35 Body mass index [BMI] 35.0-35.9, adult; Z90.3 Acquired absence of stomach [part of]; Z98.84 Bariatric surgery status
CPT/HCPCS: 99024

== ENCOUNTER 2025-07-21 10:07 | Outpatient (AMB) | payer BC, SELFPAY ==
--- NOTE | 2025-07-21 10:00 | A.OFFWM_ITS ---
Intake Intake Visit Reasons: TV PO LSG 07/14/25 Allergies No Known Allergies Allergy (Verified 07/20/25 12:52) PFSH Medical History (Updated 07/15/25 @ 00:01 by Janice Bautista) Morbid obesity Back pain Sciatica PCOS (polycystic ovarian syndrome) Obesity Fatty liver Asthma Depression GERD (gastroesophageal reflux disease) Anxiety Surgical History (Updated 07/20/25 @ 12:52 by Gladys Sam CMA) S/P laparoscopic sleeve gastrectomy H/O vaginal surgery H/O endoscopy Family History Mother No problems noted. Father No problems noted. Social History Household Members: Family Housing: House Are you a primary critical care technician to a significant other at home: No Do you presently have visiting nurse or other home services: No Alcohol intake: never Patient Tobacco Use Status: Never used Tobacco Substance Use Type: Marijuana Behavioral Health Assessment Weight Management Therapy Therapy Notes Details Subjective: The patient underwent weight loss surgery on 07/14/2025. Her weight on the day of surgery was 187 lbs; as of today, her weight is 175 lbs. She denies any pain or complications during recovery and reports tolerating the liquid diet well. She is currently taking three weeks off from work. Mood has improved; she reports the first two days postoperatively were challenging. She has support from her . The patient denies feeling hunger but notes that by the end of the day, she has a desire to chew on something savory or salty. Objective: The patient presents for a behavioral health post-operative follow-up visit. A guided emotional check-in was conducted to assess her current functioning, recovery, mood, and emotional state. Psychoeducation was provided on the emotional and psychological adjustments commonly experienced after bariatric surgery. We also focused on distinguishing between hunger and cravings or food thoughts, exploring possible reasons for these experiences, and strategies to work on her mindset. Emphasis was placed on becoming mindful of her physical and mental needs during these times while staying on track. The importance of adhering to the Weight Management Program (WMP) providers' i nstructions was emphasized, including the pace of drinking and following the meal and exercise plan. Tips and recommendations for long-term success were also discussed. Program resources were provided, and the patient was invited to join our Facebook group to stay informed about ongoing events and activities. Assessment/Response: * Mental status: WNL * Risk reported/identified: None Assessment & Plan Assessment & Plan (1) Panic anxiety syndrome: Code(s): F41.0 - Panic disorder [episodic paroxysmal anxiety] (2) Adjustment disorder: Code(s): F43.20 - Adjustment disorder, unspecified (3) Status post bariatric surgery: Code(s): Z98.84 - Bariatric surgery status Plan No safety concerns or issues were identified that would necessitate behavioral health monitoring. The patient declined further visits but is aware of the available behavioral health support if needed in the future. Telehealth Telehealth Telehealth Platform: [employer] Location of provider rendering services: other (Home office. [place], [place]) Location of patient: address on file Patient Identification confirmed using: Name, : Yes Telehealth method: video Patient verbally consented to treatment: Yes Patient verbally consented to billing insurance company: Yes Patient informed of any privacy concerns related to visit: Yes Minutes spent on Phone/Video with Pt.: 25 Coding Level of Care Code Established Pt Tele Psytx 30 mins (78712) Patient Type Established Diagnoses Panic anxiety syndrome F41.0 Adjustment disorder F43.20 Status post bariatric surgery Z98.84 Time Spent (min) 25
--- OUTSIDE RECORDS SUMMARY | 2025-07-21 11:28 | XMS_ITS | Clinical Summary ---
Author Organization [facility] Address [address] [place] [address] Care Team Providers Care Slip Sheeter Name Role Phone Unavailable Primary Care Provider [...] Personal/Family Self 1995 [address] [place] [address]
--- OUTSIDE RECORDS SUMMARY | 2025-07-21 11:28 | XMS_ITS | Clinical Summary ---
Author Organization [address] [place] [address] [place] [phone] Phone Care Team Providers Care Eclectic Doctor Name Role Phone Huseyin Cherry Primary Care Provider [phone] Allergies No known active allergies Medications LORazepam [...] Care Team Description 06/18/2025 Telephone Adult Medicine [address] [phone] Huseyin Cherry PA 06/02/2025 Telephone Adult Medicine [address] [phone] Huseyin Cherry PA 05/25/2025 Telephone Adult Medicine [address] [phone] Diandra Santiago MA 05/24/2025 5:45 PM EDT Office Visit Walk-In Clinic - [address] [phone] Gordo Briggs PA Sensory disturbance (Primary Dx); Dysuria 05/24/2025 Telephone Adult Medicine [address] [phone] Huseyin Cherry PA 05/24/2025 Telephone Obstetrics and Gynecology - [address] [phone] Zeinab Jiménez DO 05/11/2025 8:45 AM EDT - 05/11/2025 10:00 AM EDT Surgery [address] [phone] Zeinab Jiménez DO HYSTEROSCOPy, D&C with/without cervical biopsy [[id number] (CPT )] 05/11/2025 8:34 AM EDT Anesthesia Event [address] [phone] Hemalatha Santana MD Stevens, Kerien, SRNA 05/11/2025 7:06 AM EDT - 05/11/2025 10:57 AM EDT Hospital Encounter [address] [phone] Zeinab Jiménez DO Lesion of endometrium; PCOS (polycystic ovarian syndrome); History of abnormal cervical Pap smear Discharge Disposition: Home or Self Care 04/28/2025 1:30 PM EDT Consult Obstetrics and Gynecology - [address] [place] [phone] Zeinab Jiménez DO History of abnormal cervical Pap smear (Primary Dx); Abnormal uterine bleeding 04/25/2025 Telephone Obstetrics and Gynecology - [address] [place] [phone] Zeinab Jiménez DO from Last 3 Months [...] care for your loved ones. For example, school child care attendant or elderly care for an older adult? [...] 3:00 PM EST Office Visit Gastroenterology - [place] [address] [place] [phone] Velma Coyle PA [address] [place] [address] Health Maintenance Due Date Last Done Comments [...] LMA(NO CHARGE) Routine 05/11/2025 8:51 AM EDT CO HYSTEROSCOPY W/BIOPSY ENDOMETRIUM AND/OR POLYPECTOMY W/O AND/OR [...] 5.0 EMIGDIO/HM UA POC Negative Negative Specific [place] UA POC 1.025 Ketones UA POC Negative Negative Bilirubin UA POC Negative Negative Urine Urine specimen obtained by clean catch procedure / Unknown 05/24/2025 6:21 PM EDT Gordo AGUILERA POINT OF CARE TEST ENTER/E DIT ORDERABLES Final Result * (ABNORMAL) Urinalysis microscopic only (05/24/2025 6:20 PM EDT) Pathologist [facility] [place] RBC, Urine 7.3(H) 0 - 4 /HPF LAB URINALYSIS - AUTOMATED METHOD 05/24/2025 7:39 PM EDT [facility] WBC, Urine 8.0(H) 0 - 4 /HPF LAB URINALYSIS - AUTOMATED METHOD 05/24/2025 7:39 PM EDT [facility] Squamous Epithelial, Urine >100(H) 0 - 60 /LPF LAB URINALYSIS - AUTOMATED METHOD 05/24/2025 7:39 PM EDT [facility] Bacteria, Urine Negative Negative /HPF LAB URINALYSIS - AUTOMATED METHOD 05/24/2025 7:39 PM EDT [facility] Hyaline Casts, Urine 3.6(H) 0 - 3 /LPF LAB URINALYSIS - AUTOMATED METHOD 05/24/2025 7:39 PM EDT [facility] Urine Urine specimen obtained by clean catch procedure / Unknown Non-blood Collection / Unknown 05/24/2025 6:20 PM EDT 05/24/2025 6:20 PM EDT Gordo AGUILERA LAB URINE ORDERABLES Final Result Performing Organization Address City/[facility]/ZIP Co de Phone Number [facility] [address] [place] [address], [place] [phone] * Culture urine (05/24/2025 6:20 PM EDT) Culture, Urine <10,000 CFU/mL gram negative bacilli, insignificant count, no further workup 05/25/2025 1:40 PM EDT [facility] Urine Urine specimen obtained by clean catch procedure / Unknown Non-blood Collection / Unknown 05/24/2025 6:20 PM EDT 05/24/2025 6:20 PM EDT Gordo AGUILERA LAB MICROBIOLOGY - GENERAL ORDERABLES Final Result Performing Organization Address [facility]/ZIP Co de Phone Number [facility] [address] [place] [address], [place] [phone] * Tissue exam (05/11/2025 9:00 AM EDT) Final Diagnosis Endometrial curettings: Endometrial hyperplasia with squamous morules No atypia or endometrial neoplasm identified Benign endocervix with microglandular hypeprlasia 05/12/2025 3:14 PM EDT [facility] Gross Description A. Endometrium, EMC: Labeled Endo, EMC . Received in formalin on Telfa pads is a 1.4 cm aggregate of irregular dark red soft tissue fragments which is submitted in toto in a mesh bag in one cassette, multiple pieces, x 2. KELSI 05/12/2025 3:14 PM EDT [facility] Disclaimer Unless otherwise specified, all tissue is 10% NB formalin fixed and paraffin embedded. 05/12/2025 3:14 PM EDT [facility] Tissue Endometrial structure / Unknown 05/11/2025 9:00 AM EDT 05/11/2025 9:45 AM EDT Zeinab Jiménez DO LAB PATHOLOGY ORDERABLES Cierra l Result [facility] [address] [place] [address], [place] [phone] * TH AN LMA(NO CHARGE) (05/11/2025 8:51 [...] with reflex genotype (03/22/2025 10:51 AM EDT) [facility] HPV Negative Negative LAB MICROBIOLOGY METHOD 03/23/2025 2:07 PM EDT [facility] Brushing/Spatula Cervix uteri structure / Unknown 03/22/2025 10:51 AM EDT 03/23/2025 6:59 AM EDT Vinita Kenyon MD LAB MOLECULAR DIAGNOSTICS O RDERABLES Final Result [facility] [address] [place] [address], * Depression Screening (01/13/2024) [facility] Depression Screening abstracted [facility] Provider HEALTH MAINTENANCE Final Result * (ABNORMAL) Lipid panel (08/01/2023) [facility] LDL/HDL Ratio 4 0 - 4 Triglycerides 120 0 - 150 mg/dL Cholesterol 188 0 - 200 mg/dL HDL 50 >=40 mg/dL LDL Cholesterol 114(A) 0 - 100 mg/dL Blood Venous blood specimen / Unknown Result [facility] Miguel MEJIA LAB BLOOD ORDERABLES Cierra l Result * HIV Screening (08/05/2022) [facility] HIV Screening abstracted [facility] Provider HEALTH MAINTENANCE Final Result * Hepatitis C Screening (08/05/2022) [facility] Hepatitis C Screening abstracted [facility] Miguel MEJIA HEALTH MAINTENANCE Final Result from Last 3 Months or Most Recently Relevant to Health Maintenance Insurance [facility] Advance Directives * Full [...] currently active code status orders. Care Teams Eclectic Doctor Relationship Specialty Start Date End Date Huseyin Cherry PA [address] [place] [id number] PCP - General Internal Medicine 09/10/24
--- OUTSIDE RECORDS SUMMARY | 2025-07-21 11:28 | XMS_ITS | Clinical Summary ---
Author Organization [facility] Address [address] [place] [address] Care Team Providers Care Databases Software Consultant Name Role Phone Pcp, No Primary Care [...] patient's age to complete this topic Insurance [facility] - PPO Care Teams Databases Software Consultant Relationship Specialty Start Date End Date Pcp, No PCP - General General Medicine 04/03/21
== END 2025-07-21 10:25 | disposition home or self-care (01) ==
LOC: HO.HBST 10:07
PROVIDERS: PCP Physician Assistant Medical; Visit Provider Counselor Mental Health
DX: F41.0 Panic disorder [episodic paroxysmal anxiety] (principal); F43.20 Adjustment disorder, unspecified; Z98.84 Bariatric surgery status
CPT/HCPCS: 90832

== ENCOUNTER 2025-09-02 09:44 | Outpatient (AMB) | payer BC, SELFPAY ==
--- NOTE | 2025-09-02 09:32 | A.OFFVIS_ITS ---
VS Expanded 09/02/25 09:36 Height 4 ft 11 in Weight 158 lb BMI 31.9 Intake Visit Reasons: TV PO LSG 07/14/25 Allergies No Known Allergies Allergy (Verified 07/20/25 12:52) Medication List - Last Reconciled 09/02/25 by WILLY Cohen albuterol sulfate 90 mcg/actuation 2 puffs inhalation Q6H PRN ciprofloxacin-dexamethasone 0.3-0.1 % 4 drps otic (ears) BID pantoprazole 40 mg PO DAILY HPI Comments Details: This?is a?29?yo F who is s/p LSG 07/14/2025. Presents for 7 week post op visit. Weight loss of 16lb since last OV at 1w postop. No complaints of nausea, emesis, abdominal pain, or constipation. Getting some reflux from protein shakes. Using caramel Premier premade shakes. Taking PPI, finishing sucralfate. Joint pain improved. Present meal plan includes: 3 Premier shakes per day- 4oz/4oz UAM Fitcrunch x 1 Exercise routine includes: trying to push to 5x/week 400 esa each day; last week did 3x/week PFSH Medical History (Updated 07/23/25 @ 00:02 by Background Daemon) Morbid obesity Back pain Sciatica PCOS (polycystic ovarian syndrome) Obesity Fatty liver Asthma Depression GERD (gastroesophageal reflux disease) Anxiety Surgical History (Updated 07/23/25 @ 00:02 by Background Daemon) S/P laparoscopic sleeve gastrectomy H/O vaginal surgery H/O endoscopy Family History Mother No problems noted. Father No problems noted. Social History Household Members: Family Housing: House Are you a primary daycare director to a significant other at home: No Do you presently have visiting nurse or other home services: No Alcohol intake: never Patient Tobacco Use Status: Never used Tobacco Substance Use Type: Marijuana Telehealth Telehealth Telehealth Platform: Telephone Location of provider rendering services: other Location of patient: address on file Patient Identification confirmed using: Name, : Yes Telehealth method: voice only Patient verbally consented to treatment: Yes Patient verbally consented to billing insurance company: Yes Patient informed of any privacy concerns related to visit: Yes Minutes spent on Phone/Video with Pt.: 10 Assessment & Plan Assessment & Plan (1) Obesity: Code(s): E66.9 - Obesity, unspecified Category: Medical Qualifiers: Obesity type: due to excess calories Obesity classification: adult class 2 (BMI 35 - 39.9) Serious obesity comorbidity presence: with serious comorbidity Body mass index: BMI 37.0-37.9 Qualified Code(s): E66.812 - Obesity, class 2; E66.01 - Morbid (severe) obesity due to excess calories; Z68.37 - Body mass index [BMI] 37.0-37.9, adult (2) S/P laparoscopic sleeve gastrectomy: Code(s): Z98.84 - Bariatric surgery status Category: Medical Plan She texted Dr Correa regarding reflux and awaiting his response. We discussed that sometimes pace of drinking may cause reflux so she may have to slow down, use syringe again. She is working to meet exercise goal of 2000cal/week. Cleared for all physical activity including heavy lifting. We discussed additional 10lb weight loss to no longer have obesity. RTC 2mo for 15min TV.
[2025-09-02 09:36] VITALS: BMI 31.9
--- OUTSIDE RECORDS SUMMARY | 2025-09-02 10:53 | XMS_ITS | Encounter Summary ---
Author Organization [employer] Address [address] [place] [address] Care Team Providers Care Director Immunology Name Role Phone Huseyin Cherry Primary Care Provider [phone] [phone] Encounter Details Date Type Department Care Team ([facility] st Contact Info) Description 08/24/2025 Telephone Gastroenterology - [place] [facility] 175 [facility] [address] [place] [phone] Velma Coyle PA 299 [facility] [address] [place] [address] Social History Tobacco Use Types Packs/Day Years [...] care for your loved ones. For example, children counselor or elderly care for an older [...] on file documented as of this encounter Progress Notes * Indira Zabala - 09/02/2025 9:43 AM EST Letter sent. * Indira Zabala - 08/24/2025 10:12 AM EST CALLED X1 & LMOM, 6 MO F/U in March documented in this encounter Plan of Treatment Upcoming Encounters Date Type Department Care Team (Late st Contact Info) Description 09/07/2025 11:00 AM EST Appointment [facility] Ultrasound [address] [place] [address] documented as of this encounter Visit Diagnoses Not on filedocumented in this encounter Additional Health Concerns Assessment Noted Time PHQ-9 Depression Total Score: 10 025 11:56 AM EDT documented as of this encounter Care Teams Director Immunology Relationship Specialty Start Date End Date Huseyin Cherry PA [address] [place] [address] PCP - General Internal Medicine 09/10/24 documented as of this encounter
--- OUTSIDE RECORDS SUMMARY | 2025-09-02 10:53 | XMS_ITS | Clinical Summary ---
Author Organization [facility] Address [address] [place] [address] Care Team Providers Care Radiology Resident Name Role Phone Pcp, No Primary Care [...] patient's age to complete this topic Insurance [facility] - PPO Care Teams Radiology Resident Relationship Specialty Start Date End Date Pcp, No PCP - General General Medicine 04/03/21
--- OUTSIDE RECORDS SUMMARY | 2025-09-02 10:53 | XMS_ITS | Encounter Summary ---
Author Organization [employer] Address [address] [place] [address] Care Team Providers Care Digital Traffic Coordinator Name Role Phone Huseyin Cherry Primary Care Provider [phone] [phone] Encounter Details Date Type Department Care Team ([facility] Contact Info) Description 08/28/2025 Results Follow-Up Gastroenterology - [address] [phone] Velma Coyle PA [address] [place] [address] [address] [place] [address] Social History Tobacco Use Types Packs/Day Years [...] care for your loved ones. For example, children's nursery assistant or elderly care for an older adult? [...] as of this encounter Progress Notes * WILLY Curtis - 08/28/2025 6:55 PM EST I will send msg. documented in this encounter Plan of Treatment Upcoming Encounters Date Type Department Care Team (Late st Contact Info) Description 09/07/2025 11:00 AM EST Appointment [facility] Ultrasound [address] [place] [phone] documented as of this encounter Visit Diagnoses Not on filedocumented in this encounter Additional Health Concerns Assessment Noted Time PHQ-9 Depression Total Score: 10 025 11:56 AM EDT documented as of this encounter Care Teams Digital Traffic Coordinator Relationship Specialty Start Date End Date Huseyin Cherry PA [address] [place] [address] PCP - General Internal Medicine 09/10/24 documented as of this encounter
--- OUTSIDE RECORDS SUMMARY | 2025-09-02 10:53 | XMS_ITS | Clinical Summary ---
Author Organization [facility] Address [address] [place] [address] Care Team Providers Care Board Attendant Name Role Phone Unavailable Primary Care Provider [...] Personal/Family Self 1995 [address] [place] [address]
--- OUTSIDE RECORDS SUMMARY | 2025-09-02 10:53 | XMS_ITS | Clinical Summary ---
Author Organization [address] [place] [address] [place] [phone] Phone Care Team Providers Care Commercial Airline Pilot Name Role Phone Huseyin Cherry Primary Care Provider [phone] [phone] Allergies No known active allergies Medications LORazepam (ATIVAN) 0.5 mg tablet Take 1 tablet (0.5 mg total) by mouth 1 (one) time each day if needed for anxiety. Max Daily Amount: 0.5 mg 30 tablet 5 Active omeprazole (PriLOSEC) [address] capsule Take 1 capsule (20 mg total) by mouth 1 (one) time each day. Do not crush or chew. 30 each 3 5 02/16/20 26 Active Additional Information Patient not taking.Reported on 08/23/2025 Vitamin D3 125 mcg (5,000 unit) tablet Take 1 tablet (5,000 Units total) by mouth 1 (one) time each day. 5 Active cyanocobalamin, vitamin B-12, 1,000 mcg tablet, sublingual Take 1,000 mcg by mouth 1 (one) time each day. 5 Active lactulose (CHRONULAC) solution Take 30 mL (20 g total) by mouth 2 (two) times a day. 1800 mL 5 Active polyethylene glycol (Golytely) 236-22.74-6.74 -5.86 gram solution Take 4,000 mL by mouth 1 (one) time for 1 dose. 4000 mL 5 08/28/20 25 Active Problems Problem Noted Date Diagnosed Date Morbid obesity ([facility] V24, [facility] V28) 2024 Gastroesophageal reflux disease 05/11/2025 Lesion [...] understanding and agreed. Recurrent major depressive disorder ([facility] V24 ) 08/05/2022 Overview (07/30/2024): Last Assessment [...] Encounters Date Type Department Care Team Description 08/28/2025 Results Follow-Up Gastroenterology - [facility] 299 [facility] [address] [place] [phone] Velma Coyle PA 08/24/2025 Telephone Gastroenterology [facility] 175 [facility] 175 [facility] [address] [place] [phone] Velma Coyle PA 08/23/2025 3:31 PM EST - 08/23/2025 11:59 PM EST Hospital Encounter [facility] Xray [address] [place] [phone] Constipation, unspecified constipation type; Left sided abdominal pain; Fatty liver; Hepatomegaly Discharge Disposition: Home or Self Care 08/23/2025 3:00 PM EST Office Visit Gastroenterology - [address] [place] [phone] Velma Coyle PA Constipation, unspecified constipation type (Primary Dx); Left sided abdominal pain; Fatty liver; Hepatomegaly 06/18/2025 Telephone Adult Medicine [address] [address] Huseyin Cherry PA 06/02/2025 Telephone Adult Medicine [address] [phone] Huseyin Cherry, PA from Last 3 Months Immunizations Immunization Administration [...] care for your loved ones. For example, special needs child caregiver or elderly care for an older adult? [...] Sign Reading Time Taken Comments Blood Pressure 98/64 08/23/2025 2:49 PM EST Pulse 74 08/23/2025 2:49 PM EST Temperature 36.3 C (97.3 F) 05/24/2025 5:33 PM EDT Respiratory Rate 16 05/11/2025 10:12 AM EDT Oxygen Saturation 98% 08/23/2025 2:49 PM EST Inhaled Oxygen Concentration - - Weight 68 kg (150 lb) 08/23/2025 2:49 PM EST Height 149.9 cm (4' 11 ) 08/23/2025 2:49 PM EST Body Mass Index 30.3 08/23/2025 2:49 PM EST Plan of Treatment Upcoming Encounters Date Type Department Care Team (Late st Contact Info) Description 09/07/2025 11:00 AM EST Appointment [facility] Ultrasound [address] [place] [address] Health Maintenance Due Date Last Done Comments Hepatitis B Vaccines (1 of 3 - 19+ 3-dose series) 2014 Pneumococcal Vaccine: Pediatrics (0 to 5 Years) and At-Risk Patients (6 to 49 Years) (1 of 2 - PCV) 2014 HPV Vaccines (1 - 3-dose SCDM series) 2022 COVID-19 Vaccine ( - season) 2025 Influenza Vaccine (#1) 2025 [...] Name Priority Date/Time Associated Diagnosis Comments XR ABDOMEN 1 VIEW Routine 08/23/2025 6:1 7 PM EST Constipation, unspecified constipation type Left sided abdominal pain Fatty liver Hepatomegaly PAP SMEAR Routine 03/22/2025 10:51 AM EDT Screening for cervical cancer HM DEPRESSION SCREENING Routine 01/13/2024 LIPID PANEL Routine 08/01/2023 HEPATITIS C SCREENING Routine 08/05/2022 HIV SCREENING Routine 08/05/2022 from Last 3 Months or Most Recently Relevant to Health Maintenance Results * XR Abdomen 1 View (08/23/2025 6:17 PM EST) Anatomical Region Laterality Modality Body Radiographic Lata ging 08/24/2025 12:1 9 PM EST Impressions 08/24/2025 12:21 PM EST Large amount of fecal residue throughout the colon. No evidence of small bowel obstruction. Suspect previous bariatric surgery -------- FINAL REPORT -------- Dictated By: Gee Santana Dictated Date: 08/24/2025 12:19 ET Assigned Physician: Gee Santana Reviewed and Electronically Signed By: Gee Santana Signed Date: 08/24/2025 12:21 ET Workstation ID: [id number] Transcribed By: Self Edit Transcribed Date: 08/24/2025 12:19 ET Narrative 08/24/2025 12:21 PM EST EXAMINATION: ABDOMEN CLINICAL INFORMATION: Abdomen pain. Bloating. Constipation COMPARISON: Ambulatory Care Nurse radiograph from 04/04/25 TECHNIQUE: Frontal view of the abdomen FINDINGS: Surgical clips and metallic sutures in the epigastric region consistent with prior bariatric surgery. No suspicious calcifications. Large amount of fecal residue throughout the colon to level of the rectum. No suspicious small bowel dilation. No evidence of an abnormal soft tissue mass or collection. Procedure Note Gee Santana MD - 08/24/2025 EXAMINATION: ABDOMEN CLINICAL INFORMATION: Abdomen pain. Bloating. Constipation COMPARISON: Ambulatory Care Nurse radiograph from 04/04/25 TECHNIQUE: Frontal view of the abdomen FINDINGS: Surgical clips and metallic sutures in the epigastric region consistentwith prior bariatric surgery. No suspicious calcifications. Large amount of fecal residue throughout the colon to level of therectum. No suspicious small bowel dilation. No evidence of an abnormal soft tissuemass or collection. IMPRESSION: Large amount of fecal residue throughout the colon. No evidence of smallbowel obstruction. Suspect previous bariatric surgery -------- FINAL REPORT -------- Dictated By: Gee Santana Dictated Date: 08/24/2025 12:19 ET Assigned Physician: Gee Santana Reviewed and Electronically Signed By: Gee Santana Signed Date: 08/24/2025 12:21 ET Workstation ID: [id number] Transcribed By: Self Edit Transcribed Date: 08/24/2025 12:19 ET us Velma AGUILERA IMG XR PROCEDURES Final Resul t * Pap smear (03/22/2025 10:51 AM EDT) Interpretation Negative for intraepithelial lesion or malignancy 03/28/2025 11:57 AM EDT [facility] General Categorization Negative 03/28/2025 11:57 AM EDT [facility] Specimen Adequacy Satisfactory for evaluation, endocervical/calixto sformation zone component present 03/28/2025 11:57 AM EDT [facility] Pap Methodology Liquid Based Pap Test 03/28/2025 11:57 AM EDT [facility] Disclaimer The Pap test is a screening test which carries an inherent false negative rate. These test results should be correlated with the patient's clinical findings and history. This Pap test was processed using an automated screening system. Technical cytopathology services provided by [facility], at [address] [place] [address] (CLIA # [id number]/Sergey Mendez MD, Circuits Engineer.) 03/28/2025 11:57 AM EDT [facility] Console Pap Interpretation Reported 03/28/2025 11:57 AM T [facility] Brushing/Spatula Cervix uteri structure / Unknown 03/22/2025 10:51 AM EDT 03/22/2025 10:51 AM EDT us Vinita Kenyon MD LAB CYTOLOGY ORDERABLES Fin al Result [facility] [address] [place] [address], * Depression Screening (01/13/2024) Pathologist [facility] Depression Screening abstracted [facility] Provider HEALTH MAINTENANCE Final Result * (ABNORMAL) Lipid panel (08/01/2023) [facility] LDL/HDL Ratio 4 0 - 4 Triglycerides 120 0 - 150 mg/dL Cholesterol 188 0 - 200 mg/dL HDL 50 >=40 mg/dL LDL Cholesterol 114(A) 0 - 100 mg/dL Blood Venous blood specimen / Unknown [facility] Provider LAB BLOOD ORDERABLES Cierra l Result * HIV Screening (08/05/2022) [facility] HIV Screening abstracted [facility] Provider HEALTH MAINTENANCE Final Result * Hepatitis C Screening (08/05/2022) [facility] Hepatitis C Screening abstracted [facility] Provider HEALTH MAINTENANCE Final Result from Last 3 Months or Most Recently Relevant to Health Maintenance Insurance [facility] Advance Directives * Full Code - Default [...] currently active code status orders. Care Teams Commercial Airline Pilot Relationship Specialty Start Date End Date Huseyin Cherry PA [address] [place] [address] PCP - General Internal Medicine 09/10/24
== END 2025-09-02 09:45 | disposition home or self-care (01) ==
LOC: HO.HBS 09:44
PROVIDERS: PCP Physician Assistant Medical; Visit Provider Physician Assistant Surgical
DX: E66.9 Obesity, unspecified (principal); Z68.31 Body mass index [BMI] 31.0-31.9, adult; Z90.3 Acquired absence of stomach [part of]; Z98.84 Bariatric surgery status
CPT/HCPCS: 99024

== ENCOUNTER 2025-10-17 21:27 | Emergency (ER) | payer BC, SELFPAY ==
[2025-10-17 21:40] VITALS: BP 144/74; PULSE 84; RESP 20; TEMP 36.4; O2SAT 99; BMI 30.1
--- OUTSIDE RECORDS SUMMARY | 2025-10-17 23:24 | XMS_ITS | Encounter Summary ---
Author Organization [employer] Address [address] [place] [address] Care Team Providers Care Sawdust Machine Operator Name Role Phone Huseyin Cherry Primary Care Provider +1 [phone] Encounter Details Date Type Department Care Team ([facility] Contact Info) Description 08/28/2025 Results Follow-Up Gastroenterology - [address] [phone] Velma Coyle PA [address] [place] [address] [address] [place] [address] Social History Tobacco Use Types Packs/Day Years [...] care for your loved ones. For example, summer child caregiver or elderly care for an [...] documented in this encounter Plan of Treatment Not on file documented as of this encounter Visit Diagnoses Not on filedocumented in this encounter Additional Health Concerns Assessment Noted Time PHQ-9 Depression Total Score: 10 025 11:56 AM EDT documented as of this encounter Care Teams Sawdust Machine Operator Relationship Specialty Start Date End Date Huseyin Cherry PA [address] [place] [address] PCP - General Internal Medicine 09/10/24 documented as of this encounter
--- OUTSIDE RECORDS SUMMARY | 2025-10-17 23:24 | XMS_ITS | Clinical Summary ---
Author Organization [facility] Address [address] [place] [address] Care Team Providers Care Optometric Technologist Name Role Phone Pcp, No Primary Care [...] Influenza Vaccine 05/20/2025 COVID-19 Vaccine (1 - 2024-2 6 season) 2025 HPV Vaccines (No Doses Required) Completed Pneumococcal Vaccine: Pediat sherly (0-5 Years) and At-Risk Patients (6 to 49 Years) Aged Out No longer eligible b ased on patient's age to complete this topic Insurance [facility] - PPO Care Teams Optometric Technologist Relationship Specialty Start Date End Date Pcp, No PCP - General General Medicine 04/03/21
--- OUTSIDE RECORDS SUMMARY | 2025-10-17 23:24 | XMS_ITS | Clinical Summary ---
Author Organization [facility] Prior to 03/19/25 Address [address] [place] [address] Care Team Providers Care Power Distribution Engineer Name Role Phone Unavailable Primary Care Provider [...] Personal/Family Self 1995 [address] [place] [address]
--- OUTSIDE RECORDS SUMMARY | 2025-10-17 23:24 | XMS_ITS | Clinical Summary ---
Author Organization [address] [place] [address] [place] [phone] Phone Care Team Providers Care Roto Gravure Press Operator Name Role Phone Huseyin Cherry Primary Care Provider +1 -[phone] Allergies No known active allergies Medications LORazepam (ATIVAN) 0.5 mg tablet Take 1 tablet (0.5 mg total) by mouth 1 (one) time each day if needed for anxiety. Max Daily Amount: 0.5 mg 30 tablet Active lidocaine-prilo jerson (EMLA) 2.5-2.5 % cream Apply topically 2 (two) times a day if needed for mild pain. 30 g 5 Active Active Problems Problem Noted Date Diagnosed Date Morbid obesity 06/18/2025 Gastroesophageal reflux disease 05/11/2025 Lesion of endometrium [...] understanding and agreed. Recurrent major depressive disorder 08/05/2022 Overview (07/30/2024): Last Assessment & Plan: [...] Encounters Date Type Department Care Team Description 10/17/2025 Telephone Adult Medicine [address] [phone] Huseyin Cherry PA 10/05/2025 3:15 PM EST Consult General Surgery [facility] 175 [facility] [address] [place] [phone] Vitaliy Montoya DO 09/08/2025 9:00 AM EST Office Visit Adult Medicine [address] [phone] Jade Peace PA Bleeding external hemorrhoids (Primary Dx); Constipation, unspecified constipation type; H/O gastric sleeve; Screening for depression; Encounter for screening involving social determinants of health (SDoH) 09/07/2025 Telephone Adult Medicine [address] [phone] Huseyin Cherry PA 08/28/2025 Results Follow-Up Gastroenterology - [address] [place] [address] [address] [place] [phone] Velma Coyle PA 08/24/2025 Telephone Gastroenterology [facility] 175 [facility] 175 [facility] [address] [place] [phone] Velma Coyle PA 08/23/2025 3:31 PM EST - 08/23/2025 11:59 PM EST Hospital Encounter [facility] Xray [address] [place] [phone] Constipation, unspecified constipation type; Left sided abdominal pain; Fatty liver; Hepatomegaly Discharge Disposition: Home or Self Care 08/23/2025 3:00 PM EST Office Visit Gastroenterology - [address] [place] [address] [address] [place] [phone] Velma Coyle PA Constipation, unspecified constipation type (Primary Dx); Left sided abdominal pain; Fatty liver; Hepatomegaly from Last 3 Months Immunizations Immunization Administration [...] you may not have stable housing? No 09/08/2025 Food Access & Nutrition Answer Date Rec orded Do you have access to a vari ety of food including fruits and vegetables? Yes 09/08/2025 Access to Healthcare Answer Date Record ed Within the last 3 months, ho w many times did you visit the emergency department for your medical care? 0 09/08/2025 Health Literacy Answer Date Recorded How often do you need to hav e someone help you when you read instructions, pamphlets, or other written material from your doctor or pharmacy? Never 09/08/2025 Caregiver: How often do you need to have someone help you when you read instructions, pamphlets, or other written material from your doctor or pharmacy? Not on file 09/08/2025 Financial Risk Answer Date Recorded How hard is it for you to pa y for the very basics like food, housing, medical care, and air conditioning / heating? Not very hard 09/08/2025 Transportation Answer Date Recorded Has the lack of transportati on kept you from meetings, work, or from getting things needed for daily living? No Has the lack of transportati on kept you from medical appointments or from getting medications? No 09/08/2025 Social Isolation Answer Date Recorded How often do you feel lonely or isolated from th ose around you? Never 09/08/2025 Food Risk Answer Date Recorded Within the past 12 months we worried whether our food would run out before we got money to buy more. Never true 09/08/2025 Within the past 12 months th e food we bought just didn't last and we didn't have money to get more. Never true 09/08/2025 Dependent Care Answer Date Recorded Do you need help finding or paying for care for your loved ones. For example, child nutrition director or elderly care for an older adult? No 09/08/2025 Education Answer Date Recorded Do you think completing more education or training, like finishing a GED, going to college, or learning a trade, would be helpful for you? No 09/08/2025 Employment and Income Answer Date Recor ded During the last four weeks, have you been actively looking for work? No 09/08/2025 Living Situation Answer Date Recorded What is your living situation? Unrecognized valu e 09/08/2025 Interpersonal Safety Answer Date Record ed Physical [...] Sign Reading Time Taken Comments Blood Pressure 106/67 10/05/2025 3:04 PM EST Pulse 66 10/05/2025 3:04 PM EST Temperature 35.8 C (96.4 F) 10/05/2025 3:04 PM EST Respiratory Rate 16 09/08/2025 8:52 AM EST Oxygen Saturation 97% 09/08/2025 8:52 AM EST Inhaled Oxygen Concentration - - Weight 69.9 kg (154 lb) 10/05/2025 3:04 PM EST Height 149.9 cm (4' 11 ) 10/05/2025 3:04 PM EST Body Mass Index 31.1 10/05/2025 3:04 PM EST Plan of Treatment Health Maintenance Due Date Last Done Comments Drug Screen 1995 Non-Opioid Controlled Substance Agreement 1995 Hepatitis B Vaccines (1 of 3 - 19+ 3-dose series) 2014 Pneumococcal Vaccine: Pediatrics (0 to 5 Years) and At-Risk Patients (6 to 49 Years) (1 of 2 - PCV) 2014 HPV Vaccines (1 - 3-dose SCD M series) 2022 Influenza Vaccine (#1) 2026 Postp oned from 06/20/2025 (Patient Refused) Social Influencers of Health Screening 09/08/2026 09/08/2025 Cholesterol Screening (Lipid Panel) 08/01/2028 08/01/2023 Cervical Cancer Screening: HPV 03/22/2030 03/22/2025, 08/12/2022 DTaP,Tdap,and Td Vaccines (2 - Td or Tdap) 08/02/2031 08/02/2021 RSV Immunization Adult Patients (1 - 1-dose 75+ series) 2070 HIV Screening Completed 08/05/2022 Hepatitis C Screening Completed 08/05/2022 Depression Screening Completed 09/08/2025, 01/13/2024 COVID-19 Vaccine Discontinued HIB Vaccines Aged Out No longer eligi [...] Left sided abdominal pain Fatty liver Hepatomegaly HPV WITH REFLEX GENOTYPE Routine 03/22/2025 10:51 AM EDT Screening for cervical cancer DEPRESSION SCREENING Routine 01/13/2024 LIPID PANEL Routine [...] Signed Date: 08/24/2025 12:21 ET Workstation ID: [id number] Transcribed By: Self Edit Transcribed Date: 08/24/2025 12:19 ET Narrative 08/24/2025 12:21 PM EST EXAMINATION: ABDOMEN CLINICAL INFORMATION: Abdomen pain. Bloating. Constipation COMPARISON: Manager Of Revenue radiograph from 04/04/25 TECHNIQUE: Frontal view of [...] CLINICAL INFORMATION: Abdomen pain. Bloating. Constipation COMPARISON: Manager Of Revenue radiograph from 04/04/25 TECHNIQUE: Frontal view of [...] Signed Date: 08/24/2025 12:21 ET Workstation ID: [id number] Transcribed By: Self Edit Transcribed Date: 08/24/2025 12:19 ET Velma AGUILERA IMG XR PROCEDURES Final Resul t * HPV with reflex genotype (03/22/2025 10:51 AM EDT) [facility] HPV Negative Negative LAB MICROBIOLOGY METHOD 03/23/2025 2:07 PM EDT [facility] Brushing/Spatula Cervix uteri structure / Unknown 03/22/2025 10:51 AM EDT 03/23/2025 6:[address] [facility] Vinita Kenyon MD LAB MOLECULAR DIAGNOSTICS O RDERABLES Final Result [facility] [address] [place] [address], * Depression Screening (01/13/2024) [facility] Depression Screening abstracted [facility] Provider HEALTH MAINTENANCE Final Result * (ABNORMAL) Lipid panel (08/01/2023) [facility] LDL/HDL Ratio 4 0 - 4 Triglycerides 120 0 - 150 mg/dL Cholesterol 188 0 - 200 mg/dL HDL 50 >=40 mg/dL LDL Cholesterol 114(A) 0 - 100 mg/dL Blood Venous blood specimen / Unknown Historical Provider LAB BLOOD ORDERABLES Cierra l Result * HIV Screening (08/05/2022) [facility] HIV Screening abstracted Historical Provider HEALTH MAINTENANCE Final Result * Hepatitis C Screening (08/05/2022) [facility] Hepatitis C Screening abstracted Historical Provider HEALTH MAINTENANCE Final Result from Last 3 Months or Most Recently Relevant to Health Maintenance Insurance [facility] Advance Directives * Full Code - [...] currently active code status orders. Care Teams Roto Gravure Press Operator Relationship Specialty Start Date End Date Huseyin Cherry PA [address] [place] [address] PCP - General Internal Medicine 09/10/24
--- OUTSIDE RECORDS SUMMARY | 2025-10-17 23:24 | XMS_ITS | Encounter Summary ---
Author Organization [facility] Address [address] [place] [address] Care Team Providers Care Chief Psychology Name Role Phone Huseyin Cherry Primary Care Provider [phone] Reason for Visit * Reason Onset Date Comments Back Pain 10/17/2025 Encounter Details Date Type Department Care Team ([facility] st Contact Info) Description 10/17/2025 Telephone Adult Medicine [address] [id number] Huseyin Cherry PA [address] [place] [phone] Social History Tobacco Use Types Packs/Day Years [...] for your loved ones. For example, children's service supervisor or elderly care for an older adult? [...] as of this encounter Progress Notes * Tiffanie Trevino RN - 10/17/2025 2:13 PM EST Spoke with the pt No known injury, no slip trip, twist or fall, Started Friday and left work. Took Sat and Sun off to rest. She is back to work today and pain is really bad again. States it is 10/10 pain Radiating into the right leg No loss of control of bladder or bowels Advised with 10/10 pain she does need to go to the ER for eval. To call after for follow up appt * Faye Keagan - 10/17/2025 12:55 PM EST Patient call requires triage: Symptoms patient is presenting: c/o lower right side back pain that radiates down her right leg How long has patient had these symptoms?: 4 days For ALL patients calling to schedule any appointment (routine, sick visit, follow up, consult, etc.) in the outpatient setting please ask the following questions: Do you have fever of higher than 101, sore throat with difficulty swallowing or severe shortness ofbreath? no If YES to any of these above symptoms, send a message to triage and do not book. Red dot. If no, an audio or video visit should be booked. Have you had close contact with someone with Coronavirus in the last 14 days? no Have you traveled abroad? no Have you traveled recently to another state outside of [place], [place], [place], [place], [place], [place], [place]? no o If yes, did you quarantine for 14 days or have a negative covid test? no If yes to any of the above, patient is not to be scheduled in office until after 14 day quarantine or negative covid test. If pain or injury related was it due to an accident at work or from a motor vehicle accident? If yes, date of accident/Injury: No If yes, gather 3rd green party insurance information Third Democrat Information: not applicable PCP: WILLY Bains Payor: [facility] / Plan: [facility] / Product Type: *No Product type* / documented in this encounter Plan of Treatment Not on file documented as of this encounter Visit Diagnoses Not on filedocumented in this encounter Additional Health Concerns Assessment Noted Time PHQ-9 Depression Total Score: 0 09/08/20 25 8:52 AM EST documented as of this encounter Care Teams Chief Psychology Relationship Specialty Start Date End Date Huseyin Cherry PA [address] [place] [address] PCP - General Internal Medicine 09/10/24 documented as of this encounter
[2025-10-17] MEDS: Sucralfate Oral Suspension 1 GM/10 ML ORAL.SUSP PO (23:46)
[2025-10-17 23:58] LABS: Appearance Urine Cloudy; Glucose Urine UA Negative (Negative); PH 7.5 (5.0-9.0); Specific Gravity - Urine 1.025 (1.005-1.025); UMIC TRIGGER UACC YES; UPreg QC Valid YES
[2025-10-18] LABS: UACC Culture Trigger YES
--- NOTE | 2025-10-18 00:45 | ED.GENADULT ---
HPI - General Adult General Chief complaint: Back Pain/Injury Stated complaint: right side lower back pain Time Seen by Provider: 10/17/25 23:02 Source: patient Limitations: no limitations History of Present Illness ED Provider: Kaela Cooley PA-C HPI narrative: 30-year-old female with a history of obesity, chronic back pain, PCOS, anxiety and depression, who presents with right lower back pain x3 days. Patient states she performs a great deal of physical activity including heavy lifting at work. She developed right lower back pain with radiation into the right lower extremity after working. Associated paresthesia at times. Denies weakness of lower extremity, urinary retention or bowel incontinence. Patient states she is concerned she might have a urinary tract infection, she feels fullness over the bladder. Denies back pain, flank pain, nausea vomiting or fever. No dysuria or obvious hematuria. Related Data Home Medications ?Medication ?Instructions ?Recorded ?Confirmed albuterol sulfate 90 mcg/actuation 2 puff inhalation Q6H PRN 02/25/25 09/02/25 aerosol inhaler Shortness Of Breath Or Wheezing Previous Rx's ?Medication ?Instructions ?Recorded pantoprazole 40 mg tablet,delayed 40 mg PO DAILY #90 tabs 07/06/25 release ciprofloxacin 0.3 %-dexamethasone 4 drp otic (ears) BID #7.5 mL 07/18/25 0.1 % ear drops,suspension methocarbamol 750 mg tablet 1,500 mg (2 x 750 mg) PO Q8H PRN 10/18/25 pain, severe #30 tabs prednisone 20 mg tablet 40 mg (2 x 20 mg) PO DAILY #8 tabs 10/18/25 sucralfate 1 gram tablet (Carafate) 1 g PO .qd #10 tabs 10/18/25 Allergies Allergy/AdvReac Type Severity Reaction Status Date / Time No Known Allergies Allergy Verified 10/17/25 21:42 Review of Systems Review of Systems: Yes all other systems are reviewed and are negative Constitutional: Constitutional: Denies fatigue and Denies fever(s) Cardiovascular: Cardiovascular: Denies chest pain and Denies dyspnea Respiratory: Respiratory: Denies cough and Denies dyspnea Gastrointestinal: Gastrointestinal: Denies abdominal pain, Denies nausea and Denies vomiting Genitourinary: Genitourinary: Denies hematuria, Denies dysuria and Denies flank pain Musculoskeletal: Musculoskeletal: Reports back pain Endocrine: Endocrine: Denies fatigue [facility] Past Medical History Attestation statement: The following information was validated with the patient. Medical History (Updated 10/19/25 @ 00:01 by Background Dachacho) Morbid obesity Back pain Sciatica PCOS (polycystic ovarian syndrome) Obesity Fatty liver Asthma Depression GERD (gastroesophageal reflux disease) Anxiety Surgical History (Updated 07/23/25 @ 00:02 by Background Dachacho) S/P laparoscopic sleeve gastrectomy H/O vaginal surgery H/O endoscopy Family History Family History Mother No problems noted. Father No problems noted. Social History Social History Household Members: Family Housing: House Are you a primary career development coordinator/teacher to a significant other at home: No Do you presently have visiting nurse or other home services: No Alcohol intake: never Patient Tobacco Use Status: Never used Tobacco Substance Use Type: Marijuana Advance Directives: No Advance Directives Information Provided: Yes Physical Exam ED Vital Signs: Vital Signs - 24 hr 10/17/25 21:40 Temperature 97.5 F Pulse Rate 84 Respiratory Rate 20 Blood Pressure 144/74 H Pulse Oximetry 99 Oxygen Delivery Method Room Air BMI result Body Mass Index 30.1 Const Other: Alert Orientation/consciousness: patient oriented x3 Resp Effort & Inspection: normal respiratory effort Cardio Other: Normal peripheral perfusion GI Other: Abdomen is soft, nondistended nontender General: Yes no CVA tenderness Back/Spine/Pelvis Back: no CVA tenderness Skin Other: Warm dry no rash Neuro General: patient oriented x3, gait normal, no focal motor deficits and CN's II-XI intact bilaterally Extrem Other: Strength 5/5 bilateral lower extremity Psych Other: Cooperative Medications Administered Discontinued Medications Generic Name Dose Route Start Last Admin Trade Name Freq PRN Reason Stop Dose Admin Methocarbamol 1,500 mg 10/17/25 23:38 10/17/25 23:47 Methocarbamol 750 Mg Tablet PO 10/17/25 23:39 1,500 mg ONCE ONE Administration Prednisone 40 mg 10/17/25 23:38 10/17/25 23:47 Prednisone 20 Mg Tablet PO 10/17/25 23:39 40 mg ONCE ONE Administration Sucralfate 1 gm 10/17/25 23:39 10/17/25 23:46 Sucralfate Oral Suspension 1 Gm/10 Ml Oral.Susp PO 10/17/25 23:40 1 gm ONCE ONE Administration Medical Decision Making Medical Decision Making [facility] Narrative: 30-year-old female with a history of obesity, chronic back pain, PCOS, anxiety and depression, who presents with right lower back pain x3 days. Patient states she performs a great deal of physical activity including heavy lifting at work. She developed right lower back pain with radiation into the right lower extremity after working. Associated paresthesia at times. Denies weakness of lower extremity, urinary retention or bowel incontinence. Patient states she is concerned she might have a urinary tract infection, she feels fullness over the bladder. Denies back pain, flank pain, nausea vomiting or fever. No dysuria or obvious hematuria. Problem: Chronic back pain, obesity History: Per patient I have considered the following differential diagnoses: Lumbar strain, cauda equina, radiculopathy, renal colic, UTI , pyelonephritis Plan: Patient is having radicular symptoms without evidence of cord compression, she does have a mechanism to support the injury, we will treat accordingly. She is having vague urinary symptoms, considering UTI versus renal colic, she has no fever or nausea vomiting to suggest pyelonephritis, collecting a urine sample, I do not think she requires imaging at this time. I have independently reviewed the following tests: Labs: Urine not infected not Differential Diagnosis Differential Diagnoses: The differential diagnosis associated with the presentation includes See [facility] Admission/Observation Consideration of admission/observation: Escalation of care including admission/observation considered Not applicable Lab Data [facility] Lab Attestation statement: I reviewed the patient's lab results. Labs: Lab Results 10/17/25 Range/Units 23:50 Urine Color Yellow Urine Appearance Cloudy Urine pH 7.5 (5.0-9.0) Ur Specific [place] 1.025 (1.005-1.025) Urine Protein Negative (Neg-Trace) mg/dL Urine Glucose (UA) Negative (Negative) mg/dL Urine Ketones Negative (Negative) mg/dL Urine Blood Negative (Negative) Urine Nitrite Negative (Negative) Ur Leukocyte Esterase Trace H (Negative) Urine RBC 0-2 (0-2) /HPF Urine WBC 6-10 H (0-5) /HPF Ur Squamous Epith Cells 6-10 (0-2) /HPF Urine Bacteria 1+ (None Seen) Hyaline Casts 0-2 (0-2) /LPF Urine Test NEGATIVE (NEGATIVE) Discharge Plan Discharge Clinical Impression: Acute right lumbar radiculopathy Patient Disposition: Home, Self-Care Instructions: Lumbar Radiculopathy (ED) Additional Instructions: You are being treated for lumbar radiculopathy, or sciatica. See home care instructions. Take the Carafate when you take the prednisone as directed, take it with food. Take the methocarbamol as needed this is a muscle relaxant. This medication will cause drowsiness, do not drive or operate machinery while taking the medication. Follow up with your primary care provider as needed. Prescriptions: New methocarbamol 750 mg tablet 1,500 mg PO Q8H PRN (Reason: pain, severe) Qty: 30 0RF prednisone 20 mg tablet 40 mg PO DAILY Qty: 8 0RF sucralfate [Carafate] 1 gram tablet 1 g PO .qd Qty: 10 0RF Rx Instructions: take this medication when you take the prednisone No Action ciprofloxacin-dexamethasone 0.3-0.1 % drops,suspension 4 drp otic (ears) BID Qty: 7.5 0RF pantoprazole 40 mg tablet,delayed release (DR/EC) 40 mg PO DAILY Qty: 90 0RF albuterol sulfate 90 mcg/actuation HFA aerosol inhaler 2 puff inhalation Q6H PRN (Reason: Shortness Of Breath Or Wheezing) Stand Alone Forms: Work/School Release Interventions: ED Discharge Assessment Last Done: 10/18/25 00:58 Discharge Date/Time: 10/18/25 00:58 Print Language: Bengali
[2025-10-18 00:58] VITALS: BP 144/74; PULSE 84; RESP 20; TEMP 36.4; O2SAT 99
== END 2025-10-18 00:58 | disposition home or self-care (01) ==
PROVIDERS: Physician Assistant Medical; Emergency Provider Emergency Medicine
DX: M54.16 Radiculopathy, lumbar region (principal); M54.50 Low back pain, unspecified; R20.2 Paresthesia of skin; Z79.899 Other long term (current) drug therapy
CPT/HCPCS: 81001; 81025; 87086; 99282